=== PATIENT | male | born 1935 | race Caucasian/White ===

== ENCOUNTER 2019-11-30 11:25 | Outpatient (REF) | payer MEDICARE, SELFPAY ==
--- NOTE | 2019-12-02 | PFT_ITS ---
INDICATIONS: Asthma. SPIROMETRY: The FEV1 to FVC 45% with an FEV1 of 1.44 L, which is 56% predicted and an FVC of 3.22 L, which is 88% predicted. No significant response to bronchodilators noted. No significant evidence of small airways disease and a maximum voluntary ventilation of 82% predicted. LUNG VOLUMES: Total lung capacity 127% predicted with residual volume of 192%predicted. DIFFUSION CAPACITY: DLCO 56% predicted. COMPARISONS: None. INTERPRETATION: There is an obstructive ventilatory defect consistent with moderate COPD. No significant response to bronchodilators noted. Significant small airway disease, which could be secondary to asthma-COPD overlap syndrome. Normal maximum voluntary ventilation. Lung volumes demonstrating significant air trapping/hyperinflation due to the COPD and there is also moderate diffusion impairment, need to consider underlying emphysema and/or the parenchymal lung conditions. Clinical correlation warranted. Javy Lazo MD MR/MODL / [id number]
== END 2019-11-30 11:26 | disposition home or self-care (01) ==
LOC: HO.RESP 11:25
PROVIDERS: Visit Provider Surgery
DX: D04.9 Carcinoma in situ of skin, unspecified (principal); R91.1 Solitary pulmonary nodule; J45.909 Unspecified asthma, uncomplicated
CPT/HCPCS: 94060; 94727; 94729; 99211

== ENCOUNTER → 2019-12-06 08:10 | Outpatient (REF) | payer MEDICARE, SELFPAY ==
--- NOTE | 2019-12-06 | NM_ITS ---
EXAMINATION: BILIARY TRACT IMAGING STUDY WITH CCK CLINICAL INFORMATION: Right upper quadrant abdominal pain.. COMPARISON: No previous biliary scan is available for comparison. PET CT scan dated 11/27/2019 and abdominal ultrasound dated 11/07/2019 are available for comparison.. TECHNIQUE: Serial gamma scintillation camera images were obtained over the abdomen for a total observation period of 91 minutes following the intravenous administration of 5.0 mCi Tc-99m Mebrofenin. FINDINGS: There is good concentration of activity in the liver by 5 minutes post injection. Biliary activity is visualized by 22 minutes. The gallbladder is well visualized by 40 minutes. Small bowel is well visualized by 1 a 5 minutes. At 60 minutes post radiopharmaceutical injection, a 30-minute infusion of 1.3 micrograms Sincalide was then begun and an additional 30 minutes of images were obtained. There is prompt and complete gallbladder emptying during the sincalide infusion. At the end of the study there is no significant activity retained in the gallbladder and is also almost complete clearance of activity from the liver. Diffuse small bowel activity is also visualized at the end of the study. The calculated gallbladder ejection fraction is 100% (normal gallbladder ejection fraction is greater than 35%). IMPRESSION: Visualization of the gallbladder is evidence of a patent cystic duct and strong evidence against the diagnosis of acute cholecystitis. The common bile duct is patent. Gallbladder emptying and ejection fraction are normal. Liver function appears normal.
== END ==
LOC: HO.NUCMED 08:10
PROVIDERS: PCP Internal Medicine; Visit Provider Internal Medicine
DX: R10.11 Right upper quadrant pain (principal)
CPT/HCPCS: 78227; A9537; J2805

== ENCOUNTER 2019-12-07 16:57 | Inpatient (IN) | payer MEDICARE, SELFPAY ==
--- NOTE | 2019-12-07 | ECG_ITS ---
Test Reason : WEAKNEESS Blood Pressure : / mmHG Vent. Rate : 099 BPM Atrial Rate : 099 BPM P-R Int : 186 ms QRS Dur : 090 ms QT Int : 330 ms P-R-T Axes : 079 075 063 degrees QTc Int : 423 ms Normal sinus rhythm Nonspecific ST abnormality Inferior leads Borderline criteria for When compared with ECG of 26-JUN-2015 13:20, No significant change was found Referred By: Fernanda Carolina Electronically Signed By:PABLO SHEARER MD
--- NOTE | 2019-12-07 | XR_ITS ---
EXAMINATION: XR CHEST CLINICAL INFORMATION: Cough. Known right lower lobe lung nodule. COMPARISON: PET/CT study 11/27/2019. CT chest 11/09/2019. Chest x-ray 11/08/2019 TECHNIQUE: Frontal portable view of the chest was obtained. 5:44 PM FINDINGS: Irregular density the right lung base measuring about 2 cm remains unchanged since prior study of 11/08/2019 of known lung mass. There is no acute infiltrate. No pulmonary vascular congestion or pleural effusion. Heart size is normal. The cardiac and mediastinal contours are normal. There are calcifications of aorta. Status post reverse left shoulder replacement. IMPRESSION: 1. Known right lung mass right lung base unchanged. 2. No acute abnormality.
[2019-12-07 17:03] VITALS: BP 134/69; PULSE 108; RESP 18; TEMP 37.1; O2SAT 97; BMI 21.8
--- NOTE | 2019-12-07 17:39 | ED.WEAKNESS ---
HPI - Weakness General Chief complaint: Weakness Stated complaint: general weakness, fever Time Seen by Provider: 12/07/19 17:20 Source: patient Mode of arrival: EMS Limitations: no limitations History of Present Illness HPI Narrative: patient comes to emergency room complaining of weakness for several days. Patient states he has had intermittent neck pain, worse with flexion and extension, and also bilateral finger numbness intermittent, none at the moment. Patient denies headache. Patient states he has noticed that his gait is a bit more unsteady than usual, patient reports no falls, no blood thinners. Patient states he came because his made him come. Patient also mentioned that he is waiting to get a lung biopsy on December 18, patient has a known right lower lobe nodule. At this moment, patient denies any neurological symptoms, states he feels weak. Patient denies urinary symptoms. Patient states last night he had subjective fever, took Tylenol and then symptoms resolved. MD Complaint: generalized weakness Onset (ago): day(s) Duration: constant Location: generalized Migration: none Severity: moderate Quality: numbness ( Intermittent, fingertips bilaterally) Relieving factors: none Exacerbating factors: none Related Data Allergies Allergy/AdvReac Type Severity Reaction Status Date / Time No Known Allergies Allergy Verified 12/07/19 17:08 oxycodone AdvReac Unknown vomiting Verified 12/07/19 17:08 Review of Systems Review of Systems: Constitutional: No Weight loss, subjective Fever, No Chills, No Night Sweats, 3 days of Fatigue, No Malaise ENT/Mouth: No Hearing loss, No Ear Pain, No Nasal Congestion, No Sinus Pain, No Hoarseness, No sore throat, No Rhinorrhea, No Swallowing Difficulty Eyes: No Eye Pain, No Swelling, No Redness, No Foreign Body, No Discharge, No Vision Changes Cardiovascular: No Chest Pain, No SOB, No Dyspnea on Exertion, No Orthopnea, No Edema, No Palpitations Respiratory: No Cough, No Sputum, No Wheezing, No Smoke Exposure, No Dyspnea Gastrointestinal: No Nausea, No Vomiting, No Diarrhea, No Constipation, No abdominal Pain, No Hematochezia, No Melena Genitourinary: no irregular bleeding, No Dysuria, No Urinary Frequency, No Hematuria, No Urinary Incontinence, No Urgency, No Flank Pain, No Urinary Flow Changes, No Hesitancy Musculoskeletal: No joint pain, No Myalgias, No Joint Swelling Skin: No Skin Lesions, No rash Neuro: No Weakness, No Numbness, No Paresthesias, No Loss of Consciousness, No Dizziness, No Headache Psych: No Anxiety/Panic, No Depression, No SI/HI/AH/VH, No Social Issues, Heme/Lymph: No Bruising, No Bleeding,No Lymphadenopathy Endocrine: No Polyuria, No Polydipsia, No Temperature Intolerance [facility] Past Medical History Medical History (Updated 12/07/19 @ 20:30 by Fernanda Carolina MD) Asthma GERD (gastroesophageal reflux disease) Hammer toe of left foot HTN (hypertension) Skin cancer Spinal stenosis Surgical History (Updated 12/07/19 @ 17:06 by Griselda Larson) 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 Known right lung mass right lung base unchanged. 2. No acute abnormality. yesterday, patient had an ultrasound done by his primary care physician. Shows as follows: Visualization of the gallbladder is evidence of a patent cystic duct and strong evidence against the diagnosis of acute cholecystitis. The common bile duct is patent. Gallbladder emptying and ejection fraction are normal. Liver function appears normal. Time: 20:25 Reevaluation #2: I discussed with the patient his labs, patient's sodium is significantly decreased, likely causing the weakness and the paresthesias. MDM - Weakness Lab Data Result diagrams: 12/07/19 18:21 12/07/19 18:21 Labs: Lab Results 12/07/19 12/07/19 12/07/19 Range/Units 17:51 18:21 18:21 WBC 13.3 H (4.8-10.8) X10*3/uL RBC 4.39 L (4.60-5.80) X10*6/uL Hgb 13.2 L (14.0-18.0) g/dl Hct 39.0 L (42-52) % MCV 88.8 (80-98) fL MCH 30.1 (27.0-33.0) pg MCHC 33.8 (31.0-36.0) g/dl RDW 12.8 (11.0-16.0) % Plt Count 238 (160-400) X10*3/uL MPV 8.6 L (9.4-12.4) fL Immature Gran % (Auto) 0.7 H (0.0-0.4) % Neut % (Auto) 85.7 H (45-73) % Lymph % (Auto) 2.0 L (20-40) % [place]ell % (Auto) 11.4 H (2-11) % Eos % (Auto) 0.0 (0-4) % Baso % (Auto) 0.2 (0-2) % Lymph # (Auto) 0.3 L (1.2-4.9) X10*3/uL [place]ell # (Auto) 1.5 H (0.1-1.2) X10*3/uL Eos # (Auto) 0.0 (0.0-0.4) X10*3/uL Baso # (Auto) 0.0 (0.0-0.2) X10*3/uL Abs Immat Gran (auto) 0.09 H (0.00-0.03) X10*3/uL Absolute Neuts (auto) 11.4 H (2.0-8.3) X10*3/uL Absolute Nucleated RBC 0.000 (0.0-0.012) X10*3/uL Nucleated RBC % (auto) 0.0 (0.0-0.2) /100WBC Smear Tech's Comments VERIFIED Sodium 124 L (135-145) mmol/L Potassium 4.4 (3.3-5.1) mmol/l Chloride 91 L (96-108) mmol/L Carbon Dioxide 24 (22-29) mmol/L Anion Gap 13 (12-20) BUN 13 (9-16) mg/dL Creatinine 0.87 (0.5-1.4) mg/dL Estim Creat Clear Calc 60.0 Estimated GFR > 60 Random Glucose 110 (60-115) mg/dL Calcium 8.6 (8.4-10.2) mg/dL Total Bilirubin 3.5 H (0.0-1.0) mg/dL Direct Bilirubin 2.6 H (0.0-0.5) mg/dL AST 247 H (5-37) U/L ALT 186 H (0-40) U/L Alkaline Phosphatase 502 H (39-117) U/L Total Protein 6.1 L (6.5-8.0) g/dL Albumin 3.8 (3.5-5.0) g/dL Urine Color YELLOW Urine Appearance CLEAR Urine pH 6.5 (5.0-8.0) Ur Specific [place] <= 1.005 (1.005-1.025) Urine Protein TRACE (NEG-TRACE) MG/DL Urine Glucose (UA) NEG (NEG) MG/DL Urine Ketones 5 (NEG) MG/DL Urine Blood 2+ H (NEG) Urine Nitrite NEG (NEG) Ur Leukocyte Esterase NEG (NEG) Urine RBC 5-9 H (0) /HPF Urine WBC 0 (0-4) /HPF Ur Squamous Epith Cells NONE /LPF Urine Bacteria 1+ /LPF ECG Data Attestation: I personally reviewed and interpreted this ECG as follows: ( normal sinus, heart rate 99, QTC 423, no STEMI) ECG interpretation date: 12/07/19 ECG interpretation time: 18:25 Discharge Plan Discharge Clinical Impression: Acute hyponatremia, Hand paresthesia, LFT elevation Patient Disposition: Admitted As Inpatient
[2019-12-07 18:04] LABS: Glucose Urine UA NEG (NEG); Leukocyte Esterase Urine NEG (NEG); Nitrite Urine NEG (NEG); PH 6.5 (5.0-8.0); Specific Gravity - Urine <= 1.005 (1.005-1.025); Urine Blood 2+ (NEG); Urine Ketones 5 MG/DL (NEG); Urine Protein TRACE MG/DL (NEG-TRACE)
[2019-12-07 18:09] LABS: Appearance Urine CLEAR; Color Urine YELLOW
[2019-12-07 18:17] LABS: Bacteria Urine 1+ /LPF; WBC Urine 0 /HPF (0-4)
[2019-12-07 18:24] VITALS: BP 140/64; PULSE 100; RESP 18; TEMP 37.2; O2SAT 96
[2019-12-07 18:33] LABS: Basophils Percent Auto 0.2 % (0-2); Hemoglobin 13.2 g/dl (14.0-18.0); Imm Gran Abs Auto 0.09 X10*3/uL (0.00-0.03); Imm Gran Pct Auto 0.7 % (0.0-0.4); Lymphocytes Absolute Auto 0.3 X10*3/uL (1.2-4.9); MANUAL DIFF FLAG SCAN; Mean Corpuscular HGB Conc 33.8 g/dl (31.0-36.0); Mean Corpuscular Hemoglobin 30.1 pg (27.0-33.0); Mean Corpuscular Volume 88.8 fL (80-98); Mean Platelet Volume 8.6 fL (9.4-12.4); Monocytes Absolute Auto 1.5 X10*3/uL (0.1-1.2); Monocytes Percent Auto 11.4 % (2-11); Neutrophils Absolute Auto 11.4 X10*3/uL (2.0-8.3); Neutrophils Percent Auto 85.7 % (45-73); Platelet Count 238 X10*3/uL (160-400); Red Blood Count 4.39 X10*6/uL (4.60-5.80); Red Cell Distribution Width 12.8 % (11.0-16.0); SCAN SMEAR FLAG 1; White Blood Count 13.3 X10*3/uL (4.8-10.8)
[2019-12-07 18:55] VITALS: BP 142/65; PULSE 100; RESP 18; TEMP 37.3; O2SAT 99
[2019-12-07 19:03] LABS: SLIDE REVIEW VERIFIED
[2019-12-07 19:29] LABS: Alanine Aminotransferase 186 U/L (0-40); Albumin Level 3.8 g/dL (3.5-5.0); Alkaline Phosphatase 502 U/L (39-117); Anion Gap 13 (12-20); Aspartate Amino Transferase 247 U/L (5-37); Bilirubin Direct 2.6 mg/dL (0.0-0.5); Bilirubin Total 3.5 mg/dL (0.0-1.0); Blood Urea Nitrogen 13 mg/dL (9-16); Calcium 8.6 mg/dL (8.4-10.2); Carbon Dioxide 24 mmol/L (22-29); Chloride 91 mmol/L (96-108); Estimated Glomerular Filt Rate > 60; Glucose Random 110 mg/dL (60-115); Potassium 4.4 mmol/l (3.3-5.1); Sodium 124 mmol/L (135-145); Total Protein 6.1 g/dL (6.5-8.0)
--- NOTE | 2019-12-07 20:10 | PC.NURSE ---
pt vitals wnl. pt in nad at this time. plan for ultrasound due to elevated ast alts. pt agreeable.
--- NOTE | 2019-12-07 20:22 | PC.NURSE ---
pt up to bathroom with 1 assist. denies dizziness.
[2019-12-07] MEDS: 0.9 % Sodium Chloride 1,000 ML 999 ML IVCONT (20:32)
--- NOTE | 2019-12-07 20:40 | PC.NURSE ---
IV ESTABLISHED FLUIDS STARTED. PT TO BE ADMITTED. AGREEABLE
--- NOTE | 2019-12-07 21:02 | PM.IMHP ---
History of Present Illness Date of Service: 12/07/19 Chief Complaint: Generalized weakness 84 y/o male with PMHX of HTN, HLP, COPD, Hernia repair and bone spur removal from shoulder, who presented from home c/o generalized weakness. Per history provided by the patient, for the past several weeks now, has been having generalized weakness which has been worsening since and now for the past 2 days has been associated with numbness of the tip of the fingers in both hands. On presentation to the ED, BP is 140/60 mmHg with HR of 100, Initial Blood work showed WBC of 13 with no evidence of any source of infection, Na of 124, elevated LFTs, direct bilirubin and alk phosp. Patient was evaluated yesterday given the findins of the liver abnormalities and had Hepatobiliary scan which was found to be negative for cholecystitis and bile duct found to be normal. Patient is known to have a lung mass in the rigth which was found one week ago and is currently being worked up. Has on schedule a lung biopsy on 02/16. One liter of NS was ordered per ED and decision for admission given. Patient seen and examined at the bedside, laying down in bed in no acute distress. ROS as above otherwise negative. Physical exam shows preserved strenght in UE and LE. Sensation preserved. PMHX: HTN, HLP, COPD, right lung mass, elevated liver enzymes PSx: Hernia repair, Bone spur removal Toxic habits: No hx of alcohol abuse, smoking or IVDA Review of Systems Constitutional: Constitutional: Reports other Comments: generalized weakness Neurologic: Reports other Comments: numbness in tip finger of both hands PMFSH Medical History (Updated 12/07/19 @ 21:25 by Berna Yang MD) Asthma GERD (gastroesophageal reflux disease) Hammer toe of left foot HTN (hypertension) Skin cancer Spinal stenosis Functional capacity: independent ambulation Family History Father CVD (cardiovascular disease) Mother Lung cancer Brother Bone cancer Surgical History (Updated 12/07/19 @ 17:06 by Griselda Larson) 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 Social History Advance Directives: Yes Advance Directives on File: Yes Advance Directives Date on File: 12/06/19 Meds Allergies Allergy/AdvReac Type Severity Reaction Status Date / Time No Known Allergies Allergy Verified 12/07/19 17:08 oxycodone AdvReac Unknown vomiting Verified 12/07/19 17:08 Home Medications Medication Instructions Recorded Confirmed Type amlodipine [Norvasc] 5 mg PO DAILY 12/07/19 12/07/19 History aspirin 81 mg PO DAILY 12/07/19 12/07/19 History losartan 100 mg PO DAILY 12/07/19 12/07/19 History mometasone 2 inh INHALATION BEDTIME 12/07/19 12/07/19 History olodaterol 2 inh INHALATION DAILY 12/07/19 12/07/19 History omeprazole [Prilosec] 40 mg PO DAILY 12/07/19 12/07/19 History tiotropium bromide [Spiriva with 1 cap INHALATION DAILY 12/07/19 12/07/19 History HandiHaler] Physical Exam Vital Signs and Narrative: Vital Signs: Last Vital Signs Temp 99.1 F 12/07/19 18:55 Pulse 100 12/07/19 18:55 Resp 18 12/07/19 18:55 BP 142/65 H 12/07/19 18:55 Pulse Ox 99 12/07/19 18:55 Body Mass Index 21.8 Const: General: cooperative, healthy appearing and comfortable Orientation/consciousness: patient oriented x3 HENMT: Head: Yes normal to inspection Eyes: General: appearance normal, both eyes and all related structures Neck: Yes normal visual inspection Chest: Chest palpation & inspection: normal inspection of the chest Resp: Effort & Inspection: normal respiratory effort Cardio: Jugular venous distension: no JVD Rhythm: regular rhythm Heart sounds: S1 normal heart sound present and S2 normal heart sound present GI: Inspection: Yes normal to inspection Skin: General skin exam: no rashes or lesions noted Neuro: General: patient oriented x3 Cognition (Neuro): normal cognition Motor exam (neuro): 5/5 motor strength present throughout Sensory Exam: other (no evidence of sensory deficit ) Extrem: Left upper extremity: normal to inspection Psych: Appearance: grossly normal Results Labs Labs: Laboratory Tests 12/07/19 12/07/19 12/07/19 17:51 18:21 18:21 WBC 13.3 H RBC 4.39 L Hgb 13.2 L Hct 39.0 L MCV 88.8 MCH 30.1 MCHC 33.8 RDW 12.8 Plt Count 238 MPV 8.6 L Immature Gran % (Auto) 0.7 H Neut % (Auto) 85.7 H Lymph % (Auto) 2.0 L [place] % (Auto) 11.4 H Eos % (Auto) 0.0 Baso % (Auto) 0.2 Lymph # (Auto) 0.3 L [place] # (Auto) 1.5 H Eos # (Auto) 0.0 Baso # (Auto) 0.0 Abs Immat Gran (auto) 0.09 H Absolute Neuts (auto) 11.4 H Absolute Nucleated RBC 0.000 Nucleated RBC % (auto) 0.0 Smear Tech's Comments VERIFIED Sodium 124 L Potassium 4.4 Chloride 91 L Carbon Dioxide 24 Anion Gap 13 BUN 13 Creatinine 0.87 Estim Creat Clear Calc 60.0 Estimated GFR > 60 Random Glucose 110 Calcium 8.6 Total Bilirubin 3.5 H Direct Bilirubin 2.6 H AST 247 H ALT 186 H Alkaline Phosphatase 502 H Total Protein 6.1 L Albumin 3.8 Urine Color YELLOW Urine Appearance CLEAR Urine pH 6.5 Ur Specific [place] <= 1.005 Urine Protein TRACE Urine Glucose (UA) NEG Urine Ketones 5 Urine Blood 2+ H Urine Nitrite NEG Ur Leukocyte Esterase NEG Urine RBC 5-9 H Urine WBC 0 Ur Squamous Epith Cells NONE Urine Bacteria 1+ Assessment and Plan (1) Acute hyponatremia: Status: Acute (2) Pulmonary nodule: Status: Acute (3) Hand paresthesia: Qualifiers: Laterality: bilateral Qualified Code(s): R20.2 - Paresthesia of skin Status: Acute (4) LFT elevation: Status: Acute Hyponatremia likely due to SIADH Hemodynamically stable at present. No evidence of any motor or sensory deficit on exam Na of 124 s/p one liter of NS per ED Fluid restriction as of now as hyponatremia likely secondary to SIADH given hx of right lung mass concerning for malignancy Follow up repeat BMP at 12 am [facility] / personnel monitor Follow up Urine and serum lytes Biopsy scheduled as outpatient with private warehouse and receiving supervisor of the right sided lung mass Nephrology consult in the am Elevated LFT's of unknown etiology HIDA scan negative for any CBD dilation or cholecystitis GI consult for follow up in the am Hx of HTN continue with losartan home dose continue with amlodipine home dose continue with aspirin home dose HX of GERD continue with PPI home dose
--- NOTE | 2019-12-07 22:13 | PC.NURSE ---
spoke with bed management. bed will be [id number]
[2019-12-07 22:26] VITALS: BP 138/65; PULSE 97; RESP 18; TEMP 37.3; O2SAT 98
--- NOTE | 2019-12-07 22:26 | PC.NURSE ---
pending report to floor.
--- NOTE | 2019-12-07 22:38 | PC.NURSE ---
nurse to nurse report deja gardner for 484.
--- NOTE | 2019-12-07 23:22 | PC.NURSE ---
hospitalist aware of patients hr going from 99 to 121 post ambulation. stat order for ns at this time. pending transport for floor
[2019-12-07 23:23] VITALS: PULSE 121
[2019-12-08] VITALS (12 sets, daily range): BP systolic 114–159; BP diastolic 61–71; PULSE 67–120; RESP 18–20; TEMP 36.1–37.3; O2SAT 92–98
[2019-12-08] MEDS: 0.9 % Sodium Chloride 1,000 ML 999 ML IVCONT (00:09)
[2019-12-08] MEDS: Heparin Sodium,Porcine 5,000 UNIT/ML VIAL 5000 UNIT SUBCUT ×3 (00:40→17:11)
[2019-12-08] MEDS: 0.9 % Sodium Chloride Flush 3 ML SYRINGE IVFLUSH ×3 (00:41→17:11)
[2019-12-08 01:51] LABS: Anion Gap 13 (12-20); Blood Urea Nitrogen 11 mg/dL (9-16); Calcium 7.9 mg/dL (8.4-10.2); Carbon Dioxide 21 mmol/L (22-29); Chloride 98 mmol/L (96-108); Creatinine Clr Calc Pharmacy 69.6; Estimated Glomerular Filt Rate > 60; Glucose Random 119 mg/dL (60-115); Potassium 3.8 mmol/l (3.3-5.1); Sodium 128 mmol/L (135-145)
--- NOTE | 2019-12-08 03:03 | PM.EVENT ---
Event Note Event Note: Given that Na came up from 124 to 128 after IV hydration in the ED likely etiology of hyponatremia has a mixed component of dehydration. Will hold further IV fluids and repeat BMP at 6 am to avoid overcorrection.
[2019-12-08] MEDS: Omeprazole 40 MG CAPSULE.DR PO (05:42)
[2019-12-08 07:26] LABS: Basophils Percent Auto 0.3 % (0-2); Eosinophils Percent Auto 0.1 % (0-4); Hematocrit 40.9 % (42-52); Hemoglobin 13.4 g/dl (14.0-18.0); Imm Gran Pct Auto 0.7 % (0.0-0.4); Lymphocytes Absolute Auto 0.9 X10*3/uL (1.2-4.9); Lymphocytes Percent Auto 6.5 % (20-40); MANUAL DIFF FLAG SCAN; Mean Corpuscular HGB Conc 32.8 g/dl (31.0-36.0); Mean Corpuscular Hemoglobin 29.8 pg (27.0-33.0); Mean Corpuscular Volume 90.9 fL (80-98); Mean Platelet Volume 9.1 fL (9.4-12.4); Monocytes Absolute Auto 1.7 X10*3/uL (0.1-1.2); Monocytes Percent Auto 12.2 % (2-11); Neutrophils Absolute Auto 11.2 X10*3/uL (2.0-8.3); Neutrophils Percent Auto 80.2 % (45-73); Platelet Count 266 X10*3/uL (160-400); Red Cell Distribution Width 13.1 % (11.0-16.0); SCAN SMEAR FLAG 1
[2019-12-08 07:58] LABS: SLIDE REVIEW VERIFIED
[2019-12-08 08:04] LABS: Anion Gap 15 (12-20); Blood Urea Nitrogen 10 mg/dL (9-16); Carbon Dioxide 22 mmol/L (22-29); Chloride 97 mmol/L (96-108); Creatinine Clr Calc Pharmacy 62.9; Estimated Glomerular Filt Rate > 60; Glucose Random 93 mg/dL (60-115); Potassium 3.8 mmol/l (3.3-5.1); Sodium 130 mmol/L (135-145)
[2019-12-08 08:17] LABS: Calcium 8.5 mg/dL (8.4-10.2)
[2019-12-08] MEDS: amLODIPine Besylate 5 MG TABLET PO (08:44)
[2019-12-08] MEDS: Aspirin Enteric Coated 81 MG TABLET.DR PO (08:44)
[2019-12-08] MEDS: Losartan Potassium 50 MG TABLET 100 MG PO (08:45)
--- NOTE | 2019-12-08 09:19 | P.CNGI_ITS ---
History of Present Illness Data of Consult Service Date: 12/08/19 Requesting physician: Victorino Velasquez Primary Care Provider: Kevin Ochoa MD HPI Reason for consult: Abnormal Liver profile 84 yo male who was brought to the ER due to episode of recurrent subxiphoid pain. He has had at least 6 separate attacks. He has altered his diet removing fatty food sources. He has lost @ least 10 pounds. He has been evaluated by Dr. Isabel for RLL lung mass. PET [place] [facility] [place] Daughter is with the patient. She says there is no formal Oncology note due to no tissue Dx til bx to be done on the 21rst. Review of Systems Review of Systems: General ROS is otherwise negative Constitutional: Constitutional: Reports anorexia, Reports difficulty sleeping, Reports fatigue, Reports malaise, Reports poor appetite and Reports weight loss Cardiovascular: Cardiovascular: Denies chest pain, Denies irregular heart rhythm and Denies dyspnea Respiratory: Respiratory: Reports as per HPI (Being evaluated for Lung mass--RLL), Denies chest congestion and Denies dyspnea Comments: Patient tells me that he has inhalers that he uses daily. Former smoker> [address] did show Emphysema with biapical scarring. Gastrointestinal: Gastrointestinal: Reports abdominal pain (describes sub xiphoid--pain not burning), Denies change in bowel habits and Denies early satiety Musculoskeletal: Musculoskeletal: Reports numbness (tips of fingers which has cleared) Neurologic: Reports numbness (tips of fingers which has cleared) and Reports other Endocrine: Endocrine: Reports fatigue PMFSH Past Medical History Medical History Asthma GERD (gastroesophageal reflux disease) Hammer toe of left foot HTN (hypertension) Skin cancer Spinal stenosis Functional capacity: independent ambulation Family History Family History Father CVD (cardiovascular disease) Mother Lung cancer Brother Bone cancer Surgical History Surgical History 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 If so, by whom?: No Do you feel safe in your current relationship?: No Is there a partner from a previous relationship who is making you feel unsafe now?: No Are you made to feel afraid or neglected: No Advance Directives: Yes Advance Directives on File: Yes Advance Directives Date on File: 12/06/19 Do you have thoughts of harming others: None Recently lost weight without trying: No service: Yes Current occupational status: retired Meds Allergies Allergy/AdvReac Type Severity Reaction Status Date / Time oxycodone AdvReac Unknown vomiting Verified 12/08/19 11:15 Home Medications Medication Instructions Recorded Confirmed Type amlodipine [Norvasc] 5 mg PO DAILY 12/07/19 12/07/19 History aspirin 81 mg PO DAILY 12/07/19 12/07/19 History losartan 100 mg PO DAILY 12/07/19 12/07/19 History mometasone 2 inh INHALATION BEDTIME 12/07/19 12/07/19 History olodaterol 2 inh INHALATION DAILY 12/07/19 12/07/19 History omeprazole [Prilosec] 40 mg PO DAILY 12/07/19 12/07/19 History tiotropium bromide [Spiriva with 1 cap INHALATION DAILY 12/07/19 12/07/19 History HandiHaler] Physical Exam Vital Signs: Vital Signs: Vital Signs Temp Pulse Resp BP Pulse Ox 12/08/19 08:44 108 H 136/63 12/08/19 07:01 98 F 12/08/19 07:00 98 F 110 H 20 136/63 94 12/08/19 04:00 98.0 F 67 18 159/70 H 96 12/08/19 03:24 99.2 F 90 19 128/64 95 12/08/19 00:23 99.0 F 117 H 18 134/64 92 12/07/19 23:23 121 H 12/07/19 22:26 99.1 F 97 18 138/65 98 12/07/19 18:55 99.1 F 100 18 142/65 H 99 12/07/19 18:24 99.0 F 100 18 140/64 H 96 12/07/19 17:03 98.8 F 108 H 18 134/69 97 Body Mass Index 21.8 Const: General: cooperative, comfortable and no acute distress Nutritional Appearance: average body habitus Orientation/consciousness: patient oriented x3 Limitations: no limitations (Patient sitting in recliner mobilty not checked @ this time) Neck: Neck: Yes no lymphadenopathy Thyroid: Thyroid normal Resp: Effort & Inspection: normal respiratory effort, able to speak in complete sentences and no cough Auscultation: diminished lung sounds Percussion: hyperresonance Cardio: Rate: regular rate Rhythm: regular rhythm Heart sounds: no murmurs GI: Palpation (GI): Soft to palpation, nontender, no masses and No Rebound tenderness present Auscultation: normal bowel sounds Rectal Exam - Male: Yes deferred Skin: General skin exam: no rashes or lesions noted Neuro: General: patient oriented x3 Psych: Appearance: well kempt Mental Status: mental status grossly normal Affect: normal affect Attitude: cooperative Results Labs CBC & Chem 7: 12/08/19 06:08 12/08/19 15:13 Labs: Short CBC 12/07/19 12/07/19 12/08/19 Range/Units 17:51 18:21 06:08 WBC 13.3 H 14.0 H (4.8-10.8) X10*3/uL Hgb 13.2 L 13.4 L (14.0-18.0) g/dl Hct 39.0 L 40.9 L (42-52) % Plt Count 238 266 (160-400) X10*3/uL Urine Color YELLOW Urine Appearance CLEAR Urine pH 6.5 (5.0-8.0) Ur Specific Edgar <= 1.005 (1.005-1.025) Urine Protein TRACE (NEG-TRACE) MG/DL Urine Glucose (UA) NEG (NEG) MG/DL Urine Ketones 5 (NEG) MG/DL Urine Blood 2+ H (NEG) Urine Nitrite NEG (NEG) Ur Leukocyte Esterase NEG (NEG) Urine RBC 5-9 H (0) /HPF Urine WBC 0 (0-4) /HPF Ur Squamous Epith Cells NONE /LPF Urine Bacteria 1+ /LPF BMP 12/07/19 12/08/19 12/08/19 18:21 01:05 06:08 Sodium 124 L 128 L 130 L Potassium 4.4 3.8 3.8 Chloride 91 L 98 97 Carbon Dioxide 24 21 L 22 BUN 13 11 10 Creatinine 0.87 0.75 0.83 Calcium 8.6 7.9 L 8.5 Liver Function 12/07/19 Range/Units 18:21 Total Bilirubin 3.5 H (0.0-1.0) mg/dL Direct Bilirubin 2.6 H (0.0-0.5) mg/dL AST 247 H (5-37) U/L ALT 186 H (0-40) U/L Alkaline Phosphatase 502 H (39-117) U/L Albumin 3.8 (3.5-5.0) g/dL Urine 12/07/19 Range/Units 17:51 Urine Color YELLOW Urine Appearance CLEAR Urine pH 6.5 (5.0-8.0) Ur Specific Edgar <= 1.005 (1.005-1.025) Urine Protein TRACE (NEG-TRACE) MG/DL Urine Glucose (UA) NEG (NEG) MG/DL Assessment and Plan (1) LFT elevation: Problem details: Patient has no known hx of Liver disease. He has been told that he has sludge or microlithiasis--HIDA done(12/05) showed no cystic duct obstruction. He had been told to follow a low fat diet. Labs from : Bili: 0.7; AST/ALT: ; Alk phos-89; Hep B&C profile 2019-neg. See report of CHEST CT 11/09/19:Gallbladder slightly prominent, wall thickened. There was ? sludge raised. Low attenuation lesions in medial segment of the Left lobe--no further comment. ? Raised of wall thickening vs lack of distention of proximal stomach. I did find the PET that was done here on 11/26--the lesions in the liver did not light up on that scanning. Status: Acute Would add to labs (done) CRP, GGT, LDH. Consider doing CEA. MRCP without contrast might help see if there are any intraductal lesions or obstruction. Might get us more information on lesions noted on CT. This was discussed and reviewed with the Patient and his daughter who was @ the bedside. I also reviewed management with Hospitalist. (There is also a possibility of altered vascular supply to Gallbladder but usually there is high fever and a more acute abdomen on exam.) PLEASE REPEAT FULL LIVER PROFILE ON 10/11-AM.
--- NOTE | 2019-12-08 09:39 | MHC.CM.PN ---
[employer] completed with pt and his who is at bedside. Pt lives at home with his and is independent with self care and mobility. Pt currently has no DME and no in home services. Pt is a and is service connected. Pt reports he has a HCP naming his son Errol as his agent. IMM delivered current DC plan is home with no services pts family will provide transportation
[2019-12-08 10:16] LABS: Alanine Aminotransferase 151 U/L (0-40); Albumin Level 3.9 g/dL (3.5-5.0); Alkaline Phosphatase 435 U/L (39-117); Aspartate Amino Transferase 118 U/L (5-37); Bilirubin Direct 0.9 mg/dL (0.0-0.5); Bilirubin Total 1.7 mg/dL (0.0-1.0); Total Protein 6.3 g/dL (6.5-8.0)
[2019-12-08 11:28] LABS: C Reactive Protein 23.38 mg/dL (< or = 0.50); Gamma Glutamyl Transpeptidase 785 U/L (11-51); Lactate Dehydrogenase 217 U/L (118-273)
[2019-12-08] MEDS: ALPRAZolam 0.25 MG TABLET 0.125 MG PO (11:29)
--- NOTE | 2019-12-08 12:10 | P.PNIM_ITS ---
Subjective Subjective Date of Service: 12/08/19 Interval History: the patient was seen and evaluated this morning Laying in bed, feels comfortable Denies any fever, chills or shortness of breath No reported other overnight events. Review of Systems Review of Systems: Yes all other systems are reviewed and are negative Gastrointestinal Gastrointestinal: Reports as per HPI Physical Exam Vital Signs: Vital Signs: Vital Signs Temp Pulse Resp BP Pulse Ox 12/08/19 11:53 97 F 88 20 124/62 98 12/08/19 11:30 97 F 98 18 122/63 93 12/08/19 08:44 108 H 136/63 12/08/19 07:01 98 F 12/08/19 07:00 98 F 110 H 20 136/63 94 12/08/19 04:00 98.0 F 67 18 159/70 H 96 12/08/19 03:24 99.2 F 90 19 128/64 95 12/08/19 00:23 99.0 F 117 H 18 134/64 92 12/07/19 23:23 121 H 12/07/19 22:26 99.1 F 97 18 138/65 98 12/07/19 18:55 99.1 F 100 18 142/65 H 99 12/07/19 18:24 99.0 F 100 18 140/64 H 96 12/07/19 17:03 98.8 F 108 H 18 134/69 97 Body Mass Index 21.8 Constitutional : Alert, oriented, not in distress Neck : Normal inspection, Supple Cardiovascular : RRR, S1 S2, no lower extremity edema Respiratory : Good bilateral air entry, no crackles, wheezes or rhonchi Gastrointestinal: soft, lax, Normal bowel sounds, Non tender Skin : Warm/Dry, No rash Neurological : Alert & oriented x3, No focal deficit Objective Data Current Medications Generic Name Dose Route Start Last Admin Trade Name Freq PRN Reason Stop Dose Admin Albuterol Sulfate 1.25 mg 12/08/19 09:22 Albuterol Sulfate (0.042%) 1.25 Mg/3 Ml Vial.Neb INHALE RQ4H PRN Shortness of Breath Amlodipine Besylate 5 mg 12/08/19 09:00 12/08/19 08:44 Amlodipine Besylate 5 Mg Tablet PO 5 mg DAILY JUDIT Administration Protocol Aspirin 81 mg 12/08/19 09:00 12/08/19 08:44 Aspirin Enteric Coated 81 Mg Tablet. PO 81 mg DAILY JUDIT Administration Fluticasone Propionate 2 puff 12/08/19 09:25 12/08/19 11:30 Fluticasone Propionate 100 Mcg Blst.W.Dev INHALE Not Given RBID [facility] Heparin Sodium (Porcine) 5,000 unit 12/08/19 00:22 12/08/19 08:42 Heparin Sodium,Porcine 5,000 Unit/Ml Vial SUBCUT 5,000 unit Q8H JUDIT Administration Lorazepam 0.5 mg 12/08/19 11:14 Lorazepam 2 Mg/Ml Vial IVPUSH PRE PROCEDURE PRN Anxiety Losartan Potassium 100 mg 12/08/19 09:00 12/08/19 08:45 Losartan Potassium 50 Mg Tablet PO 100 mg DAILY JUDIT Administration Omeprazole 40 mg 12/08/19 06:30 12/08/19 05:42 Omeprazole 40 Mg Capsule. PO 40 mg DAILY@0630 [facility] Administration Pharmacy Consult 1 each 12/07/19 20:56 Consult Rx Perform Med Rec MISCELLANE ONCE PRN Consult order Sodium Chloride 3 ml 12/08/19 00:22 12/08/19 08:42 0.9 % Sodium Chloride Flush 3 Ml Syringe IVFLUSH 3 ml QSHIFT [facility] Administration Tiotropium [place] 1 puff 12/08/19 09:25 12/08/19 11:31 Tiotropium [place] 18 Mcg Cap.W.Dev INHALE Not Given RDAILY [facility] Labs CBC & Chem 7: 12/08/19 06:08 12/08/19 06:08 Assessment and Plan (1) Acute hyponatremia: Status: Acute (2) LFT elevation: Problem details: Patient has no known hx of Liver disease. He has been told that he has sludge of micorlithiasis--HIDA done showed no cystic duct obstruction. He had been told to follow a low fat diet. Labs from : Bili: 0.7; AST/ALT: ; Alk phos-89; Hep B&C profile 2019-neg. See report of CHEST CT 11/09/19:Gallbladder slightly prominent, wall thickened. There was ? sludge raised. Low attenuation lesions in medial segment of the Left lobe--no further comment. ? Raised of wall thickening vs lack of distention of proximal stomach. I did find the PET that was done here on 11/26--the lesions in the liver did not light up on that scanning. Status: Acute (3) General weakness: Status: Acute (4) Pulmonary nodule: Status: Acute (5) HTN (hypertension): Status: Acute (6) Hand paresthesia: Status: Acute Assessment and Plan: an 84 years old male with PMH of COPD, lung mass, HTN, HLD who presents to the hospital with generalized weakness. 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 sodium corrected from 124-130 Fluid restriction for now Follow up repeat BMP this afternoon radiation monitor osmolality not done at time of presentation nephrology to evaluate the patient lung mass Biopsy scheduled as outpatient with chest surgeon of the right sided lung mass Elevated LFT's of unknown etiology PET scan showed liver lesions HIDA scan negative for any CBD dilation or cholecystitis Reported sludge on ultrasound from previously GI Input appreciated, to do MRCP continue to monitor liver test Hx of HTN continue with losartan home dose continue with amlodipine home dose continue with aspirin home dose HX of GERD continue with PPI home dose DVT PPX Heparin
[2019-12-08 16:03] LABS: Anion Gap 12 (12-20); Blood Urea Nitrogen 11 mg/dL (9-16); Calcium 8.2 mg/dL (8.4-10.2); Carbon Dioxide 23 mmol/L (22-29); Chloride 96 mmol/L (96-108); Creatinine Clr Calc Pharmacy 66.9; Estimated Glomerular Filt Rate > 60; Glucose Random 120 mg/dL (60-115); Potassium 3.9 mmol/l (3.3-5.1); Sodium 127 mmol/L (135-145)
[2019-12-08] MEDS: traZODone HCL 25 MG HALFTAB PO (22:39)
--- NOTE | 2019-12-09 | MR_ITS ---
EXAMINATION: MR, MRCP CLINICAL INFORMATION: 84-year-old male with right lower lobe nodule and abnormal findings on recent abdominal ultrasound. Abnormal liver function tests. Liver lesions. COMPARISON: Abdomen ultrasound from 11/07/2019. PET-CT imaging from 11/27/2019. TECHNIQUE: MRCP protocol. MR imaging of the abdomen was performed using standard sequences on a high-field magnet without intravenous contrast. FINDINGS: The liver has normal size and contour. No cirrhotic morphology. No evidence of steatosis on the opposed phase gradient echo images. Within the left lobe of liver, predominantly involving segment 4 adjacent to the region of the falciform ligament, there are multiple clustered cysts, some of which appear to have a thin septation. The largest cyst measures up to 1.7 cm maximum dimension on the axial images. These could represent old, benign peribiliary cysts. No suspicious liver lesion. The gallbladder is physiologically distended and contains mild amount of layering debris/sludge. Again noted is mild thickening of the gallbladder wall. The gallbladder wall thickness is approximately 0.3 cm. No pericholecystic fluid. Small, 0.3 cm gallbladder polyp (image 8, series 4). Common bile duct is normal; it measures up to 0.5 cm maximum diameter. No evidence of common duct stricture or choledocholithiasis. No intrahepatic or extra hepatic bile duct dilatation. No acute findings within the pancreas. No pancreatic ductal dilatation or edema. Small, 0.3 cm cyst is noted within the pancreatic body (image 6, series 6). No suspicious pancreatic lesion. Spleen is normal. Adrenal glands are normal. The kidneys are normal in size. No hydronephrosis. 1.5 cm peripelvic cyst of the mid left kidney. Abdominal aorta is normal in size. Inferior vena cava is unremarkable. No abdominal lymphadenopathy. No dilated bowel loops. No mesenteric fat stranding or ascites. 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 No suspicious bone lesions. IMPRESSION: * Persistent mild, nonspecific thickening of the gallbladder wall. No pericholecystic fluid. No convincing findings of acute cholecystitis. Also, no evidence of cholecystitis on the nuclear medicine hepatobiliary scan from 12/06/2019. * Gallbladder contains mild sludge. A 0.3 cm gallbladder polyp is noted, as well. * The clustered cysts in the left lobe of liver are likely old, benign peribiliary cysts. No suspicious-appearing liver lesions. * Incidentally noted is a very small, 0.3 cm cyst in the pancreatic body.
[2019-12-09] MEDS: 0.9 % Sodium Chloride Flush 3 ML SYRINGE IVFLUSH ×2 (02:43→13:59)
[2019-12-09] MEDS: Heparin Sodium,Porcine 5,000 UNIT/ML VIAL 5000 UNIT SUBCUT ×2 (02:44→08:29)
[2019-12-09 03:46] VITALS: BP 130/68; PULSE 112; RESP 18; TEMP 37.1; O2SAT 95
[2019-12-09 07:03] VITALS: BP 115/58; PULSE 102; RESP 18; TEMP 36; O2SAT 96
[2019-12-09 07:35] VITALS: BP 132/74; PULSE 98; RESP 18; TEMP 36.6; O2SAT 95
[2019-12-09 08:11] LABS: Basophils Percent Auto 0.2 % (0-2); Hematocrit 37.1 % (42-52); Hemoglobin 12.3 g/dl (14.0-18.0); Imm Gran Abs Auto 0.11 X10*3/uL (0.00-0.03); Imm Gran Pct Auto 0.8 % (0.0-0.4); Lymphocytes Absolute Auto 0.5 X10*3/uL (1.2-4.9); Lymphocytes Percent Auto 3.4 % (20-40); MANUAL DIFF FLAG SCAN; Mean Corpuscular HGB Conc 33.2 g/dl (31.0-36.0); Mean Corpuscular Hemoglobin 29.6 pg (27.0-33.0); Mean Corpuscular Volume 89.2 fL (80-98); Mean Platelet Volume 9.4 fL (9.4-12.4); Monocytes Absolute Auto 2.5 X10*3/uL (0.1-1.2); Monocytes Percent Auto 18.9 % (2-11); Neutrophils Absolute Auto 10.3 X10*3/uL (2.0-8.3); Neutrophils Percent Auto 76.7 % (45-73); Platelet Count 208 X10*3/uL (160-400); Red Blood Count 4.16 X10*6/uL (4.60-5.80); Red Cell Distribution Width 13.2 % (11.0-16.0); SCAN SMEAR FLAG 1; White Blood Count 13.4 X10*3/uL (4.8-10.8)
[2019-12-09 08:22] LABS: INTERNATIONAL NORM RATIO 1.1 (0.9-1.1); Prothrombin Time 13.3 SEC (10.8-13.0)
[2019-12-09] MEDS: Omeprazole 40 MG CAPSULE.DR PO (08:27)
[2019-12-09] MEDS: amLODIPine Besylate 5 MG TABLET PO (08:28)
[2019-12-09] MEDS: Aspirin Enteric Coated 81 MG TABLET.DR PO (08:29)
[2019-12-09] MEDS: Losartan Potassium 50 MG TABLET 100 MG PO (08:29)
[2019-12-09 08:41] LABS: Alanine Aminotransferase 84 U/L (0-40); Albumin Level 3.3 g/dL (3.5-5.0); Alkaline Phosphatase 258 U/L (39-117); Anion Gap 15 (12-20); Aspartate Amino Transferase 55 U/L (5-37); Bilirubin Direct 0.7 mg/dL (0.0-0.5); Bilirubin Total 1.2 mg/dL (0.0-1.0); Blood Urea Nitrogen 13 mg/dL (9-16); Carbon Dioxide 21 mmol/L (22-29); Chloride 97 mmol/L (96-108); Creatinine Clr Calc Pharmacy 66.9; Estimated Glomerular Filt Rate > 60; Glucose Random 101 mg/dL (60-115); Potassium 3.5 mmol/l (3.3-5.1); Sodium 129 mmol/L (135-145); Total Protein 5.4 g/dL (6.5-8.0)
[2019-12-09 08:50] LABS: SLIDE REVIEW VERIFIED
[2019-12-09 11:18] VITALS: BP 107/57; PULSE 98; RESP 18; TEMP 36.4; O2SAT 92
[2019-12-09 11:19] VITALS: BP 107/57; PULSE 96; RESP 18; TEMP 36.6; O2SAT 93
--- NOTE | 2019-12-09 14:33 | PM.PNNEP ---
Subjective Subjective Interval history: Events noted Chart reviewed Discussed with team Physical Exam Vital Signs: Vital Signs: Vital Signs Temp Pulse Resp BP Pulse Ox 12/09/19 11:19 98 F 96 18 107/57 L 93 12/09/19 11:18 97.6 F 98 18 107/57 L 92 12/09/19 07:35 98 F 98 18 132/74 95 12/09/19 07:03 96.8 F 102 H 18 115/58 L 96 12/09/19 03:46 98.7 F 112 H 18 130/68 95 12/08/19 23:22 99.2 F 120 H 20 139/67 94 12/08/19 19:01 99 F 106 H 18 114/61 94 12/08/19 16:00 20 12/08/19 15:13 99.1 F 113 H 18 141/71 H 95 Body Mass Index 21.8 Const: General: cooperative Orientation/consciousness: oriented to person Eyes: General: appearance normal, both eyes and all related structures Resp: Effort & Inspection: normal respiratory effort Auscultation: no crackles Cardio: Jugular venous distension: no JVD Palpation: no palpable S3 Heart sounds: no rubs GI: Inspection: Yes normal to inspection Palpation (GI): Soft to palpation Skin: General skin exam: no rashes or lesions noted Neuro: General: oriented to person Motor exam (neuro): no asterixis Assessment & Plan Assessment and plan (1) Acute hyponatremia: Problem details: Sodium levels were low on this admission. Probably related to lung mass. Status: Acute Assessment and Plan: Keep PO water restriction Goal pNa> 130 No need for 3% NaCl or UREa at this time Complete work up for lung nodule
--- NOTE | 2019-12-09 14:48 | P.DS_ITS ---
DS: Providers Provider Date of admission: 12/07/19 20:59 Primary care physician: Kevin Ochoa MD Consults: 12/07/19 22:02 Consult to Gastroenterology Routine Consulting Provider: [facility] [place] [facility] Reason for consultation: elevated LFT's Has provider been notified: No 12/07/19 22:49 Consult to Nephrology Routine Consulting Provider: [facility] Reason for consultation: hyponatremia Has provider been notified: No 12/08/19 00:22 Consult to Physician Routine Consulting Provider: [facility] Reason for consultation: Hyponatremia Has provider been notified: No DS: Diagnosis Discharge Diagnosis (1) Acute hyponatremia: Status: Acute (2) General weakness: Status: Acute (3) LFT elevation: Status: Acute (4) Pulmonary nodule: Status: Acute (5) HTN (hypertension): Status: Acute (6) Hand paresthesia: Status: Acute DS: Summary Hospital Course Hospital Course: admission note HPI 84 y/o male with PMHX of HTN, HLP, COPD, Hernia repair and bone spur removal from shoulder, who presented from home c/o generalized weakness. Per history provided by the patient, for the past several weeks now, has been having generalized weakness which has been worsening since and now for the past 2 days has been associated with numbness of the tip of the fingers in both hands. On presentation to the ED, BP is 140/60 mmHg with HR of 100, Initial Blood work showed WBC of 13 with no evidence of any source of infection, Na of 124, elevated LFTs, direct bilirubin and alk phosp. Patient was evaluated yesterday given the findins of the liver abnormalities and had Hepatobiliary scan which was found to be negative for cholecystitis and bile duct found to be normal. Patient is known to have a lung mass in the rigth which was found one week ago and is currently being worked up. Has on schedule a lung biopsy on 02/16. One liter of NS was ordered per ED and decision for admission given. Patient seen and examined at the bedside, laying down in bed in no acute distress. ROS as above otherwise negative. Physical exam shows preserved strenght in UE and LE. Sensation preserved. The patient was admitted to the hospital for evaluation of general weakness. He was found to have hyponatremia with sodium 124. urine studies not done at time presentation. 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 He was evaluated by Nephrology and treated with water restriction with sodium level improved to 130. recommended to continue water restriction of 1.5 L after discharge. To repeat blood test as outpatient and follow-up with Dr. Ferirs from Nephrology. He was noted to elevated liver function enzymes with recent normal HIDA scan. A PET scan was concerning for liver lesions. He was evaluated by roof cement and paint maker helper Dr. Gil who recommended MRCP. No acute obstruction noted on the biliary tree. His liver enzymes start to improve the next day of admission with no reported abdominal pain, nausea or vomiting. He was able to tolerate diet well. The elevated liver enzymes are likely secondary to sludge which has passed already. Recommended low-fat diet and to follow-up with GI if needed. Time Spent with Patient Time attestation: Total time spent providing and/or coordinating discharge services: Physical Exam Vital Signs: Vital Signs: Vital Signs Temp Pulse Resp BP Pulse Ox 12/09/19 11:19 98 F 96 18 107/57 L 93 12/09/19 11:18 97.6 F 98 18 107/57 L 92 12/09/19 07:35 98 F 98 18 132/74 95 12/09/19 07:03 96.8 F 102 H 18 115/58 L 96 12/09/19 03:46 98.7 F 112 H 18 130/68 95 12/08/19 23:22 99.2 F 120 H 20 139/67 94 12/08/19 19:01 99 F 106 H 18 114/61 94 12/08/19 16:00 20 12/08/19 15:13 99.1 F 113 H 18 141/71 H 95 Body Mass Index 21.8 Constitutional : Alert, oriented, not in distress Neck : Normal inspection, Supple Cardiovascular : RRR, S1 S2, no lower extremity edema Respiratory : Good bilateral air entry, no crackles, wheezes or rhonchi Gastrointestinal: soft, lax, Normal bowel sounds, Non tender Skin : Warm/Dry, No rash Neurological : Alert & oriented x3, No focal deficit DS: Data Data Completed and Pending Labs on day of discharge: Labs from last 24 hours 12/09/19 12/09/19 12/09/19 06:26 06:26 06:26 WBC 13.4 H RBC 4.16 L Hgb 12.3 L Hct 37.1 L MCV 89.2 MCH 29.6 MCHC 33.2 RDW 13.2 Plt Count 208 MPV 9.4 Immature Gran % (Auto) 0.8 H Neut % (Auto) 76.7 H Lymph % (Auto) 3.4 L [place] % (Auto) 18.9 H Eos % (Auto) 0.0 Baso % (Auto) 0.2 Lymph # (Auto) 0.5 L [place] # (Auto) 2.5 H Eos # (Auto) 0.0 Baso # (Auto) 0.0 Abs Immat Gran (auto) 0.11 H Absolute Neuts (auto) 10.3 H Absolute Nucleated RBC 0.000 Nucleated RBC % (auto) 0.0 Smear Tech's Comments VERIFIED PT 13.3 H INR 1.1 Sodium 129 L Potassium 3.5 Chloride 97 Carbon Dioxide 21 L Anion Gap 15 BUN 13 Creatinine 0.78 Estim Creat Clear Calc 66.9 Estimated GFR > 60 Random Glucose 101 Calcium 8.0 L Total Bilirubin 1.2 H Direct Bilirubin 0.7 H AST 55 H ALT 84 H Alkaline Phosphatase 258 H D Total Protein 5.4 L Albumin 3.3 L 12/08/19 15:13 WBC RBC Hgb Hct MCV MCH MCHC RDW Plt Count MPV Immature Gran % (Auto) Neut % (Auto) Lymph % (Auto) [place] % (Auto) Eos % (Auto) Baso % (Auto) Lymph # (Auto) [place] # (Auto) Eos # (Auto) Baso # (Auto) Abs Immat Gran (auto) Absolute Neuts (auto) Absolute Nucleated RBC Nucleated RBC % (auto) Smear Tech's Comments PT INR Sodium 127 L Potassium 3.9 Chloride 96 Carbon Dioxide 23 Anion Gap 12 BUN 11 Creatinine 0.78 Estim Creat Clear Calc 66.9 Estimated GFR > 60 Random Glucose 120 H Calcium 8.2 L Total Bilirubin Direct Bilirubin AST ALT Alkaline Phosphatase Total Protein Albumin Discharge Plan Discharge Patient Disposition: Home, Self-Care Referrals: Kevin Ochoa MD [Primary Care Provider] - Discharge Medications: Continued amlodipine [Norvasc] 5 mg Tablet 5 mg PO DAILY RF: 0 aspirin 81 mg Tablet,Delayed Release (Dr/Ec) 81 mg PO DAILY RF: 0 omeprazole 20 mg Capsule,Delayed Release(Dr/Ec) 40 mg PO DAILY RF: 0 losartan 100 mg Tablet 100 mg PO DAILY RF: 0 Spiriva with HandiHaler 18 mcg Capsule, W/Inhalation Device 1 cap INHALATION DAILY RF: 0 mometasone 220 mcg/ actuation (120) Aerosol Powdr Breath Activated 2 inh INHALATION BEDTIME RF: 0 olodaterol 2.5 mcg/actuation Mist 2 inh INHALATION DAILY RF: 0 Discharge Orders: Discharge Order (Routine); Ordered 12/09/19 Ordered By: Victorino Velasquez Diet: advance to your usual diet Activity on Discharge: As tolerated Patient Instructions: 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 Your blood work was significant for low sodium level of 124. you were evaluated by admission nurse coordinator Dr. Ferris and treated with water restriction with good response as your sodium level improved to 130. Recommending water restriction of 1.5 L a day. Will repeat blood test next week and to follow-up with Dr. Ferris office. Your liver enzymes were noted to be elevated at time of presentation. You were evaluated by roof cement and paint maker helper Dr. Gil who did an MRCP study showing no acute obstruction in your gallbladder or biliary tract. Recommended low-fat diet.
--- NOTE | 2019-12-09 14:50 | PM.GIPN ---
Subjective Subjective Date of Service: 12/09/19 Interval History: Patient sitting up in recliner. He says he is without pain. He is tolerating diet well. His is with him today. He is anxious to go home. Physical Exam Vital Signs: Vital Signs: Vital Signs Temp Pulse Resp BP Pulse Ox 12/09/19 11:19 98 F 96 18 107/57 L 93 12/09/19 11:18 97.6 F 98 18 107/57 L 92 12/09/19 07:35 98 F 98 18 132/74 95 12/09/19 07:03 96.8 F 102 H 18 115/58 L 96 12/09/19 03:46 98.7 F 112 H 18 130/68 95 12/08/19 23:22 99.2 F 120 H 20 139/67 94 12/08/19 19:01 99 F 106 H 18 114/61 94 12/08/19 16:00 20 12/08/19 15:13 99.1 F 113 H 18 141/71 H 95 Body Mass Index 21.8 Const: General: cooperative, no acute distress and anxious; No acute distress Nutritional Appearance: average body habitus Orientation/consciousness: patient oriented x3 Resp: Effort & Inspection: normal respiratory effort, able to speak in complete sentences, no respiratory distress and no use of accessory muscles Cardio: Rate: regular rate Rhythm: regular rhythm GI: Inspection: No distended Palpation (GI): Soft to palpation and nontender Neuro: General: patient oriented x3 Objective Data Labs CBC & Chem 7: 12/09/19 06:26 12/09/19 06:26 Labs: Laboratory Results - last 24 hr 12/08/19 12/09/19 12/09/19 15:13 06:26 06:26 WBC 13.4 H RBC 4.16 L Hgb 12.3 L Hct 37.1 L MCV 89.2 MCH 29.6 MCHC 33.2 RDW 13.2 Plt Count 208 MPV 9.4 Immature Gran % (Auto) 0.8 H Neut % (Auto) 76.7 H Lymph % (Auto) 3.4 L [place] % (Auto) 18.9 H Eos % (Auto) 0.0 Baso % (Auto) 0.2 Lymph # (Auto) 0.5 L [place] # (Auto) 2.5 H Eos # (Auto) 0.0 Baso # (Auto) 0.0 Abs Immat Gran (auto) 0.11 H Absolute Neuts (auto) 10.3 H Absolute Nucleated RBC 0.000 Nucleated RBC % (auto) 0.0 Smear Tech's Comments VERIFIED PT 13.3 H INR 1.1 Sodium 127 L Potassium 3.9 Chloride 96 Carbon Dioxide 23 Anion Gap 12 BUN 11 Creatinine 0.78 Estim Creat Clear Calc 66.9 Estimated GFR > 60 Random Glucose 120 H Calcium 8.2 L Total Bilirubin Direct Bilirubin AST ALT Alkaline Phosphatase Total Protein Albumin 12/09/19 06:26 WBC RBC Hgb Hct MCV MCH MCHC RDW Plt Count MPV Immature Gran % (Auto) Neut % (Auto) Lymph % (Auto) [place] % (Auto) Eos % (Auto) Baso % (Auto) Lymph # (Auto) [place] # (Auto) Eos # (Auto) Baso # (Auto) Abs Immat Gran (auto) Absolute Neuts (auto) Absolute Nucleated RBC Nucleated RBC % (auto) Smear Tech's Comments PT INR Sodium 129 L Potassium 3.5 Chloride 97 Carbon Dioxide 21 L Anion Gap 15 BUN 13 Creatinine 0.78 Estim Creat Clear Calc 66.9 Estimated GFR > 60 Random Glucose 101 Calcium 8.0 L Total Bilirubin 1.2 H Direct Bilirubin 0.7 H AST 55 H ALT 84 H Alkaline Phosphatase 258 H D Total Protein 5.4 L Albumin 3.3 L Progress Note: A&P Assessment and plan (1) LFT elevation: Problem details: MRI done today Liver is normal size and contour. No cirrhotic morphology. No evidence of steatosis on the opposed phase gradient echo images. Within the left lobe of liver, predominantly involving segment 4 adjacent to the region of the falciform ligament, there are multiple clustered cysts, some of which appear to have a thin septation. The largest cyst measures up to 1.7 cm maximum dimension on the axial images. These could represent old, benign peribiliary cysts. No suspicious liver lesion. The gallbladder is physiologically distended and contains mild amount of layering debris/sludge. Again noted is mild thickening of the gallbladder wall. The gallbladder wall thickness is approximately 0.3 cm. No pericholecystic fluid. Small, 0.3 cm gallbladder polyp (image 8, series 4). Common bile duct is normal; it measures up to 0.5 cm maximum diameter. No evidence of common duct stricture or choledocholithiasis. No intrahepatic or extra hepatic bile duct dilatation. Status: Acute Assessment and Plan: Counselled patient and his on the above findings. Questionable mass like area in liver is a cluster of cysts-not new finding. Duct appears clear. Sludge still present in Gallbladder. He probably passed some sludge or small stones. Testing is returning to normal. At this time he can go home and continue on his low fat diet. Intervention can be discussed if pain persists. Ideally, he will get his lung bx on the before any additional episodes. I will have my office contact him about followup. Discussed with Hospitalist service as well. (2) Acute hyponatremia: Problem details: Sodium levels were low on this admission. Probably related to lung mass. Status: Acute Assessment and Plan: Discussed with Hospitalist who will give patient and his some guidelines on free water intake. Fall Risk Details Current Medications: Current Medications Generic Name Dose Route Start Last Admin Trade Name Freq PRN Reason Stop Dose Admin Albuterol Sulfate 1.25 mg 12/08/19 09:22 Albuterol Sulfate (0.042%) 1.25 Mg/3 Ml Vial.Neb INHALE RQ4H PRN Shortness of Breath Amlodipine Besylate 5 mg 12/08/19 09:00 12/09/19 08:28 Amlodipine Besylate 5 Mg Tablet PO 5 mg DAILY JUDIT Administration Protocol Aspirin 81 mg 12/08/19 09:00 12/09/19 08:29 Aspirin Enteric Coated 81 Mg Tablet.Dr PO 81 mg DAILY JUDIT Administration Fluticasone Propionate 2 puff 12/08/19 09:25 12/09/19 13:56 Fluticasone Propionate 100 Mcg Blst.W.Dev INHALE Not Given RBID JUDIT Heparin Sodium (Porcine) 5,000 unit 12/08/19 00:22 12/09/19 08:29 Heparin Sodium,Porcine 5,000 Unit/Ml Vial SUBCUT 5,000 unit Q8H JUDIT Administration Lorazepam 0.5 mg 12/08/19 11:14 Lorazepam 2 Mg/Ml Vial IVPUSH PRE PROCEDURE PRN Anxiety Losartan Potassium 100 mg 12/08/19 09:00 12/09/19 08:29 Losartan Potassium 50 Mg Tablet PO 100 mg DAILY JUDIT Administration Non-Formulary Medication 2 inhalation 12/08/19 17:55 12/08/19 22:44 Mometasone INHALE Not Given BEDTIME JUDIT Non-Formulary Medication 2 inhalation 12/09/19 08:00 12/09/19 08:33 Olodaterol INHALE 2 inhalation RDAILY [facility] Administration Omeprazole 40 mg 12/08/19 06:30 12/09/19 08:27 Omeprazole 40 Mg Capsule.Dr PO 40 mg DAILY@0630 [facility] Administration Pharmacy Consult 1 each 12/07/19 20:56 Consult Rx Perform Med Rec MISCELLANE ONCE PRN Consult order Sodium Chloride 3 ml 12/08/19 00:22 12/09/19 13:59 0.9 % Sodium Chloride Flush 3 Ml Syringe IVFLUSH 3 ml QSHIFT [facility] Administration Tiotropium Alpine 1 puff 12/08/19 09:25 12/09/19 07:44 Tiotropium Alpine 18 Mcg Cap.W.Dev INHALE 1 puff RDAILY [facility] Administration Trazodone HCl 25 mg 12/08/19 22:28 12/08/19 22:39 Trazodone Hcl 25 Mg Halftab PO 25 mg BEDTIME PRN Administration Insomnia Time Spent With Patient Time: Total time spent is greater than 50% in coordination of care (as documented) at patient's floor/unit and/or counseling patient: Time with patient: 15 - 24 minutes
--- NOTE | 2019-12-11 09:12 | CONS_ITS ---
DATE OF SERVICE: 12/07/2019 REASON FOR CONSULTATION: I was called to see this patient to assist in the management of hyponatremia. HISTORY OF PRESENT ILLNESS: Freddy is a pleasant 84-year-old man with a history of longstanding hypertension and COPD who was admitted because of generalized weakness. He was found to have mild hyponatremia, sodium 124. He has undergone a workup including CAT scan, which shows a lung mass on the right, which was found about a week ago. He is currently being worked up for the same. Since admission, he has received IV fluids and sodium has gradually increased. Today, he feels better. The weakness has improved. PAST MEDICAL HISTORY: Ongoing medical problems include history of hypertension, hyperlipidemia, COPD, right lung mass, and elevated LFTs. PAST SURGICAL HISTORY: Include hernia repair, bone spur removal. PERSONAL HISTORY: No history of smoking or alcohol abuse at present. REVIEW OF SYSTEMS: He has generalized weakness. No headache, nausea, or vomiting. He had epigastric pain, which gets worse when he eats. No diarrhea or constipation. No fever. No shortness of breath. No rash. No polyuria or polydipsia. All other systems were reviewed and negative. FAMILY HISTORY: Noncontributory to this admission. No history of hyponatremia. CURRENT MEDICATIONS: All the current medications were reviewed. PHYSICAL EXAMINATION: GENERAL: Today, Freddy appears comfortable. VITAL SIGNS: Blood pressure 140/60 and pulse is 90. He is afebrile. LUNGS: Air entry equal. No rales. HEART: S1 and S2 heard. No gallop or rub. ABDOMEN: Soft and nontender. EXTREMITIES: No edema. No rash. No clubbing. NEUROLOGIC: Alert, awake, oriented. No asterixis. LABORATORY DATA: Hemoglobin 13.4, sodium was 124 on admission last evening and this morning, sodium is 130, BUN 10, and creatinine 0.83. Urine specific gravity less than 1.005, 2+ blood by dipstick with 5 to 9 rbc's, urine sodium 27. Urine osmolality not available. Serum osmolality not available. IMPRESSION: 84-year-old man with hyponatremia. The different diagnosis for the hyponatremia would include hypovolemic hyponatremia since the urine sodium is relatively low with a low urine specific gravity. However, he may have underlying SIADH due to the lung mass causing nonosmotic ADH release. The goal at this point is to gradually correct the sodium. Agree with IV normal saline at 50 to 60 cc/hour. We will restrict oral free water intake to less than 1 L per 24 hours. Goal is to maintain serum sodium more than 133. I will certainly check the serum osmolality during the next blood draw. He needs further workup for the lung and the liver lesions. We will be happy to follow him as needed. Jalen Ferris MD BPA/MODL / [phone]
== END 2019-12-09 15:15 | disposition home or self-care (01) | DRG 644 ==
LOC: HO.ED 20:30 → HO.IMC 21:59
PROVIDERS: Internal Medicine Gastroenterology; Admitting Provider Internal Medicine; Emergency Provider Emergency Medicine; PCP Internal Medicine; Visit Provider Student in an Organized Health Care Education/Training Program
DX: E22.2 Syndrome of inappropriate secretion of antidiuretic hormone (principal); C34.31 Malignant neoplasm of lower lobe, right bronchus or lung; I10 Essential (primary) hypertension; K21.9 Gastro-esophageal reflux disease without esophagitis; E78.5 Hyperlipidemia, unspecified; J44.9 Chronic obstructive pulmonary disease, unspecified; E86.0 Dehydration; R20.2 Paresthesia of skin; Z85.828 Personal history of other malignant neoplasm of skin; Z88.5 Allergy status to narcotic agent; Z79.82 Long term (current) use of aspirin; Z79.899 Other long term (current) drug therapy
CPT/HCPCS: 36415; 71045; 74181; 80048; 80076; 81001; 82436; 82977; 83615; 84133; 84300; 85025; 85610; 86140; 93005; 99225; 99285

== ENCOUNTER 2019-12-12 15:55 | Outpatient (REF) | payer MEDICARE, SELFPAY ==
[2019-12-12 17:14] LABS: Alanine Aminotransferase 70 U/L (0-40); Albumin Level 3.4 g/dL (3.5-5.0); Alkaline Phosphatase 173 U/L (39-117); Anion Gap 11 (12-20); Aspartate Amino Transferase 46 U/L (5-37); Bilirubin Total 0.6 mg/dL (0.0-1.0); Blood Urea Nitrogen 31 mg/dL (9-16); Calcium 8.4 mg/dL (8.4-10.2); Carbon Dioxide 28 mmol/L (22-29); Chloride 94 mmol/L (96-108); Estimated Glomerular Filt Rate > 60; Glucose Random 103 mg/dL (60-115); Potassium 4.2 mmol/l (3.3-5.1); Sodium 129 mmol/L (135-145); Total Protein 5.8 g/dL (6.5-8.0)
== END 2019-12-12 15:56 | disposition home or self-care (01) ==
LOC: HO.LAB 15:55
PROVIDERS: PCP Internal Medicine; Visit Provider Internal Medicine
DX: E87.1 Hypo-osmolality and hyponatremia (principal); R79.89 Other specified abnormal findings of blood chemistry
CPT/HCPCS: 80053

== ENCOUNTER 2019-12-24 10:52 | Outpatient (REF) | payer MEDICARE, SELFPAY ==
[2019-12-24 15:04] LABS: Anion Gap 15 (12-20); Blood Urea Nitrogen 10 mg/dL (9-16); Calcium 8.5 mg/dL (8.4-10.2); Carbon Dioxide 26 mmol/L (22-29); Chloride 98 mmol/L (96-108); Estimated Glomerular Filt Rate > 60; Glucose Random 101 mg/dL (60-115); Potassium 4.7 mmol/l (3.3-5.1); Sodium 134 mmol/L (135-145)
== END 2019-12-24 10:53 | disposition home or self-care (01) ==
LOC: HO.10HDL 10:52
PROVIDERS: PCP Internal Medicine; Visit Provider Internal Medicine
DX: E87.1 Hypo-osmolality and hyponatremia (principal)
CPT/HCPCS: 80048

== ENCOUNTER → 2020-01-04 08:59 | Outpatient (BNVA) | payer MEDICARE, SELFPAY | PROVIDERS: PCP Internal Medicine; Visit Provider Surgery | DX: Z76.89 Persons encountering health services in other specified circumstances (principal) ==

== ENCOUNTER → 2020-01-14 09:34 | Outpatient (REF) | payer MEDICARE, SELFPAY ==
--- NOTE | 2020-01-14 | NM_ITS ---
EXAMINATION: PULMONARY PERFUSION STUDY CLINICAL INFORMATION: Malignant neoplasm, lung cancer. COMPARISON: No previous lung scan is available for comparison. Radiographs the chest dated 01/14/2020, the same date as this lung scan, are available for comparison. CT scan of the chest dated 11/09/2019 is also available for comparison. TECHNIQUE: Following the intravenous injection of 4.0 mCi Tc-99m MAA, an 8-view perfusion study was performed using a gamma scintillation camera. FINDINGS: No segmental perfusion defects are present. There is mild heterogeneity bilaterally, most prominently some decreased activity in the lung apices bilaterally and in the lingula, but no discrete focal anatomic appearing perfusion defects are present. Distribution of activity bilaterally. The contemporaneous chest radiographs show a known right lung mass in the right lower lobe. The CT scan dated 11/09/2019 shows the right lower lobe pulmonary mass, scarring with some pleural calcifications in the apices bilaterally and some scarring or atelectasis in the lingula. NM/NM pul perfusion IMPRESSION: Very low probability of pulmonary embolism.
--- NOTE | 2020-01-14 10:21 | XR_ITS ---
EXAMINATION: XR CHEST CLINICAL INFORMATION: Lung mass COMPARISON: Previous chest x-rays most recent October and November [address] October 2019 TECHNIQUE: 2 views of the chest were obtained. FINDINGS: The cardiac and mediastinal contours are stable. The lungs are well inflated. The right lower lobe nodule/mass appears unchanged. The lungs are otherwise clear. There is no pleural effusion or pneumothorax. There are degenerative changes of the spine. There is a left shoulder replacement. XR/XR chest 2V IMPRESSION: Well-inflated lungs. Stable right lower lobe nodule/mass from October and November 2019
== END ==
LOC: HO.NUCMED 09:34
PROVIDERS: PCP Internal Medicine; Visit Provider Internal Medicine
DX: C34.90 Malignant neoplasm of unspecified part of unspecified bronchus or lung (principal)
CPT/HCPCS: 71046; 78580; A9540

== ENCOUNTER → 2020-01-17 08:16 | Outpatient (REF) | payer MEDICARE, SELFPAY ==
--- NOTE | 2020-01-17 08:30 | CA_ITS ---
Acquisition Time: 2020-01-17 09:28:18 Total Exercise Time: 00:02:00 Test Indications: Pre-Op Evaluation Medications: AMLODIPINE ASA FORMETROL LOSARTAN OMEPRAZOLE SPIRIVA LOSARTAN Protocol: LEXISC[place] Max HR: 130 BPM 96% of Pred: 135 BPM Max BP: 152/082 mmHG Max Work Load: 1.7 METS JOSE-MIBI PROTOCOL DUE TO COPD. PT WALKED FOR TWO MIN. JOSE PROTOCOL FOLLOWED FOR INJXN. PT EXPERIENCED MILD DIZZINES. NO C/O OF CP OR SOB. REGULAR PVC'S ON MONITOR. NO R ON T'S.NO SUSTAINED ARRHYTHMIAS.CLINICALLY AND ELEC NEG. AWAIT NUCLEAR SCAN RESULTS. Referred By: Kevin Ocoha Overread By: Kamini Will
--- NOTE | 2020-01-17 08:30 | NM_ITS ---
EXAMINATION: NM MYOCARDIAL PERFUSION REST AND SPECT STRESS STUDY CLINICAL INFORMATION: Preop cardiac exam. COMPARISON: CT/PET exam 11/27/2019 TECHNIQUE: Patient was injected with 0.4 mg Lexiscan over 10 seconds followed by exercise over 2 minutes and achieving a maximum age-predicted heart rate of 96%. No EKG changes were seen. At peak stress, 25 mCi of technetium 99m sestamibi was injected on 01/17/2020 and stress SPECT images obtained. Rest SPECT images were obtained on 01/18/2020 following intravenous administration of 25 mCi of 99m technetium sestamibi. CT imaging was obtained for attenuation correction. DLP 31 mGy-cm. FINDINGS: On stress SPECT study, there is normal perfusion to entire left ventricle with normal thickening and contraction on gated wall motion study. Left ventricular ejection fraction measures 72%. On rest SPECT study, there is normal perfusion to the entire left ventricle wall. On planar images, there is noncardiac related activity in the splenic flexure. There is normal contraction and thickening of left ventricle with left ventricular ejection fraction measuring 74%. On limited CT imaging, there is extensive atherosclerotic calcification of ascending aorta and the coronary arteries. Also visualized is a soft tissue density in the right lower lobe question infiltrate versus mass. A spiculated right lower lobe pulmonary nodule was seen on the previous PET study 11/27/2019. NM/NM thai perf SPECT rest & str IMPRESSION: Normal myocardial perfusion stress and rest SPECT study following Lexiscan protocol. Right lower lobe mass versus consolidation. A spiculated nodule was seen in the right lower lobe on recent PET study 11/27/2019.
== END ==
LOC: HO.CARD 08:16
PROVIDERS: PCP Internal Medicine; Visit Provider Internal Medicine
DX: Z01.818 Encounter for other preprocedural examination (principal); C34.90 Malignant neoplasm of unspecified part of unspecified bronchus or lung
CPT/HCPCS: 78452; 93017; A9500; J0280; J2785

== ENCOUNTER 2020-01-18 07:33 | Outpatient (REF) | payer MEDICARE, SELFPAY ==
--- NOTE | 2020-01-18 07:34 | CT_ITS ---
EXAMINATION: CT CHEST WITHOUT AND WITH CONTRAST CLINICAL INFORMATION: Lung cancer COMPARISON: Previous chest CT October 2019 CT scan October 2019 TECHNIQUE: Multidetector volumetric CT imaging of the chest was obtained before and after the administration of 65 mL of Omnipaque 350 intravenous contrast without immediate adverse reactions. Axial MIP volume rendering provided. Sagittal and coronal reformatted images were obtained. This CT examination was performed using dose optimization techniques as appropriate, variously including the following: *Automated exposure control *Adjustment of mA and/or kV according to patient size (this includes techniques or standardized protocols for targeted exams where dose is matched to indication/reason for exam; i.e. extremities or head) *Use of iterative reconstruction technique DLP: 290 mGy-cm FINDINGS: LUNGS: There is evidence of emphysema. There is biapical pleural and parenchymal scarring and calcification. The heterogeneous partially solid partially groundglass attenuation lesion in the right lower lobe appears increased in size. This is irregularly-shaped and difficult to measure. This measures 3.7 x 3.4 cm in AP and transverse dimension axial image 465 series 8 compared to 2.7 x 3.2 cm on October 2019 exam. This measures 3.6 cm in longitudinal dimension sagittal reconstructed image 96 compared to 3.4 cm on previous exam. This has Solid and groundglass attenuation components. This appears slightly increased in density compared to previous exams. This has spicules extending to the inferior and posterior and lateral pleural surfaces. There is a 8 x 11 mm groundglass attenuation right lower lobe nodule axial image 543 series 8. This does not appear appreciably changed. There are numerous small calcified and noncalcified pulmonary nodules or micronodules that are unchanged. MEDIASTINUM: There are small right hilar lymph nodes. There are no enlarged hilar or mediastinal lymph nodes. The heart does not appear enlarged. There is coronary artery and aortic valve calcification. There is no pericardial effusion. There is a small esophageal hernia. PLEURA: There is no pleural effusion. No pleural mass or thickening. AXILLA: No lymphadenopathy. UPPER ABDOMEN: There is evidence of atherosclerotic disease. There is question of mild gallbladder wall thickening. This is similar to previous exam. The gallbladder does not appear as prominent compared to previous exam. There is low-attenuation seen in the medial segment of the left lobe of the liver and question some overlying capsular retraction or scarring. There is also question of mild intrahepatic biliary duct dilatation of the left lobe of the liver. These findings are better appreciated with IV contrast. This area does not demonstrate increased uptake on PET CT scan. There are small periportal lymph nodes. OSSEOUS STRUCTURES: There are degenerative changes of the spine and mild scoliosis. There is a left shoulder replacement. CT/CT chest wo/w con IMPRESSION: Emphysema. Interval increase in size and density of the right lower lobe mass. Stable approximately 1 cm groundglass attenuation right lower lobe nodule. Other small bilateral calcified and noncalcified micronodules are stable. Coronary artery and aortic valve calcification. Question slightly thickened gallbladder wall. Low-attenuation in the peripheral medial segment of the left lobe of the liver, overlying capsular retraction or scarring and question mild intrahepatic biliary duct dilatation. This could be better evaluated with dedicated liver imaging with MRI or CT. This area did not demonstrate increased uptake on recent PET CT scan.
[2020-01-18] MEDS: iohexoL 350 MG/ML 100 ML INFUS..BTL 65 ML IV (08:53)
== END 2020-01-18 07:34 | disposition home or self-care (01) ==
LOC: HO.CT 07:33
PROVIDERS: PCP Internal Medicine; Visit Provider Internal Medicine
DX: C34.90 Malignant neoplasm of unspecified part of unspecified bronchus or lung (principal)
CPT/HCPCS: 71270

== ENCOUNTER → 2020-01-31 09:30 | Outpatient (REF) | payer MEDICARE, SELFPAY ==
--- NOTE | 2020-01-31 09:30 | CA_ITS ---
Transthoracic Echocardiogram Patient (Last, First, Middle): Freddy Miller J Gender: Male Date of : 1935 Age: 85 Procedure Date: 01/31/2020 Procedure Type: Transthoracic Echocardiogram Location: OP Height: 175.26 cm Weight: 67.13 kg BSA: 1.82 m2 Heart Rate: bpm BP: 150 / 70 mmHg Folder And Notcher: Referring MD: Kevin Ochoa MD Strip Cutter: Dax Ward MD Symptoms: MALIGNANT NEOPLASM OF UNSPECIFIED PART OF BRONCHUS Study Quality: Good ECG Rhythm: Sinus Conclusions: - 1. Normal LV systolic function with impaired relaxation filling pattern 2. Mild to moderate aortic stenosis 3. Normal RV systolic pressure 4.No pericardial effusion Findings Left Ventricle Normal left ventricular size, thickness, and systolic function. The visually estimated ejection fraction is between 55-60%. Spectral Doppler is indicative of an impaired relaxation filling pattern. E/E prime ratio is between 8 and 15 consistent with indeterminate filling pressures. Wall Motion Rest Echo Findings The basal inferior segment is hypokinetic. All other scored wall segments showed normal motion. Right Ventricle Normal right ventricular cavity size and systolic function. Atria The left atrium is likely dilated. There is no evidence of interatrial shunt. The right atrium is normal in size. Aortic Valve There is moderate calcification of the aortic valve. There is moderate thickening of the aortic valve. There is mild to moderate aortic valve stenosis. The peak aortic gradient is 20 mmHg.The mean gradient is 12 mmHg. The aortic valve area is 1.33 cm2. There is no aortic valve regurgitation. Mitral Valve There is mild anterior and moderate posterior mitral leaflet thickening. There is moderate mitral annular calcification. There is trace mitral valve regurgitation. There is no mitral valve stenosis. Pulmonic Valve The pulmonic valve was not well visualized. Tricuspid Valve Likely normal tricuspid valve structure and function. There is mild tricuspid valve regurgitation. The right ventricular systolic pressure is normal. Normal right atrial pressure. There is no evidence of pulmonary hypertension. Great Vessels All visible segments of the aorta are normal in size. The pulmonary artery was not well visualized. Venous The inferior vena cava is normal in size and collapses greater than 50% with inspiration. Pericardium/Pleural There is no evidence of pericardial effusion. Prior Study Comparison No prior study available for comparison. Measurements 2D Linear Measurements RVIDd: 2.78 RVIDd Index: 1.53 IVSd: 1.18 0.6-0.9/0.6-1.0 cm LVIDd: 4.30 3.9-5.3/4.2-5.9 cm LVIDd Index: 2.36 2.4-3.2/2.2-3.1 cm/m2 LVIDs: 3.04 2.0-3.6 cm LVPWd: 1.01 0.7-1.1 cm Ao Root: 2.90 2.1-3.5 cm LA Diam: 3.60 2.7-3.8/3.0-4.0 cm LAIDs Index: 1.98 1.5-2.3 cm/m2 LV Mass: 201.61 67-162/88-224 g LV Mass Index: 110.77 43-95/49-115 g/m2 LVOT Diam: 2.20 3.0+(-)1.3 cm 2D Systolic Function EF 4C: 54.20 >55% EF 2C: 64.20 >55% EF BiP: 59.80 >55% Mitral Valve MV Pk E: 0.93 MV PK A: 1.35 MV Decel Time: 211.00 E/A: 0.70 E'Lateral: 6.85 E'Medial: 5.77 E/E' Med: 16.10 E/E' Lat: 13.60 PHT: 62.00 MVA PHT: 3.55 Decel [place]: 4.42 Aortic Valve AoV Pk Caesar: 2.22 AoV Mn Caesar: 1.68 AoV VTI: 0.54 AoV Pk Grad: 20.00 Aov Mn Grad: 12.00 TAMERA Cont.VTI: 1.33 AI Pk Caesar: 0.72 AI [place]: 14.59 LVOT LVOT Pk Caesar: 0.88 LVOT Mn [place]: 0.58 LVOT VTI: 0.19 LVOT Pk Grad: 3.00 LVOT Mn Grad: 2.00 LVOT Diam: 2.20 LVOT Area: 3.80 Diastolic Function MV Pk E: 0.93 MV Pk A: 1.35 E/A: 0.70 E'Medial: 5.77 E/E' Med: 16.10 E' Laterial: 6.85 E/E' Lat: 13.60 Tricuspid Valve TR Pk [place]: 2.52 TR Pk Grad: 25.00 RA Press: 3.00 RVSP: 28.00 Great Vessels Aorta Ao Root-2D: 2.90 2.0-3.7 cm Updated in Other Vendor System with Status of Final Dax Ward MD electronically signed on 02/01/2020 4:23:45 PM with status of Final
== END ==
LOC: HO.CARD 09:30
PROVIDERS: Visit Provider Internal Medicine
DX: C34.90 Malignant neoplasm of unspecified part of unspecified bronchus or lung (principal)
CPT/HCPCS: 93306

== ENCOUNTER 2020-03-21 15:38 | Emergency (ER) | payer MEDICARE, SELFPAY ==
[2020-03-21 16:00] VITALS: BP 134/78; BP 148/71; PULSE 108; RESP 20; TEMP 37; O2SAT 95; BMI 49.1
--- NOTE | 2020-03-21 16:20 | XR_ITS ---
EXAMINATION: XR CHEST CLINICAL INFORMATION: Shortness of breath COMPARISON: Chest radiographs 01/14/2020, 12/07/2019, CT chest 01/18/2020 TECHNIQUE: Portable upright AP view of the chest was obtained. FINDINGS: There is a right chest tube with tip at the right medial apex. There is subcutaneous emphysema along right lateral chest but no visible pneumothorax. There is volume loss on the right with rightward shift of the heart and mediastinum and rightward bowing tracheal air column. Patchy airspace consolidation is present right lower zone. The left lung is clear. The vascularity is normal. The heart is normal in size. There is a left shoulder prosthesis. XR/XR chest 1V IMPRESSION: 1. Right chest tube present with right lateral chest wall subcutaneous emphysema. No pneumothorax. 2. Patchy airspace consolidation right lower zone along with right volume loss with rightward mediastinal shift. This may be related to prior surgery. Clinically correlate. 3. Left lung clear. Vascularity normal.
--- NOTE | 2020-03-21 16:20 | ECG_ITS ---
Test Reason : SOB Blood Pressure : / mmHG Vent. Rate : 102 BPM Atrial Rate : 102 BPM P-R Int : 192 ms QRS Dur : 086 ms QT Int : 346 ms P-R-T Axes : 070 064 052 degrees QTc Int : 450 ms Sinus tachycardia with occasional Premature ventricular complexes Otherwise normal ECG When compared with ECG of 07-DEC-2019 18:08, Premature ventricular complexes are now Present Referred By: Mechelle Fraser Electronically Signed By:MIKO VAZQUEZ
--- NOTE | 2020-03-21 16:21 | ED.SOB ---
HPI - SOB/Dyspnea General Chief Complaint: Dyspnea Stated Complaint: sob Time Seen by Provider: 03/21/20 16:20 Source: patient and EMS Mode of arrival: EMS Limitations: no limitations History of Present Illness HPI Narrative: 85-year-old male history of lung cancer status post thoracic surgery for lobectomy for malignancy (surgery was done at [facility] and record was requested), surgery was done on 03/06/2020, patient was evaluated by [facility] at home today and was sent to the for further workup for shortness of breath only while he was taking a deep breath and breathing exercising. Otherwise patient when he is resting no problem. Patient otherwise declined chest pain, symptoms is worsening by exertion, patient stated had a recent COVID testing that was negative. Patient currently on Levaquin for the past 2 days for no clear reason. 6:11 p.m. 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 Patient is already on Levaquin day 3. Patient was discharged from [facility] yesterday with leukocytosis today's WBCs 19,000 which thought to be postoperative reaction. Related Data Home Medications Medication Instructions Recorded Confirmed Spiriva with HandiHaler 1 cap INHALATION DAILY 12/07/19 01/04/20 amlodipine [Norvasc] 5 mg PO DAILY 12/07/19 01/04/20 aspirin 81 mg PO DAILY 12/07/19 01/04/20 losartan 100 mg PO DAILY 12/07/19 01/04/20 mometasone 2 inh INHALATION BEDTIME 12/07/19 01/04/20 olodaterol 2 inh INHALATION DAILY 12/07/19 01/04/20 omeprazole 40 mg PO DAILY 12/07/19 01/04/20 formoterol fumarate 12 mcg capsule mcg INHALATION 01/03/20 01/04/20 with inhalation device tiotropium bromide 18 mcg capsule 1 cap INHALATION DAILY 01/03/20 01/04/20 with inhalation device Allergies Allergy/AdvReac Type Severity Reaction Status Date / Time oxycodone AdvReac Unknown vomiting Verified 12/08/19 11:15 Review of Systems Review of Systems: All other systems are reviewed and are negative Constitutional: Reports as per HPI and Reports no additional constitutional complaints Eyes: Reports as per HPI and Reports no additional eye complaints Reports system reviewed and no additional complaints, except as documented Cardiovascular: Reports as per HPI and Reports no additional cardiovascular complaints Respiratory: Reports as per HPI and Reports no additional respiratory complaints Gastrointestinal: Reports as per HPI and Reports no additional gastrointestinal complaints Genitourinary: Reports no additional female genitourinary complaints Musculoskeletal: Reports no additional musculoskeletal complaints Skin/Breast: Reports system reviewed and no additional complaints, except as docu Psychiatric: Reports no additional psychiatric complaints Endocrine: Reports no additional endocrine complaints Hematologic/Lymphatic: Reports no additional hematologic/lymphatic complaints Allergic/Immunologic: Reports no additional allergic/immunologic complaints Reports system reviewed and no additional complaints, except as documented and Reports Abnormal speech present PMFSH Past Medical History Medical History Asthma GERD (gastroesophageal reflux disease) Hammer toe of left foot HTN (hypertension) Skin cancer Spinal stenosis Surgical History 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 Family History Family History Father CVD (cardiovascular disease) Mother Lung cancer Brother Bone cancer Social History Social History Household Members: Spouse Housing: House Smoking Status: Former smoker Advance Directives: Yes Advance Directives Date on File: 12/06/19 service: Yes Current occupational status: retired Physical Exam Vital Signs: Vital Signs: Last Vital Signs Temp 98.6 F 03/21/20 16:00 Pulse 108 H 03/21/20 16:00 Resp 20 03/21/20 16:00 BP 148/71 H 03/21/20 16:00 Pulse Ox 96 03/21/20 16:38 Body Mass Index 49.1 Vital signs have been reviewed as normal and appeared to be correct. Blood pressure in the high range. Heart rate : Tachycardic. Respiration rate normal. Temperature normal. Oxygen saturation normal. Appearance: Alert. Oriented X3. No acute distress. Head: Normal external exam. Normocephalic. Atraumatic. No Avery signs noted. No raccoon eyes noted Eyes: PERRLA. EOMI. Conjunctiva and sclera normal. Eyelids normal. ENT: EAC normal. TM's Normal. Pharynx normal. Uvula midline. Moist mucous membranes. No trismus noted. No drooling noted. No muffled voice noted. Neck: Normal inspection. Neck supple. FROM. No adenopathy. Thyroid Normal. No meningeal signs. No neck mass noted. CVS: Normal heart rate and rhythm. Heart sound normal. No murmurs noted. Pulses normal throughout. Respiratory: No respiratory distress. Painless inspiration. Breath sounds normal. No wheezes/rales/rhonchi noted. Chest nontender. No accessory muscle usage noted or decreased air movement noted. Right-sided chest tube is intact, few cc of serous discharge in the bag, patient has no problem dealing with a chest tube. Abdomen: Soft and nontender. Bowel sounds normal in all 4 quadrants. No distention noted. No organomegaly noted. No visible injury noted. Back: No CVA tenderness. Full range of motion noted. Skin: Skin warm and dry. Normal skin color. Normal skin turgor. No rashes/lesions/lacerations noted. Extremities: No lower extremity edema. Extremities exhibit normal range of motion. Extremities nontender. Neuro: Oriented X 3. No motor deficit. No sensory deficit. Reflexes normal. MDM - SOB/Dyspnea MDM Narrative Medical decision making narrative: Assessment and plan. 85 years old male status post right lower lobe lobectomy due to cancer, presented after was doing breathing exercising with [facility]NA and patient complain of shortness of breath, patient otherwise when knees resting has no symptoms, patient was discharged from [facility] yesterday. The case was discussed with MAE Edwards. 1. Elevated high sensitive troponin with no chest pain, no EKG changes. 2. Leukocytosis with no source of infection. 3. Chest x-ray just postoperative change patient is already taking Levaquin day 3. Empirical for assumed pneumonia. 4. I spoke with the patient appears stable no difficulty breathing with stable vital signs patient was instructed to keep his appointment with the thoracic surgeon luci Krause as scheduled. Lab Data Result diagrams: 03/21/20 16:49 03/21/20 16:49 Labs: Lab Results 03/21/20 03/21/20 03/21/20 Range/Units 16:49 16:49 16:49 WBC 19.4 H (4.8-10.8) X10*3/uL RBC 3.72 L (4.60-5.80) X10*6/uL Hgb 10.6 L (14.0-18.0) g/dl Hct 33.1 L (42-52) % MCV 89.0 (80-98) fL MCH 28.5 (27.0-33.0) pg MCHC 32.0 (31.0-36.0) g/dl RDW 13.2 (11.0-16.0) % Plt Count 449 H D (160-400) X10*3/uL MPV 7.8 L (9.4-12.4) fL Immature Gran % (Auto) 1.3 H (0.0-0.4) % Neut % (Auto) 85.5 H (45-73) % Lymph % (Auto) 2.5 L (20-40) % [place] % (Auto) 10.1 (2-11) % Eos % (Auto) 0.2 (0-4) % Baso % (Auto) 0.4 (0-2) % Lymph # (Auto) 0.5 L (1.2-4.9) X10*3/uL [place] # (Auto) 2.0 H (0.1-1.2) X10*3/uL Eos # (Auto) 0.0 (0.0-0.4) X10*3/uL Baso # (Auto) 0.1 (0.0-0.2) X10*3/uL Abs Immat Gran (auto) 0.26 H (0.00-0.03) X10*3/uL Absolute Neuts (auto) 16.6 H (2.0-8.3) X10*3/uL Absolute Nucleated RBC 0.000 (0.0-0.012) X10*3/uL Nucleated RBC % (auto) 0.0 (0.0-0.2) /100WBC Smear Tech's Comments VERIFIED Sodium 133 L (135-145) mmol/L Potassium 4.9 (3.3-5.1) mmol/l Chloride 99 (96-108) mmol/L Carbon Dioxide 24 (22-29) mmol/L Anion Gap 15 (12-20) BUN 12 (9-16) mg/dL Creatinine 0.84 (0.5-1.4) mg/dL Estim Creat Clear Calc 93.5 Estimated GFR > 60 Random Glucose 111 (60-115) mg/dL Lactic Acid 1.6 (0.5-2.0) mmol/L Calcium 8.7 (8.4-10.2) mg/dL Total Bilirubin 0.5 (0.0-1.0) mg/dL Direct Bilirubin 0.2 (0.0-0.5) mg/dL AST 23 D (5-37) U/L ALT 19 (0-40) U/L Alkaline Phosphatase 91 D (39-117) U/L Troponin I High Sens (<3.5-35.0) ng/L B-Natriuretic Peptide (<100) pg/mL Total Protein 5.9 L (6.5-8.0) g/dL Albumin 3.4 L (3.5-5.0) g/dL Lipase 7 L (8-78) U/L COVID-19 (CEILA) (Negative) COVID-19 Clin Com 03/21/20 03/21/20 Range/Units 16:50 16:52 WBC (4.8-10.8) X10*3/uL RBC (4.60-5.80) X10*6/uL Hgb (14.0-18.0) g/dl Hct (42-52) % MCV (80-98) fL MCH (27.0-33.0) pg MCHC (31.0-36.0) g/dl RDW (11.0-16.0) % Plt Count (160-400) X10*3/uL MPV (9.4-12.4) fL Immature Gran % (Auto) (0.0-0.4) % Neut % (Auto) (45-73) % Lymph % (Auto) (20-40) % [place] % (Auto) (2-11) % Eos % (Auto) (0-4) % Baso % (Auto) (0-2) % Lymph # (Auto) (1.2-4.9) X10*3/uL [place] # (Auto) (0.1-1.2) X10*3/uL Eos # (Auto) (0.0-0.4) X10*3/uL Baso # (Auto) (0.0-0.2) X10*3/uL Abs Immat Gran (auto) (0.00-0.03) X10*3/uL Absolute Neuts (auto) (2.0-8.3) X10*3/uL Absolute Nucleated RBC (0.0-0.012) X10*3/uL Nucleated RBC % (auto) (0.0-0.2) /100WBC Smear Tech's Comments Sodium (135-145) mmol/L Potassium (3.3-5.1) mmol/l Chloride (96-108) mmol/L Carbon Dioxide (22-29) mmol/L Anion Gap (12-20) BUN (9-16) mg/dL Creatinine (0.5-1.4) mg/dL Estim Creat Clear Calc Estimated GFR Random Glucose (60-115) mg/dL Lactic Acid (0.5-2.0) mmol/L Calcium (8.4-10.2) mg/dL Total Bilirubin (0.0-1.0) mg/dL Direct Bilirubin (0.0-0.5) mg/dL AST (5-37) U/L ALT (0-40) U/L Alkaline Phosphatase (39-117) U/L Troponin I High Sens 135.0 H (<3.5-35.0) ng/L B-Natriuretic Peptide 98 (<100) pg/mL Total Protein (6.5-8.0) g/dL Albumin (3.5-5.0) g/dL Lipase (8-78) U/L COVID-19 (CELIA) Negative (Negative) COVID-19 Clin Com See Note Imaging Data Chest x-ray: Radiologist's impression: 1. Right chest tube present with right lateral chest wall subcutaneous emphysema. No pneumothorax. 2. Patchy airspace consolidation right lower zone along with right volume loss with rightward mediastinal shift. This may be related to prior surgery. Clinically correlate. 3. Left lung clear. Vascularity normal. ECG Data Interpretation: Sinus tachycardia at 01:02 beats per minute, with premature ventricular complex, normal axis, no ST-T changes. Discharge Plan Discharge Clinical Impression: Dyspnea Patient Disposition: Home, Self-Care Instructions: How to Care for Your Chest or Abdominal Catheter (ED) Additional Instructions: Follow-up with your ready set up appointment with the thoracic surgeon at [facility]. Prescriptions: No Action Spiriva with HandiHaler 18 mcg capsule, w/inhalation device 1 cap inhalation DAILY RF: 0 formoterol fumarate 12 mcg capsule, w/inhalation device inhalation RF: 0 amlodipine [Norvasc] 5 mg Tablet 5 mg PO DAILY RF: 0 aspirin 81 mg Tablet,Delayed Release (Dr/Ec) 81 mg PO DAILY RF: 0 omeprazole 20 mg Capsule,Delayed Release(Dr/Ec) 40 mg PO DAILY RF: 0 losartan 100 mg Tablet 100 mg PO DAILY RF: 0 Spiriva with HandiHaler 18 mcg Capsule, W/Inhalation Device 1 cap INHALATION DAILY RF: 0 mometasone 220 mcg/ actuation (120) Aerosol Powdr Breath Activated 2 inh INHALATION BEDTIME RF: 0 olodaterol 2.5 mcg/actuation Mist 2 inh INHALATION DAILY RF: 0 Referrals: Physician,Unknown [Primary Care Provider] - 2 days
[2020-03-21 16:38] VITALS: O2SAT 88; O2SAT 96
[2020-03-21] MEDS: 0.9 % Sodium Chloride 1,000 ML 999 ML IVCONT (16:55)
--- NOTE | 2020-03-21 16:56 | PC.NURSE ---
fluids infusing at slow rate. waiting lab results.
[2020-03-21 16:59] LABS: Basophils Absolute Auto 0.1 X10*3/uL (0.0-0.2); Basophils Percent Auto 0.4 % (0-2); Eosinophils Percent Auto 0.2 % (0-4); Hematocrit 33.1 % (42-52); Hemoglobin 10.6 g/dl (14.0-18.0); Imm Gran Abs Auto 0.26 X10*3/uL (0.00-0.03); Imm Gran Pct Auto 1.3 % (0.0-0.4); Lymphocytes Absolute Auto 0.5 X10*3/uL (1.2-4.9); Lymphocytes Percent Auto 2.5 % (20-40); MANUAL DIFF FLAG SCAN; Mean Corpuscular Hemoglobin 28.5 pg (27.0-33.0); Mean Platelet Volume 7.8 fL (9.4-12.4); Monocytes Percent Auto 10.1 % (2-11); Neutrophils Absolute Auto 16.6 X10*3/uL (2.0-8.3); Neutrophils Percent Auto 85.5 % (45-73); Platelet Count 449 X10*3/uL (160-400); Red Blood Count 3.72 X10*6/uL (4.60-5.80); Red Cell Distribution Width 13.2 % (11.0-16.0); SCAN SMEAR FLAG 1; White Blood Count 19.4 X10*3/uL (4.8-10.8)
[2020-03-21 17:14] LABS: Lactic Acid 1.6 mmol/L (0.5-2.0)
[2020-03-21 17:20] LABS: Alanine Aminotransferase 19 U/L (0-40); Albumin Level 3.4 g/dL (3.5-5.0); Alkaline Phosphatase 91 U/L (39-117); Anion Gap 15 (12-20); Aspartate Amino Transferase 23 U/L (5-37); Bilirubin Direct 0.2 mg/dL (0.0-0.5); Bilirubin Total 0.5 mg/dL (0.0-1.0); Blood Urea Nitrogen 12 mg/dL (9-16); Calcium 8.7 mg/dL (8.4-10.2); Carbon Dioxide 24 mmol/L (22-29); Chloride 99 mmol/L (96-108); Creatinine Clr Calc Pharmacy 93.5; Estimated Glomerular Filt Rate > 60; Glucose Random 111 mg/dL (60-115); Lipase 7 U/L (8-78); Potassium 4.9 mmol/l (3.3-5.1); Sodium 133 mmol/L (135-145); Total Protein 5.9 g/dL (6.5-8.0)
[2020-03-21 17:24] LABS: COVID-19 Test Negative (Negative); IDNOW Serial# 9DD0AD1C
[2020-03-21 17:26] LABS: B Type Natriuretic Peptide 98 pg/mL (<100)
--- NOTE | 2020-03-21 17:27 | PC.NURSE ---
pt son called and updated on plan of care. son informed RN that before pt was dc from [facility] and [place] yesterday it was noted that his WBC were trending up bu no known reason was found. pt also has been having increased low leg swelling. made aware of all the above.
[2020-03-21 17:29] LABS: SLIDE REVIEW VERIFIED
[2020-03-21 18:37] VITALS: O2SAT 96
[2020-03-21 19:27] LABS: Troponin-I High Sensitivity 120.6 ng/L (<3.5-35.0)
== END 2020-03-21 19:48 | disposition home or self-care (01) ==
PROVIDERS: Emergency Provider Emergency Medicine
DX: R06.00 Dyspnea, unspecified (principal); R00.0 Tachycardia, unspecified; Z20.822 Contact with and (suspected) exposure to COVID-19; Z85.118 Personal history of other malignant neoplasm of bronchus and lung; Z98.890 Other specified postprocedural states
CPT/HCPCS: 36415; 71045; 80048; 80076; 83605; 83690; 83880; 84484; 85025; 87040; 87635; 93005; 96360; 99283; 99284

== ENCOUNTER → 2020-05-26 13:19 | Outpatient (BNVA) | payer MEDICARE, SELFPAY | PROVIDERS: Visit Provider Orthopaedic Surgery | DX: S86.011A Strain of right Achilles tendon, initial encounter (principal) | CPT/HCPCS: 99202 ==

== ENCOUNTER → 2020-07-07 09:41 | Outpatient (BNVA) | payer MEDICARE, SELFPAY | PROVIDERS: Visit Provider Orthopaedic Surgery | DX: S86.011D Strain of right Achilles tendon, subsequent encounter (principal) | CPT/HCPCS: 99212 ==

== ENCOUNTER → 2021-02-09 14:01 | Outpatient (BNVA) | payer MEDICARE, SELFPAY | PROVIDERS: PCP Internal Medicine; Visit Provider Internal Medicine | DX: J44.9 Chronic obstructive pulmonary disease, unspecified (principal); C34.31 Malignant neoplasm of lower lobe, right bronchus or lung | CPT/HCPCS: 99202 ==

== ENCOUNTER 2021-04-16 10:03 | Outpatient (REF) | payer MEDICARE, SELFPAY ==
--- NOTE | ~2021-04-16 | XR_ITS ---
EXAMINATION: XR CHEST CLINICAL INFORMATION: Chest pain COMPARISON: 03/21/2020 TECHNIQUE: 2 views of the chest were obtained. FINDINGS: The emphysematous lungs are hyperexpanded and diaphragms flattened. The right lateral costophrenic sulcus is blunted. This could be caused by postoperative pleural-based scarring or perhaps an old trace lateral effusion. Minimal linear opacity of atelectasis is present in the region of the lingula. No pulmonary consolidation or edema. No pneumothorax. Cardiac silhouette is normal in size. The partially visualized components of the left reverse total shoulder arthroplasty are in their expected positions. XR/XR chest 2V IMPRESSION: * Chronic emphysematous lung disease. * No acute cardiopulmonary findings. * There is likely old, mild postoperative pleural thickening at the right lateral lung base; this corresponds to the region of prior chest tube insertion seen on 03/21/2020.
== END 2021-04-16 10:04 | disposition home or self-care (01) ==
LOC: HO.XRAY 10:03
PROVIDERS: PCP Internal Medicine; Visit Provider Internal Medicine
DX: R07.89 Other chest pain (principal); C34.31 Malignant neoplasm of lower lobe, right bronchus or lung; J44.9 Chronic obstructive pulmonary disease, unspecified
CPT/HCPCS: 71046; 99212

== ENCOUNTER 2021-06-19 07:34 | Outpatient (REF) | payer MEDICARE, SELFPAY ==
[2021-06-19 08:59] LABS: Free T4 (Free Thyroxine) 0.99 ng/dL (0.71-1.85); Prostate Specific Antigen 0.31 ng/mL (<0.05-4.0); Thyroid Stimulating Hormone 5.08 uIU/mL (0.32-4.0)
[2021-06-19 09:09] LABS: Vitamin B12 337 pg/mL (200-900)
[2021-06-19 09:17] LABS: Anion Gap 9 (12-20); Blood Urea Nitrogen 14 mg/dL (9-16); Calcium 9.4 mg/dL (8.4-10.2); Carbon Dioxide 29 mmol/L (22-29); Chloride 100 mmol/L (96-108); Cholesterol 206 mg/dL; Estimated Glomerular Filt Rate > 60; Glucose Fasting 95 mg/dL (60-99); HDL Cholesterol 56 mg/dL; LDL Cholesterol Calculated 133 mg/dl; Potassium 4.3 mmol/L (3.3-5.1); Sodium 134 mmol/L (135-145); Triglycerides 89 mg/dL
[2021-06-19 16:10] LABS: Influenza A PCR NEGATIVE (Negative); Influenza B PCR NEGATIVE (Negative); Resp Syncy Virus RNA Qual PCR NEGATIVE (Negative); SARS COV2 PCR INHOUSE NEGATIVE (Negative)
== END 2021-06-19 07:35 | disposition home or self-care (01) ==
LOC: HO.LAB 07:34
PROVIDERS: PCP Internal Medicine; Visit Provider Internal Medicine
DX: Z12.5 Encounter for screening for malignant neoplasm of prostate (principal); Z20.822 Contact with and (suspected) exposure to COVID-19; J44.9 Chronic obstructive pulmonary disease, unspecified; E78.00 Pure hypercholesterolemia, unspecified; R94.6 Abnormal results of thyroid function studies; E53.8 Deficiency of other specified B group vitamins
CPT/HCPCS: 0241U; 36415; 80048; 80061; 82607; 84153; 84439; 84443

== ENCOUNTER → 2021-07-09 10:21 | Outpatient (BNVA) | payer MEDICARE, SELFPAY | PROVIDERS: PCP Internal Medicine; Visit Provider Internal Medicine | DX: J44.9 Chronic obstructive pulmonary disease, unspecified (principal); C34.31 Malignant neoplasm of lower lobe, right bronchus or lung | CPT/HCPCS: 94618; 99212 ==

== ENCOUNTER 2021-09-10 07:17 | Outpatient (REF) | payer MEDICARE, SELFPAY ==
[2021-09-10 07:24] LABS: MANUAL DIFF FLAG NO
[2021-09-10 08:24] LABS: Basophils Absolute Auto 0.1 X10*3/uL (0.0-0.2); Eosinophils Absolute Auto 0.6 X10*3/uL (0.0-0.4); Eosinophils Percent Auto 7.8 % (0-4); Hematocrit 39.9 % (42.0-52.0); Hemoglobin 12.7 g/dl (14.0-18.0); Imm Gran Abs Auto 0.06 X10*3/uL (0.00-0.03); Imm Gran Pct Auto 0.8 % (0.0-0.4); Lymphocytes Absolute Auto 1.1 X10*3/uL (1.2-4.9); Lymphocytes Percent Auto 14.4 % (20-40); Mean Corpuscular HGB Conc 31.8 g/dl (31.0-36.0); Mean Corpuscular Hemoglobin 28.5 pg (27.0-33.0); Mean Corpuscular Volume 89.5 fL (80.0-98.0); Mean Platelet Volume 8.9 fL (9.4-12.4); Monocytes Absolute Auto 1.1 X10*3/uL (0.1-1.2); Monocytes Percent Auto 15.1 % (2-11); Neutrophils Absolute Auto 4.5 x10*3/uL (2.0-8.3); Neutrophils Percent Auto 60.9 % (45-73); Platelet Count 314 X10*3/uL (160-400); Red Blood Count 4.46 X10*6/uL (4.60-5.80); White Blood Count 7.4 X10*3/uL (4.8-10.8)
[2021-09-10 08:52] LABS: Alanine Aminotransferase 18 U/L (0-40); Albumin Level 4.2 g/dL (3.5-5.0); Alkaline Phosphatase 84 U/L (39-117); Anion Gap 14 (12-20); Aspartate Amino Transferase 23 U/L (5-37); Bilirubin Total 0.5 mg/dL (0.0-1.0); Blood Urea Nitrogen 15 mg/dL (9-16); Calcium 8.9 mg/dL (8.4-10.2); Carbon Dioxide 25 mmol/L (22-29); Chloride 102 mmol/L (96-108); Estimated Glomerular Filt Rate > 60; Glucose Random 91 mg/dL (60-115); Potassium 4.5 mmol/L (3.3-5.1); Sodium 136 mmol/L (135-145); Total Protein 6.3 g/dL (6.5-8.0)
[2021-09-10 09:15] LABS: Free T4 (Free Thyroxine) 0.88 ng/dL (0.71-1.85); Thyroid Stimulating Hormone 4.42 uIU/mL (0.32-4.0)
== END 2021-09-10 07:18 | disposition home or self-care (01) ==
LOC: HO.LAB 07:17
PROVIDERS: PCP Internal Medicine; Visit Provider Internal Medicine
DX: J44.9 Chronic obstructive pulmonary disease, unspecified (principal); R79.89 Other specified abnormal findings of blood chemistry; I10 Essential (primary) hypertension
CPT/HCPCS: 36415; 80053; 84439; 84443; 85025

== ENCOUNTER 2021-11-23 11:53 | Outpatient (REF) | payer MEDICARE, SELFPAY ==
[2021-11-23 12:18] LABS: COVID-19 Test Negative (Negative); IDNOW Serial# 55D5AD1C
== END 2021-11-23 11:54 | disposition home or self-care (01) ==
LOC: HO.LNP 11:53
PROVIDERS: Visit Provider Internal Medicine
DX: Z20.822 Contact with and (suspected) exposure to COVID-19 (principal)
CPT/HCPCS: 87635

== ENCOUNTER → 2022-01-06 09:55 | Outpatient (BNVA) | payer MEDICARE, SELFPAY | PROVIDERS: PCP Internal Medicine; Visit Provider Internal Medicine | DX: J44.9 Chronic obstructive pulmonary disease, unspecified (principal); C34.31 Malignant neoplasm of lower lobe, right bronchus or lung | CPT/HCPCS: 99212 ==

== ENCOUNTER 2022-03-10 11:59 | Outpatient (REF) | payer MEDICARE, SELFPAY ==
[2022-03-10 12:43] LABS: Influenza A PCR NEGATIVE (Negative); Influenza B PCR NEGATIVE (Negative); Resp Syncy Virus RNA Qual PCR NEGATIVE (Negative); SARS COV2 PCR INHOUSE POSITIVE (Negative)
== END 2022-03-10 12:00 | disposition home or self-care (01) ==
LOC: HO.LNP 11:59
PROVIDERS: Visit Provider Internal Medicine
DX: Z20.822 Contact with and (suspected) exposure to COVID-19 (principal); R05.9 Cough, unspecified; R68.89 Other general symptoms and signs
CPT/HCPCS: 0241U

== ENCOUNTER 2022-04-02 15:19 | Emergency (ER) | payer OTHER, MEDICARE, SELFPAY ==
--- NOTE | ~2022-04-02 | CT_ITS ---
EXAMINATION: CT HEAD WITHOUT CONTRAST CT CERVICAL SPINE WITHOUT CONTRAST CLINICAL INFORMATION: Fall. Head strike. COMPARISON: CT head 10/26/2018. TECHNIQUE: Neonatal Intensive Care Unit Nurse images were obtained. CT imaging of the head and cervical spine was performed without contrast. Data was reformatted into multiplanar images at the acquisition workstation. This CT examination was performed using dose optimization techniques as appropriate, including one or more of the following: Automated exposure control, iterative reconstruction, and adjustment of technique factors (mA and/or kVp) according to patient size (this includes techniques or standardized protocols for targeted exams where dose is matched to indication/reason for exam). Fleischner Society criteria for the followup of incidental pulmonary nodules was implemented if appropriate. DLP: 1211 mGy-cm. FINDINGS: Head: There is focal swelling of the scalp near the vertex. The underlying calvarium is intact. No acute intracranial hemorrhage or abnormal extra-axial collection. No intracranial mass effect or midline shift. Lateral and third ventricles are normal. No hydrocephalus. Scattered nonspecific foci of hypoattenuation are visualized within the perivertebral white matter. [place]-white matter differentiation is otherwise preserved and there is no evidence of acute territorial infarct. The skull base is intact. No mastoid or middle ear effusion. There is partial opacification of the right anterior ethmoid air cells. Cervical spine: There is a slight anterolisthesis of C3 on C4 related to facet degenerative changes at this level. Alignment is otherwise normal. Vertebral heights are preserved. No evidence of acute fracture. No abnormal prevertebral soft tissue swelling. Canal patency is not well assessed on this examination due to inherent limitations of CT without intrathecal contrast. There is at least mild canal stenosis at multiple levels and there are varying degrees of neuroforaminal encroachment related to uncovertebral joint spurring and facet degenerative change. Heavily calcified atheromatous plaque involves both carotid bifurcations. There is centrilobular emphysema and mild pleural-parenchymal scarring visualized at the apices of both lungs. CT/CT cervical spine wo IV con IMPRESSION: Head: There is focal swelling of the scalp near the vertex. The underlying calvarium is intact. No acute intracranial hemorrhage. There are scattered chronic small vessel ischemic changes within the periventricular white matter. No evidence of acute territorial infarct. Cervical spine: No evidence of acute fracture and no posttraumatic spinal subluxation. There is multilevel degenerative spondylosis of the cervical spine with at least mild canal stenosis at multiple levels. There are varying degrees of neuroforaminal encroachment related to uncovertebral joint spurring and facet degenerative change.
--- NOTE | ~2022-04-02 | CT_ITS ---
EXAMINATION: CT HEAD WITHOUT CONTRAST CT CERVICAL SPINE WITHOUT CONTRAST CLINICAL INFORMATION: Fall. Head strike. COMPARISON: CT head 10/26/2018. TECHNIQUE: Spa Coordinator images were obtained. CT imaging of the head and cervical spine was performed without contrast. Data was reformatted into multiplanar images at the acquisition workstation. This CT examination was performed using dose optimization techniques as appropriate, including one or more of the following: Automated exposure control, iterative reconstruction, and adjustment of technique factors (mA and/or kVp) according to patient size (this includes techniques or standardized protocols for targeted exams where dose is matched to indication/reason for exam). Fleischner Society criteria for the followup of incidental pulmonary nodules was implemented if appropriate. DLP: 1211 mGy-cm. FINDINGS: Head: There is focal swelling of the scalp near the vertex. The underlying calvarium is intact. No acute intracranial hemorrhage or abnormal extra-axial collection. No intracranial mass effect or midline shift. Lateral and third ventricles are normal. No hydrocephalus. Scattered nonspecific foci of hypoattenuation are visualized within the perivertebral white matter. [place]-white matter differentiation is otherwise preserved and there is no evidence of acute territorial infarct. The skull base is intact. No mastoid or middle ear effusion. There is partial opacification of the right anterior ethmoid air cells. Cervical spine: There is a slight anterolisthesis of C3 on C4 related to facet degenerative changes at this level. Alignment is otherwise normal. Vertebral heights are preserved. No evidence of acute fracture. No abnormal prevertebral soft tissue swelling. Canal patency is not well assessed on this examination due to inherent limitations of CT without intrathecal contrast. There is at least mild canal stenosis at multiple levels and there are varying degrees of neuroforaminal encroachment related to uncovertebral joint spurring and facet degenerative change. Heavily calcified atheromatous plaque involves both carotid bifurcations. There is centrilobular emphysema and mild pleural-parenchymal scarring visualized at the apices of both lungs. CT/CT head/brain wo IV con IMPRESSION: Head: There is focal swelling of the scalp near the vertex. The underlying calvarium is intact. No acute intracranial hemorrhage. There are scattered chronic small vessel ischemic changes within the periventricular white matter. No evidence of acute territorial infarct. Cervical spine: No evidence of acute fracture and no posttraumatic spinal subluxation. There is multilevel degenerative spondylosis of the cervical spine with at least mild canal stenosis at multiple levels. There are varying degrees of neuroforaminal encroachment related to uncovertebral joint spurring and facet degenerative change.
--- NOTE | 2022-04-02 15:30 | ED_ITS ---
HPI - General Adult General Chief complaint: Fall Stated complaint: Head lac Time Seen by Provider: 04/02/22 17:06 Source: patient Mode of arrival: ambulatory Limitations: no limitations History of Present Illness HPI narrative: Patient is a 87 year old assigned male at with a history of COPD presenting to the emergency department today with a head laceration after a trip and fall. Patient states that he was walking in the parking lot when he tripped and fell, hitting his head. Patient is not on a blood thinner and remembers the incident. Patient denies any loss of consciousness. Patient denies any dizzin ess, lightheadedness, abdominal pain, nausea, vomiting, fever, chills, blurry vision, double vision, loss of vision, chest pain, difficulty breathing, shortness of breath, back pain, night sweats, pain with urination, increased urinary frequency, increased urinary urgency, blood in his urine or stool, syncope or a near syncopal episode, bowel incontinence, bladder incontinence, bowel retention, bladder retention, or any other complaints at this time. Onset (ago): minute(s) Location: head Radiation: non-radiation Severity: mild Severity scale (1-10): 2 Relieving factors: none Exacerbating factors: none Associated symptoms: denies other symptoms Treatments prior to arrival: none Related Data Home Medications Medication Instructions Recorded Confirmed losartan 100 mg tablet 100 mg PO DAILY 12/07/19 04/16/21 omeprazole 20 mg capsule,delayed 40 mg PO DAILY 12/07/19 04/16/21 release albuterol sulfate 90 mcg/actuation 2 puff inhalation QID 02/09/21 04/16/21 aerosol inhaler (ProAir HFA) fluticasone 500 mcg-salmeterol 50 1 inh inhalation BID 02/09/21 04/16/21 mcg/dose blistr powdr for inhalation (Wixela Inhub) tiotropium bromide 2.5 2 puff inhalation BEDTIME 02/09/21 04/16/21 mcg/actuation mist for inhalation (Spiriva Respimat) Previous Rx's Medication Instructions Recorded fluticasone 250 mcg-salmeterol 50 1 inh inhalation BID 30 days #60 ea 01/06/22 mcg/dose blistr powdr for inhalation (Wixela Inhub) Allergies Allergy/AdvReac Type Severity Reaction Status Date / Time No Known Allergies Allergy Verified 01/06/22 10:07 Review of Systems Constitutional: Constitutional: Reports no additional constitutional complaints, Denies chills, Denies fever(s) and Denies night sweats Eyes: Eyes: Reports no additional eye complaints, Denies blurry vision, Denies change in vision, Denies diplopia, Denies eye discharge, Denies loss of vision and Denies eye pain ENT: Denies dizziness Cardiovascular: Cardiovascular: Reports no additional cardiovascular complaints, Denies chest pain, Denies lightheadedness, Denies Loss of Consciousness and Denies dyspnea Respiratory: Respiratory: Reports no additional respiratory complaints and Denies dyspnea Gastrointestinal: Gastrointestinal: Reports no additional gastrointestinal complaints, Denies abdominal pain, Denies melena, Denies hematochezia, Denies change in bowel habits and Denies change in stool character Genitourinary: Genitourinary: Reports no additional male genitourinary complaints, Denies hematuria, Denies oliguria, Denies difficulty urinating, Denies dysuria, Denies urinary frequency, Denies urinary hesitancy, Denies urinary incontinence and Denies urinary urgency Musculoskeletal: Musculoskeletal: Reports no additional musculoskeletal complaints, Denies numbness and Denies tingling Integumentary/Breasts: Comments: head laceration Neurologic: Denies dizziness, Denies loss of vision, Denies numbness and Denies tingling Psychiatric: Psychiatric: Reports no additional psychiatric complaints Endocrine: Endocrine: Reports no additional endocrine complaints Hematologic/Lymphatic: Hematologic/Lymphatic: Reports no additional hematologic/lymphatic complaints Allergic/Immunologic: Allergic/Immunologic: Reports no additional allergic/immunologic complaints [facility], [facility] Past Medical History Attestation statement: The following information was validated with the patient. 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 Family History Family History Father CVD (cardiovascular disease) Mother Lung cancer Brother Bone cancer Social History Social History Household Members: Spouse Housing: House Patient Tobacco Use Status: Former Tobacco user Advance Directives: Yes Advance Directives on File: Yes Advance Directives Date on File: 12/06/19 service: Yes Current occupational status: retired Physical Exam ED Vital Signs: Vital Signs - 24 hr 04/02/22 15:35 Temperature 97.9 F Pulse Rate 95 Respiratory Rate 18 Blood Pressure 191/105 H Pulse Oximetry 98 Oxygen Delivery Method Room Air BMI result Body Mass Index 21.4 Const General: cooperative, no acute distress, alert and awake Nutritional Appearance: well nourished Orientation/consciousness: patient oriented x3 Limitations: no limitations HENMT Other: small skin tear to the occipital scalp Ears: hearing grossly normal bilaterally and external ears normal General nose exam: Normal external nose present, no nasal discharge noted and no epistaxis Face and sinus: Yes normal facial exam, No abrasion and No laceration Mouth: Normal oral and palatal mucosa present, no drooling and no muffled voice Eyes General: appearance normal, both eyes and all related structures Periorbital: periorbital findings normal Eyelids: Yes eyelids normal Conjunctivae: conjunctivae normal Pupils: Equal, round and reactive pupils present EOM: EOMs intact bilaterally Neck Neck: Yes normal visual inspection, Yes full ROM and Yes no lymphadenopathy Chest Chest palpation & inspection: normal inspection of the chest Resp Effort & Inspection: normal respiratory effort and able to speak in complete sentences Auscultation: clear to auscultation bilaterally Cardio Rate: regular rate Rhythm: regular rhythm GI Inspection: Yes normal to inspection Neuro General: patient oriented x3 and moves all extremities Cranial nerves: Yes Equal, round and reactive pupils present Cognition (Neuro): normal cognition Motor exam (neuro): 5/5 motor strength present throughout Sensory Exam: Normal double simultaneous stimulation for sensation Coordination: [id number] test normal Extrem General: Yes normal to inspection, Yes full ROM and Yes capillary refill normal Psych Appearance: grossly normal Mental Status: mental status grossly normal Affect: normal affect Attitude: cooperative Thought process: Normal thought process present Thought content: Normal thought content present Insight: Good insight present (Psych) Course Course Course Narrative: RME performed by Rachell Chapa PA-C. Patient is a 87 year old male presenting to the emergency department after a slip and fall in the parking lot. Patient denies any loss of consciousness. Patient has a small laceration to the occipital scalp. CT head and C-spine ordered. Medications Administered Discontinued Medications Generic Name Dose Route Start Last Admin Trade Name Chaparrita PRN Reason Stop Dose Admin Diphtheria/Tetanus/Acell Pertussis 0.5 ml 04/02/22 15:35 04/02/22 17:20 Diphth,Pertus(Acell),Tet Adult 0.5 Ml Syringe IM 04/02/22 15:36 0.5 ml .ONCE ONE Administration Medical Decision Making Medical Decision Making [facility] Narrative: Patient is a 87 year old assigned male at with a history of COPD presenting to the emergency department today with a scalp skin tear. Patient's physical exam showed a small, superficial, scalp laceration. Patient's head and C-Spine CTs showed no acute process. Patient's skin tear was covered with a non- adherent gauze. I explained my physical exam findings as well as all test results to the patient. I answered all questions asked by the patient. Patient's tetanus status was brought up to date. I stressed the importance of the patient performing daily wound checks and dressing changes. I stressed the importance of the patient taking his medication as prescribed. I stressed the importance of the patient following up with his primary care provider. I stressed the importance of the patient returning to the emergency department immediately if his symptoms were to worsen or if he were to develop any dizziness, shortness of breath, difficulty breathing, chest pain, blurry vision, loss of vision, nausea, vomiting, abdominal pain, fever, chills, back pain, or any other complaints. Patient verbalized agreement and understanding with this treatment plan and discharge. Differential Diagnosis Differential Diagnoses: The differential diagnosis associated with the presentation includes scalp skin tear, fall Radiology Impression Radiologist Impression: My interpretation is in agreement with the radiologist's impression of these imaging studies. EXAMINATION: CT HEAD WITHOUT CONTRAST CT CERVICAL SPINE WITHOUT CONTRAST CLINICAL INFORMATION: Fall. Head strike.? COMPARISON: CT head 10/26/2018.? TECHNIQUE: Database Administration Manager images were obtained. CT imaging of the head and cervical spine was performed without contrast. Data was reformatted into multiplanar images at the acquisition workstation. This CT examination was performed using dose optimization techniques as appropriate, including one or more of the following: Automated exposure control, iterative reconstruction, and adjustment of technique factors (mA and/or kVp) according to patient size (this includes techniques or standardized protocols for targeted exams where dose is matched to indication/reason for exam). Fleischner Society criteria for the followup of incidental pulmonary nodules was implemented if appropriate. DLP: 1211 mGy-cm. FINDINGS: Head: There is focal swelling of the scalp near the vertex. The underlying calvarium is intact. No acute intracranial hemorrhage or abnormal extra-axial collection. No intracranial mass effect or midline shift. Lateral and third ventricles are normal. No hydrocephalus. Scattered nonspecific foci of hypoattenuation are visualized within the perivertebral white matter. [place]-white matter differentiation is otherwise preserved and there is no evidence of acute territorial infarct. The skull base is intact. No mastoid or middle ear effusion. There is partial opacification of the right anterior ethmoid air cells. Cervical spine: There is a slight anterolisthesis of C3 on C4 related to facet degenerative changes at this level. Alignment is otherwise normal. Vertebral heights are preserved. No evidence of acute fracture. No abnormal prevertebral soft tissue swelling. Canal patency is not well assessed on this examination due to inherent limitations of CT without intrathecal contrast. There is at least mild canal stenosis at multiple levels and there are varying degrees of neuroforaminal encroachment related to uncovertebral joint spurring and facet degenerative change. Heavily calcified atheromatous plaque involves both carotid bifurcations. There is centrilobular emphysema and mild pleural-parenchymal scarring visualized at the apices of both lungs. CT/CT head/brain wo IV con IMPRESSION: Head: There is focal swelling of the scalp near the vertex. The underlying calvarium is intact. No acute intracranial hemorrhage. There are scattered chronic small vessel ischemic changes within the periventricular white matter. No evidence of acute territorial infarct. ? Cervical spine: No evidence of acute fracture and no posttraumatic spinal subluxation. There is multilevel degenerative spondylosis of the cervical spine with at least mild canal stenosis at multiple levels. There are varying degrees of neuroforaminal encroachment related to uncovertebral joint spurring and facet degenerative change. Dictated By: Jemal Bedolla MD Signed By: Electronically signed by Jemal Bedolla MD 04/02/22 [id number] Discharge Plan Discharge Clinical Impression: Abrasion Patient Disposition: Home, Self-Care Instructions: Abrasion (ED) Additional Instructions: Follow up with your primary care provider. Return to the emergency department immediately if your symptoms worsen or if you develop any dizziness, shortness of breath, difficulty breathing, chest pain, blurry vision, loss of vision, nausea, vomiting, abdominal pain, fever, chills, back pain, or any other complaints. Prescriptions: No Action omeprazole 20 mg Capsule,Delayed Release(Dr/Ec) 40 mg PO DAILY losartan 100 mg Tablet 100 mg PO DAILY Spiriva Respimat 2.5 mcg/actuation mist 2 puff inhalation BEDTIME albuterol sulfate [ProAir HFA] 90 mcg/actuation HFA aerosol inhaler 2 puff inhalation QID fluticasone propion-salmeterol [Wixela Inhub] 500-50 mcg/dose blister with device 1 inh inhalation BID fluticasone propion-salmeterol [Wixela Inhub] 250-50 mcg/dose blister with device 1 inh inhalation BID 30 Days Qty: 60 5RF Referrals: Kevin Ochoa MD [Primary Care Provider] - Interventions: ED Discharge Assessment Last Done: 04/02/22 17:24 Discharge Date/Time: 04/02/22 17:28 Print Language: Guatemalan
[2022-04-02 15:35] VITALS: BP 191/105; PULSE 95; RESP 18; TEMP 36.6; O2SAT 98; BMI 21.4
[2022-04-02] MEDS: Diphth,Pertus(ACell),Tet Adult 0.5 ML SYRINGE IM (17:20)
== END 2022-04-02 17:28 | disposition home or self-care (01) ==
LOC: HO.ED 17:23
PROVIDERS: Emergency Provider Internal Medicine; PCP Internal Medicine
DX: S00.01XA Abrasion of scalp, initial encounter (principal); J44.9 Chronic obstructive pulmonary disease, unspecified; R51.9 Headache, unspecified; M54.2 Cervicalgia; W01.0XXA Fall on same level from slipping, tripping and stumbling without subsequent striking against object, initial encounter; Y93.9 Activity, unspecified; Y92.9 Unspecified place or not applicable; Y99.9 Unspecified external cause status; Z79.899 Other long term (current) drug therapy; Z87.891 Personal history of nicotine dependence; Z23 Encounter for immunization
CPT/HCPCS: 70450; 72125; 90471; 90715; 99282; 99284

== ENCOUNTER 2022-05-03 08:55 | Outpatient (REF) | payer MEDICARE, SELFPAY ==
--- NOTE | ~2022-05-03 | XR_ITS ---
EXAMINATION: XR CHEST CLINICAL INFORMATION: COPD/productive cough. COMPARISON: None TECHNIQUE: 2 views of the chest were obtained. FINDINGS: The lungs are hyperinflated with bilateral lower lobe scarring and/or atelectasis. There is an ill-defined 7 mm nodule right lower lobe. Mild blunting of right CP angle is seen. Rest of the lungs are clear. The heart size and pulmonary vascularity are normal. There is minimal left apical pleural thickening. 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 No gross bony abnormality seen. XR/XR chest 2V IMPRESSION: 1. Hyperinflated lungs with bilateral lower lobe scarring and/or atelectasis. There is a 7 mm nodule right lower lobe. Recommend CT chest evaluation. 2. There is minimal left apical pleural thickening.
== END 2022-05-03 08:56 | disposition home or self-care (01) ==
LOC: HO.XRAY 08:55
PROVIDERS: PCP Internal Medicine; Visit Provider Internal Medicine
DX: J44.9 Chronic obstructive pulmonary disease, unspecified (principal)
CPT/HCPCS: 71046

== ENCOUNTER 2022-05-12 20:39 | Inpatient (IN) | payer OTHER, MEDICARE, SELFPAY ==
[2022-05-12] VITALS (9 sets, daily range): BP systolic 115–185; BP diastolic 61–93; PULSE 119–139; RESP 15–32; TEMP 38.9–39.8; O2SAT 96–98; BMI 21.4
--- NOTE | ~2022-05-12 | XR_ITS ---
EXAMINATION: XR CHEST CLINICAL INFORMATION: Cough and fever. COMPARISON: Chest x-ray 05/03/2022 TECHNIQUE: 2 views of the chest were obtained. FINDINGS: Subtle hazy patchy airspace opacity at the posterior left lower lobe concerning for pneumonia. Chronic blunting of right costophrenic angle. No significant pleural effusion and no pneumothorax. Heart size is normal. The cardiac mediastinal contours are normal. No pulmonary vascular congestion. Status post left shoulder replacement. XR/XR chest 2V IMPRESSION: Subtle hazy patchy airspace opacity at the posterior left lower lobe concerning for pneumonia.
--- NOTE | 2022-05-12 20:55 | ED.URI ---
HPI - URI/Sore Throat General Chief Complaint: Upper Respiratory Symptoms Stated Complaint: sob Time Seen by Provider: 05/12/22 20:47 Source: patient and EMS Mode of arrival: EMS Limitations: no limitations History of Present Illness HPI Narrative: 87-year-old male who is brought to emergency department by ambulance for evaluation cough, fever, chills and shortness of breath. I did obtain information from the paramedics and they reported the following: Both the patient and his had COVID 19 infection 1 month prior and since that time the patient has been coughing. Patient's cough got worse over the past 1-2 days. Patient is complaining of a productive cough and nasal congestion. Paramedics state that the patient's O2 saturation was 85% on room air and 98% on 4 L. Patient had a fever of 101 degrees F and I did give him Tylenol orally which she vomited. He was then given Zofran 4 mg IV. The patient states that about 2 hours prior to coming to the emergency department he developed shaking chills and was unable to get warm. He states that he has had a cough which is productive of thick sputum. He complains of nausea had 1 episode of vomiting. He denied myalgias or arthralgias. Patient does have a history of COPD and lung cancer and had a right lobectomy in the past. He states that he stop smoking 35 years prior but did have a 30 pack-year history of smoking. Related Data Home Medications Medication Instructions Recorded Confirmed losartan 100 mg tablet 100 mg PO DAILY 12/07/19 04/16/21 omeprazole 20 mg capsule,delayed 40 mg PO DAILY 12/07/19 04/16/21 release albuterol sulfate 90 mcg/actuation 2 puff inhalation QID 02/09/21 04/16/21 aerosol inhaler (ProAir HFA) fluticasone 500 mcg-salmeterol 50 1 inh inhalation BID 02/09/21 04/16/21 mcg/dose blistr powdr for inhalation (Wixela Inhub) tiotropium bromide 2.5 2 puff inhalation BEDTIME 02/09/21 04/16/21 mcg/actuation mist for inhalation (Spiriva Respimat) Previous Rx's Medication Instructions Recorded fluticasone 250 mcg-salmeterol 50 1 inh inhalation BID 30 days #60 ea 01/06/22 mcg/dose blistr powdr for inhalation (Wixela Inhub) Allergies Allergy/AdvReac Type Severity Reaction Status Date / Time No Known Allergies Allergy Verified 01/06/22 10:07 Review of Systems Review of Systems: Yes all other systems are reviewed and are negative [facility] Past Medical History Medical History Asthma COPD (chronic obstructive pulmonary disease) Discomfort in chest GERD (gastroesophageal reflux disease) Hammer toe of left foot HTN (hypertension) Rupture of right Achilles tendon Skin cancer Spinal stenosis Surgical History 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 Family History Family History Father CVD (cardiovascular disease) Mother Lung cancer Brother Bone cancer Social History Social History Household Members: Spouse Housing: House Patient Tobacco Use Status: Former Tobacco user Smoked in Last 30 Days: No Use of substances other than those prescribed or required for medical reasons: No Advance Directives: No Advance Directives Date on File: 12/06/19 Nutrition Risks: No Nutritional Risk service: Yes Current occupational status: retired Physical Exam Vital Signs: Vital Signs: Last Vital Signs Temp 100.7 F H 05/13/22 00:06 Pulse 112 H 05/13/22 00:06 Resp 21 H 05/13/22 00:06 BP 118/62 05/13/22 00:07 Pulse Ox 99 05/13/22 00:06 O2 Del Method 05/13/22 00:06 O2 Flow Rate 4 05/13/22 00:06 Oxygen Flow Rate 4 05/12/22 21:24 BMI result Body Mass Index 21.4 Const: Other: Awake, alert, male patient, the patient does have shaking chills, he has a productive sounding cough, he does appear to have mild dyspnea, answers all questions appropriately HEENT: Head: Yes normal to inspection, Yes normocephalic and Yes atraumatic Ears: external ears normal General nose exam: Normal external nose present Face and sinus: Yes normal facial exam Mouth: Normal oral and palatal mucosa present Throat: Yes posterior oropharynx normal Eyes: General: appearance normal, both eyes and all related structures Pupils: Equal, round and reactive pupils present Neck: Neck: Yes normal visual inspection, Yes no lymphadenopathy, Yes trachea midline and Yes supple Chest: Chest palpation & inspection: normal inspection of the chest and normal palpation of entire chest wall Resp: Other: Tachypnea, patient has diffuse rhonchi with no wheezing rales Cardio: Rate: regular rate Rhythm: regular rhythm Heart sounds: S1 normal heart sound present, S2 normal heart sound present and no murmurs GI: Inspection: Yes normal to inspection Palpation (GI): Soft to palpation, nontender and no guarding Auscultation: normal bowel sounds : General: Yes no CVA tenderness Back/Spine/Pelvis: Back: no CVA tenderness Skin: General skin exam: no rashes or lesions noted Neuro: Cranial nerves: Yes CN's II-XII intact bilaterally and Yes Equal, round and reactive pupils present Cognition (Neuro): normal cognition Motor exam (neuro): 5/5 motor strength present throughout Extrem: General: Yes normal to inspection Psych: Appearance: grossly normal Speech and movement: Normal speech and movement present Affect: normal affect Attitude: cooperative Medications Administered Discontinued Medications Generic Name Dose Route Start Last Admin Trade Name Freq PRN Reason Stop Dose Admin Enoxaparin Sodium 40 mg 05/12/22 23:30 05/13/22 00:33 Enoxaparin Sodium 40 Mg/0.4 Ml Syringe SUBCUT 40 mg Q24H JUDIT Administration Sodium Chloride 1,000 mls @ 999 mls/hr 05/12/22 20:55 05/12/22 22:09 Ns IV 05/12/22 21:55 Infused .Q1H1M STA Infusion Ceftriaxone Sodium 1 gm/ 50 mls @ 100 mls/hr 05/12/22 20:55 05/12/22 21:48 Sodium Chloride IV 05/12/22 21:24 Infused ONCE ONE Infusion Sodium Chloride 1,973.13 mls @ 1,973.13 mls/hr 05/12/22 22:06 05/12/22 22:54 Ns 30 ml/kg infuse over 1 hr (1973.13 ml) 05/12/22 23:05 Infused IV Infusion .Q1H STA Azithromycin 500 mg/ Sodium 250 mls @ 125 mls/hr 05/12/22 22:10 05/12/22 22:26 Chloride IV 05/13/22 00:09 125 mls/hr ONCE ONE Administration Ibuprofen 400 mg 05/12/22 20:55 05/12/22 21:09 Ibuprofen 600 Mg Tablet PO 05/12/22 20:56 400 mg ONCE STA Administration Ondansetron HCl 4 mg 05/12/22 20:55 05/12/22 21:10 Ondansetron Hcl 4 Mg/2 Ml Vial IVPUSH 05/12/22 20:56 4 mg ONCE ONE Administration Medical Decision Making Medical Decision Making MDM Narrative: 87-year-old male with history of COPD, right lower lobe cancer status post resection, who had a COVID-19 infection 1 month prior with persistent cough with 2 days of increased cough and 2 hours of shaking chills and a documented fever of 101 degrees F but paramedics. Patient's O2 saturation was 85% on room air and on 4 L is 96%. I ordered laboratory evaluation to include CBC, CMP, lactate, lipase, PT/INR, PTT, COVID-19, influenza, RSV, troponin, urinalysis and BNP. Blood cultures x2 will be obtained. I will obtain an EKG and a two view chest x-ray. Patient was ordered to get Motrin 400 mg orally, Zofran 4 mg IV, normal saline x1 L and ceftriaxone 1 g IV and azithromycin 500 mg IV after blood cultures are obtained. 2307: My independent interpretation of laboratory evaluation is as follows: WBC elevated 18,500, anemia with an H&H of 10.9 and 34.9, normal MCV of 84.3. Platelet count was normal 327. Glucose elevated 125. Lactate elevated 2.3. LFTs normal. Lipase normal. Urinalysis positive for protein and blood. Microscopic revealed 6-10 RBCs, 0 5 WBCs with no bacteria. Patient's troponin was elevated at 38.8, I will repeat a 3 hour troponin 12 EKG did reveal some ST segment depression in lead 2, 3 and AVF as well as tachycardia. The patient's BMP was normal at 38. Chest x-ray concerning for left lower lobe infiltrate which is consistent with pneumonia would explain the patient's symptoms, he may be bacteremic given his fever and chills. Patient was ordered to get a 30 cc/kilogram normal saline bolus (total 1,973 mL). Patient is feeling significantly better after the above treatment. I will discuss admission with the covering hospitalist. 2334: I did discuss over tiger text the patient's admission with the covering hospitalist, Dr. Gillette and he did accept the admission. 0104: The patient's repeat troponin was significantly elevated at 920. Patient's repeat EKG revealed a sinus tachycardia with a rate of 108, prolonged UT interval 204 milliseconds, no ST segment elevation no ST segment depression. Patient most likely had secondary myocardial injury caused by his hypoxia and his tachycardia. I did discuss this with the covering hospitalist, Dr. Gillette and he was aware of the elevated troponin. Differential Diagnosis Differential diagnosis includes was not limited to pneumonia, COPD exacerbation, congestive heart failure, COVID-19, influenza, RSV, viral syndromes Consult Healthcare Provider Management of the patient was discussed with: Hospitalist Lab Data [facility] Lab Attestation statement: I reviewed the patient's lab results. Please see [facility] for discussion 05/12/22 21:18 05/12/22 21:18 Labs: Lab Results 05/12/22 05/12/22 05/12/22 Range/Units 21:17 21:17 21:17 WBC (4.8-10.8) X10*3/uL RBC (4.60-5.80) X10*6/uL Hgb (14.0-18.0) g/dl Hct (42.0-52.0) % MCV (80.0-98.0) fL MCH (27.0-33.0) pg MCHC (31.0-36.0) g/dl RDW (11.0-16.0) % Plt Count (160-400) X10*3/uL MPV (9.4-12.4) fL Immature Gran % (Auto) (0.0-0.4) % Neut % (Auto) (45-73) % Lymph % (Auto) (20-40) % [place] % (Auto) (2-11) % Eos % (Auto) (0-4) % Baso % (Auto) (0-2) % Lymph # (Auto) (1.2-4.9) X10*3/uL [place] # (Auto) (0.1-1.2) X10*3/uL Eos # (Auto) (0.0-0.4) X10*3/uL Baso # (Auto) (0.0-0.2) X10*3/uL Abs Immat Gran (auto) (0.00-0.03) X10*3/uL Absolute Neuts (auto) (2.0-8.3) x10*3/uL Absolute Nucleated RBC (0.0-0.012) X10*3/uL Nucleated RBC % (auto) (0.0-0.2) /100WBC Smear Tech's Comments PT (10.0-13.1) SEC INR (0.9-1.1) APTT (26.0-36.4) SEC Sodium (135-145) mmol/L Potassium (3.3-5.1) mmol/L Chloride (96-108) mmol/L Carbon Dioxide (22-29) mmol/L Anion Gap (12-20) BUN (9-16) mg/dL Creatinine (0.5-1.4) mg/dL Estim Creat Clear Calc Estimated GFR Random Glucose (60-115) mg/dL Lactic Acid 2.3 H* (0.5-2.0) mmol/L Calcium (8.4-10.2) mg/dL Total Bilirubin (0.0-1.0) mg/dL AST (5-37) U/L ALT (0-40) U/L Alkaline Phosphatase (39-117) U/L Troponin I High Sens 38.8 H (<3.5-35.0) ng/L B-Natriuretic Peptide (<100) pg/mL Total Protein (6.5-8.0) g/dL Albumin (3.5-5.0) g/dL Lipase (8-78) U/L Urine Color Urine Appearance Urine pH (5.0-9.0) Ur Specific [place] (1.005-1.025) Urine Protein (Neg-Trace) mg/dL Urine Glucose (UA) (Negative) mg/dL Urine Ketones (Negative) mg/dL Urine Blood (Negative) Urine Nitrite (Negative) Ur Leukocyte Esterase (Negative) Urine RBC (0-2) /HPF Urine WBC (0-5) /HPF Ur Squamous Epith Cells (0-2) /HPF Urine Bacteria (None Seen) Hyaline Casts (0-2) /LPF Influenza Type A (PCR) NEGATIVE (Negative) Influenza Type B (PCR) NEGATIVE (Negative) RSV RNA Qual (PCR) NEGATIVE (Negative) SARS-CoV-2 RNA (RT-PCR) NEGATIVE (Negative) 05/12/22 05/12/22 05/12/22 Range/Units 21:18 21:18 21:18 WBC 18.5 H (4.8-10.8) X10*3/uL RBC 4.14 L (4.60-5.80) X10*6/uL Hgb 10.9 L (14.0-18.0) g/dl Hct 34.9 L (42.0-52.0) % MCV 84.3 (80.0-98.0) fL MCH 26.3 L (27.0-33.0) pg MCHC 31.2 (31.0-36.0) g/dl RDW 14.2 (11.0-16.0) % Plt Count 327 (160-400) X10*3/uL MPV 8.1 L (9.4-12.4) fL Immature Gran % (Auto) 0.4 (0.0-0.4) % Neut % (Auto) 88.3 H (45-73) % Lymph % (Auto) 2.4 L (20-40) % [place] % (Auto) 8.3 (2-11) % Eos % (Auto) 0.3 (0-4) % Baso % (Auto) 0.3 (0-2) % Lymph # (Auto) 0.5 L (1.2-4.9) X10*3/uL [place] # (Auto) 1.5 H (0.1-1.2) X10*3/uL Eos # (Auto) 0.1 (0.0-0.4) X10*3/uL Baso # (Auto) 0.1 (0.0-0.2) X10*3/uL Abs Immat Gran (auto) 0.08 H (0.00-0.03) X10*3/uL Absolute Neuts (auto) 16.3 H (2.0-8.3) x10*3/uL Absolute Nucleated RBC 0.000 (0.0-0.012) X10*3/uL Nucleated RBC % (auto) 0.0 (0.0-0.2) /100WBC Smear Tech's Comments VERIFIED PT 10.9 (10.0-13.1) SEC INR 1.0 (0.9-1.1) APTT 26.5 (26.0-36.4) SEC Sodium 138 (135-145) mmol/L Potassium 4.3 (3.3-5.1) mmol/L Chloride 105 (96-108) mmol/L Carbon Dioxide 25 (22-29) mmol/L Anion Gap 12 (12-20) BUN 14 (9-16) mg/dL Creatinine 0.87 (0.5-1.4) mg/dL Estim Creat Clear Calc 55.6 Estimated GFR > 60 Random Glucose 125 H (60-115) mg/dL Lactic Acid (0.5-2.0) mmol/L Calcium 8.5 (8.4-10.2) mg/dL Total Bilirubin 0.5 (0.0-1.0) mg/dL AST 23 (5-37) U/L ALT 15 (0-40) U/L Alkaline Phosphatase 83 (39-117) U/L Troponin I High Sens (<3.5-35.0) ng/L B-Natriuretic Peptide (<100) pg/mL Total Protein 6.0 L (6.5-8.0) g/dL Albumin 4.0 (3.5-5.0) g/dL Lipase 14 (8-78) U/L Urine Color Urine Appearance Urine pH (5.0-9.0) Ur Specific [place] (1.005-1.025) Urine Protein (Neg-Trace) mg/dL Urine Glucose (UA) (Negative) mg/dL Urine Ketones (Negative) mg/dL Urine Blood (Negative) Urine Nitrite (Negative) Ur Leukocyte Esterase (Negative) Urine RBC (0-2) /HPF Urine WBC (0-5) /HPF Ur Squamous Epith Cells (0-2) /HPF Urine Bacteria (None Seen) Hyaline Casts (0-2) /LPF Influenza Type A (PCR) (Negative) Influenza Type B (PCR) (Negative) RSV RNA Qual (PCR) (Negative) SARS-CoV-2 RNA (RT-PCR) (Negative) 05/12/22 05/12/22 Range/Units 21:18 21:18 WBC (4.8-10.8) X10*3/uL RBC (4.60-5.80) X10*6/uL Hgb (14.0-18.0) g/dl Hct (42.0-52.0) % MCV (80.0-98.0) fL MCH (27.0-33.0) pg MCHC (31.0-36.0) g/dl RDW (11.0-16.0) % Plt Count (160-400) X10*3/uL MPV (9.4-12.4) fL Immature Gran % (Auto) (0.0-0.4) % Neut % (Auto) (45-73) % Lymph % (Auto) (20-40) % [place] % (Auto) (2-11) % Eos % (Auto) (0-4) % Baso % (Auto) (0-2) % Lymph # (Auto) (1.2-4.9) X10*3/uL [place] # (Auto) (0.1-1.2) X10*3/uL Eos # (Auto) (0.0-0.4) X10*3/uL Baso # (Auto) (0.0-0.2) X10*3/uL Abs Immat Gran (auto) (0.00-0.03) X10*3/uL Absolute Neuts (auto) (2.0-8.3) x10*3/uL Absolute Nucleated RBC (0.0-0.012) X10*3/uL Nucleated RBC % (auto) (0.0-0.2) /100WBC Smear Tech's Comments PT (10.0-13.1) SEC INR (0.9-1.1) APTT (26.0-36.4) SEC Sodium (135-145) mmol/L Potassium (3.3-5.1) mmol/L Chloride (96-108) mmol/L Carbon Dioxide (22-29) mmol/L Anion Gap (12-20) BUN (9-16) mg/dL Creatinine (0.5-1.4) mg/dL Estim Creat Clear Calc Estimated GFR Random Glucose (60-115) mg/dL Lactic Acid (0.5-2.0) mmol/L Calcium (8.4-10.2) mg/dL Total Bilirubin (0.0-1.0) mg/dL AST (5-37) U/L ALT (0-40) U/L Alkaline Phosphatase (39-117) U/L Troponin I High Sens (<3.5-35.0) ng/L B-Natriuretic Peptide 38 (<100) pg/mL Total Protein (6.5-8.0) g/dL Albumin (3.5-5.0) g/dL Lipase (8-78) U/L Urine Color Yellow Urine Appearance Clear Urine pH 7.0 (5.0-9.0) Ur Specific [place] 1.015 (1.005-1.025) Urine Protein 30 (1+) H (Neg-Trace) mg/dL Urine Glucose (UA) Negative (Negative) mg/dL Urine Ketones Negative (Negative) mg/dL Urine Blood Small (1+) H (Negative) Urine Nitrite Negative (Negative) Ur Leukocyte Esterase Negative (Negative) Urine RBC 6-10 H (0-2) /HPF Urine WBC 0-5 (0-5) /HPF Ur Squamous Epith Cells 0-2 (0-2) /HPF Urine Bacteria None Seen (None Seen) Hyaline Casts 0-2 (0-2) /LPF Influenza Type A (PCR) (Negative) Influenza Type B (PCR) (Negative) RSV RNA Qual (PCR) (Negative) SARS-CoV-2 RNA (RT-PCR) (Negative) Independent Interpretation I performed an independent interpretation of an: EKG and Plain X-Ray (Chest x-ray) Interpretation: My independent interpretation of the patient's 12 EKG done at 2108 is as follows: Sinus tachycardia with a rate of 131, normal UT interval, QRS duration QTC interval, less than [address] segment depression in leads 2, 3 and AVF, no ST segment elevation, no ST segment elevation, no PACs, no PVCs. Compared to EKG dated 03/21/[address] segment depressions in lead 2, 3 and AVF are new, patient was tachycardic at 102 previously. My independent interpretation of the patient's two view chest x-ray is as follows left lower infiltrate, positive spine sign. Radiology Impression Discussion of test interpretation with radiology: I have reviewed the radiologist's reading. Radiologist Impression: XR chest 2V IMPRESSION: Subtle hazy patchy airspace opacity at the posterior left lower lobe concerning for pneumonia. Dictated By:Sridhar Bear MDSigned By:<Electronically signed by Sridhar Bear MD in OV>05/12/22 [id number] Independent Historian Clinical information obtained from an independent historian. History obtained from or confirmed by: Spouse Chronic Conditions Patient?s care impacted by: Other (COPD) Critical Care Time Critical Care Time Critical Care Time: Yes Total Critical Care Time: 45 Attestation: Critical Care: The patient was critically ill with a high probability of imminent or life threatening deterioration. I spent greater than 30 minutes of discontinuous time evaluating the patient,delivering critical care at the bedside, discussing and evaluating pertinent data with consultants. Critical care time does not include time spent performing separately billable procedures or teaching. Total time spent performing critical care was 45 minutes. Discharge Plan Discharge Clinical Impression: Pneumonia, Hypoxic, Acute dehydration, Rigors, Myocardial injury Patient Disposition: Admitted As Inpatient
--- NOTE | 2022-05-12 20:56 | ECG_ITS ---
Test Reason : SOB Blood Pressure : / mmHG Vent. Rate : 131 BPM Atrial Rate : 131 BPM P-R Int : 148 ms QRS Dur : 094 ms QT Int : 306 ms P-R-T Axes : 067 080 045 degrees QTc Int : [address] & T wave abnormality, consider inferior ischemia Abnormal ECG When compared with ECG of 21-MAR-2020 17:03, Premature ventricular complexes are no longer Present Referred By: Jacob Rain Electronically Signed By:Alber Vásquez
[2022-05-12] MEDS: Ibuprofen 600 MG TABLET 400 MG PO (21:09)
[2022-05-12] MEDS: 0.9 % Sodium Chloride 1,000 ML 999 ML IV (21:10)
[2022-05-12] MEDS: ondansetron HCL 4 MG/2 ML VIAL IVPUSH (21:10)
[2022-05-12] MEDS: cefTRIAXone sodium 1 GM in 0.9 % Sodium Chloride 50 ML IV (21:18)
[2022-05-12 21:31] LABS: Basophils Absolute Auto 0.1 X10*3/uL (0.0-0.2); Basophils Percent Auto 0.3 % (0-2); Eosinophils Absolute Auto 0.1 X10*3/uL (0.0-0.4); Eosinophils Percent Auto 0.3 % (0-4); Hematocrit 34.9 % (42.0-52.0); Hemoglobin 10.9 g/dl (14.0-18.0); Imm Gran Abs Auto 0.08 X10*3/uL (0.00-0.03); Imm Gran Pct Auto 0.4 % (0.0-0.4); Lymphocytes Absolute Auto 0.5 X10*3/uL (1.2-4.9); Lymphocytes Percent Auto 2.4 % (20-40); MANUAL DIFF FLAG SCAN; Mean Corpuscular HGB Conc 31.2 g/dl (31.0-36.0); Mean Corpuscular Hemoglobin 26.3 pg (27.0-33.0); Mean Corpuscular Volume 84.3 fL (80.0-98.0); Mean Platelet Volume 8.1 fL (9.4-12.4); Monocytes Absolute Auto 1.5 X10*3/uL (0.1-1.2); Monocytes Percent Auto 8.3 % (2-11); Neutrophils Absolute Auto 16.3 x10*3/uL (2.0-8.3); Neutrophils Percent Auto 88.3 % (45-73); Platelet Count 327 X10*3/uL (160-400); Red Blood Count 4.14 X10*6/uL (4.60-5.80); Red Cell Distribution Width 14.2 % (11.0-16.0); SCAN SMEAR FLAG 1; White Blood Count 18.5 X10*3/uL (4.8-10.8)
[2022-05-12 21:32] LABS: Appearance Urine Clear; Color Urine Yellow; Glucose Urine UA Negative (Negative); Leukocyte Esterase Urine Negative (Negative); Nitrite Urine Negative (Negative); Specific Gravity - Urine 1.015 (1.005-1.025); UMIC TRIGGER UACC YES; Urine Blood Small (1+) (Negative); Urine Ketones Negative (Negative); Urine Protein 30 (1+) mg/dL (Neg-Trace)
[2022-05-12 21:36] LABS: Prothrombin Time 10.9 SEC (10.0-13.1)
[2022-05-12 21:37] LABS: Bacteria Urine None Seen (None Seen); Hyaline Casts Urine 0-2 /LPF (0-2); Squamous Epithelial Cell Urine 0-2 /HPF (0-2); WBC Urine 0-5 /HPF (0-5)
[2022-05-12 21:39] LABS: Partial Thromboplastin Time 26.5 SEC (26.0-36.4)
[2022-05-12 21:48] LABS: Lactic Acid 2.3 mmol/L (0.5-2.0)
[2022-05-12 21:49] LABS: Alanine Aminotransferase 15 U/L (0-40); Alkaline Phosphatase 83 U/L (39-117); Anion Gap 12 (12-20); Aspartate Amino Transferase 23 U/L (5-37); Bilirubin Total 0.5 mg/dL (0.0-1.0); Blood Urea Nitrogen 14 mg/dL (9-16); Calcium 8.5 mg/dL (8.4-10.2); Carbon Dioxide 25 mmol/L (22-29); Chloride 105 mmol/L (96-108); Creatinine Clr Calc Pharmacy 55.6; Estimated Glomerular Filt Rate > 60; Glucose Random 125 mg/dL (60-115); Lipase 14 U/L (8-78); Potassium 4.3 mmol/L (3.3-5.1); Sodium 138 mmol/L (135-145)
[2022-05-12 21:55] LABS: B Type Natriuretic Peptide 38 pg/mL (<100)
[2022-05-12 21:57] LABS: Troponin-I High Sensitivity 38.8 ng/L (<3.5-35.0)
[2022-05-12 22:02] LABS: SLIDE REVIEW VERIFIED
--- NOTE | 2022-05-12 22:08 | PC.NURSE ---
Sepsis alert called [id number]. Primary RN and maintenance job titles at bedside.
[2022-05-12] MEDS: 0.9 % Sodium Chloride 1,973.13 ML 1973.13 ML IV (22:09)
--- NOTE | 2022-05-12 22:10 | PC.NURSE ---
Total IV fluid administered - MAR notes 3L NS administered. Per Dr Rain total volume of fluids to be administered during sepsis is - had to enter it defferent in the APR to satisfy the protocol. and charge nurse aware.
[2022-05-12 22:22] LABS: Influenza A PCR NEGATIVE (Negative); Influenza B PCR NEGATIVE (Negative); Resp Syncy Virus RNA Qual PCR NEGATIVE (Negative); SARS COV2 PCR INHOUSE NEGATIVE (Negative)
[2022-05-12] MEDS: Azithromycin 500 MG in 0.9 % Sodium Chloride 250 ML 125 MG IV (22:26)
[2022-05-12 23:24] LABS: Reflex Lactate? Lactic Acid Added
--- NOTE | 2022-05-12 23:26 | P.HPHOSP_ITS ---
History of Present Illness Date of Service: 05/12/22 Chief Complaint: Fever This is a 87-year-old male with pertinent history of essential hypertension, COPD not on home oxygen, gastroesophageal reflux disease presents to the emergency department for evaluation of fevers/chills/dyspnea. Patient and his had COVID-19 infection about a month ago. Over the last 1-2 days, patient's cough has worsened and become productive. Also has been having associated fevers and chills. Admits dyspnea, worse with exertion. Patient denies chest discomfort, palpitations, abdominal pain, changes in urinary or bowel habits. Patient was found to be hypoxemic in the 80s when EMS arrived. Admits generalized malaise and nausea In the emergency department, patient was requiring 4 L supplemental oxygen Review of Systems Constitutional: Constitutional: Reports chills, Reports fever(s), Reports lethargy and Reports malaise Cardiovascular: Cardiovascular: Reports no additional cardiovascular complaints and Reports dyspnea on exertion Respiratory: Respiratory: Reports cough, Reports excessive phlegm production and Reports dyspnea on exertion Gastrointestinal: Gastrointestinal: Reports no additional gastrointestinal complaints Genitourinary: Genitourinary: Reports no additional male genitourinary complaints [facility] Medical History Asthma COPD (chronic obstructive pulmonary disease) Discomfort in chest GERD (gastroesophageal reflux disease) Hammer toe of left foot HTN (hypertension) Rupture of right Achilles tendon Skin cancer Spinal stenosis Family History Father CVD (cardiovascular disease) Mother Lung cancer Brother Bone cancer Surgical History 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 Social History Household Members: Spouse Housing: House Patient Tobacco Use Status: Former Tobacco user Smoked in Last 30 Days: No Use of substances other than those prescribed or required for medical reasons: No Advance Directives: No Advance Directives Date on File: 12/06/19 Nutrition Risks: No Nutritional Risk service: Yes Current occupational status: retired Meds Allergies Allergy/AdvReac Type Severity Reaction Status Date / Time No Known Allergies Allergy Verified 01/06/22 10:07 Active Medications: Current Medications Azithromycin 500 mg/ Sodium (Chloride) 250 mls @ 125 mls/hr IV ONCE ONE Stop: 05/13/22 00:09 Last Admin: 05/12/22 22:26 Dose: 125 mls/hr Home Medications Medication Instructions Recorded Confirmed Last Taken Type losartan 100 mg tablet 100 mg PO DAILY 12/07/19 04/16/21 12/07/19 History omeprazole 20 mg capsule,delayed 40 mg PO DAILY 12/07/19 04/16/21 12/07/19 History release albuterol sulfate 90 mcg/actuation 2 puff inhalation QID 02/09/21 04/16/21 Unknown History aerosol inhaler (ProAir HFA) fluticasone 500 mcg-salmeterol 50 1 inh inhalation BID 02/09/21 04/16/21 Unknown History mcg/dose blistr powdr for inhalation (Wixela Inhub) tiotropium bromide 2.5 2 puff inhalation BEDTIME 02/09/21 04/16/21 Unknown History mcg/actuation mist for inhalation (Spiriva Respimat) Physical Exam Vital Signs and Narrative: Vital Signs: Last Vital Signs Temp 102.0 F H 05/12/22 22:35 Pulse 119 H 05/12/22 23:14 Resp 21 H 05/12/22 23:14 BP 123/61 05/12/22 23:14 Pulse Ox 96 05/12/22 23:14 O2 Del Method 05/12/22 23:14 O2 Flow Rate 4 05/12/22 23:14 Oxygen Flow Rate 4 05/12/22 21:24 BMI result Body Mass Index 21.4 Elderly male lying in bed in mild distress on supplemental oxygen Neck supple, no JVD Tachycardic with regular rhythm, S1-S2 heard Left-sided crackles Abdomen soft nontender, no guarding, no rigidity Patient is awake, alert and oriented to self and person ; no focal motor deficit Psych: Normal mood No pedal edema Results Labs 05/12/22 21:18 05/12/22 21:18 Labs: Laboratory Results - last 24 hr 05/12/22 05/12/22 05/12/22 21:17 21:17 21:17 MCV MCH MCHC RDW Plt Count MPV Immature Gran % (Auto) Neut % (Auto) Lymph % (Auto) [place] % (Auto) Eos % (Auto) Baso % (Auto) Lymph # (Auto) [place] # (Auto) Eos # (Auto) Baso # (Auto) Abs Immat Gran (auto) Absolute Neuts (auto) Absolute Nucleated RBC Nucleated RBC % (auto) Smear Tech's Comments PT INR APTT Anion Gap Estim Creat Clear Calc Estimated GFR Random Glucose Lactic Acid 2.3 H* Calcium Total Bilirubin AST ALT Alkaline Phosphatase Troponin I High Sens 38.8 H B-Natriuretic Peptide Total Protein Albumin Lipase Urine Color Urine Appearance Urine pH Ur Specific [place] Urine Protein Urine Glucose (UA) Urine Ketones Urine Blood Urine Nitrite Ur Leukocyte Esterase Urine RBC Urine WBC Ur Squamous Epith Cells Urine Bacteria Hyaline Casts Influenza Type A (PCR) NEGATIVE Influenza Type B (PCR) NEGATIVE RSV RNA Qual (PCR) NEGATIVE SARS-CoV-2 RNA (RT-PCR) NEGATIVE 05/12/22 05/12/22 05/12/22 21:18 21:18 21:18 MCV 84.3 MCH 26.3 L MCHC 31.2 RDW 14.2 Plt Count 327 MPV 8.1 L Immature Gran % (Auto) 0.4 Neut % (Auto) 88.3 H Lymph % (Auto) 2.4 L [place] % (Auto) 8.3 Eos % (Auto) 0.3 Baso % (Auto) 0.3 Lymph # (Auto) 0.5 L [place] # (Auto) 1.5 H Eos # (Auto) 0.1 Baso # (Auto) 0.1 Abs Immat Gran (auto) 0.08 H Absolute Neuts (auto) 16.3 H Absolute Nucleated RBC 0.000 Nucleated RBC % (auto) 0.0 Smear Tech's Comments VERIFIED PT 10.9 INR 1.0 APTT 26.5 Anion Gap 12 Estim Creat Clear Calc 55.6 Estimated GFR > 60 Random Glucose 125 H Lactic Acid Calcium 8.5 Total Bilirubin 0.5 AST 23 ALT 15 Alkaline Phosphatase 83 Troponin I High Sens B-Natriuretic Peptide Total Protein 6.0 L Albumin 4.0 Lipase 14 Urine Color Urine Appearance Urine pH Ur Specific [place] Urine Protein Urine Glucose (UA) Urine Ketones Urine Blood Urine Nitrite Ur Leukocyte Esterase Urine RBC Urine WBC Ur Squamous Epith Cells Urine Bacteria Hyaline Casts Influenza Type A (PCR) Influenza Type B (PCR) RSV RNA Qual (PCR) SARS-CoV-2 RNA (RT-PCR) 05/12/22 05/12/22 21:18 21:18 MCV MCH MCHC RDW Plt Count MPV Immature Gran % (Auto) Neut % (Auto) Lymph % (Auto) [place] % (Auto) Eos % (Auto) Baso % (Auto) Lymph # (Auto) [place] # (Auto) Eos # (Auto) Baso # (Auto) Abs Immat Gran (auto) Absolute Neuts (auto) Absolute Nucleated RBC Nucleated RBC % (auto) Smear Tech's Comments PT INR APTT Anion Gap Estim Creat Clear Calc Estimated GFR Random Glucose Lactic Acid Calcium Total Bilirubin AST ALT Alkaline Phosphatase Troponin I High Sens B-Natriuretic Peptide 38 Total Protein Albumin Lipase Urine Color Yellow Urine Appearance Clear Urine pH 7.0 Ur Specific [place] 1.015 Urine Protein 30 (1+) H Urine Glucose (UA) Negative Urine Ketones Negative Urine Blood Small (1+) H Urine Nitrite Negative Ur Leukocyte Esterase Negative Urine RBC 6-10 H Urine WBC 0-5 Ur Squamous Epith Cells 0-2 Urine Bacteria None Seen Hyaline Casts 0-2 Influenza Type A (PCR) Influenza Type B (PCR) RSV RNA Qual (PCR) SARS-CoV-2 RNA (RT-PCR) Imaging Radiologist's Impressions: Impressions Chest X-Ray 05/12/22 21:29 IMPRESSION: Subtle hazy patchy airspace opacity at the posterior left lower lobe concerning for pneumonia. Assessment and Plan (1) Pneumonia: Qualifiers: Laterality: left Lung location: lower lobe of lung Pneumonia type: due to unspecified organism Qualified Code(s): J18.9 - Pneumonia, unspecified organism Status: Acute (2) Hypoxic: Status: Acute Plan This is a 87-year-old male with pertinent history of essential hypertension, COPD not on home oxygen, gastroesophageal reflux disease presents to the em ergency department for evaluation of fevers/chills/dyspnea. #. Acute hypoxemic respiratory failure secondary to sepsis in the setting of community-acquired pneumonia: Will admit patient and continue empiric IV antibiotics. Blood culture and lactic acid obtained. Sputum culture pending. Resuscitated with IV crystalloids #. Acute lactic acidosis due to sepsis #. Elevated troponin due to increased demand #. Essential hypertension: Hold losartan in the setting of sepsis #. Chronic normocytic anemia: Hemoglobin above transfusion threshold #. Gastroesophageal reflux disease: On PPI Med rec pending DVT prophylaxis: Lovenox 40 mg daily Full code Cardiac diet Admit as inpatient and will require two night minimum hospital stay for supplemental oxygen and IV antibiotics Time Spent With Patient Time: Total time managing care of this patient today ____ minutes. Quality Stroke Does the patient have a stroke diagnosis?: No VTE Prior VTE?: No VTE Risk Level:: Medical - moderate - high VTE Device Contraindication: Treatment Not Indicated VTE Drug Contraindication: N/A - Med Ordered
[2022-05-13] VITALS (9 sets, daily range): BP systolic 114–136; BP diastolic 56–65; PULSE 82–112; RESP 16–21; TEMP 36.4–38.2; O2SAT 97–99; BMI 22.5
[2022-05-13] MEDS: Enoxaparin Sodium 40 MG/0.4 ML SYRINGE SUBCUT (00:33)
[2022-05-13 00:48] LABS: Troponin-I High Sensitivity 920.7 ng/L (<3.5-35.0)
--- NOTE | 2022-05-13 00:54 | PC.NURSE ---
Critical lab result received: Troponin 920.7. [place] text sent to Dr. Gillette. New orders: Will start heparin drip.
--- NOTE | 2022-05-13 00:56 | ECG_ITS ---
Test Reason : SEPSIS Blood Pressure : / mmHG Vent. Rate : 108 BPM Atrial Rate : 108 BPM P-R Int : 204 ms QRS Dur : 098 ms QT Int : 350 ms P-R-T Axes : 084 085 039 degrees QTc Int : 469 ms Sinus tachycardia Otherwise normal ECG When compared with ECG of 12-MAY-2022 21:08, No significant change was found Referred By: Jacob Rain Electronically Signed By:Alber Vásquez
--- NOTE | 2022-05-13 01:23 | MHC.EDTECH ---
a [place] cath was put on pt , he gets winded if standing to use urinal
[2022-05-13 01:27] LABS: Prothrombin Time 11.8 SEC (10.0-13.1)
[2022-05-13 01:29] LABS: PTT Heparin Drip 32.5 SEC (53-77.9)
[2022-05-13] MEDS: Heparin Sodium,Porcine 5,000 UNIT/ML VIAL 5500 UNIT IVPUSH (01:40)
--- NOTE | 2022-05-13 01:56 | PC.NURSE ---
RN to RN report given to TIFAFNIE Hanson. Pt being transferred to room 378 and aware of plan of care.
[2022-05-13] MEDS: Heparin Sodium,Porcine/1/2NS 25,000 UNIT/250 ML IV.SOLN 9.69 UNIT IVCONT (02:21)
--- NOTE | 2022-05-13 03:13 | PC.NURSE ---
Heparin drip ordered at [address] Griffin's verbal order, pending Dr. Griffin consulting with rendering equipment tender. Heparin drip okayed to start at [address] Griffin.
--- NOTE | 2022-05-13 07:00 | CA_ITS ---
Transthoracic Echocardiogram Patient (Last, First, Middle): Freddy Miller J Gender: Male Date of : 1935 Age: 87 Procedure Date: 05/13/2022 Procedure Type: Transthoracic Echocardiogram Location: S3W Height: 175.26 cm Weight: 68.95 kg BSA: 1.84 m2 Heart Rate: 86 bpm BP: 121 / 59 mmHg Secure Software Assessor: SB Referring MD: Jacqueline Gillette MD Symptoms: NSTEMI Study Quality: Fair ECG Rhythm: Sinus Conclusions: - Normal left ventricular cavity size. There is mildly increased left ventricular wall thickness. The left ventricular systolic function is normal. The visually estimated ejection fraction is between 55-60%. - Regional wall motion abnormalities can not be excluded due to suboptimal endocardial definition. - The right ventricle was not well visualized. - There is severe aortic valve stenosis. The peak aortic velocity is 3.70 m/s. The mean gradient is 30 mmHg. The aortic valve area is 0.73 cm2. Findings Procedure Information Contrast agent, definity, is being given per protocol without apparent complications. The quality of the study was fair and technically difficult. The study quality is limited by the patients inability to tolerate the test, limitations of a portable exam, and lung artifact. Left Ventricle Normal left ventricular cavity size. There is mildly increased left ventricular wall thickness. The left ventricular systolic function is normal. The visually estimated ejection fraction is between 55-60%. Regional wall motion abnormalities can not be excluded due to suboptimal endocardial definition. Abnormal diastolic function is noted. Spectral Doppler is indicative of an impaired relaxation filling pattern. E/E prime ratio is between 8 and 15 consistent with indeterminate filling pressures. Right Ventricle The right ventricle was not well visualized. Atria The left atrium is normal in size. Aortic Valve There is severe calcification of the aortic valve. There is severe aortic valve stenosis. The peak aortic velocity is 3.70 m/s. The mean gradient is 30 mmHg. The aortic valve area is 0.73 cm2. There is no aortic valve regurgitation. Mitral Valve The mitral valve was not well visualized. There is no mitral valve regurgitation. There is no mitral valve stenosis. Pulmonic Valve The pulmonic valve is likely normal. Tricuspid Valve The tricuspid valve was not well visualized. Tricuspid regurgitation envelope is inadequate for calculation of right ventricular systolic pressure. Normal right atrial pressure. Great Vessels The aorta was not well visualized. The pulmonary artery was not well visualized. Venous The inferior vena cava is normal in size and collapses greater than 50% with inspiration. Pericardium/Pleural Prominent epicardial adipose tissue noted. There is a small pericardial effusion. Measurements 2D Linear Measurements IVSd: 1.16 0.6-0.9/0.6-1.0 cm LVIDd: 4.30 3.9-5.3/4.2-5.9 cm LVIDd Index: 2.34 2.4-3.2/2.2-3.1 cm/m2 LVIDs: 2.76 2.0-3.6 cm LVPWd: 0.73 0.7-1.1 cm LA Diam: 3.20 2.7-3.8/3.0-4.0 cm LAIDs Index: 1.74 1.5-2.3 cm/m2 LV Mass: 163.38 67-162/88-224 g LV Mass Index: 88.79 43-95/49-115 g/m2 LVOT Diam: 2.40 3.0+(-)1.3 cm 2D Systolic Function EF 2C: 57.30 >55% Mitral Valve MV Pk E: 0.91 MV PK A: 1.48 MV Decel Time: 158.00 E/A: 0.60 E'Lateral: 7.07 E'Medial: 5.66 E/E' Med: 16.10 E/E' Lat: 12.90 PHT: 46.00 MVA PHT: 4.78 Decel Davie: 5.79 Aortic Valve AoV Pk Caesar: 3.70 AoV Mn Caesar: 2.57 AoV VTI: 0.69 AoV Pk Grad: 55.00 Aov Mn Grad: 30.00 TAMERA Cont.VTI: 0.73 LVOT LVOT Pk Caesar: 0.60 LVOT Mn Caesar: 0.44 LVOT VTI: 0.11 LVOT Pk Grad: 1.00 LVOT Mn Grad: 1.00 LVOT Diam: 2.40 LVOT Area: 4.52 Diastolic Function MV Pk E: 0.91 MV Pk A: 1.48 E/A: 0.60 E'Medial: 5.66 E/E' Med: 16.10 E' Laterial: 7.07 E/E' Lat: 12.90 Tricuspid Valve RA Press: 8.00 Updated in Other Vendor System with Status of Final Alber Vásquez MD electronically signed on 05/13/2022 3:48:40 PM with status of Final
[2022-05-13 07:15] LABS: Basophils Absolute Auto 0.1 X10*3/uL (0.0-0.2); Basophils Percent Auto 0.3 % (0-2); Hematocrit 31.7 % (42.0-52.0); Imm Gran Abs Auto 0.37 X10*3/uL (0.00-0.03); Imm Gran Pct Auto 1.2 % (0.0-0.4); Lymphocytes Absolute Auto 0.8 X10*3/uL (1.2-4.9); Lymphocytes Percent Auto 2.4 % (20-40); MANUAL DIFF FLAG SCAN; Mean Corpuscular HGB Conc 31.5 g/dl (31.0-36.0); Mean Corpuscular Hemoglobin 26.9 pg (27.0-33.0); Mean Corpuscular Volume 85.2 fL (80.0-98.0); Mean Platelet Volume 8.8 fL (9.4-12.4); Monocytes Absolute Auto 2.8 X10*3/uL (0.1-1.2); Monocytes Percent Auto 8.6 % (2-11); Neutrophils Absolute Auto 27.9 x10*3/uL (2.0-8.3); Neutrophils Percent Auto 87.5 % (45-73); Platelet Count 280 X10*3/uL (160-400); Red Blood Count 3.72 X10*6/uL (4.60-5.80); Red Cell Distribution Width 14.2 % (11.0-16.0); SCAN SMEAR FLAG 1
[2022-05-13 07:37] LABS: Anion Gap 14 (12-20); Blood Urea Nitrogen 14 mg/dL (9-16); Calcium 8.1 mg/dL (8.4-10.2); Carbon Dioxide 22 mmol/L (22-29); Chloride 107 mmol/L (96-108); Creatinine Clr Calc Pharmacy 60.6; Estimated Glomerular Filt Rate > 60; Glucose Random 82 mg/dL (60-115); Potassium 4.1 mmol/L (3.3-5.1); Sodium 139 mmol/L (135-145)
[2022-05-13 07:39] LABS: Troponin-I High Sensitivity > 3600.0 ng/L (<3.5-35.0)
[2022-05-13 07:54] LABS: White Blood Count 31.9 X10*3/uL (4.8-10.8)
[2022-05-13 08:00] LABS: SLIDE REVIEW VERIFIED
--- NOTE | 2022-05-13 08:19 | ECG_ITS ---
Test Reason : ck heart rate Blood Pressure : / mmHG Vent. Rate : 081 BPM Atrial Rate : 081 BPM P-R Int : 206 ms QRS Dur : 082 ms QT Int : 398 ms P-R-T Axes : 078 045 057 degrees QTc Int : 462 ms Normal sinus rhythm Normal ECG When compared with ECG of 13-MAY-2022 01:01, T wave inversion no longer evident in Inferior leads Referred By: Mechelle Zeng Electronically Signed By:Alber Vásquez
--- NOTE | 2022-05-13 08:54 | PHA.MEDREC ---
Pharmacy Consult ? Medication Reconciliation Pharmacy has completed the medication reconciliation. Patient fills medications through [facility]. Med rec complete from conversation with patient. He is a good historian and was able to provide medication names and how they are used.
[2022-05-13] MEDS: Aspirin Enteric Coated 325 MG TABLET.DR PO (09:07)
[2022-05-13] MEDS: Aspirin Enteric Coated 81 MG TABLET.DR PO (09:07)
--- NOTE | 2022-05-13 09:19 | MHC.CM.PN ---
Addendum entered by Madonna Hayward 05/13/22 09:29: IMM and Important message from Kristy 05/13/22 Original Note: Male 87 DX Fever He lives with his . He is independent with all functional mobility. He works out at a gym 3-4x a week. He has been vaccinated x4. A copy of his HCP has been requested. DP home self care. A family member will provide transportation at discharge.
[2022-05-13 09:46] LABS: PTT Heparin Drip 191.3 SEC (53-77.9)
--- NOTE | 2022-05-13 10:23 | HO.PM.IMPN ---
Subjective Subjective Date of Service: 05/13/22 Interval History: seen and examined this morning follow up for PNA, NSTEMI denies chest pain or sob at this time. prior to arrival was having sob, fever and cough Review of Systems Review of Systems: Yes all other systems are reviewed and are negative Constitutional Constitutional: Denies chills and Denies fever(s) Cardiovascular Cardiovascular: Denies chest pain, Denies palpitations and Denies dyspnea Respiratory Respiratory: Denies dyspnea Gastrointestinal Gastrointestinal: Denies abdominal pain Endocrine Endocrine: Denies palpitations Physical Exam Vital Signs: Vital Signs: Last Vital Signs Temp 98.3 F 05/13/22 07:25 Pulse 82 05/13/22 07:44 Resp 16 05/13/22 07:44 BP 121/59 L 05/13/22 07:25 Pulse Ox 99 05/13/22 07:25 O2 Del Method 05/13/22 07:25 O2 Flow Rate 4 05/13/22 07:25 Oxygen Flow Rate 4 05/12/22 21:24 BMI result Body Mass Index 22.5 Const: General: no acute distress, alert and awake Nutritional Appearance: average body habitus Orientation/consciousness: patient oriented x3 Resp: Other: exp rhonchi, dim lung sounds on left Effort & Inspection: normal respiratory effort and able to speak in complete sentences Cardio: Rate: regular rate Heart sounds: S1 normal heart sound present and S2 normal heart sound present GI: Inspection: No distended Palpation (GI): Soft to palpation Neuro: Other: grossly nonfocal General: patient oriented x3 Extrem: General: Yes no pedal edema Objective Data Active Medications Acetaminophen (Acetaminophen 325 Mg Tablet) 650 mg PO Q6H PRN PRN Reason: Pain, Mild (Pain Scale 1-3) Aspirin (Aspirin Enteric Coated 81 Mg Tablet.) 81 mg PO DAILY [facility] Last Admin: 05/13/22 09:07 Dose: 81 mg Documented By: MARTHA Albuterol Sulfate 2.5 mg/ (Ipratropium [place] 0.5 mg) 0 mg INHALE RQ4H WHILE AWAKE [facility] Last Admin: 05/13/22 07:41 Dose: 2.5 each Documented By: ANABELLA Fluticasone/Vilanterol (Fluticasone/Vilanterol 100/25 Blst.W.Dev) 1 puff INHALE RDAILY [facility] Heparin Sodium (Porcine) (Heparin Sodium,Porcine 5,000 Unit/Ml Vial) 2,800 unit IVPUSH PROTOCOL BOLUS PRN; Protocol PRN Reason: 40 unit/kg - Heparin Protocol Heparin Sodium (Porcine) (Heparin Sodium,Porcine 5,000 Unit/Ml Vial) 5,500 unit IVPUSH PROTOCOL BOLUS PRN; Protocol PRN Reason: 80 unit/kg - Heparin Protocol Ceftriaxone Sodium 1 gm/ (Sodium Chloride) 50 mls @ 100 mls/hr IV Q24H [facility] Azithromycin 500 mg/ Sodium (Chloride) 250 mls @ 125 mls/hr IV Q24H [facility] Heparin Sodium/Sodium Chloride (Heparin Sodium,Porcine/1/2ns) 25,000 unit in 250 mls @ 0 mls/hr IVCONT .Q0M [facility]; Protocol Last Titration: 05/13/22 09:47 Dose: 0 units/kg/hr, 0 mls/hr Documented By: MARTHA Co-signed By: ÁNGELA Losartan Potassium (Losartan Potassium 50 Mg Tablet) 100 mg PO DAILY [facility]; Protocol Melatonin (Melatonin 3 Mg Tablet) 6 mg PO BEDTIME PRN PRN Reason: Insomnia Mupirocin (Mupirocin 2 % Oint 22 Gm Tube) 1 appl TOPICAL BID [facility] Omeprazole (Omeprazole 40 Mg Capsule.Dr) 40 mg PO DAILY@0630 [facility] Ondansetron HCl (Ondansetron Hcl 4 Mg/2 Ml Vial) 4 mg IVPUSH Q8H PRN PRN Reason: Nausea and Vomiting Pharmacy Consult (Consult Rx Perform Med Rec) 1 each MISCELLANE ONCE PRN PRN Reason: Consult order Pharmacy Consult (Consult Rx Perform Med Rec) 1 each MISCELLANE ONCE PRN PRN Reason: Consult order Tiotropium [place] (Tiotropium [place] 18 Mcg Cap.W.Dev) 1 puff INHALE RDAILY@2000 [facility] Labs 05/13/22 05:33 05/13/22 05:33 Labs: Laboratory Results - last 24 hr 05/12/22 05/12/22 05/12/22 21:17 21:17 21:17 MCV MCH MCHC RDW Plt Count MPV Immature Gran % (Auto) Neut % (Auto) Lymph % (Auto) [place] % (Auto) Eos % (Auto) Baso % (Auto) Lymph # (Auto) [place] # (Auto) Eos # (Auto) Baso # (Auto) Abs Immat Gran (auto) Absolute Neuts (auto) Absolute Nucleated RBC Nucleated RBC % (auto) Smear Tech's Comments PT INR APTT aPTT Heparin Protocol Anion Gap Estim Creat Clear Calc Estimated GFR Random Glucose Lactic Acid 2.3 H* Lactic Acid F/U @ 2Hr Calcium Total Bilirubin AST ALT Alkaline Phosphatase Troponin I High Sens 38.8 H B-Natriuretic Peptide Total Protein Albumin Lipase Urine Color Urine Appearance Urine pH Ur Specific [place] Urine Protein Urine Glucose (UA) Urine Ketones Urine Blood Urine Nitrite Ur Leukocyte Esterase Urine RBC Urine WBC Ur Squamous Epith Cells Urine Bacteria Hyaline Casts Influenza Type A (PCR) NEGATIVE Influenza Type B (PCR) NEGATIVE RSV RNA Qual (PCR) NEGATIVE SARS-CoV-2 RNA (RT-PCR) NEGATIVE 05/12/22 05/12/22 05/12/22 21:18 21:18 21:18 MCV 84.3 MCH 26.3 L MCHC 31.2 RDW 14.2 Plt Count 327 MPV 8.1 L Immature Gran % (Auto) 0.4 Neut % (Auto) 88.3 H Lymph % (Auto) 2.4 L [place] % (Auto) 8.3 Eos % (Auto) 0.3 Baso % (Auto) 0.3 Lymph # (Auto) 0.5 L [place] # (Auto) 1.5 H Eos # (Auto) 0.1 Baso # (Auto) 0.1 Abs Immat Gran (auto) 0.08 H Absolute Neuts (auto) 16.3 H Absolute Nucleated RBC 0.000 Nucleated RBC % (auto) 0.0 Smear Tech's Comments VERIFIED PT 10.9 INR 1.0 APTT 26.5 aPTT Heparin Protocol Anion Gap 12 Estim Creat Clear Calc 55.6 Estimated GFR > 60 Random Glucose 125 H Lactic Acid Lactic Acid F/U @ 2Hr Calcium 8.5 Total Bilirubin 0.5 AST 23 ALT 15 Alkaline Phosphatase 83 Troponin I High Sens B-Natriuretic Peptide Total Protein 6.0 L Albumin 4.0 Lipase 14 Urine Color Urine Appearance Urine pH Ur Specific [place] Urine Protein Urine Glucose (UA) Urine Ketones Urine Blood Urine Nitrite Ur Leukocyte Esterase Urine RBC Urine WBC Ur Squamous Epith Cells Urine Bacteria Hyaline Casts Influenza Type A (PCR) Influenza Type B (PCR) RSV RNA Qual (PCR) SARS-CoV-2 RNA (RT-PCR) 05/12/22 05/12/22 05/12/22 21:18 21:18 23:41 MCV MCH MCHC RDW Plt Count MPV Immature Gran % (Auto) Neut % (Auto) Lymph % (Auto) [place] % (Auto) Eos % (Auto) Baso % (Auto) Lymph # (Auto) [place] # (Auto) Eos # (Auto) Baso # (Auto) Abs Immat Gran (auto) Absolute Neuts (auto) Absolute Nucleated RBC Nucleated RBC % (auto) Smear Tech's Comments PT INR APTT aPTT Heparin Protocol Anion Gap Estim Creat Clear Calc Estimated GFR Random Glucose Lactic Acid Lactic Acid F/U @ 2Hr 1.0 Calcium Total Bilirubin AST ALT Alkaline Phosphatase Troponin I High Sens B-Natriuretic Peptide 38 Total Protein Albumin Lipase Urine Color Yellow Urine Appearance Clear Urine pH 7.0 Ur Specific [place] 1.015 Urine Protein 30 (1+) H Urine Glucose (UA) Negative Urine Ketones Negative Urine Blood Small (1+) H Urine Nitrite Negative Ur Leukocyte Esterase Negative Urine RBC 6-10 H Urine WBC 0-5 Ur Squamous Epith Cells 0-2 Urine Bacteria None Seen Hyaline Casts 0-2 Influenza Type A (PCR) Influenza Type B (PCR) RSV RNA Qual (PCR) SARS-CoV-2 RNA (RT-PCR) 05/13/22 05/13/22 05/13/22 00:22 01:15 05:33 MCV 85.2 MCH 26.9 L MCHC 31.5 RDW 14.2 Plt Count 280 MPV 8.8 L Immature Gran % (Auto) 1.2 H Neut % (Auto) 87.5 H Lymph % (Auto) 2.4 L [place] % (Auto) 8.6 Eos % (Auto) 0.0 Baso % (Auto) 0.3 Lymph # (Auto) 0.8 L [place] # (Auto) 2.8 H Eos # (Auto) 0.0 Baso # (Auto) 0.1 Abs Immat Gran (auto) 0.37 H Absolute Neuts (auto) 27.9 H Absolute Nucleated RBC 0.000 Nucleated RBC % (auto) 0.0 Smear Tech's Comments VERIFIED PT 11.8 INR 1.0 APTT aPTT Heparin Protocol 32.5 L Anion Gap Estim Creat Clear Calc Estimated GFR Random Glucose Lactic Acid Lactic Acid F/U @ 2Hr Calcium Total Bilirubin AST ALT Alkaline Phosphatase Troponin I High Sens 920.7 H* D B-Natriuretic Peptide Total Protein Albumin Lipase Urine Color Urine Appearance Urine pH Ur Specific [place] Urine Protein Urine Glucose (UA) Urine Ketones Urine Blood Urine Nitrite Ur Leukocyte Esterase Urine RBC Urine WBC Ur Squamous Epith Cells Urine Bacteria Hyaline Casts Influenza Type A (PCR) Influenza Type B (PCR) RSV RNA Qual (PCR) SARS-CoV-2 RNA (RT-PCR) 05/13/22 05/13/22 05/13/22 05:33 05:33 09:02 MCV MCH MCHC RDW Plt Count MPV Immature Gran % (Auto) Neut % (Auto) Lymph % (Auto) [place] % (Auto) Eos % (Auto) Baso % (Auto) Lymph # (Auto) [place] # (Auto) Eos # (Auto) Baso # (Auto) Abs Immat Gran (auto) Absolute Neuts (auto) Absolute Nucleated RBC Nucleated RBC % (auto) Smear Tech's Comments PT INR APTT aPTT Heparin Protocol 191.3 H* D Anion Gap 14 Estim Creat Clear Calc 60.6 Estimated GFR > 60 Random Glucose 82 Lactic Acid Lactic Acid F/U @ 2Hr Calcium 8.1 L Total Bilirubin AST ALT Alkaline Phosphatase Troponin I High Sens > 3600.0 H* D B-Natriuretic Peptide Total Protein Albumin Lipase Urine Color Urine Appearance Urine pH Ur Specific [place] Urine Protein Urine Glucose (UA) Urine Ketones Urine Blood Urine Nitrite Ur Leukocyte Esterase Urine RBC Urine WBC Ur Squamous Epith Cells Urine Bacteria Hyaline Casts Influenza Type A (PCR) Influenza Type B (PCR) RSV RNA Qual (PCR) SARS-CoV-2 RNA (RT-PCR) Microbiology Microbiology Results: Microbiology 05/13/22 01:03 Gram Stain - Final Sputum - Expectorated Sputum Culture - Final Assessment and Plan (1) Pneumonia: Status: Acute (2) NSTEMI (non-ST elevated myocardial infarction): Status: Acute Plan This is a 87-year-old male with pertinent history of essential hypertension, COPD not on home oxygen, gastroesophageal reflux disease presents to the emergency department for evaluation of fevers/chills/dyspnea. Acute hypoxemic respiratory failure secondary to PNA wean oxygen as tolerated Sepsis secondary to community-acquired pneumonia: met criteria with fever, wbc count. LA 2.3 continue IV ceftriaxone, azithromycin blood cultures pending received IVF bolus NSTEMI trops trenidng up to >3600 EKG no acute ischemic changes continue heparin drip, asa echo pending cardiology consult pending Essential hypertension: Continue losartan Chronic normocytic anemia: H/H appears stable Gastroesophageal reflux disease continue omeprazole h/o lung ca s/p right lower lobectomy in 2020 DVT prophylaxis: Heparin Full code Attending - Dr. Ro Requires ongoing inpatient hospitalization for management of NSTEMI requiring heparin drip, specialist evaluation and close cardiac moitoring and pneumonia Time Spent With Patient Time: Total time managing care of this patient today ____ minutes. Quality Stroke Does the patient have a stroke diagnosis?: No VTE Prior VTE?: No VTE Risk Level:: Medical - moderate - high VTE Device Contraindication: Treatment Not Indicated VTE Drug Contraindication: N/A - Med Ordered
[2022-05-13 10:37] LABS: Troponin-I High Sensitivity > 3600.0 ng/L (<3.5-35.0)
[2022-05-13] MEDS: Omeprazole 40 MG CAPSULE.DR PO (11:24)
[2022-05-13 12:16] LABS: PTT Heparin Drip 61.3 SEC (53-77.9)
--- NOTE | 2022-05-13 16:41 | PC.NURSE ---
Pt on continuous o2 monitoring per MD order, Pt currently weened down tfrom 4L via NC to 2L via NC and is sating 97%-99%, pt denies SOB, chest pain or trouble breathing, will continue to monitor.
--- NOTE | 2022-05-13 17:27 | P.CONCA_ITS ---
History of Present Illness History of Present Illness Date of Service: 05/13/22 Requesting physician: Mechelle Zeng Chief complaint: Pneumonia, NSTEMI Narrative: [age] gentleman with background history of lung cancer status post resection and COPD who is presenting with shortness of breath and has been diagnosed with right lower lobe pneumonia. He also had significantly elevated troponin levels and high sensitive troponin level has been more than 3600. He said he had shortness of breath which apparently worsened overnight with elevation in troponins. EKG did not show any dynamic changes. He had echocardiography performed which showed normal LV function and showed severe aortic valve stenosis. He has been on heparin drip. He is saying his breathing is stable currently. He is denying any chest discomfort. No bleeding concerns. He is active and goes to gym few times a week. He is independent in his daily activities. No history of dementia. I had a detailed discussion with his primary care physician Dr. Ochoa because the patient wished that I discuss with him to see if he will be a good candidate for transfer to [facility] for angiography and assessment for aortic valve replacement in the future. His primary care physician felt that he he is a good candidate. 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 Social History Social History Household Members: Spouse Housing: Condominium Patient Tobacco Use Status: Former Tobacco user Advance Directives Date on File: 12/06/19 service: Yes Current occupational status: retired Meds Allergies Allergy/AdvReac Type Severity Reaction Status Date / Time No Known Allergies Allergy Verified 01/06/22 10:07 Active Medications: Current Medications Acetaminophen (Acetaminophen 325 Mg Tablet) 650 mg PO Q6H PRN PRN Reason: Pain, Mild (Pain Scale 1-3) Aspirin (Aspirin Enteric Coated 81 Mg Tablet.) 81 mg PO DAILY [facility] Last Admin: 05/13/22 09:07 Dose: 81 mg Albuterol Sulfate 2.5 mg/ (Ipratropium [place] 0.5 mg) 0 mg INHALE RQ4H WHILE AWAKE [facility] Last Admin: 05/13/22 14:58 Dose: 2.5 each Fluticasone/Vilanterol (Fluticasone/Vilanterol 100/25 Blst.W.Dev) 1 puff INHALE RDAILY [facility] Heparin Sodium (Porcine) (Heparin Sodium,Porcine 5,000 Unit/Ml Vial) 2,800 unit IVPUSH PROTOCOL BOLUS PRN; Protocol PRN Reason: 40 unit/kg - Heparin Protocol Heparin Sodium (Porcine) (Heparin Sodium,Porcine 5,000 Unit/Ml Vial) 5,500 unit IVPUSH PROTOCOL BOLUS PRN; Protocol PRN Reason: 80 unit/kg - Heparin Protocol Ceftriaxone Sodium 1 gm/ (Sodium Chloride) 50 mls @ 100 mls/hr IV Q24H [facility] Azithromycin 500 mg/ Sodium (Chloride) 250 mls @ 125 mls/hr IV Q24H [facility] Heparin Sodium/Sodium Chloride (Heparin Sodium,Porcine/1/2ns) 25,000 unit in 250 mls @ 0 mls/hr IVCONT .Q0M [facility]; Protocol Last Titration: 05/13/22 12:41 Dose: 10 units/kg/hr, 6.92 mls/hr Losartan Potassium (Losartan Potassium 50 Mg Tablet) 100 mg PO DAILY [facility]; Protocol Melatonin (Melatonin 3 Mg Tablet) 6 mg PO BEDTIME PRN PRN Reason: Insomnia Mupirocin (Mupirocin 2 % Oint 22 Gm Tube) 1 appl TOPICAL BID [facility] Omeprazole (Omeprazole 40 Mg Capsule.) 40 mg PO DAILY@0630 [facility] Last Admin: 05/13/22 11:24 Dose: 40 mg Ondansetron HCl (Ondansetron Hcl 4 Mg/2 Ml Vial) 4 mg IVPUSH Q8H PRN PRN Reason: Nausea and Vomiting Pharmacy Consult (Consult Rx Perform Med Rec) 1 each MISCELLANE ONCE PRN PRN Reason: Consult order Pharmacy Consult (Consult Rx Perform Med Rec) 1 each MISCELLANE ONCE PRN PRN Reason: Consult order Tiotropium [place] (Tiotropium [place] 18 Mcg Cap.W.Dev) 1 puff INHALE RDAILY@1999 [facility] Home Medications Medication Instructions Recorded Confirmed Last Taken Type losartan 100 mg tablet 100 mg PO DAILY 12/07/19 05/13/22 05/12/22 History omeprazole 20 mg capsule,delayed 40 mg PO DAILY@0630 12/07/19 05/13/22 05/12/22 History release tiotropium bromide 2.5 2 puff inhalation BEDTIME 02/09/21 05/13/22 05/12/22 History mcg/actuation mist for inhalation (Spiriva Respimat) mupirocin calcium 2 % topical cream 1 appl topical BID 05/13/22 05/13/22 05/12/22 History Physical Exam Vital Signs: Vital Signs: Last Vital Signs Temp 97.5 F 05/13/22 16:00 Pulse 92 05/13/22 16:00 Resp 18 05/13/22 16:00 BP 136/65 05/13/22 16:00 Pulse Ox 99 05/13/22 16:00 O2 Del Method 05/13/22 16:00 O2 Flow Rate 2 05/13/22 16:00 Oxygen Flow Rate 4 05/12/22 21:24 BMI result Body Mass Index 22.5 GENERAL APPEARANCE: in no acute distress, on supplemental oxygen. NECK: no carotid bruit, no jugular venous distention. SKIN: no suspicious lesions, warm and dry. HEART: Ejection systolic murmur aortic area with absent 2nd heart sound, re gular rate and rhythm. LUNGS: Mild expiratory wheezes. ABDOMEN: soft, nontender. EXTREMITIES: no edema. PERIPHERAL PULSES: equal. NEUROLOGIC: No gross deficits, AAO X 3 Objective Labs and Meds 05/13/22 05:33 05/13/22 05:33 Lab results: Laboratory Results - last 24 hr 05/12/22 05/12/22 05/12/22 21:17 21:17 21:17 WBC RBC Hgb Hct MCV MCH MCHC RDW Plt Count MPV Immature Gran % (Auto) Neut % (Auto) Lymph % (Auto) [place] % (Auto) Eos % (Auto) Baso % (Auto) Lymph # (Auto) [place] # (Auto) Eos # (Auto) Baso # (Auto) Abs Immat Gran (auto) Absolute Neuts (auto) Absolute Nucleated RBC Nucleated RBC % (auto) Smear Tech's Comments PT INR APTT aPTT Heparin Protocol Sodium Potassium Chloride Carbon Dioxide Anion Gap BUN Creatinine Estim Creat Clear Calc Estimated GFR Random Glucose Lactic Acid 2.3 H* Lactic Acid F/U @ 2Hr Calcium Total Bilirubin AST ALT Alkaline Phosphatase Troponin I High Sens 38.8 H B-Natriuretic Peptide Total Protein Albumin Lipase Urine Color Urine Appearance Urine pH Ur Specific [place] Urine Protein Urine Glucose (UA) Urine Ketones Urine Blood Urine Nitrite Ur Leukocyte Esterase Urine RBC Urine WBC Ur Squamous Epith Cells Urine Bacteria Hyaline Casts Influenza Type A (PCR) NEGATIVE Influenza Type B (PCR) NEGATIVE RSV RNA Qual (PCR) NEGATIVE SARS-CoV-2 RNA (RT-PCR) NEGATIVE 05/12/22 05/12/22 05/12/22 21:18 21:18 21:18 WBC 18.5 H RBC 4.14 L Hgb 10.9 L Hct 34.9 L MCV 84.3 MCH 26.3 L MCHC 31.2 RDW 14.2 Plt Count 327 MPV 8.1 L Immature Gran % (Auto) 0.4 Neut % (Auto) 88.3 H Lymph % (Auto) 2.4 L [place] % (Auto) 8.3 Eos % (Auto) 0.3 Baso % (Auto) 0.3 Lymph # (Auto) 0.5 L [place] # (Auto) 1.5 H Eos # (Auto) 0.1 Baso # (Auto) 0.1 Abs Immat Gran (auto) 0.08 H Absolute Neuts (auto) 16.3 H Absolute Nucleated RBC 0.000 Nucleated RBC % (auto) 0.0 Smear Tech's Comments VERIFIED PT 10.9 INR 1.0 APTT 26.5 aPTT Heparin Protocol Sodium 138 Potassium 4.3 Chloride 105 Carbon Dioxide 25 Anion Gap 12 BUN 14 Creatinine 0.87 Estim Creat Clear Calc 55.6 Estimated GFR > 60 Random Glucose 125 H Lactic Acid Lactic Acid F/U @ 2Hr Calcium 8.5 Total Bilirubin 0.5 AST 23 ALT 15 Alkaline Phosphatase 83 Troponin I High Sens B-Natriuretic Peptide Total Protein 6.0 L Albumin 4.0 Lipase 14 Urine Color Urine Appearance Urine pH Ur Specific [place] Urine Protein Urine Glucose (UA) Urine Ketones Urine Blood Urine Nitrite Ur Leukocyte Esterase Urine RBC Urine WBC Ur Squamous Epith Cells Urine Bacteria Hyaline Casts Influenza Type A (PCR) Influenza Type B (PCR) RSV RNA Qual (PCR) SARS-CoV-2 RNA (RT-PCR) 05/12/22 05/12/22 05/12/22 21:18 21:18 23:41 WBC RBC Hgb Hct MCV MCH MCHC RDW Plt Count MPV Immature Gran % (Auto) Neut % (Auto) Lymph % (Auto) [place] % (Auto) Eos % (Auto) Baso % (Auto) Lymph # (Auto) [place] # (Auto) Eos # (Auto) Baso # (Auto) Abs Immat Gran (auto) Absolute Neuts (auto) Absolute Nucleated RBC Nucleated RBC % (auto) Smear Tech's Comments PT INR APTT aPTT Heparin Protocol Sodium Potassium Chloride Carbon Dioxide Anion Gap BUN Creatinine Estim Creat Clear Calc Estimated GFR Random Glucose Lactic Acid Lactic Acid F/U @ 2Hr 1.0 Calcium Total Bilirubin AST ALT Alkaline Phosphatase Troponin I High Sens B-Natriuretic Peptide 38 Total Protein Albumin Lipase Urine Color Yellow Urine Appearance Clear Urine pH 7.0 Ur Specific [place] 1.015 Urine Protein 30 (1+) H Urine Glucose (UA) Negative Urine Ketones Negative Urine Blood Small (1+) H Urine Nitrite Negative Ur Leukocyte Esterase Negative Urine RBC 6-10 H Urine WBC 0-5 Ur Squamous Epith Cells 0-2 Urine Bacteria None Seen Hyaline Casts 0-2 Influenza Type A (PCR) Influenza Type B (PCR) RSV RNA Qual (PCR) SARS-CoV-2 RNA (RT-PCR) 05/13/22 05/13/22 05/13/22 00:22 01:15 05:33 WBC 31.9 H* RBC 3.72 L Hgb 10.0 L Hct 31.7 L MCV 85.2 MCH 26.9 L MCHC 31.5 RDW 14.2 Plt Count 280 MPV 8.8 L Immature Gran % (Auto) 1.2 H Neut % (Auto) 87.5 H Lymph % (Auto) 2.4 L [place] % (Auto) 8.6 Eos % (Auto) 0.0 Baso % (Auto) 0.3 Lymph # (Auto) 0.8 L [place] # (Auto) 2.8 H Eos # (Auto) 0.0 Baso # (Auto) 0.1 Abs Immat Gran (auto) 0.37 H Absolute Neuts (auto) 27.9 H Absolute Nucleated RBC 0.000 Nucleated RBC % (auto) 0.0 Smear Tech's Comments VERIFIED PT 11.8 INR 1.0 APTT aPTT Heparin Protocol 32.5 L Sodium Potassium Chloride Carbon Dioxide Anion Gap BUN Creatinine Estim Creat Clear Calc Estimated GFR Random Glucose Lactic Acid Lactic Acid F/U @ 2Hr Calcium Total Bilirubin AST ALT Alkaline Phosphatase Troponin I High Sens 920.7 H* D B-Natriuretic Peptide Total Protein Albumin Lipase Urine Color Urine Appearance Urine pH Ur Specific [place] Urine Protein Urine Glucose (UA) Urine Ketones Urine Blood Urine Nitrite Ur Leukocyte Esterase Urine RBC Urine WBC Ur Squamous Epith Cells Urine Bacteria Hyaline Casts Influenza Type A (PCR) Influenza Type B (PCR) RSV RNA Qual (PCR) SARS-CoV-2 RNA (RT-PCR) 05/13/22 05/13/22 05/13/22 05:33 05:33 09:02 WBC RBC Hgb Hct MCV MCH MCHC RDW Plt Count MPV Immature Gran % (Auto) Neut % (Auto) Lymph % (Auto) [place] % (Auto) Eos % (Auto) Baso % (Auto) Lymph # (Auto) [place] # (Auto) Eos # (Auto) Baso # (Auto) Abs Immat Gran (auto) Absolute Neuts (auto) Absolute Nucleated RBC Nucleated RBC % (auto) Smear Tech's Comments PT INR APTT aPTT Heparin Protocol 191.3 H* D Sodium 139 Potassium 4.1 Chloride 107 Carbon Dioxide 22 Anion Gap 14 BUN 14 Creatinine 0.84 Estim Creat Clear Calc 60.6 Estimated GFR > 60 Random Glucose 82 Lactic Acid Lactic Acid F/U @ 2Hr Calcium 8.1 L Total Bilirubin AST ALT Alkaline Phosphatase Troponin I High Sens > 3600.0 H* D B-Natriuretic Peptide Total Protein Albumin Lipase Urine Color Urine Appearance Urine pH Ur Specific [place] Urine Protein Urine Glucose (UA) Urine Ketones Urine Blood Urine Nitrite Ur Leukocyte Esterase Urine RBC Urine WBC Ur Squamous Epith Cells Urine Bacteria Hyaline Casts Influenza Type A (PCR) Influenza Type B (PCR) RSV RNA Qual (PCR) SARS-CoV-2 RNA (RT-PCR) 05/13/22 05/13/22 05/13/22 09:55 10:14 11:53 WBC RBC Hgb Hct MCV MCH MCHC RDW Plt Count MPV Immature Gran % (Auto) Neut % (Auto) Lymph % (Auto) [place] % (Auto) Eos % (Auto) Baso % (Auto) Lymph # (Auto) [place] # (Auto) Eos # (Auto) Baso # (Auto) Abs Immat Gran (auto) Absolute Neuts (auto) Absolute Nucleated RBC Nucleated RBC % (auto) Smear Tech's Comments PT INR APTT aPTT Heparin Protocol 142.0 H* D 61.3 D Sodium Potassium Chloride Carbon Dioxide Anion Gap BUN Creatinine Estim Creat Clear Calc Estimated GFR Random Glucose Lactic Acid Lactic Acid F/U @ 2Hr Calcium Total Bilirubin AST ALT Alkaline Phosphatase Troponin I High Sens > 3600.0 H* B-Natriuretic Peptide Total Protein Albumin Lipase Urine Color Urine Appearance Urine pH Ur Specific [place] Urine Protein Urine Glucose (UA) Urine Ketones Urine Blood Urine Nitrite Ur Leukocyte Esterase Urine RBC Urine WBC Ur Squamous Epith Cells Urine Bacteria Hyaline Casts Influenza Type A (PCR) Influenza Type B (PCR) RSV RNA Qual (PCR) SARS-CoV-2 RNA (RT-PCR) Imaging Radiologist's impression: Impressions Chest X-Ray 05/12/22 21:29 IMPRESSION: Subtle hazy patchy airspace opacity at the posterior left lower lobe concerning for pneumonia. Assessment and Plan (1) NSTEMI (non-ST elevated myocardial infarction): Status: Acute (2) Aortic stenosis: Status: Acute Plan 87 gentleman presenting with pneumonia and ruled in for NSTEMI. High sensitive troponin levels more than 3600. He have a small pneumonia on the chest x-ray and his dyspnea was clearly out of proportion to that and worsened overnight. He is currently stable and has no active symptoms. Echocardiography has not shown any wall motion abnormality. He has severe aortic valve stenosis. After discussion with family, patient and his primary care physician-he is being transferred to [facility] for cardiac catheterization. We will cross the aortic valve and check the gradient across it and calculated aortic valve area invasively also. If he has significant coronary disease the inclination will be to perform PCI. We will also involve the heart team after cardiac catheterization for transcatheter aortic valve replacement in the near future. He should continue the heparin drip as before. Continue baby aspirin. I think we should load him with 300 mg of Plavix and start him on Plavix 75 mg once a day. The reason behind that is that he has advanced COPD and may not tolerate Brilinta is given to him at the time of PCI. Obviously if he does not have sign ificant coronary disease then we will stop the Plavix. Thank you for allowing me to participate in the care of your patient. Please feel free to contact me if you have any questions. Time Spent With Patient Time: Total time managing care of this patient today ____ minutes. Procedures Date of Service Date of Service: 05/13/22
--- NOTE | 2022-05-13 17:43 | PM.DS ---
DS: Providers Provider Date of Service: 05/13/22 Date of admission: 05/12/22 23:24 Date of discharge: 05/13/22 Primary care physician: Kevin Ochoa MD Consults: 05/13/22 00:52 Consult to Cardiology Routine Consulting Provider: [facility] – [place] Cardiovascular Services Reason for consultation: NSTEMI Has provider been notified: Yes Attending physician on discharge: Elier Ro Discharging clinician: Mechelle Zeng DS: Diagnosis Discharge Diagnosis (1) NSTEMI (non-ST elevated myocardial infarction): Status: Acute (2) Aortic stenosis: Status: Acute (3) Pneumonia: Status: Acute DS: Summary Hospital Course Hospital Course: From H&P on day of admission This is a 87-year-old male with pertinent history of essential hypertension, COPD not on home oxygen, gastroesophageal reflux disease presents to the emergency department for evaluation of fevers/chills/dyspnea.? Patient and his had COVID-19 infection about a month ago.? Over the last 1-2 days, patient's cough has worsened and become productive.? Also has been having associated fevers and chills.? Admits dyspnea, worse with exertion.? Patient denies chest discomfort, palpitations, abdominal pain, changes in urinary or bowel habits.? Patient was found to be hypoxemic in the 80s when EMS arrived.? Admits generalized malaise and nausea In the emergency department, patient was requiring 4 L supplemental oxygen Sepsis secondary to community-acquired pneumonia:?. Patient met criteria with fever 103, wbc count 18.5, LA 2.3. CXR showed subtle hazy patchy airspace opacity at the posterior left lower lobe concerning for pneumonia. He was started on IV ceftriaxone and azithromycin. he received 30 cc/kg bolus in the emergency department, And lactic acid returned to normal. blood cultures Are pending at the time of transfer. Sputum culture was obtained showing likely oropharyngeal contamination. Fever has resolved as well as tachycardia although wbc trending up to 31.9. Currently saturating at 99% on 2 L. NSTEMI. Initial highly sensitive troponin was 38.8, this increased to 920.7 at which point the patient was started on heparin drip and repeat troponin has increased to >3600 x 2. EKG no acute ischemic changes. echo was obtained showing severe and regional WMA can't be excluded. He was evaluated by cardiology and the decision was made to transfer him to [facility] [place] for possible cardiac catheterization. He received plavix 300 and will be continued on 75 mg daily and well as asa 81 mg daily. Essential hypertension: BP soft on admission and lsoartan was held, BP Currently 136/65 Chronic normocytic anemia: H/H appears stable at 10.0/31.7 Gastroesophageal reflux disease continue omeprazole h/o lung ca s/p right lower lobectomy in 2020 Time Spent with Patient Time attestation: Total time managing care of this patient today ____ minutes. Discharge coordination time: Greater than 30 minutes Quality: Safe Use of Opioids Does Pt have an Active Cancer Diagnosis on the Problem List?: No Quality: Stroke Does the patient have a stroke diagnosis?: No Physical Exam Vital Signs: Vital Signs: Last Vital Signs Temp 97.5 F 05/13/22 16:00 Pulse 92 05/13/22 16:00 Resp 18 05/13/22 16:00 BP 136/65 05/13/22 16:00 Pulse Ox 99 05/13/22 16:00 O2 Del Method 05/13/22 16:00 O2 Flow Rate 2 05/13/22 16:00 Oxygen Flow Rate 4 05/12/22 21:24 BMI result Body Mass Index 22.5 Const: General: no acute distress, alert and awake Nutritional Appearance: average body habitus Orientation/consciousness: patient oriented x3 Resp: Other: exp rhonchi, dim lung sounds on left Effort & Inspection: normal respiratory effort and able to speak in complete sentences Cardio: Rate: regular rate Heart sounds: S1 normal heart sound present and S2 normal heart sound present GI: Inspection: No distended Palpation (GI): Soft to palpation Neuro: Other: grossly nonfocal General: patient oriented x3 Extrem: General: Yes no pedal edema DS: Data Data Completed and Pending Labs on day of discharge: Laboratory Results - last 24 hr 05/12/22 05/12/22 05/12/22 21:17 21:17 21:17 WBC RBC Hgb Hct MCV MCH MCHC RDW Plt Count MPV Immature Gran % (Auto) Neut % (Auto) Lymph % (Auto) [place] % (Auto) Eos % (Auto) Baso % (Auto) Lymph # (Auto) [place] # (Auto) Eos # (Auto) Baso # (Auto) Abs Immat Gran (auto) Absolute Neuts (auto) Absolute Nucleated RBC Nucleated RBC % (auto) Smear Tech's Comments PT INR APTT aPTT Heparin Protocol Sodium Potassium Chloride Carbon Dioxide Anion Gap BUN Creatinine Estim Creat Clear Calc Estimated GFR Random Glucose Lactic Acid 2.3 H* Lactic Acid F/U @ 2Hr Calcium Total Bilirubin AST ALT Alkaline Phosphatase Troponin I High Sens 38.8 H B-Natriuretic Peptide Total Protein Albumin Lipase Urine Color Urine Appearance Urine pH Ur Specific [place] Urine Protein Urine Glucose (UA) Urine Ketones Urine Blood Urine Nitrite Ur Leukocyte Esterase Urine RBC Urine WBC Ur Squamous Epith Cells Urine Bacteria Hyaline Casts Influenza Type A (PCR) NEGATIVE Influenza Type B (PCR) NEGATIVE RSV RNA Qual (PCR) NEGATIVE SARS-CoV-2 RNA (RT-PCR) NEGATIVE 05/12/22 05/12/22 05/12/22 21:18 21:18 21:18 WBC 18.5 H RBC 4.14 L Hgb 10.9 L Hct 34.9 L MCV 84.3 MCH 26.3 L MCHC 31.2 RDW 14.2 Plt Count 327 MPV 8.1 L Immature Gran % (Auto) 0.4 Neut % (Auto) 88.3 H Lymph % (Auto) 2.4 L [place] % (Auto) 8.3 Eos % (Auto) 0.3 Baso % (Auto) 0.3 Lymph # (Auto) 0.5 L [place] # (Auto) 1.5 H Eos # (Auto) 0.1 Baso # (Auto) 0.1 Abs Immat Gran (auto) 0.08 H Absolute Neuts (auto) 16.3 H Absolute Nucleated RBC 0.000 Nucleated RBC % (auto) 0.0 Smear Tech's Comments VERIFIED PT 10.9 INR 1.0 APTT 26.5 aPTT Heparin Protocol Sodium 138 Potassium 4.3 Chloride 105 Carbon Dioxide 25 Anion Gap 12 BUN 14 Creatinine 0.87 Estim Creat Clear Calc 55.6 Estimated GFR > 60 Random Glucose 125 H Lactic Acid Lactic Acid F/U @ 2Hr Calcium 8.5 Total Bilirubin 0.5 AST 23 ALT 15 Alkaline Phosphatase 83 Troponin I High Sens B-Natriuretic Peptide Total Protein 6.0 L Albumin 4.0 Lipase 14 Urine Color Urine Appearance Urine pH Ur Specific [place] Urine Protein Urine Glucose (UA) Urine Ketones Urine Blood Urine Nitrite Ur Leukocyte Esterase Urine RBC Urine WBC Ur Squamous Epith Cells Urine Bacteria Hyaline Casts Influenza Type A (PCR) Influenza Type B (PCR) RSV RNA Qual (PCR) SARS-CoV-2 RNA (RT-PCR) 05/12/22 05/12/22 05/12/22 21:18 21:18 23:41 WBC RBC Hgb Hct MCV MCH MCHC RDW Plt Count MPV Immature Gran % (Auto) Neut % (Auto) Lymph % (Auto) [place] % (Auto) Eos % (Auto) Baso % (Auto) Lymph # (Auto) [place] # (Auto) Eos # (Auto) Baso # (Auto) Abs Immat Gran (auto) Absolute Neuts (auto) Absolute Nucleated RBC Nucleated RBC % (auto) Smear Tech's Comments PT INR APTT aPTT Heparin Protocol Sodium Potassium Chloride Carbon Dioxide Anion Gap BUN Creatinine Estim Creat Clear Calc Estimated GFR Random Glucose Lactic Acid Lactic Acid F/U @ 2Hr 1.0 Calcium Total Bilirubin AST ALT Alkaline Phosphatase Troponin I High Sens B-Natriuretic Peptide 38 Total Protein Albumin Lipase Urine Color Yellow Urine Appearance Clear Urine pH 7.0 Ur Specific [place] 1.015 Urine Protein 30 (1+) H Urine Glucose (UA) Negative Urine Ketones Negative Urine Blood Small (1+) H Urine Nitrite Negative Ur Leukocyte Esterase Negative Urine RBC 6-10 H Urine WBC 0-5 Ur Squamous Epith Cells 0-2 Urine Bacteria None Seen Hyaline Casts 0-2 Influenza Type A (PCR) Influenza Type B (PCR) RSV RNA Qual (PCR) SARS-CoV-2 RNA (RT-PCR) 05/13/22 05/13/22 05/13/22 00:22 01:15 05:33 WBC 31.9 H* RBC 3.72 L Hgb 10.0 L Hct 31.7 L MCV 85.2 MCH 26.9 L MCHC 31.5 RDW 14.2 Plt Count 280 MPV 8.8 L Immature Gran % (Auto) 1.2 H Neut % (Auto) 87.5 H Lymph % (Auto) 2.4 L [place] % (Auto) 8.6 Eos % (Auto) 0.0 Baso % (Auto) 0.3 Lymph # (Auto) 0.8 L [place] # (Auto) 2.8 H Eos # (Auto) 0.0 Baso # (Auto) 0.1 Abs Immat Gran (auto) 0.37 H Absolute Neuts (auto) 27.9 H Absolute Nucleated RBC 0.000 Nucleated RBC % (auto) 0.0 Smear Tech's Comments VERIFIED PT 11.8 INR 1.0 APTT aPTT Heparin Protocol 32.5 L Sodium Potassium Chloride Carbon Dioxide Anion Gap BUN Creatinine Estim Creat Clear Calc Estimated GFR Random Glucose Lactic Acid Lactic Acid F/U @ 2Hr Calcium Total Bilirubin AST ALT Alkaline Phosphatase Troponin I High Sens 920.7 H* D B-Natriuretic Peptide Total Protein Albumin Lipase Urine Color Urine Appearance Urine pH Ur Specific [place] Urine Protein Urine Glucose (UA) Urine Ketones Urine Blood Urine Nitrite Ur Leukocyte Esterase Urine RBC Urine WBC Ur Squamous Epith Cells Urine Bacteria Hyaline Casts Influenza Type A (PCR) Influenza Type B (PCR) RSV RNA Qual (PCR) SARS-CoV-2 RNA (RT-PCR) 05/13/22 05/13/22 05/13/22 05:33 05:33 09:02 WBC RBC Hgb Hct MCV MCH MCHC RDW Plt Count MPV Immature Gran % (Auto) Neut % (Auto) Lymph % (Auto) [place] % (Auto) Eos % (Auto) Baso % (Auto) Lymph # (Auto) [place] # (Auto) Eos # (Auto) Baso # (Auto) Abs Immat Gran (auto) Absolute Neuts (auto) Absolute Nucleated RBC Nucleated RBC % (auto) Smear Tech's Comments PT INR APTT aPTT Heparin Protocol 191.3 H* D Sodium 139 Potassium 4.1 Chloride 107 Carbon Dioxide 22 Anion Gap 14 BUN 14 Creatinine 0.84 Estim Creat Clear Calc 60.6 Estimated GFR > 60 Random Glucose 82 Lactic Acid Lactic Acid F/U @ 2Hr Calcium 8.1 L Total Bilirubin AST ALT Alkaline Phosphatase Troponin I High Sens > 3600.0 H* D B-Natriuretic Peptide Total Protein Albumin Lipase Urine Color Urine Appearance Urine pH Ur Specific [place] Urine Protein Urine Glucose (UA) Urine Ketones Urine Blood Urine Nitrite Ur Leukocyte Esterase Urine RBC Urine WBC Ur Squamous Epith Cells Urine Bacteria Hyaline Casts Influenza Type A (PCR) Influenza Type B (PCR) RSV RNA Qual (PCR) SARS-CoV-2 RNA (RT-PCR) 05/13/22 05/13/22 05/13/22 09:55 10:14 11:53 WBC RBC Hgb Hct MCV MCH MCHC RDW Plt Count MPV Immature Gran % (Auto) Neut % (Auto) Lymph % (Auto) [place] % (Auto) Eos % (Auto) Baso % (Auto) Lymph # (Auto) [place] # (Auto) Eos # (Auto) Baso # (Auto) Abs Immat Gran (auto) Absolute Neuts (auto) Absolute Nucleated RBC Nucleated RBC % (auto) Smear Tech's Comments PT INR APTT aPTT Heparin Protocol 142.0 H* D 61.3 D Sodium Potassium Chloride Carbon Dioxide Anion Gap BUN Creatinine Estim Creat Clear Calc Estimated GFR Random Glucose Lactic Acid Lactic Acid F/U @ 2Hr Calcium Total Bilirubin AST ALT Alkaline Phosphatase Troponin I High Sens > 3600.0 H* B-Natriuretic Peptide Total Protein Albumin Lipase Urine Color Urine Appearance Urine pH Ur Specific [place] Urine Protein Urine Glucose (UA) Urine Ketones Urine Blood Urine Nitrite Ur Leukocyte Esterase Urine RBC Urine WBC Ur Squamous Epith Cells Urine Bacteria Hyaline Casts Influenza Type A (PCR) Influenza Type B (PCR) RSV RNA Qual (PCR) SARS-CoV-2 RNA (RT-PCR) Imaging Chest x-ray: Radiologist's impression: ITS Impressions Chest X-Ray 05/12/22 21:29 IMPRESSION: Subtle hazy patchy airspace opacity at the posterior left lower lobe concerning for pneumonia. Discharge Plan Discharge Anticipated Discharge Date/Time: 05/13/22 17:43 Patient Disposition: Xfer Acute Care Hospital Discharge Diagnosis: NSTEMI pneumonia Referrals: Kevin Ochoa MD [Primary Care Provider] - 1 Week Discharge Medications: New ceftriaxone 1 gram Recon Soln 1 g IV Q24H Qty: 1 0RF azithromycin 500 mg Recon Soln 500 mg IV Q24H Qty: 10 0RF heparin(porcine) in 0.45% NaCl 25,000 unit/250 mL Parenteral Solution 25,000 unit continuous IV infusion .Q0M Qty: 6000 0RF clopidogrel 75 mg Tablet 75 mg PO DAILY Qty: 1 0RF Continued omeprazole 20 mg Capsule,Delayed Release(Dr/Ec) 40 mg PO DAILY@0630 losartan 100 mg Tablet 100 mg PO DAILY mupirocin calcium 2 % Cream 1 appl TOPICAL BID Protocol: Apply to: Apply to: FACE Spiriva Respimat 2.5 mcg/actuation mist 2 puff inhalation BEDTIME fluticasone propion-salmeterol [Wixela Inhub] 250-50 mcg/dose blister with device 1 inh inhalation BID 30 Days Qty: 60 5RF Discharge Orders: Discharge Order (Routine); Ordered 05/13/22 Ordered By: Mechelle Zeng Activity on Discharge: As tolerated Stand Alone Forms: Patient Portal Discharge page Care Plan Goals: see below Health Concerns: NSTEMI pneumonia Plan of Treatment: currently being treated for pneumonia with ceftriaxone and azithromycin NSTEMI - on heparin drip, received aspirin and 300 mg plavix Assessment: 87 Year old male admitted for sudden onset of shortness of breath found to have pneumonia and elevated cardiac enzymes
[2022-05-13] MEDS: Clopidogrel Bisulfate 300 MG TABLET PO (18:00)
[2022-05-13 19:23] LABS: PTT Heparin Drip 52.2 SEC (53-77.9)
[2022-05-13] MEDS: Heparin Sodium,Porcine 5,000 UNIT/ML VIAL 2800 UNIT IVPUSH (19:51)
[2022-05-13] MEDS: cefTRIAXone sodium 1 GM in 0.9 % Sodium Chloride 50 ML IV (19:57)
== END 2022-05-13 20:15 | disposition short-term general hospital (02) | DRG 871 ==
LOC: HO.ED 23:36 → HO.EDOVER 05-13 00:12 → HO.S3 05-13 01:20
PROVIDERS: Admitting Provider Student in an Organized Health Care Education/Training Program; Emergency Provider Emergency Medicine Emergency Medical Services; PCP Internal Medicine; Visit Provider Physician Assistant Medical
DX: A41.9 Sepsis, unspecified organism (principal); I21.4 Non-ST elevation (NSTEMI) myocardial infarction; J18.9 Pneumonia, unspecified organism; J96.01 Acute respiratory failure with hypoxia; J44.0 Chronic obstructive pulmonary disease with (acute) lower respiratory infection; K21.9 Gastro-esophageal reflux disease without esophagitis; I10 Essential (primary) hypertension; D64.9 Anemia, unspecified; I35.0 Nonrheumatic aortic (valve) stenosis; E86.0 Dehydration; Z20.822 Contact with and (suspected) exposure to COVID-19; Z90.2 Acquired absence of lung [part of]; Z85.118 Personal history of other malignant neoplasm of bronchus and lung; Z87.891 Personal history of nicotine dependence; Z79.02 Long term (current) use of antithrombotics/antiplatelets; Z79.51 Long term (current) use of inhaled steroids; Z79.899 Other long term (current) drug therapy
CPT/HCPCS: 0241U; 36415; 71046; 80048; 80053; 81001; 83605; 83690; 83880; 84484; 85025; 85610; 85730; 87040; 87070; 87205; 93005; 93306; 94640; 99285; J0456; J0696; J1643; J1650; J2405; Q9957

== ENCOUNTER → 2022-06-02 15:07 | Outpatient (BNVA) | payer MEDICARE, OTHER, SELFPAY | PROVIDERS: PCP Internal Medicine; Visit Provider Internal Medicine Cardiovascular Disease | DX: I35.0 Nonrheumatic aortic (valve) stenosis (principal); I21.4 Non-ST elevation (NSTEMI) myocardial infarction | CPT/HCPCS: 99212 ==

== ENCOUNTER 2022-06-08 10:36 | Outpatient (REF) | payer MEDICARE, OTHER, SELFPAY ==
[2022-06-08 13:37] LABS: Appearance Urine Clear; Color Urine Yellow; Glucose Urine UA Negative (Negative); Leukocyte Esterase Urine Negative (Negative); Nitrite Urine Negative (Negative); PH 6.5 (5.0-9.0); Specific Gravity - Urine 1.015 (1.005-1.025); Urine Blood Negative (Negative); Urine Ketones Negative (Negative); Urine Protein Negative (Neg-Trace)
[2022-06-08 13:54] LABS: Basophils Absolute Auto 0.1 X10*3/uL (0.0-0.2); Basophils Percent Auto 0.5 % (0-2); Eosinophils Absolute Auto 0.1 X10*3/uL (0.0-0.4); Eosinophils Percent Auto 0.5 % (0-4); Imm Gran Abs Auto 0.12 X10*3/uL (0.00-0.03); Imm Gran Pct Auto 0.9 % (0.0-0.4); Lymphocytes Absolute Auto 0.8 X10*3/uL (1.2-4.9); Lymphocytes Percent Auto 6.2 % (20-40); MANUAL DIFF FLAG SCAN; Mean Corpuscular HGB Conc 30.9 g/dl (31.0-36.0); Mean Corpuscular Hemoglobin 24.7 pg (27.0-33.0); Mean Corpuscular Volume 79.7 fL (80.0-98.0); Mean Platelet Volume 8.7 fL (9.4-12.4); Monocytes Absolute Auto 1.9 X10*3/uL (0.1-1.2); Monocytes Percent Auto 14.7 % (2-11); Neutrophils Absolute Auto 10.2 x10*3/uL (2.0-8.3); Neutrophils Percent Auto 77.2 % (45-73); Platelet Count 450 X10*3/uL (160-400); Red Blood Count 2.27 X10*6/uL (4.60-5.80); SCAN SMEAR FLAG 1; White Blood Count 13.2 X10*3/uL (4.8-10.8)
[2022-06-08 14:01] LABS: Hematocrit 18.1 % (42.0-52.0); Hemoglobin 5.6 g/dl (14.0-18.0)
[2022-06-08 14:05] LABS: Alanine Aminotransferase 18 U/L (0-40); Albumin Level 3.9 g/dL (3.5-5.0); Alkaline Phosphatase 72 U/L (39-117); Anion Gap 17 (12-20); Aspartate Amino Transferase 21 U/L (5-37); Bilirubin Total 1.1 mg/dL (0.0-1.0); Blood Urea Nitrogen 22 mg/dL (9-16); C Reactive Protein 0.15 mg/dL (< or = 0.50); Calcium 8.9 mg/dL (8.4-10.2); Carbon Dioxide 20 mmol/L (22-29); Chloride 100 mmol/L (96-108); Estimated Glomerular Filt Rate 60; Glucose Random 122 mg/dL (60-115); Potassium 4.6 mmol/L (3.3-5.1); Sodium 132 mmol/L (135-145); Total Protein 5.7 g/dL (6.5-8.0)
[2022-06-08 14:09] LABS: SLIDE REVIEW VERIFIED
[2022-06-08 14:28] LABS: Free T4 (Free Thyroxine) 0.96 ng/dL (0.71-1.85); Vitamin B12 353 pg/mL (200-900)
== END 2022-06-08 10:37 | disposition home or self-care (01) ==
LOC: HO.10HDL 10:36
PROVIDERS: Visit Provider Internal Medicine
DX: J44.9 Chronic obstructive pulmonary disease, unspecified (principal); I25.10 Atherosclerotic heart disease of native coronary artery without angina pectoris; R53.83 Other fatigue; R63.4 Abnormal weight loss
CPT/HCPCS: 36415; 80053; 81003; 82550; 82607; 84439; 84443; 85025; 86140; 87086

== ENCOUNTER 2022-06-08 14:41 | Inpatient (IN) | payer OTHER, MEDICARE, SELFPAY ==
[2022-06-08] VITALS (7 sets, daily range): BP systolic 115–147; BP diastolic 46–62; PULSE 69–89; RESP 12–18; TEMP 36.6–37.1; O2SAT 96–100; BMI 21.1
--- NOTE | 2022-06-08 14:48 | ED.GENADULT ---
HPI - General Adult General Chief complaint: General Medical <MAE Espinoza - Last Filed: 06/08/22 14:54> Stated complaint: Blood transfusion <MAE Espinoza - Last Filed: 06/08/22 14:54> Time Seen by Provider: 06/08/22 15:07 <MAE Espinoza - Last Filed: 06/08/22 14:54> Related Data Home medications: Home Medications Medication Instructions Recorded Confirmed losartan 100 mg tablet 100 mg PO DAILY 12/07/19 06/08/22 omeprazole 20 mg capsule,delayed 40 mg PO DAILY@0630 12/07/19 06/08/22 release tiotropium bromide 2.5 2 puff inhalation BEDTIME 02/09/21 06/08/22 mcg/actuation mist for inhalation (Spiriva Respimat) mupirocin calcium 2 % topical cream 1 appl topical BID 05/13/22 06/08/22 aspirin 81 mg tablet,delayed 81 mg PO DAILY 06/02/22 06/08/22 release atorvastatin 40 mg tablet 40 mg PO BEDTIME 06/02/22 06/08/22 metoprolol succinate 50 mg 50 mg PO DAILY 06/02/22 06/08/22 tablet,extended release 24 hr Previous Rx's Medication Instructions Recorded fluticasone 250 mcg-salmeterol 50 1 inh inhalation BID 30 days #60 ea 01/06/22 mcg/dose blistr powdr for inhalation (Wixela Inhub) clopidogrel 75 mg tablet 75 mg PO DAILY #1 tab 05/13/22 <MAE Espinoza - Last Filed: 06/08/22 14:54> Allergies/adverse reactions: Allergies Allergy/AdvReac Type Severity Reaction Status Date / Time No Known Allergies Allergy Verified 06/02/22 15:19 <MAE Espinoza - Last Filed: 06/08/22 14:54> [facility] Past Medical History Medical History: Medical History (Updated 06/08/22 @ 16:39 by Fernanda Carolina MD) Asthma COPD (chronic obstructive pulmonary disease) Discomfort in chest GERD (gastroesophageal reflux disease) Hammer toe of left foot HTN (hypertension) Rupture of right Achilles tendon Skin cancer Spinal stenosis <MAE Espinoza Last Filed: 06/08/22 14:54> Surgical History: Surgical History (Updated 06/02/22 @ 15:21 by NATHANIEL Mendez) History of cardiac cath 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 <MAE Espinoza - Last Filed: 06/08/22 14:54> Family History Family History: Family History Father CVD (cardiovascular disease) Mother Lung cancer Brother Bone cancer <MAE Espinoza - Last Filed: 06/08/22 14:54> Social History Social History: Social History (Updated 06/02/22 @ 15:22 by NATHANIEL Mendez) Household Members: Spouse Housing: Condominium Alcohol intake: never Patient Tobacco Use Status: Former Tobacco user Quit Date: 1994 Smoked: 35 +/- Advance Directives: Yes Advance Directives on File: Yes Advance Directives Date on File: 12/06/19 service: Yes Current occupational status: retired <MAE Espinoza - Last Filed: 06/08/22 14:54> Physical Exam ED Vital Signs: Vital Signs - 24 hr 06/08/22 14:51 06/08/22 16:00 Temperature 98 F Pulse Rate 69 71 Respiratory Rate 18 15 Blood Pressure 115/61 120/46 L Pulse Oximetry 100 96 Oxygen Delivery Method Room Air Room Air BMI result Body Mass Index 21.1 <MAE Espinoza - Last Filed: 06/08/22 14:54> Vital Signs - 24 hr 06/08/22 14:51 06/08/22 16:00 Temperature 98 F Pulse Rate 69 71 Respiratory Rate 18 15 Blood Pressure 115/61 120/46 L Pulse Oximetry 100 96 Oxygen Delivery Method Room Air Room Air BMI result Body Mass Index 21.1 <Fernanda Carolina MD - Last Filed: 06/08/22 16:39> Course Course Course Narrative: KIRSTEN--87-year-old male with a past medical history of asthma, COPD, GERD, HTN, , NSTEMI s/p stent placement on 05/14/22 at [facility] sent in from Dr. Ochoa's office for anemia with a hemoglobin of 5.6/18.8. Patient on ASA and Plavix. Denies known melena or bloody stools. has been feeling unwell since procedure Pale on exam Labs done today, additional labs added including T&S and 2U RBCs <MAE Espinoza - Last Filed: 06/08/22 14:54> Medical Decision Making Medical Decision Making [facility] Narrative: -patient's hemoglobin is 5.6. Patient states that he does not recall if he has ever had transfusions in the past but is agreeable to receive blood. -I discussed the benefits versus risks of blood transfusion, patient agreeable to blood transfusion. Signed consent in patient's chart -guaiac test positive. The patient does have a GI bleed, secondary to 2 Plavix versus malignancy, patient has history of lung cancer status post lobectomy -I discussed the patient with the medicine team, patient being admitted. -patient states that he was not aware of any black stool. Patient is not having an active GI bleed, denies abdominal pain, CT scan of the abdomen not indicated at this time <Fernanda Carolina MD - Last Filed: 06/08/22 16:39> Differential Diagnosis Differential Diagnoses: The differential diagnosis associated with the presentation includes (GI bleed, anemia, malignancy) <Fernanda Carolina MD - Last Filed: 06/08/22 16:39> Admission/Observation Consideration of admission/observation: Escalation of care including admission/observation considered <Fernanda Carolina MD - Last Filed: 06/08/22 16:39> Consult Healthcare Provider Management of the patient was discussed with: Hospitalist <Fernanda Carolina MD - Last Filed: 06/08/22 16:39> Lab Data [facility] Lab Attestation statement: I reviewed the patient's lab results. <Fernanda Carolina MD - Last Filed: 06/08/22 16:39> Labs: Lab Results 06/08/22 06/08/22 06/08/22 Range/Units 15:24 15:32 15:32 PT 12.0 (10.0-13.1) SEC INR 1.0 (0.9-1.1) Stool Occult Blood (NEGATIVE) COVID-19 ([facility]IA) Negative (Negative) COVID-19 Clin Com See Note Blood Type O Positive Antibody Screen NEGATIVE Crossmatch See Detail 06/08/22 Range/Units 15:35 PT (10.0-13.1) SEC INR (0.9-1.1) Stool Occult Blood POSITIVE (NEGATIVE) COVID-19 ([facility]ELIA) (Negative) COVID-19 Clin Com Blood Type Antibody Screen Crossmatch <MAE Espinoza - Last Filed: 06/08/22 14:54> Lab Results 06/08/22 06/08/22 06/08/22 Range/Units 15:24 15:32 15:32 PT 12.0 (10.0-13.1) SEC INR 1.0 (0.9-1.1) Stool Occult Blood (NEGATIVE) COVID-19 (CELIA) Negative (Negative) COVID-19 Clin Com See Note Blood Type O Positive Antibody Screen NEGATIVE Crossmatch See Detail 06/08/22 Range/Units 15:35 PT (10.0-13.1) SEC INR (0.9-1.1) Stool Occult Blood POSITIVE (NEGATIVE) COVID-19 ([facility]ELIA) (Negative) COVID-19 Clin Com Blood Type Antibody Screen Crossmatch <Fernanda Carolina MD - Last Filed: 06/08/22 16:39> Critical Care Time Critical Care Time Critical Care Time: Yes <Fernanda Carolina MD - Last Filed: 06/08/22 16:39> Total Critical Care Time: 60 <Fernanda Carolina MD - Last Filed: 06/08/22 16:39> Attestation: I have personally provided critical care time. Time includes review of lab data, radiology results, discussion with consultants, and monitoring for potential decompensation. Intervention performed as documented. <Fernanda Carolina MD - Last Filed: 06/08/22 16:39> Discharge Plan Discharge Clinical Impression: Anemia, GI bleed <MAE Espinoza - Last Filed: 06/08/22 14:54> Patient Disposition: Admitted As Inpatient <MAE Espinoza - Last Filed: 06/08/22 14:54> Prescriptions: No Action omeprazole 20 mg Capsule,Delayed Release(Dr/Ec) 40 mg PO DAILY@0630 losartan 100 mg Tablet 100 mg PO DAILY mupirocin calcium 2 % Cream 1 appl TOPICAL BID Protocol: Apply to: Apply to: FACE clopidogrel 75 mg Tablet 75 mg PO DAILY Qty: 1 0RF Spiriva Respimat 2.5 mcg/actuation mist 2 puff inhalation BEDTIME fluticasone propion-salmeterol [Wixela Inhub] 250-50 mcg/dose blister with device 1 inh inhalation BID 30 Days Qty: 60 5RF aspirin 81 mg tablet,delayed release (DR/EC) 81 mg PO DAILY atorvastatin 40 mg tablet 40 mg PO BEDTIME metoprolol succinate 50 mg tablet extended release 24 hr 50 mg PO DAILY <MAE Espinoza - Last Filed: 06/08/22 14:54>
--- NOTE | 2022-06-08 15:13 | PHA.MEDREC ---
Pharmacy Consult ? Medication Reconciliation Pharmacy has completed the medication reconciliation. Pt was recently here. Used prior med rec/discharge papers and claim history to perform med rec.
[2022-06-08 15:53] LABS: COVID-19 Test Negative (Negative); IDNOW Serial# 6674DD1D
[2022-06-08 16:12] LABS: OBS1 POSITIVE (NEGATIVE)
[2022-06-08 16:17] LABS: OBS Int Ctl Valid YES
--- NOTE | 2022-06-08 17:10 | PM.IMHP ---
History of Present Illness Date of Service: 06/08/22 Attending physician on admission: [facility] Chief Complaint: weakness 87 year old man presenting reports weakness and fatigue over the last several weeks. He recently had an NSTEMI and subsequent cardiac catheterization with drug-eluting stent at [facility] on May 14. He reports since then he has felt unwell. He has been on aspirin and Plavix which may be contributing to some bleeding. He denied any bloody stools or emesis. No abdominal pain, chest pain, shortness of breath, nausea, vomiting or diarrhea. H&H 5.6/18.1, sodium 132, stool occult positive, stable vital signs. Plan is to admit for further management and treatment of severe anemia requiring blood transfusion. Review of Systems Review of Systems: Denies any recent fever chills or decrease in appetite respiratory denies any shortness of breath coverage production cardiovascular denies chest pain gastrointestinal denies any dysphagia abdominal pain nausea vomiting or diarrhea genitourinary denies any dysuria frequency or hematuria musculoskeletal denies any joint pain or swelling neuropsych denies any weakness or seizures all other systems reviewed are negative [facility] Medical History (Updated 06/08/22 @ 17:42 by Dalia Lazo NP) Asthma COPD (chronic obstructive pulmonary disease) GERD (gastroesophageal reflux disease) Hammer toe of left foot HTN (hypertension) NSTEMI (non-ST elevated myocardial infarction) Rupture of right Achilles tendon Skin cancer Spinal stenosis Family History Father CVD (cardiovascular disease) Mother Lung cancer Brother Bone cancer Surgical History (Updated 06/08/22 @ 17:42 by Dalia Lazo NP) History of cardiac cath 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 Social History (Updated 06/02/22 @ 15:22 by NATHANIEL Mendez) Household Members: Spouse Housing: Condominium Alcohol intake: never Patient Tobacco Use Status: Former Tobacco user Quit Date: 1994 Smoked: 35 +/- Smoked in Last 30 Days: No Use of substances other than those prescribed or required for medical reasons: No Advance Directives: Yes Advance Directives on File: Yes Advance Directives Date on File: 12/06/19 service: Yes Current occupational status: retired Meds Allergies Allergy/AdvReac Type Severity Reaction Status Date / Time No Known Allergies Allergy Verified 06/02/22 15:19 Active Medications: Current Medications Pharmacy Consult (Consult Rx Perform Med Rec) 1 each MISCELLANE ONCE PRN PRN Reason: Consult order Home Medications Medication Instructions Recorded Confirmed Last Taken Type losartan 100 mg tablet 100 mg PO DAILY 12/07/19 06/08/22 05/12/22 History omeprazole 20 mg capsule,delayed 40 mg PO DAILY@0630 12/07/19 06/08/22 05/12/22 History release tiotropium bromide 2.5 2 puff inhalation BEDTIME 02/09/21 06/08/22 05/12/22 History mcg/actuation mist for inhalation (Spiriva Respimat) mupirocin calcium 2 % topical cream 1 appl topical BID 05/13/22 06/08/22 05/12/22 History aspirin 81 mg tablet,delayed 81 mg PO DAILY 06/02/22 06/08/22 Unknown History release atorvastatin 40 mg tablet 40 mg PO BEDTIME 06/02/22 06/08/22 Unknown History metoprolol succinate 50 mg 50 mg PO DAILY 06/02/22 06/08/22 Unknown History tablet,extended release 24 hr Physical Exam Vital Signs and Narrative: Vital Signs: Last Vital Signs Temp 98.5 F 06/08/22 17:00 Pulse 75 06/08/22 17:00 Resp 12 06/08/22 17:00 BP 130/50 L 06/08/22 17:00 Pulse Ox 96 06/08/22 16:00 O2 Del Method Room Air 06/08/22 16:00 BMI result Body Mass Index 21.1 Results Labs Labs: Laboratory Results - last 24 hr 06/08/22 06/08/22 06/08/22 15:24 15:32 15:32 PT 12.0 INR 1.0 Stool Occult Blood COVID-19 ([facility]) Negative COVID-19 Clin Com See Note Blood Type O Positive Antibody Screen NEGATIVE Crossmatch See Detail 06/08/22 15:35 PT INR Stool Occult Blood POSITIVE COVID-19 ([facility]) COVID-19 Clin Com Blood Type Antibody Screen Crossmatch Assessment and Plan (1) Anemia: Status: Acute Plan 87 year old man admitted with severe anemia on asa and plavix due to recent NSTEMI And GEOVANNA placement Severe anemia, acute blood loss, unspecified 2 units PRBC in ED occult pos, black stool noted check HH post transfusion GI consult PPI CAD recent cardiac cath 05/14/22 with GEOVANNA to mid Lcx has been on aspirin, plavix and metoprolol hold asa and plavix for now cardio consult for input on tx given recent NSTEMI COPD no exacerbation continue home inhalors DVT prophylaxis with SCD boots Attending Dr. Mendieta full code Patient requires at least 2 inpatient midnights for treatment severe anemia requiring the administration of blood products and close careful monitoring blood counts Time Spent With Patient Time: Total time managing care of this patient today ____ minutes. Quality Stroke Does the patient have a stroke diagnosis?: No VTE Prior VTE?: No VTE Risk Level:: Medical - moderate - high VTE Device Contraindication: N/A - Device Ordered VTE Drug Contraindication: Treatment Not Indicated
--- NOTE | 2022-06-08 17:16 | PC.NURSE ---
resting comfortable, alert and oriented, very osage, tolerating rbc transfusion, no active bleeding no bm during ed stay thus far
[2022-06-09] VITALS (10 sets, daily range): BP systolic 128–162; BP diastolic 59–89; PULSE 67–89; RESP 16–18; TEMP 36.4–37.1; O2SAT 94–99
[2022-06-09 07:32] LABS: Alanine Aminotransferase 14 U/L (0-40); Albumin Level 3.3 g/dL (3.5-5.0); Alkaline Phosphatase 63 U/L (39-117); Anion Gap 12 (12-20); Aspartate Amino Transferase 19 U/L (5-37); Bilirubin Total 3.2 mg/dL (0.0-1.0); Blood Urea Nitrogen 20 mg/dL (9-16); Calcium 8.2 mg/dL (8.4-10.2); Carbon Dioxide 22 mmol/L (22-29); Chloride 104 mmol/L (96-108); Creatinine Clr Calc Pharmacy 44.6; Estimated Glomerular Filt Rate > 60; Glucose Random 81 mg/dL (60-115); Sodium 134 mmol/L (135-145); Total Protein 4.9 g/dL (6.5-8.0)
[2022-06-09 09:13] LABS: Hematocrit 21.4 % (42.0-52.0)
[2022-06-09 09:31] LABS: Hemoglobin 6.8 g/dl (14.0-18.0)
--- NOTE | 2022-06-09 10:51 | PC.NURSE ---
This nurse was given report at 7am this morning by previous shift, it was reported to me the patient received 2 units of PRBCs STAT in the emergency room yesterday before being transferred to medical telemetry floor, upon looking at the patient TAR, I noted that only 1 unit of PRBCs was infused and another was ready and waiting to be infused. I reported to the nursing converting supervisor that the second unit was delayed. MD Dr Spain also notified. the second unit of ordered PRBCs was hung by this nurse at 9:50am, no adverse effects noted, will continue to monitor patient throughout transfusion, H+H to be rechecked post transfusion.
--- NOTE | 2022-06-09 10:58 | P.CONCA_ITS ---
History of Present Illness History of Present Illness Date of Service: 06/09/22 Requesting physician: Kathrine Spain Consult reason: other (GI bleed) Chief complaint: GI bleed Narrative: I was consulted to see Freddy in cardiology consultation today as he present with significant weakness and tiredness and came to the hospital and was noted to be severely anemic with hemoglobin in the 5s. Patient was then transfuse with 1 unit overnight. His hemoglobin is only improved to the 6 level. However at rest she is not feeling poorly. Denies any symptoms of chest pain, shortness of breath, orthopnea, PND. He was recently admitted to the hospital with sudden- onset shortness of breath and was noted to have pneumonia and significantly elevated troponin consistent with NSTEMI. He subsequently underwent cardiac catheterization which has shown significant lesion in the circumflex artery for which she underwent a drug-eluting stent. He also was noted at that time to have severe aortic stenosis by echocardiogram. This was felt to be manage medically at that point time with eventual evaluation with the valve team to assess for transcatheter aortic valve placement. Since discharge he felt better but then has been progressively getting weaker over the last couple of weeks. He denies any lightheadedness, syncope. Denies any overt bleeding. Stool occult blood is positive. Review of Systems Constitutional: Constitutional: Reports fatigue, Reports lethargy and Reports weakness Eyes: Eyes: Reports no additional eye complaints Cardiovascular: Cardiovascular: Reports no additional cardiovascular complaints Respiratory: Respiratory: Reports no additional respiratory complaints Genitourinary: Genitourinary: Reports no additional male genitourinary complaints Integumentary/Breasts: Skin/Breast: Reports system reviewed and no additional complaints, except as docu Neurologic: Reports system reviewed and no additional complaints, except as documented and Reports weakness Psychiatric: Psychiatric: Reports no additional psychiatric complaints Endocrine: Endocrine: Reports fatigue PMFSH Past Medical History Medical History Asthma COPD (chronic obstructive pulmonary disease) GERD (gastroesophageal reflux disease) Hammer toe of left foot HTN (hypertension) NSTEMI (non-ST elevated myocardial infarction) Rupture of right Achilles tendon Skin cancer Spinal stenosis Family History Family History Father CVD (cardiovascular disease) Mother Lung cancer Brother Bone cancer Surgical History Surgical History History of cardiac cath 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 Social History Social History Household Members: Spouse Housing: Condominium Do you presently have visiting nurse or other home services: No (had visiting nurses a few weeks ago d/t heart attack per patient.) Alcohol intake: never Patient Tobacco Use Status: Former Tobacco user Quit Date: 1994 Years Smoked: 35 +/- Advance Directives Date on File: 12/06/19 service: Yes Current occupational status: [employer] Allergies Allergy/AdvReac Type Severity Reaction Status Date / Time No Known Allergies Allergy Verified 06/02/22 15:19 Active Medications: Current Medications Acetaminophen (Acetaminophen 325 Mg Tablet) 650 mg PO Q6H PRN PRN Reason: Pain, Mild (Pain Scale 1-3) Ondansetron HCl (Ondansetron Hcl 4 Mg/2 Ml Vial) 4 mg IVPUSH Q8H PRN PRN Reason: Nausea and Vomiting Pharmacy Consult (Consult Rx Perform Med Rec) 1 each MISCELLANE ONCE PRN PRN Reason: Consult order Sodium Chloride (0.9 % Sodium Chloride Flush 3 Ml Syringe) 3 ml [facility] Last Admin: 06/09/22 10:03 Dose: Not Given Home Medications Medication Instructions Recorded Confirmed Last Taken Type losartan 100 mg tablet 100 mg PO DAILY 12/07/19 06/08/22 05/12/22 History omeprazole 20 mg capsule,delayed 40 mg PO DAILY@0630 12/07/19 06/08/22 05/12/22 History release tiotropium bromide 2.5 2 puff inhalation BEDTIME 02/09/21 06/08/22 05/12/22 History mcg/actuation mist for inhalation (Spiriva Respimat) mupirocin calcium 2 % topical cream 1 appl topical BID 05/13/22 06/08/22 05/12/22 History aspirin 81 mg tablet,delayed 81 mg PO DAILY 06/02/22 06/08/22 Unknown History release atorvastatin 40 mg tablet 40 mg PO BEDTIME 06/02/22 06/08/22 Unknown History metoprolol succinate 50 mg 50 mg PO DAILY 06/02/22 06/08/22 Unknown History tablet,extended release 24 hr Physical Exam Vital Signs: Vital Signs: Last Vital Signs Temp 98.5 F 06/09/22 10:05 Pulse 68 06/09/22 10:05 Resp 17 06/09/22 10:05 BP 146/66 H 06/09/22 10:05 Pulse Ox 99 06/09/22 07:15 O2 Del Method Room Air 06/09/22 07:15 BMI result Body Mass Index 21.1 Const: General: cooperative, comfortable, no acute distress, well developed, alert and awake Nutritional Appearance: well nourished Orientation/consciousness: patient oriented x3 Limitations: no limitations HEENT: Head: Yes normocephalic, Yes atraumatic and Yes other (Pallor) Neck: Neck: Yes trachea midline, Yes supple and Yes no JVD Resp: Effort & Inspection: normal respiratory effort Auscultation: no rales, no wheezes and diminished lung sounds Cardio: Jugular venous distension: no JVD Rate: regular rate Rhythm: regular rhythm Heart sounds: S1 normal heart sound present, no click, no gallops and Murmur heart sound present systolic late GI: Auscultation: normal bowel sounds Skin: General skin exam: no rashes or lesions noted and ecchymosis Neuro: General: patient oriented x3 and no focal motor deficits Extrem: General: Yes no clubbing, cyanosis or edema Objective Labs and Meds 06/09/22 09:01 06/09/22 06:19 Lab results: Laboratory Results - last 24 hr 06/08/22 06/08/22 06/08/22 15:24 15:32 15:32 Hgb Hct PT 12.0 INR 1.0 Sodium Potassium Chloride Carbon Dioxide Anion Gap BUN Creatinine Estim Creat Clear Calc Estimated GFR Random Glucose Calcium Total Bilirubin AST ALT Alkaline Phosphatase Troponin I High Sens Total Protein Albumin Stool Occult Blood COVID-19 ([facility]) Negative COVID-19 Clin Com See Note Blood Type O Positive Antibody Screen NEGATIVE Crossmatch See Detail 06/08/22 06/08/22 06/09/22 15:35 19:11 06:19 Hgb Hct PT INR Sodium 134 L Potassium 4.0 Chloride 104 Carbon Dioxide 22 Anion Gap 12 BUN 20 H Creatinine 1.04 Estim Creat Clear Calc 44.6 Estimated GFR > 60 Random Glucose 81 Calcium 8.2 L D Total Bilirubin 3.2 H AST 19 ALT 14 Alkaline Phosphatase 63 Troponin I High Sens 22.0 D Total Protein 4.9 L Albumin 3.3 L Stool Occult Blood POSITIVE COVID-19 ([facility]) COVID-19 Clin Com Blood Type Antibody Screen Crossmatch 06/09/22 09:01 Hgb 6.8 L* D Hct 21.4 L PT INR Sodium Potassium Chloride Carbon Dioxide Anion Gap BUN Creatinine Estim Creat Clear Calc Estimated GFR Random Glucose Calcium Total Bilirubin AST ALT Alkaline Phosphatase Troponin I High Sens Total Protein Albumin Stool Occult Blood COVID-19 ([facility]) COVID-19 Clin Com Blood Type Antibody Screen Crossmatch Assessment and Plan (1) CAD (coronary artery disease): Status: Acute Coronary artery disease recent stenting of the circumflex artery for NSTEMI with drug-eluting stent. He present with severe anemia suspected to be due to GI blood loss as to local blood is positive. His dual antiplatelet therapy have been appropriately withheld. He is currently getting blood transfusion. Watching closely with volume status and closely monitor his oxygen status. He does have underlying severe aortic stenosis and can cause congestive heart failure. However this is a very difficult clinical situation given that he has significant anemia and also requires dual antiplatelet therapy. Would suggest t o undergo GI endoscopy as soon as possible to evaluate for the source of bleeding. I would consider both upper and lower GI endoscopy to assess. If there is a treatable cause, hopefully can be treated so we can restart his aspirin Plavix. He remains at high risk for stent thrombosis of dual antip latelet therapy. The procedures although consider low risk given his acute situation with anemia and underlying severe aortic stenosis presents intermediate to high risk for perioperative cardiovascular morbidity mortality. Findings were discussed with him. He understands and agrees. Time Spent With Patient Time: Total time managing care of this patient today ____ minutes. Procedures Date of Service Date of Service: 06/09/22
--- NOTE | 2022-06-09 12:07 | MHC.CM.PN ---
IMM delivered 06/09/22. D/C plan pending hospital course, return home with services vs STR. Pt admitted with GI bleed. Pt lives with Tabitha in condo, he uses a walker and grab bars in shower at home to assist. Pts son Errol [phone] is HCP, copy of HCP requested. Pts son or can transport pt. [facility] PCP: Dr. Kevin Ochoa Vax: x [phone] Betitoa
--- NOTE | 2022-06-09 14:29 | PM.EVENT ---
Event Note Date of Service: 06/09/22 Event Note: GI consult dictated EGD and colonoscopy planned for 06/10 to further evaluate anemia and heme pos stool in the setting of acute blood loss. Time Spent With Patient Time: Total time managing care of this patient today ____ minutes.
--- NOTE | 2022-06-09 14:34 | MHC.SHP ---
Pre-Procedural Eval Section A Date of Service: 06/09/22 The patient is an INPATIENT: Yes Changes since office visit: No Cold of Flu in the past 2 weeks, No New Medical Problems, No Changes in Medication and No Patient answered all questions The History & Physical has been completed within 30 days and I have reviewed it.: No Section B Chief Complaint: GI bleed Allergies: Allergies Allergy/AdvReac Type Severity Reaction Status Date / Time No Known Allergies Allergy Verified 06/02/22 15:19 Plan I have reviewed the history and physical and performed a pertinent physical examination on my patient. No changes have occurred unless specified. Time Spent With Patient Time: Total time managing care of this patient today ____ minutes.
--- NOTE | 2022-06-09 15:09 | HO.PM.IMPN ---
Subjective Subjective Date of Service: 06/09/22 Interval History: patient seen and examined at bedside. He states feeling slightly better, he still feels fatigued but improved after receiving 1 unit of PRBC, BM transfuse a 2nd unit during my exam. Patient denies any chest pain, no dizziness, no abdominal pain nausea or vomiting, no diarrhea constipation, no urinary symptoms and no lower extremity edema. Patient reports no hematochezia, and no melena. Review of Systems Review of Systems: Yes all other systems are reviewed and are negative Physical Exam Vital Signs: Vital Signs: Last Vital Signs Temp 97.6 F 06/09/22 13:13 Pulse 67 06/09/22 13:13 Resp 16 06/09/22 13:13 BP 148/69 H 06/09/22 13:13 Pulse Ox 98 06/09/22 11:48 O2 Del Method Room Air 06/09/22 11:48 BMI result Body Mass Index 21.1 Const: Other: Patient is alert and oriented x3. Resp: Other: Lungs clear to auscultation bilaterally, normal respiratory effort GI: Other: abdomen is soft, nontender Extrem: Other: no lower extremity edema Objective Data Active Medications Acetaminophen (Acetaminophen 325 Mg Tablet) 650 mg PO Q6H PRN PRN Reason: Pain, Mild (Pain Scale 1-3) Ondansetron HCl (Ondansetron Hcl 4 Mg/2 Ml Vial) 4 mg IVPUSH Q8H PRN PRN Reason: Nausea and Vomiting Pharmacy Consult (Consult Rx Perform Med Rec) 1 each MISCELLANE ONCE PRN PRN Reason: Consult order Sodium Chloride (0.9 % Sodium Chloride Flush 3 Ml Syringe) [facility] Last Admin: 06/09/22 10:03 Dose: Not Given Documented By: MARTHA Non-Admin Reason: IV Running Labs 06/09/22 09:01 06/09/22 06:19 Labs: Laboratory Results - last 24 hr 06/08/22 06/08/22 06/08/22 15:24 15:32 15:32 PT 12.0 INR 1.0 Anion Gap Estim Creat Clear Calc Estimated GFR Random Glucose Calcium Total Bilirubin AST ALT Alkaline Phosphatase Troponin I High Sens Total Protein Albumin Stool Occult Blood COVID-19 ([facility]) Negative COVID-19 Clin Com See Note Blood Type O Positive Antibody Screen NEGATIVE Crossmatch See Detail 06/08/22 06/08/22 06/09/22 15:35 19:11 06:19 PT INR Anion Gap 12 Estim Creat Clear Calc 44.6 Estimated GFR > 60 Random Glucose 81 Calcium 8.2 L D Total Bilirubin 3.2 H AST 19 ALT 14 Alkaline Phosphatase 63 Troponin I High Sens 22.0 D Total Protein 4.9 L Albumin 3.3 L Stool Occult Blood POSITIVE COVID-19 ([facility]) COVID-19 Clin Com Blood Type Antibody Screen Crossmatch Assessment and Plan (1) Heme positive stool: Status: Acute (2) Acute on chronic anemia: Status: Acute (3) CAD (coronary artery disease): Status: Acute (4) Aortic stenosis: Status: Acute Plan 87 year old man a with history of NSTEMI and drug-eluting stent in place on Plavix and aspirin presents to the hospital with fatigue and weakness found to have acute anemia with heme-positive stools # Severe acute on chronicanemia, - likely secondary to GI bleed acute blood loss - hemodynamically stable - stool heme-positive - status post 2 units PRBC - follow CBC - GI consulted - plan for EGD and colonoscopy in a.m .- holding Plavix and aspirin - monitor respiratory system for volume overload # heme-positive stool - likely source of blood loss - no abdominal pain, patient denies melena or hematochezia - will hold aspirin and Plavix - plan for colonoscopy and EGD in the morning - NPO after # history ofCAD - recent cardiac cath 05/14/22 with GEOVANNA to mid Lcx - on aspirin Plavix, placed on hold due to acute GI bleed and severe anemia - discussed with Cardiology, patient at high risk of stent thrombosis but given her severe anemia patient will require these medications to be placed on hold temporarily until further evaluation by GI - cardia continues to follow there further recommendation as appreciated # history of aortic stenosis - monitor for shortness of breath given blood transfusion #COPD - no exacerbation - continue home inhalors DVT prophylaxis with SCD boots full code Patient requires at least 2 inpatient midnights for treatment severe anemia requiring the administration of blood products and close careful monitoring blood counts Time Spent With Patient Time: Total time managing care of this patient today ____ minutes. Quality Stroke Does the patient have a stroke diagnosis?: No VTE Prior VTE?: No VTE Risk Level:: Medical - moderate - high VTE Device Contraindication: N/A - Device Ordered VTE Drug Contraindication: Treatment Not Indicated
[2022-06-09] MEDS: Losartan Potassium 50 MG TABLET 100 MG PO (16:13)
[2022-06-09] MEDS: 0.9 % Sodium Chloride Flush 3 ML SYRINGE IVFLUSH ×2 (16:14→21:04)
[2022-06-09] MEDS: PEG 3350/Na Sulf,Bicarb,Cl/KCL 4,000 ML SOLN.RECON 4000 ML PO (16:14)
[2022-06-09 16:16] LABS: Hemoglobin 9.1 g/dl (14.0-18.0); PLT CLUMP 1
[2022-06-09 16:18] LABS: Basophils Absolute Auto 0.1 X10*3/uL (0.0-0.2); Basophils Percent Auto 0.5 % (0-2); Eosinophils Absolute Auto 0.1 X10*3/uL (0.0-0.4); Eosinophils Percent Auto 1.1 % (0-4); Hematocrit 28.4 % (42.0-52.0); Imm Gran Abs Auto 0.11 X10*3/uL (0.00-0.03); Imm Gran Pct Auto 0.9 % (0.0-0.4); Lymphocytes Percent Auto 7.9 % (20-40); MANUAL DIFF FLAG SCAN; Mean Corpuscular Hemoglobin 26.6 pg (27.0-33.0); Mean Platelet Volume 9.4 fL (9.4-12.4); Monocytes Absolute Auto 1.9 X10*3/uL (0.1-1.2); Monocytes Percent Auto 15.8 % (2-11); Neutrophils Absolute Auto 8.9 x10*3/uL (2.0-8.3); Neutrophils Percent Auto 73.8 % (45-73); Red Blood Count 3.42 X10*6/uL (4.60-5.80); Red Cell Distribution Width 15.4 % (11.0-16.0); SCAN SMEAR FLAG 1
[2022-06-09 16:51] LABS: Platelet Count 248 X10*3/uL (160-400); SLIDE REVIEW VERIFIED
[2022-06-09] MEDS: Atorvastatin Calcium 40 MG TABLET PO (21:04)
[2022-06-10] VITALS (13 sets, daily range): BP systolic 98–158; BP diastolic 50–78; PULSE 70–94; RESP 14–18; TEMP 35.9–37.4; O2SAT 96–99
--- NOTE | 2022-06-10 02:26 | CONS_ITS ---
DATE OF SERVICE: 06/09/2022 REFERRING PHYSICIAN: Dalia Lazo NP REASON FOR CONSULTATION: Anemia with Hemoccult-positive stools and GI blood loss. HISTORY OF PRESENT ILLNESS: The patient is a pleasant 87-year-old man, who was admitted to the hospital after presenting to the emergency room at the request of his primary care provider because of significant anemia. He was recently treated with percutaneous cardiac intervention at [facility] for an NSTEMI and underwent placement of a drug-eluting stent to the circumflex artery. He was also noted to have severe aortic stenosis. He was started on dual anti-platelet therapy. He was evaluated by his primary care provider with complaints of fatigue and lab work was obtained documenting a hematocrit of 18.1, which was down from 31.7 earlier in April. He was admitted to the hospital and transfused 1 unit of packed red blood cells and is currently scheduled to get a second unit. He reports his last bowel movement was about 3 to 4 days ago and was normal formed and brown. Stool occult blood testing has been positive. He has had no melena, and denies any symptoms of upper GI tract bleeding. He does have a remote history of peptic ulcer disease. He has never undergone colonoscopy or endoscopy. He has no personal or family history of colon cancer. His aspirin and Plavix have been held since admission. PAST MEDICAL HISTORY: 1. Coronary artery disease as above. 2. Hypertension. 3. COPD. 4. Spinal stenosis. 5. Skin cancer. 6. Right Achilles tendon rupture. 7. Asthma. 8. Aortic stenosis. PAST SURGICAL HISTORY: Includes cardiac catheterization as above, shoulder replacement, and Mohs surgery for squamous cell carcinoma of the skin. CURRENT MEDICATIONS: His current medication list is reviewed in the chart. ALLERGIES: NKDA. FAMILY HISTORY: This is reviewed with the patient and is noncontributory. SOCIAL HISTORY: There is no current tobacco, alcohol, or substance abuse. REVIEW OF SYSTEMS: SKIN: No pruritus. HEENT: Negative. CARDIOPULMONARY: No shortness of breath or chest pain. GASTROINTESTINAL: As above. GENITOURINARY: Negative. NEUROPSYCHIATRIC: Negative. PHYSICAL EXAMINATION: GENERAL: A pleasant male, lying in bed. VITAL SIGNS: Reviewed in the electronic medical record and are stable. SKIN: Anicteric. HEENT: No scleral icterus. NECK: Without lymphadenopathy or thyromegaly. LUNGS: Clear. Heart: Regular rate and rhythm. S1, S2. No murmur. ABDOMEN: Soft without focal masses or tenderness. Bowel sounds are present. No organomegaly is noted. EXTREMITIES: Without edema. There are multiple ecchymoses. LABORATORY DATA: Reviewed. IMPRESSION: Anemia with Hemoccult-positive stools. He appears to have had a significant drop in his hematocrit since April of this year when he was in the hospital. I have recommended further evaluation endoscopically with upper endoscopy and colonoscopy. This will be arranged for tomorrow. He understands risks and benefits, and agrees to proceed. MD IGOR Dillon/CARMELLA / [phone]
[2022-06-10 06:42] LABS: MANUAL DIFF FLAG NO
[2022-06-10 06:48] LABS: Basophils Absolute Auto 0.1 X10*3/uL (0.0-0.2); Basophils Percent Auto 0.7 % (0-2); Eosinophils Absolute Auto 0.1 X10*3/uL (0.0-0.4); Eosinophils Percent Auto 1.3 % (0-4); Hematocrit 24.9 % (42.0-52.0); Imm Gran Abs Auto 0.09 X10*3/uL (0.00-0.03); Lymphocytes Absolute Auto 0.7 X10*3/uL (1.2-4.9); Lymphocytes Percent Auto 7.7 % (20-40); Mean Corpuscular HGB Conc 32.1 g/dl (31.0-36.0); Mean Corpuscular Hemoglobin 26.1 pg (27.0-33.0); Mean Corpuscular Volume 81.4 fL (80.0-98.0); Mean Platelet Volume 8.4 fL (9.4-12.4); Monocytes Absolute Auto 1.3 X10*3/uL (0.1-1.2); Monocytes Percent Auto 14.6 % (2-11); Neutrophils Absolute Auto 6.8 x10*3/uL (2.0-8.3); Neutrophils Percent Auto 74.7 % (45-73); Platelet Count 251 X10*3/uL (160-400); Red Blood Count 3.06 X10*6/uL (4.60-5.80); Red Cell Distribution Width 15.8 % (11.0-16.0); White Blood Count 9.2 X10*3/uL (4.8-10.8)
[2022-06-10 07:07] LABS: Anion Gap 13 (12-20); Blood Urea Nitrogen 14 mg/dL (9-16); Calcium 8.4 mg/dL (8.4-10.2); Carbon Dioxide 27 mmol/L (22-29); Chloride 103 mmol/L (96-108); Creatinine Clr Calc Pharmacy 57.2; Estimated Glomerular Filt Rate > 60; Glucose Random 78 mg/dL (60-115); Potassium 3.3 mmol/L (3.3-5.1); Sodium 140 mmol/L (135-145)
--- NOTE | 2022-06-10 07:32 | PC.NURSE ---
Assumed care of patient at this time
[2022-06-10] MEDS: Fluticasone/Vilanterol 100/25 BLST.W.DEV 1 PUFF INHALE (08:37)
[2022-06-10] MEDS: Sodium Phosphate,Mono-Dibasic 133 ML ENEMA PR (09:08)
--- NOTE | 2022-06-10 09:25 | HO.ANESPROP2 ---
HPI - Anesthesia Eval Consult details Narrative: Anaemia,recent stemi ,stent placement, dual antiplatelet drugs, severe aortic stenosis PMF Active Problems Active Problems: All Active Problems (Updated 06/09/22 @ 15:12 by Kathrine Spain MD) Acute on chronic anemia (Acute) Heme positive stool (Acute) CAD (coronary artery disease) (Acute) Anemia (Acute) GI bleed (Acute) Aortic stenosis (Acute) NSTEMI (non-ST elevated myocardial infarction) (Acute) Pneumonia (Acute) Hypoxic (Acute) Discomfort in chest (Acute) COPD (chronic obstructive pulmonary disease) (Acute) Rupture of right Achilles tendon (Acute) 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 (Acute) Pulmonary nodule (Acute) Past Medical History Medical History Asthma COPD (chronic obstructive pulmonary disease) GERD (gastroesophageal reflux disease) Hammer toe of left foot HTN (hypertension) NSTEMI (non-ST elevated myocardial infarction) Rupture of right Achilles tendon Skin cancer Spinal stenosis Family History Family History Father CVD (cardiovascular disease) Mother Lung cancer Brother Bone cancer Family history of problems with anesthesia: No Surgical History Surgical History History of cardiac cath 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 History of Problems with Anesthesia: No Social History Social History Household Members: Spouse Housing: Condominium Do you presently have visiting nurse or other home services: No (had visiting nurses a few weeks ago d/t heart attack per patient.) Alcohol intake: never Patient Tobacco Use Status: Former Tobacco user Quit Date: 1994 Years Smoked: 35 +/- Advance Directives Date on File: 12/06/19 service: Yes Current occupational status: retired Meds Allergies Allergy/AdvReac Type Severity Reaction Status Date / Time No Known Allergies Allergy Verified 06/02/22 15:19 Active Medications: Current Medications Acetaminophen (Acetaminophen 325 Mg Tablet) 650 mg PO Q6H PRN PRN Reason: Pain, Mild (Pain Scale 1-3) Atorvastatin Calcium (Atorvastatin Calcium 40 Mg Tablet) 40 mg PO BEDTIME [facility] Last Admin: 06/09/22 21:04 Dose: 40 mg Fluticasone/Vilanterol (Fluticasone/Vilanterol 100/25 Blst.W.Dev) 1 puff INHALE DAILY [facility] Last Admin: 06/10/22 08:37 Dose: 1 puff Losartan Potassium (Losartan Potassium 50 Mg Tablet) 100 mg PO DAILY [facility]; Protocol Last Admin: 06/09/22 16:13 Dose: 100 mg Metoprolol Succinate (Metoprolol Succinate Er 50 Mg Tab.Er.24h) 50 mg PO DAILY [facility]; Protocol Mupirocin (Mupirocin 2 % Oint 22 Gm Tube) 1 appl TOPICAL BID [facility] Last Admin: 06/09/22 21:06 Dose: Not Given Omeprazole (Omeprazole 40 Mg Capsule.Dr) 40 mg PO DAILY@629 [facility] Last Admin: 06/10/22 05:55 Dose: Not Given Ondansetron HCl (Ondansetron Hcl 4 Mg/2 Ml Vial) 4 mg IVPUSH Q8H PRN PRN Reason: Nausea and Vomiting Pharmacy Consult (Consult Rx Perform Med Rec) 1 each MISCELLANE ONCE PRN PRN Reason: Consult order Sodium Biphosphate/Sodium Phosphate (Sodium Phosphate,[place]-Dibasic 133 Ml Enema) 133 ml [place] ONCE [facility] Last Admin: 06/10/22 09:08 Dose: 133 ml Sodium Chloride (0.9 % Sodium Chloride Flush 3 Ml Syringe) 3 ml IVFLUSH QSHIFT [facility] Last Admin: 06/09/22 21:04 Dose: 3 ml Tiotropium [place] (Tiotropium [place] 18 Mcg Cap.W.Dev) 2 puff INHALE RDAILY@1999 [facility] Last Admin: 06/09/22 21:13 Dose: 2 puff Home Medications Medication Instructions Recorded Confirmed Last Taken Type losartan 100 mg tablet 100 mg PO DAILY 12/07/19 06/08/22 05/12/22 History omeprazole 20 mg capsule,delayed 40 mg PO DAILY@0630 12/07/19 06/08/22 05/12/22 History release tiotropium bromide 2.5 2 puff inhalation BEDTIME 02/09/21 06/08/22 05/12/22 History mcg/actuation mist for inhalation (Spiriva Respimat) mupirocin calcium 2 % topical cream 1 appl topical BID 05/13/22 06/08/22 05/12/22 History aspirin 81 mg tablet,delayed 81 mg PO DAILY 06/02/22 06/08/22 Unknown History release atorvastatin 40 mg tablet 40 mg PO BEDTIME 06/02/22 06/08/22 Unknown History metoprolol succinate 50 mg 50 mg PO DAILY 06/02/22 06/08/22 Unknown History tablet,extended release 24 hr Exam Exam Date and Time: June 10, 2022 09 Height,Weight and Vital Signs: Height 5 ft 8 in Weight 63.049 kg Last Vital Signs Temp 96.7 F L 06/10/22 07:30 Pulse 75 06/10/22 08:40 Resp 16 06/10/22 08:40 BP 141/64 H 06/10/22 07:30 Pulse Ox 98 06/10/22 07:30 O2 Del Method Room Air 06/10/22 07:30 Pertinent Lab Results Pertinent Lab Results: Laboratory Tests 06/08/22 06/08/22 06/08/22 15:24 15:32 15:32 WBC RBC Hgb Hct MCV MCH MCHC RDW Plt Count MPV Immature Gran % (Auto) Neut % (Auto) Lymph % (Auto) [place] % (Auto) Eos % (Auto) Baso % (Auto) Lymph # (Auto) [place] # (Auto) Eos # (Auto) Baso # (Auto) Abs Immat Gran (auto) Absolute Neuts (auto) Absolute Nucleated RBC Nucleated RBC % (auto) Smear Tech's Comments PT 12.0 INR 1.0 Sodium Potassium Chloride Carbon Dioxide Anion Gap BUN Creatinine Estim Creat Clear Calc Estimated GFR Random Glucose Calcium Total Bilirubin AST ALT Alkaline Phosphatase Troponin I High Sens Total Protein Albumin Stool Occult Blood COVID-19 ([facility]) Negative COVID-19 Clin Com See Note Blood Type O Positive Antibody Screen NEGATIVE Crossmatch See Detail 06/08/22 06/08/22 06/09/22 15:35 19:11 06:19 WBC RBC Hgb Hct MCV MCH MCHC RDW Plt Count MPV Immature Gran % (Auto) Neut % (Auto) Lymph % (Auto) [place] % (Auto) Eos % (Auto) Baso % (Auto) Lymph # (Auto) [place] # (Auto) Eos # (Auto) Baso # (Auto) Abs Immat Gran (auto) Absolute Neuts (auto) Absolute Nucleated RBC Nucleated RBC % (auto) Smear Tech's Comments PT INR Sodium 134 L Potassium 4.0 Chloride 104 Carbon Dioxide 22 Anion Gap 12 BUN 20 H Creatinine 1.04 Estim Creat Clear Calc 44.6 Estimated GFR > 60 Random Glucose 81 Calcium 8.2 L D Total Bilirubin 3.2 H AST 19 ALT 14 Alkaline Phosphatase 63 Troponin I High Sens 22.0 D Total Protein 4.9 L Albumin 3.3 L Stool Occult Blood POSITIVE COVID-19 (CELIA) COVID-19 [facility] Blood Type Antibody Screen Crossmatch 06/09/22 06/09/22 06/10/22 09:01 15:51 06:15 WBC 12.0 H 9.2 RBC 3.42 L D 3.06 L Hgb 6.8 L* D 9.1 L D 8.0 L Hct 21.4 L 28.4 L D 24.9 L MCV 83.0 81.4 MCH 26.6 L 26.1 L MCHC 32.0 32.1 RDW 15.4 15.8 Plt Count 248 D 251 MPV 9.4 8.4 L Immature Gran % (Auto) 0.9 H 1.0 H Neut % (Auto) 73.8 H 74.7 H Lymph % (Auto) 7.9 L 7.7 L [place] % (Auto) 15.8 H 14.6 H Eos % (Auto) 1.1 1.3 Baso % (Auto) 0.5 0.7 Lymph # (Auto) 1.0 L 0.7 L [place] # (Auto) 1.9 H 1.3 H Eos # (Auto) 0.1 0.1 Baso # (Auto) 0.1 0.1 Abs Immat Gran (auto) 0.11 H 0.09 H Absolute Neuts (auto) 8.9 H 6.8 Absolute Nucleated RBC 0.000 0.000 Nucleated RBC % (auto) 0.0 0.0 Smear Tech's Comments VERIFIED PT INR Sodium Potassium Chloride Carbon Dioxide Anion Gap BUN Creatinine Estim Creat Clear Calc Estimated GFR Random Glucose Calcium Total Bilirubin AST ALT Alkaline Phosphatase Troponin I High Sens Total Protein Albumin Stool Occult Blood COVID-19 (CELIA) COVIDDeYapa19 [facility] Blood Type Antibody Screen Crossmatch 06/10/22 06:15 WBC RBC Hgb Hct MCV MCH MCHC RDW Plt Count MPV Immature Gran % (Auto) Neut % (Auto) Lymph % (Auto) [place] % (Auto) Eos % (Auto) Baso % (Auto) Lymph # (Auto) [place] # (Auto) Eos # (Auto) Baso # (Auto) Abs Immat Gran (auto) Absolute Neuts (auto) Absolute Nucleated RBC Nucleated RBC % (auto) Smear Tech's Comments PT INR Sodium 140 Potassium 3.3 Chloride 103 Carbon Dioxide 27 Anion Gap 13 BUN 14 Creatinine 0.81 Estim Creat Clear Calc 57.2 Estimated GFR > 60 Random Glucose 78 Calcium 8.4 Total Bilirubin AST ALT Alkaline Phosphatase Troponin I High Sens Total Protein Albumin Stool Occult Blood COVID-19 ([facility]) COVID-19 Clin Com Blood Type Antibody Screen Crossmatch Airway Mallampati Class: II TM Dist: >3cm Neck ROM: Limited Heart: rrr Lungs: ctaa Assessment and Plan Assessment Anesthesia Assessment: Anesthesia Plan Discussed and Chart Reviewed Final Anesthetic Review Family History of Problems with Anesthesia: No History of Problems with Anesthesia: No NPO: Yes ASA Class: IV
--- NOTE | 2022-06-10 09:35 | PC.NURSE ---
Patient off unit to PACU for EGD/Colonoscopy
--- NOTE | 2022-06-10 10:32 | PM.PNCARD ---
Subjective Subjective Date of Service: 06/10/22 Principal diagnosis: CAD Interval history: Patient received 2 units of transfusion. No symptoms of shortness of breath or chest discomfort. Plan to undergo upper and lower GI endoscopy today. Hematocrit is still on the lower side. Review of Systems Review of Systems Yes all other systems are reviewed and are negative Physical Exam Vital Signs: Last Vital Signs Temp 98.1 F 06/10/22 09:00 Pulse 78 06/10/22 09:00 Resp 16 06/10/22 09:00 BP 149/62 H 06/10/22 09:00 Pulse Ox 99 06/10/22 09:00 O2 Del Method Room Air 06/10/22 09:00 BMI result Body Mass Index 21.1 Const General: cooperative, comfortable, no acute distress, well developed, alert and awake Nutritional Appearance: well nourished Orientation/consciousness: patient oriented x3 Limitations: no limitations Neck Neck: Yes trachea midline, Yes supple and Yes no JVD Resp Effort & Inspection: normal respiratory effort Auscultation: no rales, no wheezes and diminished lung sounds Cardio Jugular venous distension: no JVD Rate: regular rate Rhythm: regular rhythm Heart sounds: S1 normal heart sound present, no click, no gallops and Murmur heart sound present systolic late GI Auscultation: normal bowel sounds Skin General skin exam: no rashes or lesions noted and ecchymosis Neuro General: patient oriented x3 and no focal motor deficits Extrem General: Yes no clubbing, cyanosis or edema Objective Labs and Meds 06/10/22 06:15 06/10/22 06:15 Lab results: Laboratory Results - last 24 hr 06/09/22 06/10/22 06/10/22 15:51 06:15 06:15 WBC 12.0 H 9.2 RBC 3.42 L D 3.06 L Hgb 9.1 L D 8.0 L Hct 28.4 L D 24.9 L MCV 83.0 81.4 MCH 26.6 L 26.1 L MCHC 32.0 32.1 RDW 15.4 15.8 Plt Count 248 D 251 MPV 9.4 8.4 L Immature Gran % (Auto) 0.9 H 1.0 H Neut % (Auto) 73.8 H 74.7 H Lymph % (Auto) 7.9 L 7.7 L [place] % (Auto) 15.8 H 14.6 H Eos % (Auto) 1.1 1.3 Baso % (Auto) 0.5 0.7 Lymph # (Auto) 1.0 L 0.7 L [place] # (Auto) 1.9 H 1.3 H Eos # (Auto) 0.1 0.1 Baso # (Auto) 0.1 0.1 Abs Immat Gran (auto) 0.11 H 0.09 H Absolute Neuts (auto) 8.9 H 6.8 Absolute Nucleated RBC 0.000 0.000 Nucleated RBC % (auto) 0.0 0.0 Smear Tech's Comments VERIFIED Sodium 140 Potassium 3.3 Chloride 103 Carbon Dioxide 27 Anion Gap 13 BUN 14 Creatinine 0.81 Estim Creat Clear Calc 57.2 Estimated GFR > 60 Random Glucose 78 Calcium 8.4 Progress Note: A&P Assessment and plan (1) CAD (coronary artery disease): Status: Acute Assessment and Plan: Coronary artery disease with recent stenting to the circumflex artery for acute shortness of breath and NSTEMI. No symptoms of anginal equivalent at this point time. Patient denies any chest pain or shortness of breath. Requires workup from GI perspective as soon as possible as he is currently of dual antiplatelet therapy and we need to determine if he can be on it due to high risk of stent thrombosis. If he has no obvious source of bleeding and/or is treatable cause, resume dual antiplatelet therapy if GI is okay with it. Discussed with them. Continue high-intensity statin therapy. He also has underlying significant aortic stenosis which will need to be addressed eventually although he is currently asymptomatic from that perspective. Will follow up with you Time Spent With Patient Time: Total time managing care of this patient today ____ minutes. Progress Note: Quality Stroke Does the patient have a stroke diagnosis?: No Procedures Date of Service Date of Service: 06/10/22
--- NOTE | 2022-06-10 11:28 | P.BOP_ITS ---
Brief Operative Note Date of Service: 06/10/22 Pre-op diagnosis: gi bleed, anemia, heme pos stool Post-op diagnosis: same Surgeon: Soto Latham Anesthesia: MAC Was an Principal Software Architect used for this Procedure?: No Estimated blood loss (mL): 2 Pathology: other Condition: stable Disposition: PACU
--- NOTE | 2022-06-10 11:29 | PM.EVENT ---
Event Note Date of Service: 06/10/22 Event Note: GI EGD/COLON note dictated EGD is normal, no bleeding Colonoscopy showed small cecal polyp, removed with a biopsy forceps. Extensive sigmoid diverticulosis, no bleeding or mass. No bleeding source identified. Rec: advance diet restart asa/plavix I will arrange outpt capsule endoscopy, to evaluate for small bowel avms as source of bleeding. He will need careful monitoring of hct and transfusion prn as outpatient. Time Spent With Patient Time: Total time managing care of this patient today ____ minutes.
--- NOTE | 2022-06-10 11:48 | OP_ITS ---
DATE OF SERVICE: 06/10/2022 SURGEON: Soto Latham MD INDICATIONS: GI bleeding, anemia, Hemoccult-positive stools. PREOPERATIVE DIAGNOSIS: POSTOPERATIVE DIAGNOSIS: PROCEDURE PERFORMED: 1. Upper endoscopy. 2. Colonoscopy to the terminal ileum with biopsy. ESTIMATED BLOOD LOSS: COMPLICATIONS: ANESTHESIA: Monitored anesthesia care. ASSISTANTS: SPECIMENS: DESCRIPTION OF PROCEDURE: A history and physical was performed. The risks and benefits of the procedure were explained to the patient. Informed consent was obtained. The patient was placed in the left lateral decubitus position. The Olympus video gastroscope was introduced into the esophagus, stomach, and duodenum. Examination was performed. The scope was removed. He was repositioned for colonoscopy. A digital rectal exam was performed and was found to be normal. The Olympus pediatric video colonoscope was introduced into the rectum and advanced to the cecum without difficulty. The cecum was identified by transillumination, palpation, and identification of ileocecal valve. Examination was performed. The scope was removed. He tolerated both procedures well and was returned to the recovery area in stable condition. FINDINGS: Upper endoscopy: 1. Esophagus: The esophagus was normal. 2. Stomach: The stomach showed no evidence of masses, ulcers, or polyps. 3. Duodenum: The bulb and 2nd portion were normal. Colonoscopy: The terminal ileum was examined and appeared normal. The visualized colonic mucosa was within normal limits without evidence of masses or ulcers. No bleeding was identified. There was a single polyp in the cecum measuring less than 5 mm. This was removed with a biopsy forceps. There was moderate diverticulosis of the sigmoid colon with scattered diverticula in the right colon. No bleeding source was identified. There was a large amount of liquid stool which was suctioned. This limited the sensitivity examination for detection of small polyps. No mass, lesion was identified. Retroflexed examination was normal. IMPRESSION: 1. Normal upper endoscopy. 2. Colon polyp. 3. Diverticulosis. RECOMMENDATION: 1. Follow up the biopsy results. 2. Advance diet and monitor hematocrit. 3. Dual anti-platelet therapy is restarted today. 4. The patient will have outpatient capsule endoscopy to assess the small bowel for AVMs, which may be the source of his GI blood loss given his underlying history of aortic stenosis. 5. He will need careful outpatient monitoring of his hematocrit likely at least weekly until it is stabilized. MD IGOR Dillon/CARMELLA / [id number]
--- NOTE | 2022-06-10 12:05 | PC.NURSE ---
tele pack on patient to floor from pacu
[2022-06-10] MEDS: Losartan Potassium 50 MG TABLET 100 MG PO (12:30)
[2022-06-10] MEDS: Metoprolol Succinate ER 50 MG TAB.ER.24H PO (12:30)
[2022-06-10] MEDS: 0.9 % Sodium Chloride Flush 3 ML SYRINGE IVFLUSH ×3 (12:31→21:09)
[2022-06-10] MEDS: Clopidogrel Bisulfate 75 MG TABLET PO (12:31)
[2022-06-10] MEDS: Aspirin Enteric Coated 81 MG TABLET.DR PO (12:31)
--- NOTE | 2022-06-10 14:19 | P.PNIM_ITS ---
Subjective Subjective Date of Service: 06/10/22 Interval History: seen and examined this morning follow up for GI bleeding s/p EGD/colonoscopy today feeling well, no abdominal pain, chest pain, dizziness Review of Systems Review of Systems: Yes all other systems are reviewed and are negative Constitutional Constitutional: Denies chills and Denies fever(s) ENT Ears, Nose, Mouth, and Throat: Denies dizziness Cardiovascular Cardiovascular: Denies chest pain, Denies palpitations and Denies dyspnea Respiratory Respiratory: Denies cough and Denies dyspnea Gastrointestinal Gastrointestinal: Denies abdominal pain, Denies nausea and Denies vomiting Neurologic Neurologic: Denies dizziness Endocrine Endocrine: Denies palpitations Physical Exam Vital Signs: Vital Signs: Last Vital Signs Temp 97.6 F 06/10/22 12:00 Pulse 76 06/10/22 12:00 Resp 14 06/10/22 12:00 BP 158/68 H 06/10/22 12:00 Pulse Ox 98 06/10/22 12:00 O2 Del Method Room Air 06/10/22 12:00 BMI result Body Mass Index 21.1 Const: General: comfortable, no acute distress, alert and awake Nutritional Appearance: average body habitus Orientation/consciousness: patient oriented x3 Resp: Effort & Inspection: normal respiratory effort and able to speak in complete sentences Auscultation: clear to auscultation bilaterally Cardio: Rate: regular rate GI: Inspection: No distended Palpation (GI): Soft to palpation and nontender Neuro: Other: grossly nonfocal General: patient oriented x3 Extrem: General: Yes no pedal edema Objective Data Active Medications Acetaminophen (Acetaminophen 325 Mg Tablet) 650 mg PO Q6H PRN PRN Reason: Pain, Mild (Pain Scale 1-3) Aspirin (Aspirin Enteric Coated 81 Mg Tablet.) 81 mg PO DAILY [facility] Last Admin: 06/10/22 12:31 Dose: 81 mg Documented By: PETER Atorvastatin Calcium (Atorvastatin Calcium 40 Mg Tablet) 40 mg PO BEDTIME [facility] Last Admin: 06/09/22 21:04 Dose: 40 mg Documented By: TOVA Clopidogrel Bisulfate (Clopidogrel Bisulfate 75 Mg Tablet) 75 mg PO DAILY [facility] Last Admin: 06/10/22 12:31 Dose: 75 mg Documented By: PETER Fluticasone/Vilanterol (Fluticasone/Vilanterol 100/25 Blst.W.Dev) 1 puff INHALE DAILY [facility] Last Admin: 06/10/22 08:37 Dose: 1 puff Documented By: RUDDY Losartan Potassium (Losartan Potassium 50 Mg Tablet) 100 mg PO DAILY [facility]; Protocol Last Admin: 06/10/22 12:30 Dose: 100 mg Documented By: PETER Metoprolol Succinate (Metoprolol Succinate Er 50 Mg Tab.Er.24h) 50 mg PO DAILY [facility]; Protocol Last Admin: 06/10/22 12:30 Dose: 50 mg Documented By: PETER Mupirocin (Mupirocin 2 % Oint 22 Gm Tube) 1 appl TOPICAL BID [facility] Last Admin: 06/10/22 12:31 Dose: Not Given Documented By: PETER Non-Admin Reason: Patient Refused Omeprazole (Omeprazole 40 Mg Capsule.Dr) 40 mg PO DAILY@0630 [facility] Last Admin: 06/10/22 05:55 Dose: Not Given Documented By: TOVA Non-Admin Reason: NPO Ondansetron HCl (Ondansetron Hcl 4 Mg/2 Ml Vial) 4 mg IVPUSH Q8H PRN PRN Reason: Nausea and Vomiting Pharmacy Consult (Consult Rx Perform Med Rec) 1 each MISCELLANE ONCE PRN PRN Reason: Consult order Sodium Biphosphate/Sodium Phosphate (Sodium Phosphate,[place]-Dibasic 133 Ml Enema) 133 ml [place] ONCE [facility] Last Admin: 06/10/22 09:08 Dose: 133 ml Documented By: PETER Sodium Chloride (0.9 % Sodium Chloride Flush 3 Ml Syringe) 3 ml IVFLUSH QSHIFT [facility] Last Admin: 06/10/22 12:31 Dose: 3 ml Documented By: PETER Tiotropium [place] (Tiotropium [place] 18 Mcg Cap.W.Dev) 2 puff INHALE RDAILY@1999 [facility] Last Admin: 06/09/22 21:13 Dose: 2 puff Documented By: MATOSLU Labs 06/10/22 06:15 06/10/22 06:15 Labs: Laboratory Results - last 24 hr 06/09/22 06/10/22 06/10/22 15:51 06:15 06:15 MCV 83.0 81.4 MCH 26.6 L 26.1 L MCHC 32.0 32.1 RDW 15.4 15.8 Plt Count 248 D 251 MPV 9.4 8.4 L Immature Gran % (Auto) 0.9 H 1.0 H Neut % (Auto) 73.8 H 74.7 H Lymph % (Auto) 7.9 L 7.7 L [place] % (Auto) 15.8 H 14.6 H Eos % (Auto) 1.1 1.3 Baso % (Auto) 0.5 0.7 Lymph # (Auto) 1.0 L 0.7 L [place] # (Auto) 1.9 H 1.3 H Eos # (Auto) 0.1 0.1 Baso # (Auto) 0.1 0.1 Abs Immat Gran (auto) 0.11 H 0.09 H Absolute Neuts (auto) 8.9 H 6.8 Absolute Nucleated RBC 0.000 0.000 Nucleated RBC % (auto) 0.0 0.0 Smear Tech's Comments VERIFIED Anion Gap 13 Estim Creat Clear Calc 57.2 Estimated GFR > 60 Random Glucose 78 Calcium 8.4 Assessment and Plan (1) Acute on chronic anemia: Status: Acute (2) GI bleed: Status: Acute Plan 87 year old man a with history of NSTEMI and drug-eluting stent in place on Plavix and aspirin presents to the hospital with fatigue and weakness found to have acute anemia with heme-positive stools # Severe acute on chronic anemia secondary to GI bleed/acute blood loss - status post 2 units PRBC - seen by GI - s/p EGD and colonoscopy - EGD unremarkable. colonoscpy with small polyp, diverticulosis, no active bleeding/ ?small bowel AVMs - rec outpatient capsule endoscopy - Plavix and aspirin resumed - follow CBC in am. # CAD - recent cardiac cath 05/14/22 with GEOVANNA to mid Lcx - aspirin/plavix resumed # history of aortic stenosis - monitor for shortness of breath given blood transfusion #COPD - no exacerbation - continue home inhalers HTN continue losartan, metoprolol DVT prophylaxis with SCD boots full code attending - dr. meier ongoing inpatient stay for severe anemia requiring close careful monitoring blood counts Time Spent With Patient Time: Total time managing care of this patient today ____ minutes. Quality Stroke Does the patient have a stroke diagnosis?: No VTE Prior VTE?: No VTE Risk Level:: Medical - moderate - high VTE Device Contraindication: N/A - Device Ordered VTE Drug Contraindication: Treatment Not Indicated
[2022-06-10] MEDS: Atorvastatin Calcium 40 MG TABLET PO (21:08)
[2022-06-11] VITALS (16 sets, daily range): BP systolic 125–145; BP diastolic 51–67; PULSE 61–85; RESP 16–20; TEMP 35.9–37.1; O2SAT 95–99
[2022-06-11] MEDS: Omeprazole 40 MG CAPSULE.DR PO (05:42)
[2022-06-11 07:04] LABS: Hematocrit 23.6 % (42.0-52.0); Hemoglobin 7.7 g/dl (14.0-18.0); Mean Corpuscular HGB Conc 32.6 g/dl (31.0-36.0); Mean Corpuscular Hemoglobin 26.7 pg (27.0-33.0); Mean Corpuscular Volume 81.9 fL (80.0-98.0); Mean Platelet Volume 8.4 fL (9.4-12.4); Platelet Count 215 X10*3/uL (160-400); Red Blood Count 2.88 X10*6/uL (4.60-5.80); Red Cell Distribution Width 16.3 % (11.0-16.0); White Blood Count 8.2 X10*3/uL (4.8-10.8)
[2022-06-11] MEDS: Fluticasone/Vilanterol 100/25 BLST.W.DEV 1 PUFF INHALE (07:54)
[2022-06-11] MEDS: Losartan Potassium 50 MG TABLET 100 MG PO (07:58)
[2022-06-11] MEDS: Metoprolol Succinate ER 50 MG TAB.ER.24H PO (07:58)
[2022-06-11] MEDS: Aspirin Enteric Coated 81 MG TABLET.DR PO (07:58)
[2022-06-11] MEDS: 0.9 % Sodium Chloride Flush 3 ML SYRINGE IVFLUSH ×3 (07:59→20:37)
[2022-06-11] MEDS: Clopidogrel Bisulfate 75 MG TABLET PO (07:59)
--- NOTE | 2022-06-11 08:49 | PC.NURSE ---
Patient alert and oriented, denies having any pain / discomfort. New order received to admin RBC , emergency medical service manager within 15 mins bolivar period , VSS , no adverse reaction noted.
--- NOTE | 2022-06-11 10:15 | PM.PNCARD ---
Subjective Subjective Date of Service: 06/11/22 Principal diagnosis: CAD Interval history: Patient underwent endoscopy with no obvious source for bleeding or active source of bleeding. His hematocrit down trended again overnight. Getting 1 unit of packed RBC. Continues to deny any cardiac symptoms. Was restarted on GI recommendations on dual antiplatelet therapy. He tolerated the GI procedures well Review of Systems Constitutional: Reports no additional constitutional complaints Eyes: Reports no additional eye complaints Cardiovascular: Reports no additional cardiovascular complaints Psychiatric: Reports no additional psychiatric complaints Endocrine: Reports no additional endocrine complaints Physical Exam Vital Signs: Last Vital Signs Temp 98.7 F 06/11/22 08:46 Pulse 76 06/11/22 08:46 Resp 18 06/11/22 08:46 BP 129/59 L 06/11/22 08:46 Pulse Ox 98 06/11/22 07:58 O2 Del Method Room Air 06/11/22 07:58 BMI result Body Mass Index 21.1 Const General: cooperative, comfortable, no acute distress, well developed, alert and awake Nutritional Appearance: well nourished Orientation/consciousness: patient oriented x3 Limitations: no limitations Neck Neck: Yes trachea midline, Yes supple and Yes no JVD Resp Effort & Inspection: normal respiratory effort Auscultation: no rales, no wheezes and diminished lung sounds Cardio Jugular venous distension: no JVD Rate: regular rate Rhythm: regular rhythm Heart sounds: S1 normal heart sound present, no click, no gallops and Murmur heart sound present systolic late GI Auscultation: normal bowel sounds Skin General skin exam: no rashes or lesions noted and ecchymosis Neuro General: patient oriented x3 and no focal motor deficits Extrem General: Yes no clubbing, cyanosis or edema Objective Labs and Meds 06/11/22 06:30 06/10/22 06:15 Lab results: Laboratory Results - last 24 hr 06/08/22 06/11/22 15:24 06:30 WBC 8.2 RBC 2.88 L Hgb 7.7 L Hct 23.6 L MCV 81.9 MCH 26.7 L MCHC 32.6 RDW 16.3 H Plt Count 215 MPV 8.4 L Absolute Nucleated RBC 0.000 Nucleated RBC % (auto) 0.0 Blood Type O Positive Antibody Screen NEGATIVE Crossmatch See Detail Progress Note: A&P Assessment and plan (1) CAD (coronary artery disease): Status: Acute Assessment and Plan: Patient with a difficult clinical situation presents with significant anemia related to GI source of bleeding without any obvious source identified on procedures yesterday. He had read drop in his hematocrit. Not sure if he has an active bleeding site. Seen by GI and appreciate. Has been restarted on dual antiplatelet therapy although drop in hematocrit is concerning. I would consider continue to transfuse him given his advanced age with severe aortic stenosis and recent CAD to have hematocrit over 30. Discussed with the patient difficulty in clinical decision making and dilemma in management. He agrees with current management plan. Question consider other evaluation for active bleeding (2) Aortic stenosis: Status: Acute Assessment and Plan: Aortic stenosis which is severe by last echocardiogram. Clinically without any symptoms. No signs or symptoms of heart failure or lightheadedness at this point in time. Continue aggressive medical management. Will sign of the case. Thank you for allowing me to partake in his care Time Spent With Patient Time: Total time managing care of this patient today ____ minutes. Progress Note: Quality Stroke Does the patient have a stroke diagnosis?: No Procedures Date of Service Date of Service: 06/11/22
--- NOTE | 2022-06-11 14:14 | PM.GIPN ---
Subjective Subjective Date of Service: 06/11/22 Interval History: no c/o pain no bleeding feels good tolerating diet Critical Care Time (minutes): 0 Physical Exam Vital Signs: Vital Signs: Last Vital Signs Temp 98.1 F 06/11/22 11:19 Pulse 66 06/11/22 11:19 Resp 20 06/11/22 11:19 BP 135/61 06/11/22 11:19 Pulse Ox 98 06/11/22 11:19 O2 Del Method Room Air 06/11/22 11:19 BMI result Body Mass Index 21.1 GI: Other: abdomen is soft and nontender Objective Data Labs 06/11/22 12:51 06/10/22 06:15 Labs: Laboratory Results - last 24 hr 06/08/22 06/11/22 06/11/22 15:24 06:30 12:51 WBC 8.2 RBC 2.88 L Hgb 7.7 L 9.0 L Hct 23.6 L 28.0 L MCV 81.9 MCH 26.7 L MCHC 32.6 RDW 16.3 H Plt Count 215 MPV 8.4 L Absolute Nucleated RBC 0.000 Nucleated RBC % (auto) 0.0 Blood Type O Positive Antibody Screen NEGATIVE Crossmatch See Detail Procedures Date of Service Date of Service: 06/11/22 Progress Note: A&P Assessment and plan (1) Acute on chronic anemia: Status: Acute Assessment and Plan: received 1 U prbcs this am doing well stable for discharge from GI viewpoint I will arrange VCE with Dr Moody Time Spent With Patient Time: Total time managing care of this patient today ____ minutes. Quality Stroke Does the patient have a stroke diagnosis?: No VTE Prior VTE?: No VTE Risk Level:: Medical - moderate - high VTE Device Contraindication: N/A - Device Ordered VTE Drug Contraindication: Treatment Not Indicated
--- NOTE | 2022-06-11 14:39 | MHC.CM.PN ---
IMM 06/11/22 DELIVERED TO PT AT BEDSIDE IN ANTIC OF W/E D/C, PT REPORTS IS HOME NO SERVICES W/FAMILY FOR TRANSPORT
[2022-06-11] MEDS: Mupirocin 2 % Oint 22 GM TUBE 1 APPL TOPICAL (14:41)
--- NOTE | 2022-06-11 17:08 | HO.PM.IMPN ---
Subjective Subjective Date of Service: 06/11/22 Interval History: seen and examined this morning follow up for anemia no overnight events feeling well this am Review of Systems Review of Systems: Yes all other systems are reviewed and are negative Constitutional Constitutional: Denies chills and Denies fever(s) ENT Ears, Nose, Mouth, and Throat: Denies dizziness Cardiovascular Cardiovascular: Denies chest pain, Denies palpitations and Denies dyspnea Respiratory Respiratory: Denies cough and Denies dyspnea Gastrointestinal Gastrointestinal: Denies abdominal pain Neurologic Neurologic: Denies dizziness Endocrine Endocrine: Denies palpitations Physical Exam Vital Signs: Vital Signs: Last Vital Signs Temp 98.0 F 06/11/22 16:57 Pulse 76 06/11/22 16:57 Resp 18 06/11/22 16:57 BP 143/67 H 06/11/22 16:57 Pulse Ox 97 06/11/22 15:06 O2 Del Method Room Air 06/11/22 15:06 BMI result Body Mass Index 21.1 Const: General: comfortable, no acute distress, alert and awake Nutritional Appearance: average body habitus Orientation/consciousness: patient oriented x3 Resp: Effort & Inspection: normal respiratory effort and able to speak in complete sentences Auscultation: clear to auscultation bilaterally Cardio: Rate: regular rate GI: Inspection: No distended Palpation (GI): Soft to palpation and nontender Neuro: Other: grossly nonfocal General: patient oriented x3 Extrem: General: Yes no pedal edema Objective Data Active Medications Acetaminophen (Acetaminophen 325 Mg Tablet) 650 mg PO Q6H PRN PRN Reason: Pain, Mild (Pain Scale 1-3) Aspirin (Aspirin Enteric Coated 81 Mg Tablet.) 81 mg PO DAILY [facility] Last Admin: 06/11/22 07:58 Dose: 81 mg Documented By: FE Atorvastatin Calcium (Atorvastatin Calcium 40 Mg Tablet) 40 mg PO BEDTIME [facility] Last Admin: 06/10/22 21:08 Dose: 40 mg Documented By: TOVA Clopidogrel Bisulfate (Clopidogrel Bisulfate 75 Mg Tablet) 75 mg PO DAILY [facility] Last Admin: 06/11/22 07:59 Dose: 75 mg Documented By: FE Fluticasone/Vilanterol (Fluticasone/Vilanterol 100/25 Blst.W.Dev) 1 puff INHALE DAILY [facility] Last Admin: 06/11/22 07:54 Dose: 1 puff Documented By: GRAZYNA Losartan Potassium (Losartan Potassium 50 Mg Tablet) 100 mg PO DAILY [facility]; Protocol Last Admin: 06/11/22 07:58 Dose: 100 mg Documented By: FE Metoprolol Succinate (Metoprolol Succinate Er 50 Mg Tab.Er.24h) 50 mg PO DAILY [facility]; Protocol Last Admin: 06/11/22 07:58 Dose: 50 mg Documented By: FE Mupirocin (Mupirocin 2 % Oint 22 Gm Tube) 1 appl TOPICAL BID [facility] Last Admin: 06/11/22 14:41 Dose: 1 appl Documented By: FE Omeprazole (Omeprazole 40 Mg Capsule.Dr) 40 mg PO DAILY@0630 [facility] Last Admin: 06/11/22 05:42 Dose: 40 mg Documented By: TOVA Ondansetron HCl (Ondansetron Hcl 4 Mg/2 Ml Vial) 4 mg IVPUSH Q8H PRN PRN Reason: Nausea and Vomiting Pharmacy Consult (Consult Rx Perform Med Rec) 1 each MISCELLANE ONCE PRN PRN Reason: Consult order Sodium Biphosphate/Sodium Phosphate (Sodium Phosphate,[place]-Dibasic 133 Ml Enema) 133 ml [place] ONCE [facility] Last Admin: 06/10/22 09:08 Dose: 133 ml Documented By: PETER Sodium Chloride (0.9 % Sodium Chloride Flush 3 Ml Syringe) 3 ml IVFLUSH QSHIFT [facility] Last Admin: 06/11/22 14:55 Dose: 3 ml Documented By: FE Tiotropium [place] (Tiotropium [place] 18 Mcg Cap.W.Dev) 2 puff INHALE RDAILY@1999 [facility] Last Admin: 06/11/22 16:53 Dose: 2 puff Documented By: JOE Labs 06/11/22 12:51 06/10/22 06:15 Labs: Laboratory Results - last 24 hr 06/08/22 06/11/22 15:24 06:30 MCV 81.9 MCH 26.7 L MCHC 32.6 RDW 16.3 H Plt Count 215 MPV 8.4 L Absolute Nucleated RBC 0.000 Nucleated RBC % (auto) 0.0 Blood Type O Positive Antibody Screen NEGATIVE Crossmatch See Detail Assessment and Plan (1) Acute on chronic anemia: Status: Acute Plan 87 year old man a with history of NSTEMI and drug-eluting stent in place on Plavix and aspirin presents to the hospital with fatigue and weakness found to have acute anemia with heme-positive stools # Severe acute on chronic anemia secondary to GI bleed/acute blood loss - status post 2 units PRBC 06/08 - seen by GI - s/p EGD and colonoscopy - EGD unremarkable. colonoscpy with small polyp, diverticulosis, no active bleeding/ ?small bowel AVMs - rec outpatient capsule endoscopy - Plavix and aspirin resumed - given age, aortic stenosis and CAD, cardiology rec transfuse until HCT 30 prior to d/c - plan for weekly CBC and prn outpatient transfusion until capsule endoscopy # CAD - recent cardiac cath 05/14/22 with GEOVANNA to mid Lcx - aspirin/plavix resumed # history of aortic stenosis - monitor for shortness of breath given blood transfusion #COPD - no exacerbation - continue home inhalers HTN continue losartan, metoprolol DVT prophylaxis with SCD boots full code attending - dr. meier ongoing inpatient stay for severe anemia requiring close careful monitoring blood counts Time Spent With Patient Time: Total time managing care of this patient today ____ minutes. Quality Stroke Does the patient have a stroke diagnosis?: No VTE Prior VTE?: No VTE Risk Level:: Medical - moderate - high VTE Device Contraindication: N/A - Device Ordered VTE Drug Contraindication: Treatment Not Indicated
[2022-06-11] MEDS: Atorvastatin Calcium 40 MG TABLET PO (20:36)
[2022-06-12 04:00] VITALS: BP 141/65; PULSE 68; RESP 16; TEMP 37.3; O2SAT 97
[2022-06-12] MEDS: Omeprazole 40 MG CAPSULE.DR PO (05:25)
[2022-06-12 07:20] LABS: Hematocrit 34.1 % (42.0-52.0); Hemoglobin 11.1 g/dl (14.0-18.0)
[2022-06-12 08:00] VITALS: BP 138/64; PULSE 89; RESP 17; TEMP 36.2; O2SAT 95
--- NOTE | 2022-06-12 10:09 | MHC.CM.PN ---
PT WILL DC HOME TODAY WITH [facility] SERVICES FOR PT AND HALFWAY PER [facility] LIAISON, THEY WILL BE ABLE TO START CARE ON TUESDAY PTS FAMILY WILL TRANSPORT
--- NOTE | 2022-06-12 11:59 | P.DS_ITS ---
DS: Providers Provider Date of Service: 06/12/22 Date of admission: 06/08/22 17:22 Primary care physician: Kevin Ochoa MD Consults: 06/08/22 17:47 Consult to Cardiology Routine Consulting Provider: [facility] Reason for consultation: recent nstemi, now with GI Bleed, asa and plavix stopped Has provider been notified: Yes 06/09/22 08:32 Consult to Gastroenterology Routine Consulting Provider: Jemal Hernandez Reason for consultation: GI bleed DS: Diagnosis Discharge Diagnosis (1) Acute on chronic anemia: Status: Acute DS: Summary Hospital Course Hospital Course: HP as per admitting provider 87 year old man presenting reports weakness and fatigue over the last several weeks.? He recently had an NSTEMI and subsequent cardiac catheterization with drug-eluting stent at [facility] on May 14.? He reports since then he has felt unwell.? He has been on aspirin and Plavix which may be contributing to some bleeding.? He denied any bloody stools or emesis.? No abdominal pain, chest pain, shortness of breath, nausea, vomiting or diarrhea.? H&H 5.6/18.1, sodium 132, stool occult positive, stable vital signs.? Plan is to admit for further management and treatment of severe anemia requiring blood transfusion . Severe acute on chronic anemia secondary to GI bleed/acute blood loss status post 2 units PRBC 06/08 seen by GI - s/p EGD and colonoscopy - EGD unremarkable. colonoscpy with small polyp, diverticulosis, no active bleeding/ ?small bowel AVMs - rec outpatient capsule endoscopy Plavix and aspirin resumed given age, aortic stenosis and CAD, cardiology rec transfuse until HCT 30, completed HH 11.1/34.1 CAD recent cardiac cath 05/14/22 with GEOVANNA to mid Lcx aspirin/plavix resumed history of aortic stenosis stable COPD no exacerbation continue home inhalers HTN continue? losartan, metoprolol Time Spent with Patient Time attestation: Total time managing care of this patient today ____ minutes. Discharge coordination time: Greater than 30 minutes Quality: Safe Use of Opioids Does Pt have an Active Cancer Diagnosis on the Problem List?: No Quality: Stroke Does the patient have a stroke diagnosis?: No Physical Exam Vital Signs: Vital Signs: Last Vital Signs Temp 97.2 F 06/12/22 08:00 Pulse 89 06/12/22 08:00 Resp 17 06/12/22 08:00 BP 138/64 06/12/22 08:00 Pulse Ox 95 06/12/22 08:00 O2 Del Method Room Air 06/12/22 08:00 BMI result Body Mass Index 21.1 Appearing in no acute distress head is normocephalic atraumatic eyes pupils are PERRLA sclera is anicteric mouth throat mucous membranes are intact and moist neck is supple no lymphadenopathy, no JVD noted lung sounds are clear to auscultation heart regular rate rhythm, clear S1, S2 positive bowel sounds, abdomen is soft, nontender neuro patient is alert x3, no focal deficits DS: Data Data Completed and Pending Pending studies at discharge: Pending at discharge 06/10/22 10:58 Surgical [PTH] Routine Labs on day of discharge: Laboratory Results - last 24 hr 06/08/22 06/11/22 06/12/22 15:24 12:51 07:07 Hgb 9.0 L 11.1 L D Hct 28.0 L 34.1 L D Blood Type O Positive Antibody Screen NEGATIVE Crossmatch See Detail Discharge Plan Discharge Anticipated Discharge Date/Time: 06/12/22 09:47 Patient Disposition: Home Health Service Discharge Diagnosis: Anemia Referrals: [facility] [Outside] - 1 Week Kevin Ochoa MD [Primary Care Provider] - 1 Week Jemal Hernandez [Physician] - 1 Week ( outpatient capsule endoscopy) Discharge Medications: Continued omeprazole 20 mg Capsule,Delayed Release(Dr/Ec) 40 mg PO DAILY@0630 losartan 100 mg Tablet 100 mg PO DAILY mupirocin calcium 2 % Cream 1 appl TOPICAL BID Protocol: Apply to: Apply to: FACE clopidogrel 75 mg Tablet 75 mg PO DAILY Qty: 1 0RF Spiriva Respimat 2.5 mcg/actuation mist 2 puff inhalation BEDTIME fluticasone propion-salmeterol [Wixela Inhub] 250-50 mcg/dose blister with device 1 inh inhalation BID 30 Days Qty: 60 5RF aspirin 81 mg tablet,delayed release (DR/EC) 81 mg PO DAILY atorvastatin 40 mg tablet 40 mg PO BEDTIME metoprolol succinate 50 mg tablet extended release 24 hr 50 mg PO DAILY Discharge Orders: Discharge Order (Routine); Ordered 04/15/23 Ordered By: Dalia Lazo Diet: Advance to usual diet Activity on Discharge: As tolerated Stand Alone Forms: Patient Portal Discharge page Other Ambulatory Orders: Complete Blood Count no Diff (Q5D) Timeframe: 20220617 Facility: [facility] - Location: Laboratory Ordered By: Dalia Lazo Complete Blood Count no Diff (Q5D) Timeframe: 20220622 Facility: [facility] - Location: Laboratory Ordered By: Dalia Lazo Complete Blood Count no Diff (Q5D) Timeframe: [id number] Facility: [facility] - Location: Laboratory Ordered By: Dalia Lazo Care Plan Goals: Outpatient capsule endoscopy Weekly CBC Health Concerns: Acute on chronic anemia Coronary artery disease Plan of Treatment: Follow-up with primary care provider as needed 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
--- NOTE | 2022-06-15 16:42 | W.MHC.F2F ---
Service Date Service Date: 06/12/22 Encounter Date of encounter: 06/12/22 Reasons for Services Signs and symptoms assessed: Anemia GI bleed Reason for detention: CV/CP assess and/or care and teach disease management Reason for physical therapy: home safety and mobility Homebound: Leaving the home is medically contraindicated at this time without the asist of a device and/or another person due th the listed conditions above and below. Reason homebound: unsteady gait / fall risk Certification: Based on the above findings, I certify that this patient is confined to the home and needs intermittent detention care, physical therapy and/or speech therapy, or continues to need occupational therapy. The patient is under my care, and I have initiated the establishment of the plan of care. The patient will be followed by a physician who will periodically review the plan of care. Time Spent With Patient Time: Total time managing care of this patient today ____ minutes.
== END 2022-06-12 11:23 | disposition home health service (06) | DRG 377 ==
LOC: HO.ED 16:39 → HO.EDOVER 17:47 → HO.IMC 17:53
PROVIDERS: Internal Medicine; Internal Medicine Gastroenterology; Physician Assistant; Physician Assistant Medical; Admitting Provider Nurse Practitioner Acute Care; Emergency Provider Emergency Medicine; PCP Internal Medicine; Visit Provider Nurse Practitioner Acute Care
PROC: 0DJ08ZZ Inspection of Upper Intestinal Tract, Via Natural or Artificial Opening Endoscopic (ICD-10-PCS; principal; 2022-06-10 10:00)
DX: K57.31 Diverticulosis of large intestine without perforation or abscess with bleeding (principal); I21.4 Non-ST elevation (NSTEMI) myocardial infarction; D68.32 Hemorrhagic disorder due to extrinsic circulating anticoagulants; D62 Acute posthemorrhagic anemia; I25.10 Atherosclerotic heart disease of native coronary artery without angina pectoris; I35.0 Nonrheumatic aortic (valve) stenosis; J44.9 Chronic obstructive pulmonary disease, unspecified; K55.21 Angiodysplasia of colon with hemorrhage; D12.0 Benign neoplasm of cecum; T45.525A Adverse effect of antithrombotic drugs, initial encounter; Z20.822 Contact with and (suspected) exposure to COVID-19; Z87.891 Personal history of nicotine dependence; Z79.02 Long term (current) use of antithrombotics/antiplatelets; Z79.82 Long term (current) use of aspirin; Z79.51 Long term (current) use of inhaled steroids; Z79.899 Other long term (current) drug therapy
CPT/HCPCS: 36415; 80048; 80053; 82272; 84484; 85014; 85018; 85025; 85027; 85610; 86850; 86900; 86901; 86923; 87635; 88305; 94640; 99285; J2370; P9016

== ENCOUNTER 2022-06-17 11:35 | Outpatient (REF) | payer MEDICARE, SELFPAY ==
[2022-06-17 14:19] LABS: Hematocrit 35.2 % (42.0-52.0); Hemoglobin 10.7 g/dl (14.0-18.0); Mean Corpuscular HGB Conc 30.4 g/dl (31.0-36.0); Mean Corpuscular Hemoglobin 27.1 pg (27.0-33.0); Mean Corpuscular Volume 89.1 fL (80.0-98.0); Mean Platelet Volume 8.9 fL (9.4-12.4); Platelet Count 177 X10*3/uL (160-400); Red Blood Count 3.95 X10*6/uL (4.60-5.80); Red Cell Distribution Width 17.8 % (11.0-16.0); White Blood Count 6.4 X10*3/uL (4.8-10.8)
== END 2022-06-17 11:36 | disposition home or self-care (01) ==
LOC: HO.HMGCLNP 11:35
PROVIDERS: Visit Provider Nurse Practitioner Acute Care
DX: D64.9 Anemia, unspecified (principal)
CPT/HCPCS: 85027

== ENCOUNTER 2022-06-24 13:04 | Outpatient (REF) | payer MEDICARE, SELFPAY ==
[2022-06-24 13:07] LABS: MANUAL DIFF FLAG NO
[2022-06-24 13:21] LABS: Basophils Absolute Auto 0.1 X10*3/uL (0.0-0.2); Basophils Percent Auto 1.1 % (0-2); Eosinophils Absolute Auto 0.2 X10*3/uL (0.0-0.4); Eosinophils Percent Auto 2.8 % (0-4); Hematocrit 31.3 % (42.0-52.0); Hemoglobin 9.8 g/dl (14.0-18.0); Imm Gran Abs Auto 0.08 X10*3/uL (0.00-0.03); Lymphocytes Absolute Auto 0.6 X10*3/uL (1.2-4.9); Lymphocytes Percent Auto 7.7 % (20-40); Mean Corpuscular HGB Conc 31.3 g/dl (31.0-36.0); Mean Corpuscular Hemoglobin 28.4 pg (27.0-33.0); Mean Corpuscular Volume 90.7 fL (80.0-98.0); Monocytes Percent Auto 11.9 % (2-11); Neutrophils Absolute Auto 6.2 x10*3/uL (2.0-8.3); Neutrophils Percent Auto 75.5 % (45-73); Platelet Count 556 X10*3/uL (160-400); Red Blood Count 3.45 X10*6/uL (4.60-5.80); Red Cell Distribution Width 17.7 % (11.0-16.0); White Blood Count 8.2 X10*3/uL (4.8-10.8)
== END 2022-06-24 13:05 | disposition home or self-care (01) ==
LOC: HO.HVNA 13:04
PROVIDERS: Visit Provider Internal Medicine
DX: D64.9 Anemia, unspecified (principal)
CPT/HCPCS: 36415; 85025

== ENCOUNTER 2022-07-01 14:43 | Outpatient (REF) | payer OTHER, MEDICARE, SELFPAY ==
[2022-07-01 16:39] LABS: Hemoglobin 9.2 g/dl (14.0-18.0); Mean Corpuscular HGB Conc 30.7 g/dl (31.0-36.0); Mean Corpuscular Hemoglobin 27.7 pg (27.0-33.0); Mean Corpuscular Volume 90.4 fL (80.0-98.0); Mean Platelet Volume 8.7 fL (9.4-12.4); Platelet Count 556 X10*3/uL (160-400); Red Blood Count 3.32 X10*6/uL (4.60-5.80); White Blood Count 9.1 X10*3/uL (4.8-10.8)
== END 2022-07-01 14:44 | disposition home or self-care (01) ==
LOC: HO.HMGCLNP 14:43
PROVIDERS: PCP Internal Medicine; Visit Provider Nurse Practitioner Acute Care
DX: D64.9 Anemia, unspecified (principal)
CPT/HCPCS: 85027

== ENCOUNTER → 2022-07-06 10:15 | Outpatient (BNVA) | payer MEDICARE, SELFPAY | PROVIDERS: PCP Internal Medicine; Visit Provider Internal Medicine | DX: J44.9 Chronic obstructive pulmonary disease, unspecified (principal); C34.31 Malignant neoplasm of lower lobe, right bronchus or lung; R06.09 Other forms of dyspnea | CPT/HCPCS: 99212 ==

== ENCOUNTER 2022-08-02 10:43 | Outpatient (REF) | payer MEDICARE, SELFPAY ==
[2022-08-02 13:11] LABS: MANUAL DIFF FLAG NO
[2022-08-02 13:16] LABS: Basophils Absolute Auto 0.1 X10*3/uL (0.0-0.2); Eosinophils Absolute Auto 0.1 X10*3/uL (0.0-0.4); Eosinophils Percent Auto 1.3 % (0-4); Hematocrit 21.9 % (42.0-52.0); Imm Gran Abs Auto 0.07 X10*3/uL (0.00-0.03); Imm Gran Pct Auto 1.1 % (0.0-0.4); Lymphocytes Absolute Auto 0.7 X10*3/uL (1.2-4.9); Lymphocytes Percent Auto 10.8 % (20-40); Mean Corpuscular HGB Conc 28.3 g/dl (31.0-36.0); Mean Corpuscular Volume 84.9 fL (80.0-98.0); Mean Platelet Volume 9.3 fL (9.4-12.4); Monocytes Absolute Auto 1.1 X10*3/uL (0.1-1.2); Monocytes Percent Auto 17.6 % (2-11); Neutrophils Absolute Auto 4.2 x10*3/uL (2.0-8.3); Neutrophils Percent Auto 68.2 % (45-73); Platelet Count 425 X10*3/uL (160-400); Red Blood Count 2.58 X10*6/uL (4.60-5.80); Red Cell Distribution Width 16.5 % (11.0-16.0); White Blood Count 6.2 X10*3/uL (4.8-10.8)
[2022-08-02 13:44] LABS: Hemoglobin 6.2 g/dl (14.0-18.0)
[2022-08-02 14:38] LABS: Anion Gap 14 (12-20)
[2022-08-02 14:41] LABS: Blood Urea Nitrogen 19 mg/dL (9-16); Calcium 8.7 mg/dL (8.4-10.2); Carbon Dioxide 21 mmol/L (22-29); Chloride 105 mmol/L (96-108); Estimated Glomerular Filt Rate > 60; Glucose Random 108 mg/dL (60-115); Iron 6 mcg/dL (45-160); Percent Iron Saturation 3 % (15-50); Potassium 4.7 mmol/L (3.3-5.1); Sodium 135 mmol/L (135-145); Total Iron Binding Capacity 234 mcg/dL (228-428); Unsaturated Iron Binding 228 ug/dL; Vitamin B12 249 pg/mL (200-900)
== END 2022-08-02 10:44 | disposition home or self-care (01) ==
LOC: HO.10HDL 10:43
PROVIDERS: PCP Nurse Practitioner Acute Care; Visit Provider Internal Medicine
DX: D64.9 Anemia, unspecified (principal); R53.83 Other fatigue
CPT/HCPCS: 36415; 80048; 82607; 83540; 85025; 85027

== ENCOUNTER 2022-08-03 07:07 | Outpatient (REF) | payer MEDICARE, SELFPAY | END 2022-08-03 07:08 | disposition home or self-care (01) | LOC: HO.MDS 07:07 | PROVIDERS: Visit Provider Internal Medicine | DX: D64.9 Anemia, unspecified (principal) | CPT/HCPCS: 36430; 86850; 86900; 86901; 86923; P9016 ==

== ENCOUNTER 2022-08-17 08:58 | Outpatient (REF) | payer MEDICARE, SELFPAY ==
[2022-08-10 12:18] VITALS: BP 134/60; BP 140/60; BMI 21.2
[2022-08-17 10:37] LABS: MANUAL DIFF FLAG NO
[2022-08-17 10:45] LABS: Basophils Absolute Auto 0.1 X10*3/uL (0.0-0.2); Basophils Percent Auto 0.9 % (0-2); Eosinophils Absolute Auto 0.3 X10*3/uL (0.0-0.4); Eosinophils Percent Auto 3.8 % (0-4); Hematocrit 23.7 % (42.0-52.0); Hemoglobin 7.1 g/dl (14.0-18.0); Imm Gran Abs Auto 0.07 X10*3/uL (0.00-0.03); Imm Gran Pct Auto 0.9 % (0.0-0.4); Lymphocytes Absolute Auto 0.6 X10*3/uL (1.2-4.9); Lymphocytes Percent Auto 7.2 % (20-40); Mean Corpuscular Hemoglobin 26.6 pg (27.0-33.0); Mean Corpuscular Volume 88.8 fL (80.0-98.0); Mean Platelet Volume 9.3 fL (9.4-12.4); Monocytes Absolute Auto 1.2 X10*3/uL (0.1-1.2); Monocytes Percent Auto 14.7 % (2-11); Neutrophils Percent Auto 72.5 % (45-73); Platelet Count 317 X10*3/uL (160-400); Red Blood Count 2.67 X10*6/uL (4.60-5.80); White Blood Count 8.2 X10*3/uL (4.8-10.8)
== END 2022-08-17 08:59 | disposition home or self-care (01) ==
LOC: HO.10HDL 08:58
PROVIDERS: Visit Provider Internal Medicine
DX: D64.9 Anemia, unspecified (principal); I25.10 Atherosclerotic heart disease of native coronary artery without angina pectoris; J44.9 Chronic obstructive pulmonary disease, unspecified
CPT/HCPCS: 36415; 85025

== ENCOUNTER 2022-08-19 10:08 | Outpatient (REF) | payer MEDICARE, SELFPAY ==
[2022-08-10 12:18] VITALS: BP 134/60; BP 140/60; BMI 21.2
== END 2022-08-19 10:09 | disposition home or self-care (01) ==
LOC: HO.LAB 10:08
PROVIDERS: PCP Internal Medicine; Visit Provider Internal Medicine
DX: Z13.89 Encounter for screening for other disorder (principal)

== ENCOUNTER 2022-08-20 06:49 | Outpatient (REF) | payer MEDICARE, SELFPAY ==
[2022-08-10 12:18] VITALS: BP 134/60; BP 140/60; BMI 21.2
== END 2022-08-20 06:50 | disposition home or self-care (01) ==
LOC: HO.MDS 06:49
PROVIDERS: Visit Provider Internal Medicine
DX: D64.9 Anemia, unspecified (principal)
CPT/HCPCS: 36430; 86850; 86900; 86901; 86923; P9016

== ENCOUNTER 2022-08-25 20:24 | Emergency (ER) | payer MEDICARE, SELFPAY ==
[2022-08-10 12:18] VITALS: BP 134/60; BP 140/60; BMI 21.2
--- NOTE | ~2022-08-25 | XR_ITS ---
EXAMINATION: XR TIBIA AND FIBULA, LEFT CLINICAL INFORMATION: Fall. COMPARISON: None available. TECHNIQUE: AP and lateral views of the left tibia and fibula were obtained. FINDINGS: The bones and soft tissues are normal. No fracture. No osseous lesions. XR/XR tibia fibula LT 2V IMPRESSION: Normal left tibia and fibula.
[2022-08-25 20:29] VITALS: BP 123/94; PULSE 80; RESP 18; TEMP 36.9; O2SAT 97; BMI 21.3
--- NOTE | 2022-08-25 20:31 | ED.FALL ---
HPI - Fall General Chief Complaint: Wound/Laceration Stated Complaint: Fall/Gash on lower left leg Time Seen by Provider: 08/25/22 21:43 Source: patient, RN notes reviewed and old records reviewed Mode of arrival: ambulatory Limitations: no limitations History of Present Illness HPI Narrative: 87-year-old male presents for evaluation of left lower leg wound Patient reports that he tripped over a stool in his living room He scraped his left lower leg on the stool as he fell to the ground He denies hitting his head or losing consciousness He has been still using aspirin but is not on any anticoagulation He denies any significant pain but has bleeding from the wound to his left lower leg No other complaints or concerns at this time Related Data Home Medications Medication Instructions Recorded Confirmed losartan 100 mg tablet 100 mg PO DAILY 12/07/19 07/06/22 omeprazole 20 mg capsule,delayed 40 mg PO DAILY@0630 12/07/19 07/06/22 release tiotropium bromide 2.5 2 puff inhalation BEDTIME 02/09/21 07/06/22 mcg/actuation mist for inhalation (Spiriva Respimat) mupirocin calcium 2 % topical cream 1 appl topical BID 05/13/22 07/06/22 aspirin 81 mg tablet,delayed 81 mg PO DAILY 06/02/22 07/06/22 release atorvastatin 40 mg tablet 40 mg PO BEDTIME 06/02/22 07/06/22 metoprolol succinate 50 mg 50 mg PO DAILY 06/02/22 07/06/22 tablet,extended release 24 hr Previous Rx's Medication Instructions Recorded fluticasone 250 mcg-salmeterol 50 1 inh inhalation BID 30 days #60 ea 01/06/22 mcg/dose blistr powdr for inhalation (Wixela Inhub) clopidogrel 75 mg tablet 75 mg PO DAILY #1 tab 05/13/22 Allergies Allergy/AdvReac Type Severity Reaction Status Date / Time No Known Allergies Allergy Verified 07/06/22 10:33 Review of Systems Constitutional: Constitutional: Denies headache(s) ENT: Denies headache(s) Integumentary/Breasts: Skin/Breast: Reports wounds Neurologic: Denies headache(s) [facility] Past Medical History Medical History (Updated 08/25/22 @ 22:07 by Billy Childers) Anemia Aortic stenosis Asthma CAD (coronary artery disease) COPD (chronic obstructive pulmonary disease) Dyspnea on exertion GERD (gastroesophageal reflux disease) Hammer toe of left foot HTN (hypertension) NSTEMI (non-ST elevated myocardial infarction) Rupture of right Achilles tendon Skin cancer Spinal stenosis Surgical History (Updated 07/15/22 @ 10:57 by Alber Vásquez MD) History of cardiac cath 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 Family History Family History Father CVD (cardiovascular disease) Mother Lung cancer Brother Bone cancer Social History Social History Household Members: Spouse Housing: Condominium Do you presently have visiting nurse or other home services: No (had visiting nurses a few weeks ago d/t heart attack per patient.) Alcohol intake: never Patient Tobacco Use Status: Former Tobacco user Quit Date: 1994 Tobacco use type: Cigarette Cigarette Packs Per Day: 1 Years Smoked: 35 +/- Advance Directives Date on File: 12/06/19 service: Yes Current occupational status: retired Physical Exam Vital Signs: Vital Signs: Last Vital Signs Temp 98.7 F 08/25/22 21:12 Pulse 77 08/25/22 21:12 Resp 18 08/25/22 21:12 BP 140/80 H 08/25/22 21:12 Pulse Ox 99 08/25/22 21:12 O2 Del Method Room Air 08/25/22 21:12 BMI result Body Mass Index 21.3 Const: General: healthy appearing, comfortable, no acute distress, alert and awake Nutritional Appearance: well nourished Orientation/consciousness: patient oriented x3 HEENT: Head: Yes normocephalic and Yes atraumatic Eyes: Eyelids: Yes eyelids normal Conjunctivae: conjunctivae normal Sclerae: sclerae normal Corneas: corneas normal Pupils: Equal, round and reactive pupils present EOM: EOMs intact bilaterally Resp: Effort & Inspection: normal respiratory effort, able to speak in complete sentences and not labored Skin: Other: Patient has an approximately 4 x 6 cm skin tear to left lower extremity on the lateral surface. The skin flap is intact with the exception of a small 1 x 3 cm area of open wound. Scan active bleeding. 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 Denies symptoms prior to fall. Tetanus up-to-date Large skin tear noted to left anterior simons X-ray ordered Full HPI, ROS and PE to be performed by primary ED provider. Medical Decision Making Medical Decision Making MDM Narrative: Patient has a small skin tear, x-rays negative for fracture. This is not amenable to suture repair. Wound will be cleaned and dressed Differential Diagnosis Skin tear Abrasion Laceration Puncture wound Knee fracture Leg fracture Independent Interpretation I performed an independent interpretation of an: Plain X-Ray (No obvious fracture or radiopaque foreign body) Radiology Impression Discussion of test interpretation with radiology: I have reviewed the radiologist's reading. (No fracture) Discharge Plan Discharge Clinical Impression: Skin tear of left lower leg without complication Patient Disposition: Home, Self-Care Instructions: Skin Tear (ED) Additional Instructions: you have a skin tear to the left lower leg. This is not deep enough to require sutures You may apply topical antibiotic every other day I would change the bandage at least every other day or sooner if it becomes saturated Return for new or worsening symptoms, especially if there is purulent, foul-smelling discharge or if you develop a fever Prescriptions: No Action omeprazole 20 mg Capsule,Delayed Release(Dr/Ec) 40 mg PO DAILY@0630 losartan 100 mg Tablet 100 mg PO DAILY mupirocin calcium 2 % Cream 1 appl TOPICAL BID Protocol: Apply to: Apply to: FACE clopidogrel 75 mg Tablet 75 mg PO DAILY Qty: 1 0RF Spiriva Respimat 2.5 mcg/actuation mist 2 puff inhalation BEDTIME fluticasone propion-salmeterol [Wixela Inhub] 250-50 mcg/dose blister with device 1 inh inhalation BID 30 Days Qty: 60 5RF aspirin 81 mg tablet,delayed release (DR/EC) 81 mg PO DAILY atorvastatin 40 mg tablet 40 mg PO BEDTIME metoprolol succinate 50 mg tablet extended release 24 hr 50 mg PO DAILY Interventions: ED Discharge Assessment Last Done: 08/25/22 22:11
[2022-08-25 21:12] VITALS: BP 140/80; PULSE 77; RESP 18; TEMP 37.1; O2SAT 99
--- NOTE | 2022-08-25 21:19 | PC.NURSE ---
patient came in the ER with the left knee skin tear patient stated he feels no pain patient will continue to be monitored for safety
== END 2022-08-25 22:15 | disposition home or self-care (01) ==
PROVIDERS: Emergency Provider Student in an Organized Health Care Education/Training Program; PCP Internal Medicine
DX: S81.812A Laceration without foreign body, left lower leg, initial encounter (principal); W08.XXXA Fall from other furniture, initial encounter; Y93.89 Activity, other specified; Y92.008 Other place in unspecified non-institutional (private) residence as the place of occurrence of the external cause; Y99.9 Unspecified external cause status; Z79.899 Other long term (current) drug therapy
CPT/HCPCS: 73590; 99283; 99284

== ENCOUNTER 2022-09-07 09:30 | Outpatient (REF) | payer MEDICARE, SELFPAY ==
[2022-08-10 12:18] VITALS: BP 134/60; BP 140/60; BMI 21.2
[2022-09-07 09:55] LABS: MANUAL DIFF FLAG NO
[2022-09-07 10:25] LABS: Basophils Absolute Auto 0.1 X10*3/uL (0.0-0.2); Basophils Percent Auto 1.1 % (0-2); Eosinophils Absolute Auto 0.3 X10*3/uL (0.0-0.4); Eosinophils Percent Auto 4.1 % (0-4); Hematocrit 31.5 % (42.0-52.0); Hemoglobin 9.8 g/dl (14.0-18.0); Imm Gran Abs Auto 0.04 X10*3/uL (0.00-0.03); Imm Gran Pct Auto 0.6 % (0.0-0.4); Lymphocytes Absolute Auto 0.6 X10*3/uL (1.2-4.9); Lymphocytes Percent Auto 9.8 % (20-40); Mean Corpuscular HGB Conc 31.1 g/dl (31.0-36.0); Mean Corpuscular Hemoglobin 27.1 pg (27.0-33.0); Mean Corpuscular Volume 87.3 fL (80.0-98.0); Mean Platelet Volume 9.3 fL (9.4-12.4); Monocytes Percent Auto 15.3 % (2-11); Neutrophils Absolute Auto 4.5 x10*3/uL (2.0-8.3); Neutrophils Percent Auto 69.1 % (45-73); Platelet Count 267 X10*3/uL (160-400); Red Blood Count 3.61 X10*6/uL (4.60-5.80); Red Cell Distribution Width 17.3 % (11.0-16.0); White Blood Count 6.5 X10*3/uL (4.8-10.8)
[2022-09-07 11:20] LABS: Anion Gap 13 (12-20); Blood Urea Nitrogen 16 mg/dL (9-16); Calcium 9.1 mg/dL (8.4-10.2); Carbon Dioxide 24 mmol/L (22-29); Chloride 102 mmol/L (96-108); Estimated Glomerular Filt Rate > 60; Glucose Random 80 mg/dL (60-115); Iron 33 mcg/dL (45-160); Percent Iron Saturation 16 % (15-50); Potassium 4.3 mmol/L (3.3-5.1); Sodium 135 mmol/L (135-145); Total Iron Binding Capacity 206 mcg/dL (228-428); Unsaturated Iron Binding 173 ug/dL
== END 2022-09-07 09:31 | disposition home or self-care (01) ==
LOC: HO.LAB 09:30
PROVIDERS: PCP Internal Medicine; Visit Provider Internal Medicine
DX: D64.9 Anemia, unspecified (principal)
CPT/HCPCS: 36415; 80048; 83540; 85025

== ENCOUNTER 2022-09-29 07:51 | Outpatient (REF) | payer MEDICARE, SELFPAY ==
[2022-08-10 12:18] VITALS: BP 134/60; BP 140/60
[2022-09-08 11:31] VITALS: BP 108/62; BMI 21.2
[2022-09-29 08:53] LABS: MANUAL DIFF FLAG NO
[2022-09-29 08:58] LABS: Basophils Absolute Auto 0.1 X10*3/uL (0.0-0.2); Basophils Percent Auto 0.8 % (0-2); Eosinophils Absolute Auto 0.4 X10*3/uL (0.0-0.4); Eosinophils Percent Auto 4.9 % (0-4); Hematocrit 30.5 % (42.0-52.0); Hemoglobin 9.2 g/dl (14.0-18.0); Imm Gran Abs Auto 0.04 X10*3/uL (0.00-0.03); Imm Gran Pct Auto 0.5 % (0.0-0.4); Lymphocytes Absolute Auto 0.7 X10*3/uL (1.2-4.9); Lymphocytes Percent Auto 9.5 % (20-40); Mean Corpuscular HGB Conc 30.2 g/dl (31.0-36.0); Mean Corpuscular Hemoglobin 27.3 pg (27.0-33.0); Mean Corpuscular Volume 90.5 fL (80.0-98.0); Mean Platelet Volume 9.2 fL (9.4-12.4); Monocytes Absolute Auto 1.2 X10*3/uL (0.1-1.2); Neutrophils Absolute Auto 5.3 x10*3/uL (2.0-8.3); Neutrophils Percent Auto 68.3 % (45-73); Platelet Count 302 X10*3/uL (160-400); Red Blood Count 3.37 X10*6/uL (4.60-5.80); Red Cell Distribution Width 16.6 % (11.0-16.0); White Blood Count 7.7 X10*3/uL (4.8-10.8)
== END 2022-09-29 07:52 | disposition home or self-care (01) ==
LOC: HO.10HDL 07:51
PROVIDERS: Visit Provider Internal Medicine
DX: J44.9 Chronic obstructive pulmonary disease, unspecified (principal); I25.10 Atherosclerotic heart disease of native coronary artery without angina pectoris; D64.9 Anemia, unspecified
CPT/HCPCS: 36415; 85025

== ENCOUNTER 2022-10-11 09:04 | Outpatient (REF) | payer MEDICARE, SELFPAY ==
[2022-08-10 12:18] VITALS: BP 134/60; BP 140/60
[2022-10-11 09:03] VITALS: BP 112/60; BMI 21.3
[2022-10-11 11:17] LABS: MANUAL DIFF FLAG NO
[2022-10-11 11:26] LABS: Basophils Absolute Auto 0.1 X10*3/uL (0.0-0.2); Basophils Percent Auto 0.9 % (0-2); Eosinophils Absolute Auto 0.4 X10*3/uL (0.0-0.4); Eosinophils Percent Auto 3.8 % (0-4); Hematocrit 26.9 % (42.0-52.0); Hemoglobin 8.2 g/dl (14.0-18.0); Imm Gran Abs Auto 0.07 X10*3/uL (0.00-0.03); Imm Gran Pct Auto 0.8 % (0.0-0.4); Lymphocytes Absolute Auto 0.8 X10*3/uL (1.2-4.9); Lymphocytes Percent Auto 8.4 % (20-40); Mean Corpuscular HGB Conc 30.5 g/dl (31.0-36.0); Mean Corpuscular Volume 88.5 fL (80.0-98.0); Mean Platelet Volume 9.1 fL (9.4-12.4); Monocytes Absolute Auto 1.5 X10*3/uL (0.1-1.2); Monocytes Percent Auto 16.4 % (2-11); Neutrophils Absolute Auto 6.4 x10*3/uL (2.0-8.3); Neutrophils Percent Auto 69.7 % (45-73); Platelet Count 372 X10*3/uL (160-400); Red Blood Count 3.04 X10*6/uL (4.60-5.80); Red Cell Distribution Width 15.6 % (11.0-16.0); White Blood Count 9.1 X10*3/uL (4.8-10.8)
== END 2022-10-11 09:05 | disposition home or self-care (01) ==
LOC: HO.10HDL 09:04
PROVIDERS: Visit Provider Internal Medicine
DX: D64.9 Anemia, unspecified (principal); J44.9 Chronic obstructive pulmonary disease, unspecified; I25.10 Atherosclerotic heart disease of native coronary artery without angina pectoris
CPT/HCPCS: 36415; 85025

== ENCOUNTER 2022-10-13 12:17 | Outpatient (AMB) | payer MEDICARE, SELFPAY ==
[2022-08-10 12:18] VITALS: BP 134/60; BP 140/60
[2022-09-08 11:31] VITALS: BP 108/62; BMI 21.2
[2022-10-13 12:33] VITALS: BP 108/64; PULSE 75; BMI 21.7
--- NOTE | 2022-10-13 12:33 | MHC.OFFVIS ---
Intake Vital Signs 10/13/22 12:33 Height 5 ft 8 in Weight 142 lb 13.753 oz BMI 21.7 BP 108/64 Blood Pressure Location Lt brachial Position Sitting Pulse 75 Pulse Source Monitor Intake Visit Reasons: r/s 09/23 pt states never had ett???but wanted appt Intake Note: Follow up with EKG. Bankruptcy Assistant Required: No Accompanied by: Spouse Allergies No Known Allergies Allergy (Verified 10/13/22 12:37) Medication List - Last Reconciled 10/13/22 by Alber Vásquez MD aspirin 81 mg PO DAILY atorvastatin 40 mg PO BEDTIME clopidogrel 75 mg PO DAILY fluticasone propion-salmeterol 250-50 mcg/dose (Wixela Inhub) 1 inh inhalation BID 30 days losartan 100 mg PO DAILY metoprolol succinate ER 50 mg PO DAILY mupirocin calcium 2% 1 appl See Protocol topical BID omeprazole 40 mg PO DAILY@0630 tiotropium bromide 2.5 mcg/actuation (Spiriva Respimat) 2 puffs inhalation BEDTIME HPI HPI Comments History of Present Illness Details 87-year-old gentleman who is presenting for follow-up. He was seen in the hospital when he presented with sudden-onset shortness of breath and ruled in for NSTEMI. He also was noticed to have severe aortic valve stenosis by echocardiography. After discussion she was taken for cardiac catheterization. She performed a full assessment of the aortic valve is aortic valve area was 0.92 and he had severe . He also had severe left circumflex stenosis culprit for NSTEMI. This was treated with drug-eluting stent. He was discharged home. He is here for follow-up. He has background lung cancer has chronic dyspnea. He is saying that he is short of breath but this is his baseline breathing issue which is chronically present. No progressive shortness of breath. No dizziness or syncope. Denying any chest discomfort. No bleeding concerns. Taking medications regularly. He has noticed some poor appetite and weight loss and is seeing his thoracic surgeon in [place] in the coming weeks for follow-up. 10/13/22: He returns for follow-up. On last visit we discussed about doing an exercise stress test to see if he gets any symptoms due to aortic valve stenosis. Subsequent to that he got admitted to the hospital with GI blood loss and underwent endoscopy. Stress test was not performed. He underwent EGD and colonoscopy to the terminal ileum with biopsy. Upper endoscopy was normal. There was a single polyp in the cecum which was measuring less than 5 mm and was removed with biopsy forceps. He was set for capsule endoscopy which he is getting next week. He is noticed to be anemic on his blood workup recently with hemoglobin of 8.2. He continues to take aspirin Plavix at this point. He had cardiac catheterization in April 2022 when he had severe circumflex stenosis which was treated with 3 mm x 18 mm devon drug-eluting stent. We also cross the valve and we had an aortic valve area of 0.92 with a mean gradient of 29 and stroke volume index was 29. It was felt that he had paradoxical low-flow low gradient severe aortic valve stenosis at that time. [facility] Medical History (Updated 10/13/22 @ 13:51 by Alber Vásquez MD) Anemia Aortic stenosis Asthma CAD (coronary artery disease) COPD (chronic obstructive pulmonary disease) Dyspnea on exertion GERD (gastroesophageal reflux disease) Hammer toe of left foot HTN (hypertension) NSTEMI (non-ST elevated myocardial infarction) Rupture of right Achilles tendon Skin cancer Spinal stenosis Surgical History History of cardiac cath 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 Family History Father CVD (cardiovascular disease) Mother Lung cancer Brother Bone cancer Social History (Updated 10/13/22 @ 12:37 by NATHANIEL Mendez) Household Members: [facility] Do you presently have visiting nurse or other home services: No (had visiting nurses a few weeks ago d/t heart attack per patient.) Alcohol intake: never Patient Tobacco Use Status: Former Tobacco user Quit Date: 1994 Years Smoked: 35 +/- Advance Directives Date on File: 12/06/19 service: Yes Current occupational status: retired Review of Systems Const Denies weakness ENT Denies dizziness Card Denies chest pain, Denies chest pain with activity, Denies syncope, Denies rapid heart rate, Denies pedal edema, Denies edema, Denies leg edema, Denies lightheadedness, Denies palpitations, Denies dyspnea, Denies dyspnea on exertion and Denies orthopnea Resp Denies cough, Denies dyspnea and Denies dyspnea on exertion GI Denies hematochezia and Denies change in stool character Musc Denies abnormal gait, Denies muscle cramps, Denies muscle weakness, Denies numbness, Denies radiating pain into limb and Denies tingling Neuro Denies abnormal gait, Denies dizziness, Denies syncope, Denies numbness, Denies tingling and Denies weakness Endo Denies palpitations Physical Exam Vital Signs: Last Vital Signs Pulse 75 10/13/22 12:33 BP 108/64 10/13/22 12:33 BMI result Body Mass Index 21.7 GENERAL APPEARANCE: in no acute distress. Pale appearing. NECK: no carotid bruit, no jugular venous distention. SKIN: no suspicious lesions, warm and dry. HEART: Ejection systolic murmur aortic area with absent 2nd heart sound, regular rate and rhythm. LUNGS: Clear to auscultation. ABDOMEN: soft, nontender. EXTREMITIES: no edema. PERIPHERAL PULSES: equal. NEUROLOGIC: No gross deficits, AAO X 3 Office Procedures EKG Details: Sinus rhythm 75 beats per minute with first-degree block with [place] interval 228 milliseconds, normal axis, normal ECG, QTC 419 milliseconds [id number], Complete Assessment & Plan Assessment & Plan (1) Aortic stenosis: Code(s): I35.0 - Nonrheumatic aortic (valve) stenosis (2) S/P coronary angioplasty: Code(s): Z98.61 - Coronary angioplasty status (3) Dyspnea on exertion: Code(s): R06.09 - Other forms of dyspnea (4) Anemia: Code(s): D64.9 - Anemia, unspecified Plan [age] gentleman with coronary artery disease, severe aortic valve stenosis and anemia due to GI blood loss. He had NSTEMI in April 2022 and underwent cardiac catheterization where severe left circumflex artery stenosis was noted which was treated with drug-eluting stent. 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 He is going to get capsule endoscopy to assess for that. In the meantime 5 months have passed since is drug-eluting stent and he has been struggling with anemia with hemoglobin 8.2 at this point. After discussion of stop the aspirin and we will continue Plavix monotherapy from here on work. I think he will benefit from aortic valve replacement and I am referring him for heart team assessment. I will repeat another echocardiogram to make sure he does not have any LV dysfunction. Putting him on treadmill was original plan but due to his anemia and underlying COPD he probably will be short of breath regardless. He is complaining of fatigue and shortness of breath currently. Anemia is the confounder but I think we cannot rule out symptomatic aortic stenosis in his case. Also small-bowel AVMs improved invariably after replacement of aortic valve and I think he may benefit from his GI blood loss also. This were discussed with the patient and his in detail. I think aspirin should not be continued from here onwards. Rest of his medications can be continued. Continue to monitor hemoglobin with as needed blood transfusions until we find an obvious cause or he gets transcatheter aortic valve replacement. Thank you for allowing me to participate in the care of your patient. Please feel free to contact me if you have any questions. Orders: Referrals Cardiology Referral I35.0 - Nonrheumatic aortic (valve) stenosis Coding Level of Care Code Est Pt Level 5 (99189) Diagnoses Aortic stenosis I35.0 S/P coronary angioplasty Z98.61 Dyspnea on exertion R06.09 Anemia D64.9 CPT Codes EKG - CPT: 77801-[id number], Complete ([id number])
== END 2022-10-13 13:05 | disposition home or self-care (01) ==
PROVIDERS: PCP Internal Medicine; Referring Provider Internal Medicine; Visit Provider Internal Medicine Cardiovascular Disease
DX: I35.0 Nonrheumatic aortic (valve) stenosis (principal); Z98.61 Coronary angioplasty status; R06.09 Other forms of dyspnea; D64.9 Anemia, unspecified; I44.0 Atrioventricular block, first degree
CPT/HCPCS: 93010; 99215

== ENCOUNTER → 2022-10-13 12:17 | Outpatient (BNVA) | payer MEDICARE, SELFPAY ==
[2022-08-10 12:18] VITALS: BP 134/60; BP 140/60
[2022-10-11 09:03] VITALS: BP 112/60; BMI 21.3
== END ==
PROVIDERS: PCP Internal Medicine; Referring Provider Internal Medicine; Visit Provider Internal Medicine Cardiovascular Disease
DX: I35.0 Nonrheumatic aortic (valve) stenosis (principal); I44.0 Atrioventricular block, first degree; D64.9 Anemia, unspecified; R06.09 Other forms of dyspnea; Z98.890 Other specified postprocedural states; Z98.61 Coronary angioplasty status
CPT/HCPCS: 93005; 99212

== ENCOUNTER 2022-10-18 08:12 | Outpatient (AMB) | payer MEDICARE, SELFPAY ==
[2022-08-10 12:18] VITALS: BP 134/60; BP 140/60; BMI 21.2
--- NOTE | 2022-10-29 12:02 | MHC.OFFVIS ---
Intake Intake Visit Reasons: CAPSULE ENDOSCOPY Allergies No Known Allergies Allergy (Verified 10/13/22 12:37) REPLACED BY [facility] Medical History (Updated 10/13/22 @ 13:51 by Alber Vásquez MD) Anemia Aortic stenosis Asthma CAD (coronary artery disease) COPD (chronic obstructive pulmonary disease) Dyspnea on exertion GERD (gastroesophageal reflux disease) Hammer toe of left foot HTN (hypertension) NSTEMI (non-ST elevated myocardial infarction) Rupture of right Achilles tendon Skin cancer Spinal stenosis Surgical History History of cardiac cath 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 Family History Father CVD (cardiovascular disease) Mother Lung cancer Brother Bone cancer Social History (Updated 10/13/22 @ 12:37 by NATHANIEL Mendez) Household Members: Spouse Housing: Condominium Do you presently have visiting nurse or other home services: No (had visiting nurses a few weeks ago d/t heart attack per patient.) Alcohol intake: never Patient Tobacco Use Status: Former Tobacco user Quit Date: 1994 Years Smoked: 35 +/- Advance Directives Date on File: 12/06/19 service: Yes Current occupational status: retired Office Procedures AMB Capsule Endoscopy Procedure Notes: Full report to be scanned: DOS: 10/18/22 Indication: anemia Gastritis noted non bleeding AVM in proximal duodenum No active bleeding sites or masses Capsule Endoscopy CPT Code: 07354 - Capsule Endoscopy Assessment & Plan Assessment & Plan (1) Anemia: Code(s): D64.9 - Anemia, unspecified Coding Level of Care Code Procedure Only Diagnoses Anemia D64.9 CPT Codes AMB Capsule Endoscopy - Capsule Endoscopy CPT Code: 85879 - Capsule Endoscopy ([id number])
== END 2022-10-18 08:52 | disposition home or self-care (01) ==
PROVIDERS: PCP Internal Medicine; Visit Provider Internal Medicine Gastroenterology
DX: D64.9 Anemia, unspecified (principal)
CPT/HCPCS: 91110

== ENCOUNTER → 2022-10-18 08:12 | Outpatient (BNVA) | payer MEDICARE, SELFPAY ==
[2022-08-10 12:18] VITALS: BP 134/60; BP 140/60
[2022-10-11 09:03] VITALS: BP 112/60; BMI 21.3
== END ==
PROVIDERS: PCP Internal Medicine; Visit Provider Internal Medicine Gastroenterology
DX: D64.9 Anemia, unspecified (principal); K21.9 Gastro-esophageal reflux disease without esophagitis
CPT/HCPCS: 91110

== ENCOUNTER 2022-10-20 08:10 | Outpatient (REF) | payer MEDICARE, SELFPAY ==
[2022-08-10 12:18] VITALS: BP 134/60; BP 140/60
[2022-10-20 10:15] LABS: MANUAL DIFF FLAG NO
[2022-10-20 10:19] LABS: Basophils Absolute Auto 0.1 X10*3/uL (0.0-0.2); Basophils Percent Auto 0.7 % (0-2); Eosinophils Absolute Auto 0.3 X10*3/uL (0.0-0.4); Eosinophils Percent Auto 4.2 % (0-4); Hematocrit 27.4 % (42.0-52.0); Hemoglobin 8.2 g/dl (14.0-18.0); Imm Gran Abs Auto 0.04 X10*3/uL (0.00-0.03); Imm Gran Pct Auto 0.6 % (0.0-0.4); Lymphocytes Absolute Auto 0.9 X10*3/uL (1.2-4.9); Lymphocytes Percent Auto 11.8 % (20-40); Mean Corpuscular HGB Conc 29.9 g/dl (31.0-36.0); Mean Platelet Volume 8.9 fL (9.4-12.4); Monocytes Absolute Auto 1.2 X10*3/uL (0.1-1.2); Monocytes Percent Auto 16.1 % (2-11); Neutrophils Absolute Auto 4.8 x10*3/uL (2.0-8.3); Neutrophils Percent Auto 66.6 % (45-73); Platelet Count 335 X10*3/uL (160-400); Red Blood Count 3.15 X10*6/uL (4.60-5.80); Red Cell Distribution Width 16.2 % (11.0-16.0); White Blood Count 7.2 X10*3/uL (4.8-10.8)
== END 2022-10-20 08:11 | disposition home or self-care (01) ==
LOC: HO.10HDL 08:10
PROVIDERS: Visit Provider Internal Medicine
DX: D64.9 Anemia, unspecified (principal); J44.9 Chronic obstructive pulmonary disease, unspecified; I25.10 Atherosclerotic heart disease of native coronary artery without angina pectoris
CPT/HCPCS: 36415; 85025

== ENCOUNTER 2022-11-02 08:15 | Outpatient (REF) | payer MEDICARE, SELFPAY ==
[2022-08-10 12:18] VITALS: BP 134/60; BP 140/60
[2022-11-02 10:58] LABS: MANUAL DIFF FLAG NO
[2022-11-02 11:01] LABS: Basophils Absolute Auto 0.1 X10*3/uL (0.0-0.2); Eosinophils Absolute Auto 0.2 X10*3/uL (0.0-0.4); Eosinophils Percent Auto 2.3 % (0-4); Hematocrit 29.1 % (42.0-52.0); Hemoglobin 8.6 g/dl (14.0-18.0); Imm Gran Abs Auto 0.09 X10*3/uL (0.00-0.03); Lymphocytes Absolute Auto 1.1 X10*3/uL (1.2-4.9); Lymphocytes Percent Auto 11.2 % (20-40); Mean Corpuscular HGB Conc 29.6 g/dl (31.0-36.0); Mean Corpuscular Hemoglobin 24.3 pg (27.0-33.0); Mean Corpuscular Volume 82.2 fL (80.0-98.0); Mean Platelet Volume 9.5 fL (9.4-12.4); Monocytes Absolute Auto 1.4 X10*3/uL (0.1-1.2); Monocytes Percent Auto 14.7 % (2-11); Neutrophils Absolute Auto 6.6 x10*3/uL (2.0-8.3); Neutrophils Percent Auto 69.8 % (45-73); Platelet Count 403 X10*3/uL (160-400); Red Blood Count 3.54 X10*6/uL (4.60-5.80); Red Cell Distribution Width 17.2 % (11.0-16.0); White Blood Count 9.5 X10*3/uL (4.8-10.8)
== END 2022-11-02 08:16 | disposition home or self-care (01) ==
LOC: HO.10HDL 08:15
PROVIDERS: Visit Provider Internal Medicine
DX: D64.9 Anemia, unspecified (principal); J44.9 Chronic obstructive pulmonary disease, unspecified; I25.10 Atherosclerotic heart disease of native coronary artery without angina pectoris
CPT/HCPCS: 36415; 85025

== ENCOUNTER 2022-11-08 08:48 | Outpatient (REF) | payer MEDICARE, SELFPAY ==
[2022-08-10 12:18] VITALS: BP 134/60; BP 140/60
[2022-11-03 10:14] VITALS: BP 132/52
== END 2022-11-08 08:49 | disposition home or self-care (01) ==
LOC: HO.MDS 08:48
PROVIDERS: Visit Provider Internal Medicine
DX: D64.9 Anemia, unspecified (principal)
CPT/HCPCS: 36430; 86850; 86900; 86901; 86923; P9016

== ENCOUNTER 2022-12-07 08:24 | Outpatient (REF) | payer MEDICARE, SELFPAY ==
[2022-08-10 12:18] VITALS: BP 134/60; BP 140/60
[2022-11-03 07:22] VITALS: BMI 21.3
[2022-11-03 10:14] VITALS: BP 132/52
== END 2022-12-07 08:25 | disposition home or self-care (01) ==
LOC: HO.10HDL 08:24
PROVIDERS: Visit Provider Internal Medicine
DX: D64.9 Anemia, unspecified (principal); J44.9 Chronic obstructive pulmonary disease, unspecified; I25.10 Atherosclerotic heart disease of native coronary artery without angina pectoris
CPT/HCPCS: 36415; 85025

== ENCOUNTER 2022-12-30 08:37 | Outpatient (REF) | payer MEDICARE, SELFPAY ==
[2022-08-10 12:18] VITALS: BP 134/60; BP 140/60
[2022-11-03 07:22] VITALS: BMI 21.3
[2022-11-03 10:14] VITALS: BP 132/52
[2022-12-30 10:34] LABS: MANUAL DIFF FLAG NO
[2022-12-30 10:37] LABS: Basophils Absolute Auto 0.1 X10*3/uL (0.0-0.2); Basophils Percent Auto 1.1 % (0-2); Eosinophils Absolute Auto 0.3 X10*3/uL (0.0-0.4); Eosinophils Percent Auto 3.7 % (0-4); Hematocrit 34.4 % (42.0-52.0); Hemoglobin 10.6 g/dl (14.0-18.0); Imm Gran Abs Auto 0.07 X10*3/uL (0.00-0.03); Imm Gran Pct Auto 0.8 % (0.0-0.4); Lymphocytes Absolute Auto 0.6 X10*3/uL (1.2-4.9); Lymphocytes Percent Auto 7.4 % (20-40); Mean Corpuscular HGB Conc 30.8 g/dl (31.0-36.0); Mean Corpuscular Hemoglobin 26.4 pg (27.0-33.0); Mean Corpuscular Volume 85.8 fL (80.0-98.0); Mean Platelet Volume 8.6 fL (9.4-12.4); Monocytes Absolute Auto 1.4 X10*3/uL (0.1-1.2); Monocytes Percent Auto 16.3 % (2-11); Neutrophils Absolute Auto 5.9 x10*3/uL (2.0-8.3); Neutrophils Percent Auto 70.7 % (45-73); Platelet Count 409 X10*3/uL (160-400); Red Blood Count 4.01 X10*6/uL (4.60-5.80); Red Cell Distribution Width 20.6 % (11.0-16.0); White Blood Count 8.4 X10*3/uL (4.8-10.8)
== END 2022-12-30 08:38 | disposition home or self-care (01) ==
LOC: HO.10HDL 08:37
PROVIDERS: Visit Provider Internal Medicine
DX: D64.9 Anemia, unspecified (principal); J44.9 Chronic obstructive pulmonary disease, unspecified; I25.10 Atherosclerotic heart disease of native coronary artery without angina pectoris
CPT/HCPCS: 36415; 85025

== ENCOUNTER 2023-01-03 15:25 | Outpatient (AMB) | payer MEDICARE, SELFPAY ==
[2022-08-10 12:18] VITALS: BP 134/60; BP 140/60
[2022-11-03 07:22] VITALS: BMI 21.3
[2022-11-03 10:14] VITALS: BP 132/52
--- NOTE | 2023-01-03 15:47 | MHC.OFFVIS ---
Intake Vital Signs 01/03/23 15:48 Height 5 ft 8 in Weight 140 lb 10.479 oz BMI 21.4 BP 126/78 Blood Pressure Location Lt brachial Position Sitting Respiration 12 Pulse 60 Pulse Source Palpation Intake Visit Reasons: 2 mth f/up / ref to [facility] Intake Note: Freddy is a 87 year old male who presents today for a 2 month follow up. Patient reports no changes at the moment. Allergies No Known Allergies Allergy (Verified 01/03/23 15:49) Medication List - Last Reconciled 01/03/23 by Alber Vásquez MD atorvastatin 40 mg PO BEDTIME clopidogrel 75 mg PO DAILY fluticasone propion-salmeterol 250-50 mcg/dose (Wixela Inhub) 1 inh inhalation BID 30 days losartan 100 mg PO DAILY metoprolol succinate ER 50 mg PO DAILY mupirocin calcium 2% 1 appl See Protocol topical BID omeprazole 40 mg PO DAILY@0630 tiotropium bromide 2.5 mcg/actuation (Spiriva Respimat) 2 puffs inhalation BEDTIME HPI HPI Comments History of Present Illness Details 87-year-old gentleman who is presenting for follow-up. He was seen in the hospital when he presented with sudden-onset shortness of breath and ruled in for NSTEMI. He also was noticed to have severe aortic valve stenosis by echocardiography. After discussion she was taken for cardiac catheterization. She performed a full assessment of the aortic valve is aortic valve area was 0.92 and he had severe . He also had severe left circumflex stenosis culprit for NSTEMI. This was treated with drug-eluting stent. He was discharged home. He is here for follow-up. He has background lung cancer has chronic dyspnea. He is saying that he is short of breath but this is his baseline breathing issue which is chronically present. No progressive shortness of breath. No dizziness or syncope. Denying any chest discomfort. No bleeding concerns. Taking medications regularly. He has noticed some poor appetite and weight loss and is seeing his thoracic surgeon in [place] in the coming weeks for follow-up. 10/13/22: He returns for follow-up. On last visit we discussed about doing an exercise stress test to see if he gets any symptoms due to aortic valve stenosis. Subsequent to that he got admitted to the hospital with GI blood loss and underwent endoscopy. Stress test was not performed. He underwent EGD and colonoscopy to the terminal ileum with biopsy. Upper endoscopy was normal. There was a single polyp in the cecum which was measuring less than 5 mm and was removed with biopsy forceps. He was set for capsule endoscopy which he is getting next week. He is noticed to be anemic on his blood workup recently with hemoglobin of 8.2. He continues to take aspirin Plavix at this point. He had cardiac catheterization in April 2022 when he had severe circumflex stenosis which was treated with 3 mm x 18 mm devon drug-eluting stent. We also cross the valve and we had an aortic valve area of 0.92 with a mean gradient of 29 and stroke volume index was 29. It was felt that he had paradoxical low-flow low gradient severe aortic valve stenosis at that time. 01/03/23: He is here for f/u. He was referred to heart team for TAVR discussion. It appears his symptoms have improved since his anemia improved. He endorsed no significant symptoms when he saw IC at [facility]. Decision was made to observe for now. He also has a 2nd opinion visit with Dr Keller at [facility] in 1-2 weeks. His oncologist at [facility] asked him to see Dr Keller. He had a CT performed at [facility] which has shown significant PVD. [facility] Medical History (Updated 10/13/22 @ 13:51 by Alber Vásquez MD) Dyspnea on exertion CAD (coronary artery disease) NSTEMI (non-ST elevated myocardial infarction) Anemia Aortic stenosis COPD (chronic obstructive pulmonary disease) Rupture of right Achilles tendon Hammer toe of left foot Skin cancer Spinal stenosis GERD (gastroesophageal reflux disease) Asthma HTN (hypertension) Surgical History History of cardiac cath 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 Family History Father CVD (cardiovascular disease) Mother Lung cancer Brother Bone cancer Social History Household Members: Spouse Housing: Condominium Do you presently have visiting nurse or other home services: No (had visiting nurses a few weeks ago d/t heart attack per patient.) Alcohol intake: never Patient Tobacco Use Status: Former Tobacco user Quit Date: 1995 Years Smoked: 35 +/- Advance Directives Date on File: 12/06/19 service: Yes Current occupational status: retired Physical Exam Vital Signs: Last Vital Signs Pulse 60 01/03/23 15:48 Resp 12 01/03/23 15:48 BP 126/78 01/03/23 15:48 BMI result Body Mass Index 21.4 GENERAL APPEARANCE: in no acute distress. Pale appearing. NECK: no carotid bruit, no jugular venous distention. SKIN: no suspicious lesions, warm and dry. HEART: Ejection systolic murmur aortic area with absent 2nd heart sound, regular rate and rhythm. LUNGS: Clear to auscultation. ABDOMEN: soft, nontender. EXTREMITIES: no edema. PERIPHERAL PULSES: equal. NEUROLOGIC: No gross deficits, AAO X 3 Assessment & Plan Assessment & Plan (1) Aortic stenosis: Code(s): I35.0 - Nonrheumatic aortic (valve) stenosis (2) S/P coronary angioplasty: Code(s): Z98.61 - Coronary angioplasty status Plan Pleasant 87-year-old gentleman here for follow-up. He has history of NSTEMI when he had some complex PCI. He has severe aortic valve stenosis. Previously he had GI bleeding and was seen subsequent to that and he was complaining of fatigue and shortness of breath. Clinically he was not in heart failure. After discussion he was sent to [facility] for interventional Cardiology consult for transcatheter aortic valve replacement. He was referred to cardiac rehabilitation 2. It appears that with rehab any improvement in his hemoglobin his symptoms have improved significantly. His denying any shortness of breath. He is saying that his fatigue has been chronic and goes back many many years. He had previously lung cancer and resection. His oncologist also advised him to get opinion from [facility] and [facility] and he is going to see Dr. Keller. It appears he is asymptomatic currently. I have discussed with him that in general with treat aortic valve stenosis when someone has symptoms with severe aortic valve disease. He clearly has severe aortic valve stenosis currently but has no significant symptoms. He also has complex medical issues including peripheral vascular disease. We will wait for his consult at [facility]. Continue same medications for now. Thank you for allowing me to participate in the care of your patient. Please feel free to contact me if you have any questions. Coding Level of Care Code Est Pt Level 4 (76591) Diagnoses Aortic stenosis I35.0 S/P coronary angioplasty Z98.61
[2023-01-03 15:48] VITALS: BP 126/78; PULSE 60; RESP 12; BMI 21.4
== END 2023-01-03 16:23 | disposition home or self-care (01) ==
PROVIDERS: PCP Internal Medicine; Visit Provider Internal Medicine Cardiovascular Disease
DX: I35.0 Nonrheumatic aortic (valve) stenosis (principal); Z98.61 Coronary angioplasty status
CPT/HCPCS: 99214

== ENCOUNTER → 2023-01-03 15:25 | Outpatient (BNVA) | payer MEDICARE, SELFPAY ==
[2022-08-10 12:18] VITALS: BP 134/60; BP 140/60
[2022-11-03 07:22] VITALS: BMI 21.3
[2022-11-03 10:14] VITALS: BP 132/52
== END ==
PROVIDERS: PCP Internal Medicine; Visit Provider Internal Medicine Cardiovascular Disease
DX: I35.0 Nonrheumatic aortic (valve) stenosis (principal); Z98.61 Coronary angioplasty status
CPT/HCPCS: 99212

== ENCOUNTER 2023-01-25 09:56 | Outpatient (AMB) | payer MEDICARE, SELFPAY ==
[2022-08-10 12:18] VITALS: BP 134/60; BP 140/60
[2022-11-03 07:22] VITALS: BMI 21.3
[2022-11-03 10:14] VITALS: BP 132/52
--- NOTE | 2023-01-25 10:07 | A.OFFVIS_ITS ---
Intake Vital Signs 01/25/23 10:09 Height 5 ft 8 in Weight 141 lb 1.533 oz BMI 21.5 BP 120/64 Blood Pressure Location Lt brachial Position Sitting Pulse 68 Pulse Source Pulse Oximeter Pulse Oximetry (%) 98 Oxygen Delivery Method Room Air Intake Visit Reasons: copd Intake Note: pt is here for follow up and states he is doing fine, on mucinex for some phelgm but it does not affect the breathing. Reporting Lead Required: No Allergies No Known Allergies Allergy (Verified 01/25/23 10:24) Medication List - Last Reconciled 01/25/23 by Hector Carlos MD atorvastatin 40 mg PO BEDTIME clopidogrel 75 mg PO DAILY fluticasone propion-salmeterol 250-50 mcg/dose (Wixela Inhub) 1 inh inhalation BID 30 days losartan 100 mg PO DAILY metoprolol succinate ER 50 mg PO DAILY mupirocin calcium 2% 1 appl See Protocol topical BID omeprazole 40 mg PO DAILY@0630 tiotropium bromide 2.5 mcg/actuation (Spiriva Respimat) 2 puffs inhalation BEDTIME Do you need a note to return to daycare/school/sports/work: No HPI copd HPI Details 88 YEARS OLD VERY P[employer] RETIRED V[employer], COMES AFTER 6 MONTHS FOR HIS. ROUTINE FOLLOW-UP HE HAS COMPLETED THE CARDIAC REHAB PROGRAM AND NOW HE IS DOING EXERCISES AT THE [facility] . IN [place] HE REMAINS VERY ACTIVE. HAS MILD INTERMITTENT COUGH, WHICH IS IMPROVED WITH USE OF MUCINEX. HE GETS SHORTNESS OF BREATH ONLY ON CLIMBING STAIRS OR WALKING FAST. OVERALL HIS PULMONARY STATUS IS REMAINING. VERY STABLE HE HAS HARDLY NEEDED TO USE. THE RESCUE INHALER HE QUIT SMOKING 20 YEARS AGO. [facility] Medical History Dyspnea on exertion CAD (coronary artery disease) NSTEMI (non-ST elevated myocardial infarction) Anemia Aortic stenosis COPD (chronic obstructive pulmonary disease) Rupture of right Achilles tendon Hammer toe of left foot Skin cancer Spinal stenosis GERD (gastroesophageal reflux disease) Asthma HTN (hypertension) Surgical History History of cardiac cath 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 Family History Father CVD (cardiovascular disease) Mother Lung cancer Brother Bone cancer Household Members: Spouse Housing: Condominium Do you presently have visiting nurse or other home services: No (had visiting nurses a few weeks ago d/t heart attack per patient.) Alcohol intake: never Patient Tobacco Use Status: Former Tobacco user Quit Date: 1994 Smoked: 35 +/- Advance Directives Date on File: 12/06/19 service: Yes Current occupational status: retired Review of Systems Const All systems reviewed & are unremarkable except as noted in HPI and below Eyes Reports no additional complaints ENT Reports nasal congestion (Mild congestion off and) Card Denies irregular heart rhythm and Denies leg edema Resp Reports as per HPI GI Reports no additional complaints Reports no additional complaints Musc Reports arthralgias (Mild nonspecific, neck and upper back pain.) Skin/Breast Reports system reviewed and no additional complaints, except as documented Neuro Reports no additional complaints Psych Reports no additional complaints Physical Exam Vital Signs: Last Vital Signs Pulse 68 01/25/23 10:09 BP 120/64 01/25/23 10:09 Pulse Ox 98 01/25/23 10:09 Oxygen Delivery Method Room Air 01/25/23 10:09 BMI result Body Mass Index 21.5 Const General: comfortable (No distress due to the discomfort in chest), no acute distress, alert and awake Orientation/consciousness: patient oriented x3 HEENT Head: Yes normal to inspection General nose exam: No nasal polyps present and No nasal discharge present Face and sinus: Yes sinuses nontender Mouth: oropharynx normal Throat: Yes posterior oropharynx normal Eyes General: appearance normal, both eyes and all related structures Neck Neck: Yes normal visual inspection, Yes no lymphadenopathy, Yes trachea midline, Yes supple, No tender and Yes no JVD Thyroid: Thyroid normal Chest Chest palpation & inspection: normal inspection of the chest, normal palpation of entire chest wall and no tenderness Resp Other: Percussion note is resonant . Breath sounds are distant with prolonged expiratory phase . No wheezes or rhonchi are heard. Cardio Palpation: normal PMI Rate: regular rate Rhythm: regular rhythm Heart sounds: no gallops and Murmur heart sound present (SYSTOLIC MURMUR AT LEFT STERNAL BORDER) GI Palpation (GI): Soft to palpation, nontender, No hepatosplenomegaly present and no masses Auscultation: normal bowel sounds Back/Spine/Pelvis Thoracic/Lumbar Spine: thoracic and lumbar spine normal to inspection and thoraco-lumbar ROM limited Skin General skin exam: no rashes or lesions noted Neuro General: patient oriented x3 and no focal motor deficits Cranial nerves: Yes CN's II-XII intact bilaterally Extrem General: Yes normal to inspection, Yes no clubbing, cyanosis or edema and Yes no calf tenderness Psych Speech and movement: Normal speech and movement present Assessment & Plan Assessment & Plan (1) COPD (chronic obstructive pulmonary disease): Comment: PATIENT HAS SEVERE CHRONIC OBSTRUCTIVE PULMONARY DISEASE, IT IS STAYING VERY STABLE AND UNDER. CONTROL WITH THE CURRENT MEDICAL REGIMEN ADVISED TO CONTINUE : SPIRIVA RESPIMAT 2.5 MCG 2 INHALATIONS DAILY WIXELA 250-50 1 INHALATION B.I.D. ALBUTEROL HFA 2 PUFFS Q 4-6 HOURS ONLY P.R.N. 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 Has Had chemotherapy, but had to be stopped due to side effects. Luckily there has been no recurrence. He is closely followed by [facility] team, and also locally by Dr. Acharya of [facility]. Code(s): C34.31 - Malignant neoplasm of lower lobe, right bronchus or lung Coding Level of Care Code Est Pt Level 3 (20660) Diagnoses COPD (chronic obstructive pulmonary disease) J44.9 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 C34.31
[2023-01-25 10:09] VITALS: BP 120/64; PULSE 68; O2SAT 98; BMI 21.5
== END 2023-01-25 10:27 | disposition home or self-care (01) ==
PROVIDERS: PCP Internal Medicine; Visit Provider Internal Medicine
DX: J44.9 Chronic obstructive pulmonary disease, unspecified (principal); C34.31 Malignant neoplasm of lower lobe, right bronchus or lung
CPT/HCPCS: 99213

== ENCOUNTER → 2023-01-25 09:56 | Outpatient (BNVA) | payer MEDICARE, SELFPAY ==
[2022-08-10 12:18] VITALS: BP 134/60; BP 140/60
[2022-11-03 07:22] VITALS: BMI 21.3
[2022-11-03 10:14] VITALS: BP 132/52
== END ==
PROVIDERS: PCP Internal Medicine; Visit Provider Internal Medicine
DX: J44.9 Chronic obstructive pulmonary disease, unspecified (principal); C34.31 Malignant neoplasm of lower lobe, right bronchus or lung
CPT/HCPCS: 99212

== ENCOUNTER 2023-01-26 08:05 | Outpatient (REF) | payer MEDICARE, SELFPAY ==
[2022-08-10 12:18] VITALS: BP 134/60; BP 140/60
[2022-11-03 07:22] VITALS: BMI 21.3
[2022-11-03 10:14] VITALS: BP 132/52
[2023-01-26 10:42] LABS: Basophils Absolute Auto 0.1 X10*3/uL (0.0-0.2); Basophils Percent Auto 0.4 % (0-2); Eosinophils Absolute Auto 0.4 X10*3/uL (0.0-0.4); Eosinophils Percent Auto 3.3 % (0-4); Hematocrit 35.1 % (42.0-52.0); Imm Gran Abs Auto 0.05 X10*3/uL (0.00-0.03); Imm Gran Pct Auto 0.4 % (0.0-0.4); Lymphocytes Absolute Auto 0.8 X10*3/uL (1.2-4.9); Lymphocytes Percent Auto 6.4 % (20-40); MANUAL DIFF FLAG SCAN; Mean Corpuscular HGB Conc 31.3 g/dl (31.0-36.0); Mean Corpuscular Hemoglobin 27.3 pg (27.0-33.0); Mean Corpuscular Volume 87.1 fL (80.0-98.0); Mean Platelet Volume 8.9 fL (9.4-12.4); Monocytes Absolute Auto 1.6 X10*3/uL (0.1-1.2); Monocytes Percent Auto 13.1 % (2-11); Neutrophils Absolute Auto 9.4 x10*3/uL (2.0-8.3); Neutrophils Percent Auto 76.4 % (45-73); Platelet Count 285 X10*3/uL (160-400); Red Blood Count 4.03 X10*6/uL (4.60-5.80); Red Cell Distribution Width 17.9 % (11.0-16.0); SCAN SMEAR FLAG 1; White Blood Count 12.3 X10*3/uL (4.8-10.8)
[2023-01-26 11:33] LABS: SLIDE REVIEW VERIFIED
== END 2023-01-26 08:06 | disposition home or self-care (01) ==
LOC: HO.10HDL 08:05
PROVIDERS: Visit Provider Internal Medicine
DX: D64.9 Anemia, unspecified (principal); J44.9 Chronic obstructive pulmonary disease, unspecified; I25.10 Atherosclerotic heart disease of native coronary artery without angina pectoris
CPT/HCPCS: 36415; 85025

== ENCOUNTER 2023-03-24 08:18 | Outpatient (REF) | payer MEDICARE, SELFPAY ==
[2023-02-10 09:09] VITALS: BP 126/62; BP 132/68; BMI 21.3
[2023-03-24 10:45] LABS: MANUAL DIFF FLAG NO
[2023-03-24 10:53] LABS: Basophils Absolute Auto 0.1 X10*3/uL (0.0-0.2); Basophils Percent Auto 0.8 % (0-2); Eosinophils Absolute Auto 0.2 X10*3/uL (0.0-0.4); Eosinophils Percent Auto 2.6 % (0-4); Hematocrit 35.7 % (42.0-52.0); Hemoglobin 11.2 g/dl (14.0-18.0); Imm Gran Abs Auto 0.04 X10*3/uL (0.00-0.03); Imm Gran Pct Auto 0.6 % (0.0-0.4); Lymphocytes Absolute Auto 0.7 X10*3/uL (1.2-4.9); Lymphocytes Percent Auto 10.1 % (20-40); Mean Corpuscular HGB Conc 31.4 g/dl (31.0-36.0); Mean Corpuscular Hemoglobin 27.7 pg (27.0-33.0); Mean Corpuscular Volume 88.4 fL (80.0-98.0); Mean Platelet Volume 8.8 fL (9.4-12.4); Monocytes Absolute Auto 1.2 X10*3/uL (0.1-1.2); Monocytes Percent Auto 16.7 % (2-11); Neutrophils Percent Auto 69.2 % (45-73); Platelet Count 255 X10*3/uL (160-400); Red Blood Count 4.04 X10*6/uL (4.60-5.80); Red Cell Distribution Width 13.7 % (11.0-16.0); White Blood Count 7.2 X10*3/uL (4.8-10.8)
[2023-03-24 11:24] LABS: Alanine Aminotransferase 18 U/L (0-40); Alkaline Phosphatase 103 U/L (39-117); Anion Gap 13 (12-20); Aspartate Amino Transferase 25 U/L (5-37); Bilirubin Total 0.6 mg/dL (0.0-1.0); Blood Urea Nitrogen 18 mg/dL (9-16); Calcium 9.3 mg/dL (8.4-10.2); Carbon Dioxide 25 mmol/L (22-29); Chloride 99 mmol/L (96-108); Estimated Glomerular Filt Rate > 60; Glucose Random 96 mg/dL (60-115); Iron 178 mcg/dL (45-160); Percent Iron Saturation 75 % (15-50); Potassium 4.5 mmol/L (3.3-5.1); Sodium 132 mmol/L (135-145); Total Iron Binding Capacity 238 mcg/dL (228-428); Total Protein 6.5 g/dL (6.5-8.0); Unsaturated Iron Binding 60 ug/dL
== END 2023-03-24 08:19 | disposition home or self-care (01) ==
LOC: HO.10HDL 08:18
PROVIDERS: Visit Provider Internal Medicine
DX: D64.9 Anemia, unspecified (principal); J44.9 Chronic obstructive pulmonary disease, unspecified; I25.10 Atherosclerotic heart disease of native coronary artery without angina pectoris; I10 Essential (primary) hypertension; K21.9 Gastro-esophageal reflux disease without esophagitis; E78.00 Pure hypercholesterolemia, unspecified
CPT/HCPCS: 36415; 80053; 83540; 85025

== ENCOUNTER 2023-05-05 08:07 | Outpatient (REF) | payer MEDICARE, SELFPAY ==
[2023-02-10 09:09] VITALS: BP 126/62; BP 132/68; BMI 21.3
[2023-05-05 11:38] LABS: MANUAL DIFF FLAG NO
[2023-05-05 11:48] LABS: Basophils Absolute Auto 0.1 X10*3/uL (0.0-0.2); Basophils Percent Auto 0.8 % (0-2); Eosinophils Absolute Auto 0.3 X10*3/uL (0.0-0.4); Eosinophils Percent Auto 3.3 % (0-4); Hemoglobin 11.1 g/dl (14.0-18.0); Imm Gran Abs Auto 0.08 X10*3/uL (0.00-0.03); Lymphocytes Absolute Auto 0.7 X10*3/uL (1.2-4.9); Mean Corpuscular HGB Conc 30.8 g/dl (31.0-36.0); Mean Corpuscular Volume 87.6 fL (80.0-98.0); Mean Platelet Volume 8.9 fL (9.4-12.4); Monocytes Absolute Auto 1.4 X10*3/uL (0.1-1.2); Monocytes Percent Auto 17.4 % (2-11); Neutrophils Absolute Auto 5.4 x10*3/uL (2.0-8.3); Neutrophils Percent Auto 68.5 % (45-73); Platelet Count 336 X10*3/uL (160-400); Red Blood Count 4.11 X10*6/uL (4.60-5.80); Red Cell Distribution Width 13.5 % (11.0-16.0); White Blood Count 7.8 X10*3/uL (4.8-10.8)
[2023-05-05 12:23] LABS: Anion Gap 11 (12-20); Blood Urea Nitrogen 14 mg/dL (9-16); Carbon Dioxide 28 mmol/L (22-29); Chloride 100 mmol/L (96-108); Estimated Glomerular Filt Rate > 60; Glucose Random 92 mg/dL (60-115); Iron 34 mcg/dL (45-160); Percent Iron Saturation 17 % (15-50); Potassium 4.3 mmol/L (3.3-5.1); Sodium 135 mmol/L (135-145); Total Iron Binding Capacity 201 mcg/dL (228-428); Unsaturated Iron Binding 167 ug/dL
== END 2023-05-05 08:08 | disposition home or self-care (01) ==
LOC: HO.10HDL 08:07
PROVIDERS: Visit Provider Internal Medicine
DX: D64.9 Anemia, unspecified (principal); J44.9 Chronic obstructive pulmonary disease, unspecified
CPT/HCPCS: 36415; 80048; 83540; 85025

== ENCOUNTER 2023-06-16 09:27 | Outpatient (REF) | payer MEDICARE, SELFPAY ==
[2023-02-10 09:09] VITALS: BP 126/62; BP 132/68; BMI 21.3
[2023-06-16 10:56] LABS: MANUAL DIFF FLAG NO
[2023-06-16 10:59] LABS: Basophils Absolute Auto 0.1 X10*3/uL (0.0-0.2); Basophils Percent Auto 0.8 % (0-2); Eosinophils Absolute Auto 0.2 X10*3/uL (0.0-0.4); Eosinophils Percent Auto 2.3 % (0-4); Hematocrit 34.7 % (42.0-52.0); Hemoglobin 10.8 g/dl (14.0-18.0); Imm Gran Abs Auto 0.06 X10*3/uL (0.00-0.03); Imm Gran Pct Auto 0.7 % (0.0-0.4); Lymphocytes Absolute Auto 0.7 X10*3/uL (1.2-4.9); Lymphocytes Percent Auto 8.2 % (20-40); Mean Corpuscular HGB Conc 31.1 g/dl (31.0-36.0); Mean Corpuscular Hemoglobin 27.4 pg (27.0-33.0); Mean Corpuscular Volume 88.1 fL (80.0-98.0); Mean Platelet Volume 8.8 fL (9.4-12.4); Monocytes Absolute Auto 1.3 X10*3/uL (0.1-1.2); Monocytes Percent Auto 14.7 % (2-11); Neutrophils Absolute Auto 6.7 x10*3/uL (2.0-8.3); Neutrophils Percent Auto 73.3 % (45-73); Platelet Count 310 X10*3/uL (160-400); Red Blood Count 3.94 X10*6/uL (4.60-5.80); Red Cell Distribution Width 14.6 % (11.0-16.0); White Blood Count 9.1 X10*3/uL (4.8-10.8)
== END 2023-06-16 09:28 | disposition home or self-care (01) ==
LOC: HO.10HDL 09:27
PROVIDERS: Visit Provider Internal Medicine
DX: J44.9 Chronic obstructive pulmonary disease, unspecified (principal); D64.9 Anemia, unspecified
CPT/HCPCS: 36415; 85025

== ENCOUNTER 2023-06-29 13:59 | Outpatient (AMB) | payer MEDICARE, SELFPAY ==
[2023-02-10 09:09] VITALS: BP 126/62; BP 132/68; BMI 21.3
[2023-06-29 14:24] VITALS: BP 138/60; PULSE 71; O2SAT 96; BMI 21.5
--- NOTE | 2023-06-29 14:24 | A.OFFVIS_ITS ---
Vital Signs 06/29/23 14:24 Height 5 ft 8 in Weight 141 lb 1.533 oz BMI 21.5 BP 138/60 Blood Pressure Location Lt brachial Position Sitting Pulse 71 Pulse Source Pulse Oximeter Pulse Oximetry (%) 96 Intake Visit Reasons: 4 mnth f/up Appraisal Analyst Required: No Accompanied by: Self / Same As Patient Allergies No Known Allergies Allergy (Verified 01/25/23 10:24) Medication List - Last Reconciled 06/29/23 by Alber Vásquez MD atorvastatin 40 mg PO BEDTIME clopidogrel 75 mg PO DAILY fluticasone propion-salmeterol 250-50 mcg/dose (Wixela Inhub) 1 inh inhalation BID 30 days losartan 100 mg PO DAILY metoprolol succinate ER 50 mg PO DAILY mupirocin calcium 2% 1 appl See Protocol topical BID omeprazole 40 mg PO DAILY@0630 tiotropium bromide 2.5 mcg/actuation (Spiriva Respimat) 2 puffs inhalation BEDTIME HPI Comments Details: 87-year-old gentleman who is presenting for follow-up. He was seen in the hospital when he presented with sudden-onset shortness of breath and ruled in for NSTEMI. He also was noticed to have severe aortic valve stenosis by ech ocardiography. After discussion she was taken for cardiac catheterization. She performed a full assessment of the aortic valve is aortic valve area was 0.92 and he had severe . He also had severe left circumflex stenosis culprit for NSTEMI. This was treated with drug-eluting stent. He was discharged home. He is here for follow-up. He has background lung cancer has chronic dyspnea. He is saying that he is short of breath but this is his baseline breathing issue which is chronically present. No progressive shortness of breath. No dizziness or syncope. Denying any chest discomfort. No bleeding concerns. Taking medications regularly. He has noticed some poor appetite and weight loss and is seeing his thoracic surgeon in [place] in the coming weeks for follow-up. 10/13/22: He returns for follow-up. On last visit we discussed about doing an exercise stress test to see if he gets any symptoms due to aortic valve stenosis. Subsequent to that he got admitted to the hospital with GI blood loss and underwent endoscopy. Stress test was not performed. He underwent EGD and colonoscopy to the terminal ileum with biopsy. Upper endoscopy was normal. There was a single polyp in the cecum which was measuring less than 5 mm and was removed with biopsy forceps. He was set for capsule endoscopy which he is getting next week. He is noticed to be anemic on his blood workup recently with hemoglobin of 8.2. He continues to take aspirin Plavix at this point. He had cardiac catheterization in April 2022 when he had severe circumflex stenosis which was treated with 3 mm x 18 mm devon drug-eluting stent. We also cross the valve and we had an aortic valve area of 0.92 with a mean gradient of 29 and stroke volume index was 29. It was felt that he had paradoxical low-flow low gradient severe aortic valve stenosis at that time. 01/03/23: He is here for f/u. He was referred to heart team for TAVR discussion. It appears his symptoms have improved since his anemia improved. He endorsed no significant symptoms when he saw IC at [facility]. Decision was made to observe for now. He also has a 2nd opinion visit with Dr Keller at [facility] in 1-2 weeks. His oncologist at [facility] asked him to see Dr Keller. He had a CT performed at [facility] which has shown significant PVD. 06/29/23: He returns for follow-up. He has been doing well. No chest pain or shortness of breath. He has some fatigue which is chronic. He saw Dr. Keller in [place] and he was advised to do repeat echocardiography which he has done recently at [facility]. He is saying that Dr. Keller also to wait and see strategy. No bleeding concerns. He is taking Plavix 75 mg daily. Blood pressure is okay. [facility] Medical History Dyspnea on exertion CAD (coronary artery disease) NSTEMI (non-ST elevated myocardial infarction) Anemia Aortic stenosis COPD (chronic obstructive pulmonary disease) Rupture of right Achilles tendon Hammer toe of left foot Skin cancer Spinal stenosis GERD (gastroesophageal reflux disease) Asthma HTN (hypertension) Surgical History History of cardiac cath 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 Family History Father CVD (cardiovascular disease) Mother Lung cancer Brother Bone cancer Social History Household Members: Spouse Housing: Condominium Do you presently have visiting nurse or other home services: No (had visiting nurses a few weeks ago d/t heart attack per patient.) Alcohol intake: never Patient Tobacco Use Status: Former Tobacco user Quit Date: 1994 Years Smoked: 35 +/- Advance Directives Date on File: 12/06/19 service: Yes Current occupational status: retired Review of Systems Const Denies chills, Denies fatigue, Denies fever(s), Denies frequent falls, Denies weakness, Denies weight gain and Denies weight loss ENT Denies dizziness Card Denies chest pain, Denies leg edema, Denies lightheadedness, Denies palpitations, Denies dyspnea and Denies dyspnea on exertion Resp Denies cough, Denies dyspnea and Denies dyspnea on exertion GI Denies hematochezia Musc Denies abnormal gait, Denies muscle weakness, Denies numbness, Denies radiating pain into limb and Denies tingling Neuro Denies abnormal gait, Denies dizziness, Denies frequent falls, Denies numbness, Denies tingling and Denies weakness Endo Denies fatigue and Denies palpitations Physical Exam Vital Signs: Last Vital Signs Pulse 71 06/29/23 14:24 BP 138/60 06/29/23 14:24 Pulse Ox 96 06/29/23 14:24 BMI result Body Mass Index 21.5 GENERAL APPEARANCE: in no acute distress. Pale appearing. NECK: no carotid bruit, no jugular venous distention. SKIN: no suspicious lesions, warm and dry. HEART: Ejection systolic murmur aortic area with absent 2nd heart sound, regular rate and rhythm. LUNGS: Clear to auscultation. ABDOMEN: soft, nontender. EXTREMITIES: no edema. PERIPHERAL PULSES: equal. NEUROLOGIC: No gross deficits, AAO X 3 Assessment & Plan Assessment & Plan (1) Aortic stenosis: Code(s): I35.0 - Nonrheumatic aortic (valve) stenosis Category: Medical (2) S/P coronary angioplasty: Code(s): Z98.61 - Coronary angioplasty status Category: Medical Plan 88-year-old gentleman with history of lung cancer status post resection, COPD, coronary artery disease status post left circumflex PCI and severe aortic valve stenosis. He also had GI blood loss after PCI but has been stable since then. He is on Plavix monotherapy currently. He has severe aortic valve stenosis and was seen by heart team at [facility] as well as [facility]. Both have recommended a wait and see strategy for now because he has not been very symptomatic from aortic valve stenosis point of view. He had dyspnea previously but was anemic at the same time and after anemia improved and with cardiac rehabilitation his symptoms have improved significantly. He has been exercising on treadmill and on a stationary bike without any significant chest discomfort or shortness breath. No dizziness or syncope. No bleeding issues. Hemoglobin is 10.7 on December 23. He is stable from cardiovascular point of view. I have advised him to monitor closely with Dr. Keller. Same medications for now. Follow-up with us in 4 months. Thank you for allowing me to participate in the care of your patient. Please feel free to contact me if you have any questions. Coding Level of Care Code Est Pt Level 4 (29490) Diagnoses Aortic stenosis I35.0 S/P coronary angioplasty Z98.61
== END 2023-06-29 15:33 | disposition home or self-care (01) ==
PROVIDERS: PCP Internal Medicine; Visit Provider Internal Medicine Cardiovascular Disease
DX: I35.0 Nonrheumatic aortic (valve) stenosis (principal); Z98.61 Coronary angioplasty status
CPT/HCPCS: 99214

== ENCOUNTER → 2023-06-29 13:59 | Outpatient (BNVA) | payer MEDICARE, SELFPAY ==
[2023-02-10 09:09] VITALS: BP 126/62; BP 132/68; BMI 21.3
== END ==
PROVIDERS: PCP Internal Medicine; Visit Provider Internal Medicine Cardiovascular Disease
DX: I25.2 Old myocardial infarction (principal); I35.0 Nonrheumatic aortic (valve) stenosis; R53.83 Other fatigue; Z98.61 Coronary angioplasty status
CPT/HCPCS: 99212

== ENCOUNTER 2023-07-26 10:11 | Outpatient (AMB) | payer MEDICARE, SELFPAY ==
[2022-08-10 12:18] VITALS: BP 134/60; BP 140/60
[2022-11-03 07:22] VITALS: BMI 21.3
[2022-11-03 10:14] VITALS: BP 132/52
[2023-02-10 09:09] VITALS: BP 126/62; BP 132/68; BMI 21.3
[2023-07-26 10:22] VITALS: BP 130/60; PULSE 79; O2SAT 96; BMI 21.8
--- NOTE | 2023-07-26 10:22 | MHC.OFFVIS ---
Vital Signs 07/26/23 10:22 Height 5 ft 8 in Weight 143 lb 4.807 oz BMI 21.8 BP 130/60 Blood Pressure Location Lt brachial Position Sitting Pulse 79 Pulse Source Pulse Oximeter Pulse Oximetry (%) 96 Oxygen Delivery Method Room Air Intake Visit Reasons: copd Intake Note: pt is here for follow up and state he feels good, exercises daily Scheduler Maintenance Required: No Allergies No Known Allergies Allergy (Verified 07/26/23 10:36) Medication List - Last Reconciled 07/26/23 by Hector Carlos MD atorvastatin 40 mg PO BEDTIME clopidogrel 75 mg PO DAILY fluticasone propion-salmeterol 250-50 mcg/dose (Wixela Inhub) 1 inh inhalation BID 30 days losartan 100 mg PO DAILY metoprolol succinate ER 50 mg PO DAILY mupirocin calcium 2% 1 appl See Protocol topical BID omeprazole 40 mg PO DAILY@0630 tiotropium bromide 2.5 mcg/actuation (Spiriva Respimat) 2 puffs inhalation BEDTIME Do you need a note to return to daycare/school/sports/work: No HPI HPI copd: Details: THIS 88 YEARS OLD VERY PLEASANT GENTLEMAN, COMES FOR FOLLOW-UP AFTER 6 MONTHS FOR HIS COPD. HE TAKES VERY GOOD CARE OF HIMSELF AND VEERS THE MASK WHENEVER HE IS IN A CROWD. [facility] [employer] [facility]ULAR[facility] AND EXERCISES FOR HALF TO 1 HOUR EVERY DAY. WITH HIS 2 INHALERS INCLUDING WIXELA AND SPIRIVA HE DOES NOT NEED ANY EXTRA RESCUE INHALER. HE HAS HAD NO RESPIRATORY INFECTION, PFSH Medical History Dyspnea on exertion CAD (coronary artery disease) NSTEMI (non-ST elevated myocardial infarction) Anemia Aortic stenosis COPD (chronic obstructive pulmonary disease) Rupture of right Achilles tendon Hammer toe of left foot Skin cancer Spinal stenosis GERD (gastroesophageal reflux disease) Asthma HTN (hypertension) Surgical History History of cardiac cath 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 Family History Father CVD (cardiovascular disease) Mother Lung cancer Brother Bone cancer Social History Household Members: Spouse Housing: Condominium Do you presently have visiting nurse or other home services: No (had visiting nurses a few weeks ago d/t heart attack per patient.) Alcohol intake: never Patient Tobacco Use Status: Former Tobacco user Quit Date: 1994 Smoked: 35 +/- Advance Directives Date on File: 12/06/19 service: Yes Current occupational status: retired Review of Systems Const All systems reviewed & are unremarkable except as noted in HPI and below Eyes Reports no additional complaints ENT Reports nasal congestion (Mild congestion off and) Card Denies irregular heart rhythm and Denies leg edema Resp Reports as per HPI GI Reports no additional complaints Reports no additional complaints Musc Reports arthralgias (Mild nonspecific, neck and upper back pain.) Skin/Breast Reports system reviewed and no additional complaints, except as documented Neuro Reports no additional complaints Psych Reports no additional complaints Physical Exam Vital Signs: Last Vital Signs Pulse 79 07/26/23 10:22 BP 130/60 07/26/23 10:22 Pulse Ox 96 07/26/23 10:22 Oxygen Delivery Method Room Air 07/26/23 10:22 BMI result Body Mass Index 21.8 Const General: comfortable (No distress due to the discomfort in chest), no acute distress, alert and awake Orientation/consciousness: patient oriented x3 HEENT Head: Yes normal to inspection General nose exam: No nasal polyps present and No nasal discharge present Face and sinus: Yes sinuses nontender Mouth: oropharynx normal Throat: Yes posterior oropharynx normal Eyes General: appearance normal, both eyes and all related structures Neck Neck: Yes normal visual inspection, Yes no lymphadenopathy, Yes trachea midline, Yes supple, No tender and Yes no JVD Thyroid: Thyroid normal Chest Chest palpation & inspection: normal inspection of the chest, normal palpation of entire chest wall and no tenderness Resp Other: Percussion note is resonant . Breath sounds are distant with prolonged expiratory phase . No wheezes or rhonchi are heard. Cardio Palpation: normal PMI Rate: regular rate Rhythm: regular rhythm Heart sounds: no gallops and Murmur heart sound present (SYSTOLIC MURMUR AT LEFT STERNAL BORDER) GI Palpation (GI): Soft to palpation, nontender, No hepatosplenomegaly present and no masses Auscultation: normal bowel sounds Back/Spine/Pelvis Thoracic/Lumbar Spine: thoracic and lumbar spine normal to inspection and thoraco-lumbar ROM limited Skin General skin exam: no rashes or lesions noted Neuro General: patient oriented x3 and no focal motor deficits Cranial nerves: Yes CN's II-XII intact bilaterally Extrem General: Yes normal to inspection, Yes no clubbing, cyanosis or edema and Yes no calf tenderness Psych Speech and movement: Normal speech and movement present Assessment & Plan Assessment & Plan (1) COPD (chronic obstructive pulmonary disease): Comment: PATIENT HAS SEVERE CHRONIC OBSTRUCTIVE PULMONARY DISEASE, IT IS STAYING VERY STABLE AND UNDER CONTROL WITH THE CURRENT MEDICAL REGIMEN. Code(s): J44.9 - Chronic obstructive pulmonary disease, unspecified Category: Medical Plan: [place]: SPIRIVA RESPIMAT 2.5 MCG 2 INHALATIONS DAILY WIXELA 250-50 1 INHALATION B.I.D. ALBUTEROL HFA 2 PUFFS Q 4-6 HOURS ONLY P.R.N. 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 Has Had chemotherapy, but had to be stopped due to side effects. Luckily there has been no recurrence. Code(s): C34.31 - Malignant neoplasm of lower lobe, right bronchus or lung Category: Medical Plan: He is closely followed up , by [facility], and also locally by Dr. Acharya of [facility]. Coding Level of Care Code Est Pt Level 3 (16967) Diagnoses COPD (chronic obstructive pulmonary disease) J44.9 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 C34.31
== END 2023-07-26 10:37 | disposition home or self-care (01) ==
PROVIDERS: PCP Internal Medicine; Visit Provider Internal Medicine
DX: J44.9 Chronic obstructive pulmonary disease, unspecified (principal); C34.31 Malignant neoplasm of lower lobe, right bronchus or lung
CPT/HCPCS: 99213

== ENCOUNTER → 2023-07-26 10:11 | Outpatient (BNVA) | payer MEDICARE, SELFPAY ==
[2023-02-10 09:09] VITALS: BP 126/62; BP 132/68; BMI 21.3
== END ==
PROVIDERS: PCP Internal Medicine; Visit Provider Internal Medicine
DX: J44.9 Chronic obstructive pulmonary disease, unspecified (principal); C34.31 Malignant neoplasm of lower lobe, right bronchus or lung
CPT/HCPCS: 99212

== ENCOUNTER 2023-08-16 09:02 | Outpatient (REF) | payer MEDICARE, SELFPAY ==
[2023-02-10 09:09] VITALS: BP 126/62; BP 132/68; BMI 21.3
[2023-08-16 10:49] LABS: MANUAL DIFF FLAG NO
[2023-08-16 10:53] LABS: Basophils Absolute Auto 0.1 X10*3/uL (0.0-0.2); Basophils Percent Auto 0.8 % (0-2); Eosinophils Absolute Auto 0.5 X10*3/uL (0.0-0.4); Eosinophils Percent Auto 5.5 % (0-4); Hematocrit 35.8 % (42.0-52.0); Hemoglobin 11.6 g/dl (14.0-18.0); Imm Gran Abs Auto 0.06 X10*3/uL (0.00-0.03); Imm Gran Pct Auto 0.7 % (0.0-0.4); Lymphocytes Absolute Auto 0.8 X10*3/uL (1.2-4.9); Lymphocytes Percent Auto 8.6 % (20-40); Mean Corpuscular HGB Conc 32.4 g/dl (31.0-36.0); Mean Corpuscular Hemoglobin 28.1 pg (27.0-33.0); Mean Corpuscular Volume 86.7 fL (80.0-98.0); Mean Platelet Volume 9.1 fL (9.4-12.4); Monocytes Absolute Auto 1.4 X10*3/uL (0.1-1.2); Monocytes Percent Auto 15.3 % (2-11); Neutrophils Absolute Auto 6.1 x10*3/uL (2.0-8.3); Neutrophils Percent Auto 69.1 % (45-73); Platelet Count 275 X10*3/uL (160-400); Red Blood Count 4.13 X10*6/uL (4.60-5.80); Red Cell Distribution Width 13.8 % (11.0-16.0); White Blood Count 8.9 X10*3/uL (4.8-10.8)
[2023-08-16 11:57] LABS: Anion Gap 13 (12-20); Blood Urea Nitrogen 12 mg/dL (9-16); Calcium 8.7 mg/dL (8.4-10.2); Carbon Dioxide 24 mmol/L (22-29); Chloride 99 mmol/L (96-108); Estimated Glomerular Filt Rate > 60; Glucose Random 96 mg/dL (60-115); Iron 118 mcg/dL (45-160); Percent Iron Saturation 61 % (15-50); Potassium 4.6 mmol/L (3.3-5.1); Sodium 131 mmol/L (135-145); Total Iron Binding Capacity 195 mcg/dL (228-428); Unsaturated Iron Binding 77 ug/dL
== END 2023-08-16 09:03 | disposition home or self-care (01) ==
LOC: HO.10HDL 09:02
PROVIDERS: Visit Provider Internal Medicine
DX: D64.9 Anemia, unspecified (principal); J44.9 Chronic obstructive pulmonary disease, unspecified
CPT/HCPCS: 36415; 80048; 83540; 85025

== ENCOUNTER 2023-10-06 07:59 | Outpatient (REF) | payer MEDICARE, SELFPAY ==
[2023-02-10 09:09] VITALS: BP 126/62; BP 132/68; BMI 21.3
[2023-10-06 11:15] LABS: Basophils Absolute Auto 0.1 X10*3/uL (0.0-0.2); Basophils Percent Auto 0.8 % (0-2); Eosinophils Absolute Auto 0.2 X10*3/uL (0.0-0.4); Eosinophils Percent Auto 2.3 % (0-4); Hematocrit 39.8 % (42.0-52.0); Hemoglobin 12.9 g/dl (14.0-18.0); Imm Gran Abs Auto 0.09 X10*3/uL (0.00-0.03); Imm Gran Pct Auto 0.8 % (0.0-0.4); Lymphocytes Absolute Auto 0.8 X10*3/uL (1.2-4.9); Lymphocytes Percent Auto 7.2 % (20-40); MANUAL DIFF FLAG SCAN; Mean Corpuscular HGB Conc 32.4 g/dl (31.0-36.0); Mean Corpuscular Hemoglobin 27.6 pg (27.0-33.0); Mean Corpuscular Volume 85.2 fL (80.0-98.0); Mean Platelet Volume 8.9 fL (9.4-12.4); Monocytes Absolute Auto 1.6 X10*3/uL (0.1-1.2); Monocytes Percent Auto 14.7 % (2-11); Neutrophils Absolute Auto 7.9 x10*3/uL (2.0-8.3); Neutrophils Percent Auto 74.2 % (45-73); Platelet Count 316 X10*3/uL (160-400); Red Blood Count 4.67 X10*6/uL (4.60-5.80); Red Cell Distribution Width 15.4 % (11.0-16.0); SCAN SMEAR FLAG 1; White Blood Count 10.6 X10*3/uL (4.8-10.8)
[2023-10-06 11:31] LABS: Anion Gap 13 (12-20); Blood Urea Nitrogen 13 mg/dL (9-16); Calcium 8.9 mg/dL (8.4-10.2); Carbon Dioxide 23 mmol/L (22-29); Chloride 102 mmol/L (96-108); Estimated Glomerular Filt Rate > 60; Glucose Random 108 mg/dL (60-115); Iron 141 mcg/dL (45-160); Percent Iron Saturation 76 % (15-50); Potassium 4.2 mmol/L (3.3-5.1); Sodium 134 mmol/L (135-145); Total Iron Binding Capacity 186 mcg/dL (228-428); Unsaturated Iron Binding 45 ug/dL
[2023-10-06 11:55] LABS: SLIDE REVIEW VERIFIED
== END 2023-10-06 08:00 | disposition home or self-care (01) ==
LOC: HO.10HDL 07:59
PROVIDERS: Visit Provider Internal Medicine
DX: D64.9 Anemia, unspecified (principal); J44.9 Chronic obstructive pulmonary disease, unspecified
CPT/HCPCS: 36415; 80048; 83540; 85025

== ENCOUNTER 2023-10-17 10:01 | Inpatient (IN) | payer OTHER, SELFPAY ==
[2023-02-10 09:09] VITALS: BP 126/62; BP 132/68; BMI 21.3
[2023-10-17] VITALS (9 sets, daily range): BP systolic 106–149; BP diastolic 57–87; PULSE 89–100; RESP 12–20; TEMP 36.2–37.2; O2SAT 92–98; BMI 20.4
--- NOTE | ~2023-10-17 | XR_ITS ---
EXAMINATION: XR CHEST CLINICAL INFORMATION: Shortness of breath COMPARISON: 05/12/2022 TECHNIQUE: Frontal view of the chest was obtained. FINDINGS: There are extensive reticulonodular pattern seen bilaterally and blunting of right costophrenic angle due to small pleural effusion, stable since previous examination. There is pleural thickening: The right. Heart is not enlarged. Patient is status post reversal left shoulder arthroplasty. XR/XR chest 1V IMPRESSION: Extensive reticulonodular pattern and right small pleural effusion and pleural thickening, correlate clinically
--- NOTE | ~2023-10-17 | US_ITS ---
EXAMINATION: US VENOUS ULTRASOUND WITH DOPPLER LOWER EXTREMITY, LEFT CLINICAL INFORMATION: Shortness of breath. Left lower extremity swelling. COMPARISON: 12/19/2015. TECHNIQUE: Ultrasound of the deep veins is performed from the left hip to the calf with compression sonography and color and pulse Doppler assessment. Spectral analysis with color-flow imaging is performed. FINDINGS: The common femoral vein is compressible and exhibits a normal phasic waveform; this suggests that the iliac veins are widely patent above. Within the proximal thigh, the visualized profunda femoris vein is normal. The examined greater saphenous vein and saphenofemoral junction are normal. Superficial femoral vein is patent in the proximal, mid and distal thigh. The mild smooth thickening of the wall of the proximal SFV might be sequela of a remote thrombosis. There is no evidence of acute thrombus. The popliteal vein is normal to the level of the trifurcation. On compression dave scale and color Doppler images, the visualized posterior tibial and peroneal veins of the calf are patent. No evidence of Beatty's cyst. US/US venous duplex LE LT IMPRESSION: The visualized femoral, popliteal and lower leg veins are widely patent. No evidence of acute deep vein thrombosis in the left lower extremity.
--- NOTE | ~2023-10-17 | CT_ITS ---
EXAMINATION: CT ANGIOGRAM OF THE CHEST WITH AND WITHOUT CONTRAST (CT PULMONARY ANGIOGRAM FOR PE) CLINICAL INFORMATION: Reason for Exam SOB, hypoxia. History of lung cancer COMPARISON: Noncontrast CT chest from 01/18/2020 TECHNIQUE: Prior to contrast administration, noncontrast localization images were obtained. Subsequently, multidetector volumetric imaging was performed from the thoracic inlet to below the diaphragms following the administration of 65 mL Omnipaque 350 intravenous contrast. No contrast reaction reported Sagittal, coronal, and MIP oblique sagittal reformatted images were obtained on the CT workstation, uploaded to PACS, and reviewed. This CT examination was performed using dose optimization techniques as appropriate, variously including the following: *Automated exposure control *Adjustment of mA and/or kV according to patient size (this includes techniques or standardized protocols for targeted exams where dose is matched to indication/reason for exam; i.e. extremities or head) *Use of iterative reconstruction technique Total exam dose-length product 270 mGy-cm FINDINGS: QUALITY OF STUDY/CONTRAST BOLUS: Satisfactory. PULMONARY ARTERIES: No pulmonary emboli. THORACIC AORTA: No aneurysm or dissection. Diffuse, scattered atherosclerotic wall calcifications are present. LUNG: Status post right lower lobe lobectomy. Diffuse interstitial thickening and diffuse micronodules seen throughout the bilateral lung parenchymal. Findings are most consistent with underlying neoplastic process. There are patchy areas of consolidation seen in the posterior right lung base, right lower lobe and left upper lobe. PLEURA: There is diffuse pleural thickening in the right hemithorax. There is a small left pleural effusion. MEDIASTINUM: Normal heart size. No pericardial effusion. Multiple prominent lymph nodes seen in the AP window and bilateral yvette which have increased compared to the prior exam. No evidence of septal bowing or right heart strain. CORONARY ARTERY CALCIFICATION: Severe CHEST WALL/AXILLA: No axillary or internal mammary lymphadenopathy. OSSEOUS STRUCTURES: No acute or suspicious osseous abnormality. Status post left shoulder total arthroplasty UPPER ABDOMEN: Large hiatal hernia extending into the posterior mediastinum. There is apparent diffuse mucosal wall thickening of the stomach. No reflux of contrast into the hepatic veins to suggest elevated right heart pressures. CT/CT angio chest PE protocol IMPRESSION: 1. No evidence of pulmonary embolism. 2. Diffuse interstitial thickening and diffuse micronodules seen throughout the bilateral lung parenchyma. Findings are most consistent with underlying neoplastic process. 3. Patchy areas of consolidation seen in the posterior right lung base, right lower lobe and left upper lobe. 4. Small left pleural effusion. 5. Large hiatal hernia with apparent diffuse mucosal wall thickening of the stomach. VTE: negative.
--- NOTE | 2023-10-17 10:12 | ECG_ITS ---
Test Reason : SOB Blood Pressure : / mmHG Vent. Rate : 097 BPM Atrial Rate : 097 BPM P-R Int : 196 ms QRS Dur : 132 ms QT Int : 382 ms P-R-T Axes : 066 109 028 degrees QTc Int : 485 ms Sinus rhythm with frequent Premature ventricular complexes Right bundle branch block Abnormal ECG When compared with ECG of 13-MAY-2022 08:15, Premature ventricular complexes are now Present Right bundle branch block is now Present Referred By: Mechelle Fraser Electronically Signed By:KATERINA JONES
--- NOTE | 2023-10-17 10:15 | ED_ITS ---
HPI - SOB/Dyspnea General Chief Complaint: Dyspnea Stated Complaint: DIFF BREATHING,79-84%,H/O LUNG CA PER EMS Time Seen by Provider: 10/17/23 10:12 Source: patient, EMS and old records reviewed Mode of arrival: EMS Limitations: no limitations History of Present Illness ED Provider: DR. Fraser HPI Narrative: 88-year-old male with history of lung cancer, s/p right lobectomy 3 years ago, NSTEMI and PCI last year, COPD, former smoker who presented with shortness of breath and being hypoxic at home 84% as per EMS, patient was given by EMS 1 DuoNeb and placed on supplemental oxygen 3 L with improvement of patient's symptoms and oxygenation, patient reported improvement after the treatment, patient stated that his symptoms coincide with starting a new pills to help him to increase his appetite patient does remember the name of the medication. Related Data Home Medications ?Medication ?Instructions ?Recorded ?Confirmed losartan 100 mg tablet 100 mg PO DAILY 12/07/19 10/17/23 omeprazole 20 mg capsule,delayed 40 mg PO DAILY@0630 12/07/19 10/17/23 release tiotropium bromide 2.5 2 puff inhalation BEDTIME 02/09/21 10/17/23 mcg/actuation mist for inhalation (Spiriva Respimat) atorvastatin 40 mg tablet 40 mg PO BEDTIME 06/02/22 10/17/23 metoprolol succinate 50 mg 50 mg PO DAILY 06/02/22 10/17/23 tablet,extended release 24 hr Previous Rx's ?Medication ?Instructions ?Recorded fluticasone 250 mcg-salmeterol 50 1 inh inhalation BID 30 days #60 ea 01/06/22 mcg/dose blistr powdr for inhalation (Wixela Inhub) clopidogrel 75 mg tablet 75 mg PO DAILY #1 tab 05/13/22 Allergies Allergy/AdvReac Type Severity Reaction Status Date / Time No Known Allergies Allergy Verified 10/17/23 10:11 Review of Systems 2 Review of Systems: All other systems are reviewed and are negative Constitutional: Reports as per HPI and Reports no additional constitutional complaints Eyes: Reports as per HPI and Reports no additional eye complaints Reports system reviewed and no additional complaints, except as documented Cardiovascular: Reports as per HPI and Reports no additional cardiovascular complaints Respiratory: Reports as per HPI and Reports no additional respiratory complaints Gastrointestinal: Reports as per HPI and Reports no additional gastrointestinal complaints Genitourinary: Reports no additional female genitourinary complaints Musculoskeletal: Reports no additional musculoskeletal complaints Skin/Breast: Reports system reviewed and no additional complaints, except as docu Psychiatric: Reports no additional psychiatric complaints Endocrine: Reports no additional endocrine complaints Hematologic/Lymphatic: Reports no additional hematologic/lymphatic complaints Allergic/Immunologic: Reports no additional allergic/immunologic complaints Reports system reviewed and no additional complaints, except as documented and Reports Abnormal speech present [facility] Past Medical History Medical History Dyspnea on exertion CAD (coronary artery disease) NSTEMI (non-ST elevated myocardial infarction) Anemia Aortic stenosis COPD (chronic obstructive pulmonary disease) Rupture of right Achilles tendon Hammer toe of left foot Skin cancer Spinal stenosis GERD (gastroesophageal reflux disease) Asthma HTN (hypertension) Surgical History History of cardiac cath 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 Family History Family History Father CVD (cardiovascular disease) Mother Lung cancer Brother Bone cancer Social History Social History Household Members: Spouse Housing: Condominium Do you presently have visiting nurse or other home services: No (had visiting nurses a few weeks ago d/t heart attack per patient.) Alcohol intake: never Patient Tobacco Use Status: Former Tobacco user Years Smoked: 35 +/- Advance Directives: No Advance Directives Information Provided: Yes Advance Directives Date on File: 12/06/19 Do you have a plan to hurt others: No Plan service: Yes Current occupational status: retired Physical Exam 2 Vital Signs: Vital Signs: Last Vital Signs Temp 97.9 F 10/17/23 10:06 Pulse 92 10/17/23 10:22 Resp 16 10/17/23 10:22 BP 149/87 H 10/17/23 10:06 Pulse Ox 98 10/17/23 10:06 O2 Del Method Aerosol Mask 10/17/23 10:06 Oxygen Flow Rate 6 10/17/23 10:06 BMI result Body Mass Index 20.4 Vital signs have been reviewed and appear to be correct. Blood pressure elevated. Heart rate normal. Respiratory rate normal. Temperature normal. Oxygen saturation normal. Appearance: Alert. Oriented X3. No acute distress. Head: Normal external exam. Normocephalic. Atraumatic. No Avery signs noted. No raccoon eyes noted Eyes: PERRLA. EOMI. Conjunctiva and sclera normal. Eyelids normal. ENT: TM's Normal. Pharynx normal. Uvula midline. Moist mucous membranes. No trismus noted. No drooling noted. No muffled voice noted. Neck: Normal inspection. Neck supple. FROM. No adenopathy. Thyroid Normal. No meningeal signs. No neck mass noted. CVS: Normal heart rate and rhythm. Heart sound normal. No murmurs noted. Pulses normal throughout. Respiratory: No respiratory distress. Painless inspiration. Diffuse expiratory wheezing with prolonged expiration and decreased breathing sounds bilaterally. Chest nontender. No accessory muscle usage noted or decreased air movement noted. Abdomen: Soft and nontender. Bowel sounds normal in all 4 quadrants. No distention noted. No organomegaly noted. No visible injury noted. Back: No CVA tenderness. Full range of motion noted. Skin: Skin warm and dry. Normal skin color. Normal skin turgor. No rashes/lesions/lacerations noted. Extremities: No lower extremity edema. Extremities exhibit normal range of motion. Extremities nontender. Neuro: Oriented X 3. Cranial nerve exam: II-XII are grossly intact No motor deficit. No sensory deficit. Reflexes normal. Course Reevaluation(s) Reevaluation #1: COPD exacerbation, patient received bronchodilator, Solu-Medrol, magnesium, patient breathing better. Patient stated that all his symptoms started 5 days ago after he was started on medication for appetite stimulation. Elevated troponin with no delta changes, no chest pain, no chest pressure. Time: 13:47 Medications Administered Discontinued Medications Generic Name Dose Route Start Last Admin Trade Name Freq PRN Reason Stop Dose Admin Albuterol Sulfate 2.5 mg/ 0 mg 10/17/23 10:22 10/17/23 10:26 Albuterol/Ipratropium 3 ml INHALE 10/17/23 10:23 1 dose ONCE ONE Administration Magnesium Sulfate 2 gm in 50 mls @ 25 mls/hr 10/17/23 10:13 10/17/23 10:21 Magnesium Sulfate/H2o IV 10/17/23 12:12 25 mls/hr ONCE ONE Administration Methylprednisolone Sodium Succinate 125 mg 10/17/23 10:13 10/17/23 10:20 Methylprednisolone Sod Succ 125 Mg/2 Ml Vial IVPUSH 10/17/23 10:14 125 mg ONCE ONE Administration Medical Decision Making Differential Diagnosis Differential Diagnoses: The differential diagnosis associated with the presentation includes (COPD exacerbation, ACS, CHF, pneumonia, pneumothorax, pleural effusion, electrolyte derangement, severe anemia.) Admission/Observation Consideration of admission/observation: Escalation of care including admission/observation considered Consult Healthcare Provider Management of the patient was discussed with: Hospitalist () Lab Data MDM Lab Attestation statement: I reviewed the patient's lab results. 10/17/23 10:35 10/17/23 10:35 Labs: Lab Results 10/17/23 10/17/23 10/17/23 Range/Units 10:35 11:46 12:05 WBC 13.6 H (4.8-10.8) X10*3/uL RBC 4.53 L (4.60-5.80) X10*6/uL Hgb 12.8 L (14.0-18.0) g/dl Hct 39.0 L (42.0-52.0) % MCV 86.1 (80.0-98.0) fL MCH 28.3 (27.0-33.0) pg MCHC 32.8 (31.0-36.0) g/dl RDW 16.1 H (11.0-16.0) % Plt Count 287 (160-400) X10*3/uL MPV 9.2 L (9.4-12.4) fL Immature Gran % (Auto) 1.3 H (0.0-0.4) % Neut % (Auto) 77.8 H (45-73) % Lymph % (Auto) 5.6 L (20-40) % Isabela % (Auto) 14.2 H (2-11) % Eos % (Auto) 0.7 (0-4) % Baso % (Auto) 0.4 (0-2) % Lymph # (Auto) 0.8 L (1.2-4.9) X10*3/uL Isabela # (Auto) 1.9 H (0.1-1.2) X10*3/uL Eos # (Auto) 0.1 (0.0-0.4) X10*3/uL Baso # (Auto) 0.1 (0.0-0.2) X10*3/uL Abs Immat Gran (auto) 0.18 H (0.00-0.03) X10*3/uL Absolute Neuts (auto) 10.6 H (2.0-8.3) x10*3/uL Absolute Nucleated RBC 0.000 (0.0-0.012) X10*3/uL Nucleated RBC % (auto) 0.0 (0.0-0.2) /100WBC Smear Tech's Comments VERIFIED Sodium 135 (135-145) mmol/L Potassium 4.3 (3.3-5.1) mmol/L Chloride 103 (96-108) mmol/L Carbon Dioxide 21 L (22-29) mmol/L Anion Gap 15 (12-20) BUN 26 H (9-16) mg/dL Creatinine 0.83 (0.5-1.4) mg/dL Estim Creat Clear Calc 52.9 Estimated GFR > 60 Random Glucose 106 (60-115) mg/dL Lactic Acid 1.9 (0.5-2.0) mmol/L Calcium 9.3 (8.4-10.2) mg/dL Total Bilirubin 1.5 H (0.0-1.0) mg/dL Direct Bilirubin 0.6 H (0.0-0.5) mg/dL AST 37 (5-37) U/L ALT 32 (0-40) U/L Alkaline Phosphatase 116 (39-117) U/L Troponin I High Sens 127.6 H* D 123.7 H* (<3.5-35.0) ng/L B-Natriuretic Peptide 423 H (<100) pg/mL Total Protein 6.3 L (6.5-8.0) g/dL Albumin 3.4 L (3.5-5.0) g/dL Lipase 12 (8-78) U/L Influenza Type A (PCR) NEGATIVE (Negative) Influenza Type B (PCR) NEGATIVE (Negative) RSV RNA Qual (PCR) NEGATIVE (Negative) SARS-CoV-2 RNA (RT-PCR) NEGATIVE (Negative) Independent Interpretation I performed an independent interpretation of an: EKG (Sinus rhythm at 97 beats per minutes, RBBB which is new since last EKG 05/13/2022.) and Plain X-Ray (Chest:Extensive reticulonodular pattern and right small pleural effusion and pleural thickening, correlate clinically ) Radiology Impression Discussion of test interpretation with radiology: I have reviewed the radiologist's reading. Critical Care Time Critical Care Time Critical Care Time: Yes Total Critical Care Time: 60 Attestation: The patient was critically ill with a high probability of imminent or life- threatening deterioration. I spent greater than 30 minutes of discontinuous time evaluating the patient, delivering critical care at the bedside, discussing evaluating data with consultants. Critical care time does not include time spent performing separately billable procedures or teaching. Time spent performing critical care was 60 minutes. Discharge Plan Discharge Clinical Impression: Acute exacerbation of chronic obstructive airways disease, Elevated troponin Patient Disposition: Admitted As Inpatient Print Language: Khmer
[2023-10-17] MEDS: methylPREDNISolone Sod Succ 125 MG/2 ML VIAL IVPUSH (10:20)
[2023-10-17] MEDS: Magnesium Sulfate/H2O 2 GM/50 ML PIGGYBACK IV (10:21)
[2023-10-17] MEDS: Albuterol Sulfate 2.5 MG, Albuterol/Iprat 2.5/0.5MG 3 ML 3 ML INHALE (10:26)
[2023-10-17 10:46] LABS: Basophils Absolute Auto 0.1 X10*3/uL (0.0-0.2); Basophils Percent Auto 0.4 % (0-2); Eosinophils Absolute Auto 0.1 X10*3/uL (0.0-0.4); Eosinophils Percent Auto 0.7 % (0-4); Hemoglobin 12.8 g/dl (14.0-18.0); Imm Gran Abs Auto 0.18 X10*3/uL (0.00-0.03); Imm Gran Pct Auto 1.3 % (0.0-0.4); Lymphocytes Absolute Auto 0.8 X10*3/uL (1.2-4.9); Lymphocytes Percent Auto 5.6 % (20-40); MANUAL DIFF FLAG SCAN; Mean Corpuscular HGB Conc 32.8 g/dl (31.0-36.0); Mean Corpuscular Hemoglobin 28.3 pg (27.0-33.0); Mean Corpuscular Volume 86.1 fL (80.0-98.0); Mean Platelet Volume 9.2 fL (9.4-12.4); Monocytes Absolute Auto 1.9 X10*3/uL (0.1-1.2); Monocytes Percent Auto 14.2 % (2-11); Neutrophils Absolute Auto 10.6 x10*3/uL (2.0-8.3); Neutrophils Percent Auto 77.8 % (45-73); Platelet Count 287 X10*3/uL (160-400); Red Blood Count 4.53 X10*6/uL (4.60-5.80); Red Cell Distribution Width 16.1 % (11.0-16.0); SCAN SMEAR FLAG 1; White Blood Count 13.6 X10*3/uL (4.8-10.8)
[2023-10-17 11:03] LABS: Alanine Aminotransferase 32 U/L (0-40); Albumin Level 3.4 g/dL (3.5-5.0); Alkaline Phosphatase 116 U/L (39-117); Anion Gap 15 (12-20); Aspartate Amino Transferase 37 U/L (5-37); Bilirubin Direct 0.6 mg/dL (0.0-0.5); Bilirubin Total 1.5 mg/dL (0.0-1.0); Blood Urea Nitrogen 26 mg/dL (9-16); Calcium 9.3 mg/dL (8.4-10.2); Carbon Dioxide 21 mmol/L (22-29); Chloride 103 mmol/L (96-108); Creatinine Clr Calc Pharmacy 52.9; Estimated Glomerular Filt Rate > 60; Glucose Random 106 mg/dL (60-115); Lipase 12 U/L (8-78); Potassium 4.3 mmol/L (3.3-5.1); Sodium 135 mmol/L (135-145); Total Protein 6.3 g/dL (6.5-8.0)
[2023-10-17 11:08] LABS: B Type Natriuretic Peptide 423 pg/mL (<100)
[2023-10-17 11:12] LABS: Troponin-I High Sensitivity 127.6 ng/L (<3.5-35.0)
[2023-10-17 11:18] LABS: SLIDE REVIEW VERIFIED
[2023-10-17 11:19] LABS: Influenza A PCR NEGATIVE (Negative); Influenza B PCR NEGATIVE (Negative); Resp Syncy Virus RNA Qual PCR NEGATIVE (Negative); SARS COV2 PCR INHOUSE NEGATIVE (Negative)
[2023-10-17 12:15] LABS: Troponin-I High Sensitivity 123.7 ng/L (<3.5-35.0)
[2023-10-17 12:19] LABS: Lactic Acid 1.9 mmol/L (0.5-2.0)
--- NOTE | 2023-10-17 13:31 | PM.IMHP ---
History of Present Illness Date of Service: 10/17/23 Attending physician on admission: [facility] Chief Complaint: Shortness of Breath 88 year old male hx of asthma, COPD, GERD, HTN, former smoker, NSTEMI ( s/p cardiac cath w/ drug elithing stent at [facility] on May 14 2022), skin cancer, anemai, lung cancer (s/p lobectomy 3 years ago), spinal stenosis presents to the emergency department for shortness of breath both at rest and with exertion worsening over the past week. He attributes this shortness of breath to starting new pill that increases appetite , but is unclear if this is actually what is causing his shortneses of breath. His who he lives with initially called EMS for trouble breathing when they arrived he was 84% on RA, he was then given 1 duoneb and placed on 3L NC w/ improvement in sx and oxygenation. In ED received magnesium and solumedrol IV as well as another duoneb. Now he is feeling better than he was on arrival, he is however concered about LLE edema X 1 week, presents constanly. This has never happened to him before. Denies fevers, chills, cp, nausea, vomiting, abd pain, headache, vision changes, dizziness, weakness, sick contacts. Patient not on blood thinners only on plavix was recently taken off plavix. In the ED patient was noted to have leukocytosis 13.6 w/ no left shift. Baseline normocytic anemia. Chemistry w/ slightly elevated BUN 26 and Creatinine 0.83 likely due to poor po intake/ dehydration. Normal lactic. Troponin initially 127.6 repeat 123.7 w/ non ischemic ekg (sinus rythem w/ pvs , RBBB) likely due to demand ischemia/hypoxemia. BNP 423 much higher than patients baseline. No reported hx of heartfaliure. Flu/ covid/ rsv negative. CXR w. extensive reticulonodular patern w/ right small pleural effusion and pleural thickening. Review of Systems Review of Systems: Yes all other systems are reviewed and are negative [facility] Medical History Dyspnea on exertion CAD (coronary artery disease) NSTEMI (non-ST elevated myocardial infarction) Anemia Aortic stenosis COPD (chronic obstructive pulmonary disease) Rupture of right Achilles tendon Hammer toe of left foot Skin cancer Spinal stenosis GERD (gastroesophageal reflux disease) Asthma HTN (hypertension) Functional capacity: independent ambulation Family History Father CVD (cardiovascular disease) Mother Lung cancer Brother Bone cancer Surgical History History of cardiac cath 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 Social History Household Members: Spouse Housing: Condominium Do you presently have visiting nurse or other home services: No Alcohol intake: never Patient Tobacco Use Status: Former Tobacco user Years Smoked: 35 +/- Smoked in Last 30 Days: No Use of substances other than those prescribed or required for medical reasons: No Have you been hit, kicked, punched, or otherwise hurt by someone within the past year? If so, by whom?: No Do you feel safe in your current relationship?: Yes Is there a partner from a previous relationship who is making you feel unsafe now?: No Are you made to feel afraid or neglected: No Advance Directives: No Advance Directives Information Provided: Yes Advance Directives Date on File: 12/06/19 Do you have a plan to hurt others: No Plan Recently lost weight without trying: Yes How much weight loss: 14-23 pounds Eating poorly because of decreased appetite: Yes Nutrition screen score: 5 Nutrition Risks: Anorexia Poor oral hygiene: No service: Yes Current occupational status: retired [employer] Allergies Allergy/AdvReac Type Severity Reaction Status Date / Time No Known Allergies Allergy Verified 10/17/23 10:11 Home Medications ?Medication ?Instructions ?Recorded ?Confirmed ?Last Taken ?Type losartan 100 mg tablet 100 mg PO DAILY 12/07/19 10/17/23 10/17/23 History omeprazole 20 mg capsule,delayed 40 mg PO DAILY@0630 12/07/19 10/17/23 10/17/23 History release tiotropium bromide 2.5 2 puff inhalation BEDTIME 02/09/21 10/17/23 10/17/23 History mcg/actuation mist for inhalation (Spiriva Respimat) atorvastatin 40 mg tablet 40 mg PO BEDTIME 06/02/22 10/17/23 10/17/23 History metoprolol succinate 50 mg 50 mg PO DAILY 06/02/22 10/17/23 10/17/23 History tablet,extended release 24 hr Physical Exam Vital Signs and Narrative: Vital Signs: Last Vital Signs Temp 97.9 F 10/17/23 10:06 Pulse 92 10/17/23 10:22 Resp 16 10/17/23 10:22 BP 149/87 H 10/17/23 10:06 Pulse Ox 98 10/17/23 10:06 O2 Del Method Aerosol Mask 10/17/23 10:06 Oxygen Flow Rate 6 10/17/23 10:06 BMI result Body Mass Index 20.4 Appearance: Alert.? Oriented X3.? + mild acute cardiopulmonary distress distress.? Head: Normocephalic, atraumatic, no step-offs or deformities CVS: Pulses normal.?RRR Respiratory: + mild respiratory distress.?diminished breath sounds b/l, and diffuse expiratory wheezing. Abdomen: Soft and nontender.? Skin: ? Normal skin color. Extremities: 5/5 strength to bilateral upper and lower extremities. LLE palpable pulses DP,AT,PT w/ 1+ non pitting edema, normal RLE no edema. Back: No midline tenderness, no C-spine tenderness, full range of motion, No CVA tenderness bilaterally Neuro: Oriented X 3.? No motor deficit.? No sensory deficit. Results Labs 10/18/23 05:42 10/18/23 05:42 Labs: Laboratory Results - last 24 hr 10/17/23 10/17/23 10/17/23 10:35 11:46 12:05 MCV 86.1 MCH 28.3 MCHC 32.8 RDW 16.1 H Plt Count 287 MPV 9.2 L Immature Gran % (Auto) 1.3 H Neut % (Auto) 77.8 H Lymph % (Auto) 5.6 L Trinity % (Auto) 14.2 H Eos % (Auto) 0.7 Baso % (Auto) 0.4 Lymph # (Auto) 0.8 L Trinity # (Auto) 1.9 H Eos # (Auto) 0.1 Baso # (Auto) 0.1 Abs Immat Gran (auto) 0.18 H Absolute Neuts (auto) 10.6 H Absolute Nucleated RBC 0.000 Nucleated RBC % (auto) 0.0 Smear Tech's Comments VERIFIED Anion Gap 15 Estim Creat Clear Calc 52.9 Estimated GFR > 60 Random Glucose 106 Lactic Acid 1.9 Calcium 9.3 Total Bilirubin 1.5 H Direct Bilirubin 0.6 H AST 37 ALT 32 Alkaline Phosphatase 116 Troponin I High Sens 127.6 H* D 123.7 H* B-Natriuretic Peptide 423 H Total Protein 6.3 L Albumin 3.4 L Lipase 12 Influenza Type A (PCR) NEGATIVE Influenza Type B (PCR) NEGATIVE RSV RNA Qual (PCR) NEGATIVE SARS-CoV-2 RNA (RT-PCR) NEGATIVE Imaging Radiologist's Impressions: Impressions Chest X-Ray 10/17/23 11:00 IMPRESSION: Extensive reticulonodular pattern and right small pleural effusion and pleural thickening, correlate clinically Assessment and Plan (1) Acute exacerbation of chronic obstructive airways disease: Status: Acute Plan Assessment: 88 yo m hx asthma, COPD, GERD, HTN, former smoker, NSTEMI ( s/p cardiac cath w/ drug elithing stent at [facility] on May 14 2022), skin cancer, anemai, lung cancer (s/p lobectomy 3 years ago), spinal stenosis presents w/ gradually worsening dyspnea X 1 week acutely worsening today and 1 week LLE swelling. Admission for suspected COPD exacerbation, elevated troponin & elevated BNP . Plan Acute hypoxic respiratory faliure : acute exacerbation w/ SOB worsening x 1 week and acutely worsening today - COPD vs PE vs CHF vs demand ischemia vs chronic lung disease - Breathing treatments as needed - Solumedrol 40mg IV BID - CTA ordered and pending to r/o PE ( high risk former smoker, hx of malignancy, significant hypoxia) - No fever, productive sputum, white count with shift --> unlikely infection or sepsis CAD - Continue asa, plavix and metoprolol - Elevated trop not meeting delta --> demand ischemia - BNP elevated likely due to demand/ heart strain, euvolemic on exam --> PE being ruled out w/ CTA LLE swelling: - DVT vs dependent edema - US ordered to r/o DVT , palpable pulses unlikely arterial Anemia: chronic no reported bleeding - HGB above transfusion threshold Hypertension: chronic, mild hypertension - Continue home metoprolol succinate 50 mg po Qdaily - Continue home losartan 100 mg po Qdaily HLD - Continue home atorvastatin 40 mg PO at bedtime DVT prophylaxis w/ lovenox Cardiac diet Full code. Attending: Dr. Mendieta Patient requires at least 2 inpatient midnights for treatment of COPD, elevated trop and elevated BNP Quality Stroke Does the patient have a stroke diagnosis?: No VTE Prior VTE?: No VTE Risk Level:: Medical - moderate - high VTE Device Contraindication: Treatment Not Indicated VTE Drug Contraindication: N/A - Med Ordered
--- NOTE | 2023-10-17 13:38 | PHA.MEDREC ---
Pharmacy Consult ? Medication Reconciliation Pharmacy has completed the medication reconciliation. Spoke to patient to confirm med list. Patient states he is no longer taking Aspirin 81 mg daily. Patient says he recently stared taking Megestrol acet 40 mg daily, however he believes he had a reaction to the medication and that's why he is here.
[2023-10-17] MEDS: Albuterol/Iprat 2.5/0.5MG 3 ML AMPUL.NEB INHALE ×2 (15:17→19:18)
[2023-10-17] MEDS: 0.9 % Sodium Chloride Flush 3 ML SYRINGE IVFLUSH (15:34)
[2023-10-17] MEDS: Enoxaparin Sodium 40 MG/0.4 ML SYRINGE SUBCUT (15:34)
--- NOTE | 2023-10-17 15:43 | MHC.EDTECH ---
This pct assumed care of patient at 1500 ,vitals taken ,Patient belongings list done ,bladder scan done,Pt had 264ml in bladder RN aware ,Patient was change into hospital gown all extra linen removed from underneath Patient ,warm blanket and Pillow given ,Call zhang within Pt reach ,And Pt daughter and Pt daughter at bedside .
[2023-10-17 16:43] LABS: Appearance Urine Clear; Color Urine Yellow; Glucose Urine UA Negative (Negative); Leukocyte Esterase Urine Trace (Negative); Nitrite Urine Negative (Negative); Specific Gravity - Urine 1.025 (1.005-1.025); UMIC TRIGGER UACC YES; Urine Blood Negative (Negative); Urine Ketones Trace mg/dL (Negative); Urine Protein 30 (1+) mg/dL (Neg-Trace)
[2023-10-17] MEDS: iohexoL 350 MG/ML 100 ML INFUS..BTL IV (16:57)
[2023-10-17 17:31] LABS: Bacteria Urine None Seen (None Seen); Hyaline Casts Urine 0-2 /LPF (0-2); RBC Urine 0-2 /HPF (0-2); Squamous Epithelial Cell Urine 0-2 /HPF (0-2); WBC Urine 0-5 /HPF (0-5)
--- NOTE | 2023-10-17 17:45 | MHC.EDTECH ---
Patient brought Patient some chicken soup ,Patient eating ,Patient belonging list was adjusted because Patient took couple things home .
[2023-10-17] MEDS: Acetaminophen 325 MG TABLET 650 MG PO (19:05)
--- NOTE | 2023-10-17 20:25 | MHC.EDTECH ---
1999 Rounding done ,vitals taken ,One of patient iv came out ,Patient was clean up ,fresh warm blanket given and gown and bed pads change ,dealer analyst Dottie is aware that Patient is upset because he does not have a room upstairs as yet ,Plan of care continue .
[2023-10-18] VITALS (10 sets, daily range): BP systolic 109–152; BP diastolic 54–73; PULSE 96–124; RESP 18–28; TEMP 36.2–36.9; O2SAT 89–97; BMI 19.3
[2023-10-18] MEDS: 0.9 % Sodium Chloride Flush 3 ML SYRINGE IVFLUSH ×4 (00:53→22:18)
--- NOTE | 2023-10-18 02:31 | PC.NURSE ---
pt attempting to get up out of bed to use the urinal, thought he was at home. oxygen came off, bed alarm alerted staff. assist back to bed. pt SOB and diaphoretic. O2 80% placed on 6L oxymask, now at 95%
--- NOTE | 2023-10-18 02:32 | PC.NURSE ---
camera at bedside
--- NOTE | 2023-10-18 04:24 | MHC.EDTECH ---
0400 rounding done ,vitals taken ,Patient awake no apparent distress noted ,Patient has a bed on med surge ,waiting for nurse to nurse report .
[2023-10-18 06:31] LABS: MANUAL DIFF FLAG NO
[2023-10-18 06:33] LABS: Basophils Percent Auto 0.1 % (0-2); Hematocrit 37.3 % (42.0-52.0); Hemoglobin 12.2 g/dl (14.0-18.0); Imm Gran Abs Auto 0.18 X10*3/uL (0.00-0.03); Imm Gran Pct Auto 1.3 % (0.0-0.4); Lymphocytes Absolute Auto 0.5 X10*3/uL (1.2-4.9); Lymphocytes Percent Auto 3.4 % (20-40); Mean Corpuscular HGB Conc 32.7 g/dl (31.0-36.0); Mean Corpuscular Volume 85.6 fL (80.0-98.0); Mean Platelet Volume 9.7 fL (9.4-12.4); Monocytes Absolute Auto 1.2 X10*3/uL (0.1-1.2); Monocytes Percent Auto 8.3 % (2-11); Neutrophils Absolute Auto 12.5 x10*3/uL (2.0-8.3); Neutrophils Percent Auto 86.9 % (45-73); Platelet Count 293 X10*3/uL (160-400); Red Blood Count 4.36 X10*6/uL (4.60-5.80); White Blood Count 14.4 X10*3/uL (4.8-10.8)
[2023-10-18 06:58] LABS: B Type Natriuretic Peptide 219 pg/mL (<100)
[2023-10-18 07:02] LABS: Alanine Aminotransferase 42 U/L (0-40); Albumin Level 3.4 g/dL (3.5-5.0); Alkaline Phosphatase 106 U/L (39-117); Anion Gap 17 (12-20); Aspartate Amino Transferase 50 U/L (5-37); Bilirubin Total 0.9 mg/dL (0.0-1.0); Blood Urea Nitrogen 38 mg/dL (9-16); Calcium 9.2 mg/dL (8.4-10.2); Carbon Dioxide 19 mmol/L (22-29); Chloride 105 mmol/L (96-108); Creatinine Clr Calc Pharmacy 50.5; Estimated Glomerular Filt Rate > 60; Glucose Random 127 mg/dL (60-115); Magnesium 2.5 mg/dL (1.6-2.6); Sodium 136 mmol/L (135-145); Total Protein 6.7 g/dL (6.5-8.0)
--- NOTE | 2023-10-18 07:35 | P.PNIM_ITS ---
Subjective Subjective Date of Service: 10/18/23 Interval History: f/u on acute hypoxic respiratory failure d/t copd interval history: less sob, still requiring O2 Physical Exam 2 Vital Signs: Vital Signs: Last Vital Signs Temp 97.4 F 10/18/23 05:22 Pulse 97 10/18/23 05:22 Resp 18 10/18/23 05:22 BP 152/69 H 10/18/23 05:22 Pulse Ox 95 10/18/23 05:22 O2 Del Method Oxymask 10/18/23 05:22 O2 Flow Rate 5 10/18/23 05:22 Oxygen Flow Rate 6 10/17/23 10:06 BMI result Body Mass Index 20.4 General: AO X 3, no acute distress Resp: slightly dimished lungs sound o/w normal effort CVS: S1,S2,RRR GI: +BS, NT, no distention Skin: No rash Neuro: motor grossly intact Psych: appropriate affect Objective Data Active Medications Acetaminophen (Acetaminophen 325 Mg Tablet) 650 mg PO Q6H PRN PRN Reason: Pain, Mild (Pain Scale 1-3), fever or headache Last Admin: 10/17/23 19:05 Dose: 650 mg Documented By: MALCOLM Albuterol/Ipratropium (Albuterol/Iprat 2.5/0.5mg 3 Ml Ampul.Neb) 3 ml INHALE RQ4H WHILE AWAKE [facility] Last Admin: 10/17/23 19:18 Dose: 3 ml Documented By: JOE Calcium Carbonate (Calcium Carbonate 750 Mg Tab.Chew) 750 mg PO Q4H PRN PRN Reason: Heartburn Enoxaparin Sodium (Enoxaparin Sodium 40 Mg/0.4 Ml Syringe) 40 mg SUBCUT Q24H [facility] Last Admin: 10/17/23 15:34 Dose: 40 mg Documented By: MALCOLM Magnesium Hydroxide (Milk Of Magnesia 30 Ml Oral.Susp) 30 ml PO DAILY PRN PRN Reason: Constipation Melatonin (Melatonin 3 Mg Tablet) 6 mg PO BEDTIME PRN PRN Reason: Insomnia Methylprednisolone Sodium Succinate (Methylprednisolone Sod Succ 40 Mg/Ml Vial) 40 mg IVPUSH Q12H [facility] Sodium Chloride (0.9 % Sodium Chloride Flush 3 Ml Syringe) 3 ml IVFLUSH QSHIFT [facility] Last Admin: 10/18/23 00:53 Dose: 3 ml Documented By: AGUS Labs 10/18/23 05:42 10/18/23 05:42 Labs: Laboratory Results - last 24 hr 10/17/23 10/17/23 10/17/23 10:35 11:46 12:05 MCV 86.1 MCH 28.3 MCHC 32.8 RDW 16.1 H Plt Count 287 MPV 9.2 L Immature Gran % (Auto) 1.3 H Neut % (Auto) 77.8 H Lymph % (Auto) 5.6 L [place] % (Auto) 14.2 H Eos % (Auto) 0.7 Baso % (Auto) 0.4 Lymph # (Auto) 0.8 L [place] # (Auto) 1.9 H Eos # (Auto) 0.1 Baso # (Auto) 0.1 Abs Immat Gran (auto) 0.18 H Absolute Neuts (auto) 10.6 H Absolute Nucleated RBC 0.000 Nucleated RBC % (auto) 0.0 Smear Tech's Comments VERIFIED Anion Gap 15 Estim Creat Clear Calc 52.9 Estimated GFR > 60 Random Glucose 106 Lactic Acid 1.9 Calcium 9.3 Magnesium Total Bilirubin 1.5 H Direct Bilirubin 0.6 H AST 37 ALT 32 Alkaline Phosphatase 116 Troponin I High Sens 127.6 H* D 123.7 H* B-Natriuretic Peptide 423 H Total Protein 6.3 L Albumin 3.4 L Lipase 12 Urine Color Urine Appearance Urine pH Ur Specific [place] Urine Protein Urine Glucose (UA) Urine Ketones Urine Blood Urine Nitrite Ur Leukocyte Esterase Urine RBC Urine WBC Ur Squamous Epith Cells Urine Bacteria Hyaline Casts Influenza Type A (PCR) NEGATIVE Influenza Type B (PCR) NEGATIVE RSV RNA Qual (PCR) NEGATIVE SARS-CoV-2 RNA (RT-PCR) NEGATIVE 10/17/23 10/18/23 16:31 05:42 MCV 85.6 MCH 28.0 MCHC 32.7 RDW 16.0 Plt Count 293 MPV 9.7 Immature Gran % (Auto) 1.3 H Neut % (Auto) 86.9 H Lymph % (Auto) 3.4 L [place] % (Auto) 8.3 Eos % (Auto) 0.0 Baso % (Auto) 0.1 Lymph # (Auto) 0.5 L [place] # (Auto) 1.2 Eos # (Auto) 0.0 Baso # (Auto) 0.0 Abs Immat Gran (auto) 0.18 H Absolute Neuts (auto) 12.5 H Absolute Nucleated RBC 0.000 Nucleated RBC % (auto) 0.0 Smear Tech's Comments Anion Gap 17 Estim Creat Clear Calc 50.5 Estimated GFR > 60 Random Glucose 127 H Lactic Acid Calcium 9.2 Magnesium 2.5 Total Bilirubin 0.9 Direct Bilirubin AST 50 H ALT 42 H Alkaline Phosphatase 106 Troponin I High Sens B-Natriuretic Peptide 219 H Total Protein 6.7 Albumin 3.4 L Lipase Urine Color Yellow Urine Appearance Clear Urine pH 6.0 Ur Specific [place] 1.025 Urine Protein 30 (1+) H Urine Glucose (UA) Negative Urine Ketones Trace Urine Blood Negative Urine Nitrite Negative Ur Leukocyte Esterase Trace H Urine RBC 0-2 Urine WBC 0-5 Ur Squamous Epith Cells 0-2 Urine Bacteria None Seen Hyaline Casts 0-2 Influenza Type A (PCR) Influenza Type B (PCR) RSV RNA Qual (PCR) SARS-CoV-2 RNA (RT-PCR) Assessment and Plan (1) Elevated troponin: Status: Acute (2) Acute exacerbation of chronic obstructive airways disease: Status: Acute Plan 88 yo m hx asthma, COPD, GERD, HTN, former smoker, NSTEMI ( s/p cardiac cath w/ drug elithing stent at [facility] on May 14 2022), skin cancer, anemai, lung cancer (s/p lobectomy 3 years ago), spinal stenosis presents w/ gradually worsening dyspnea X 1 week acutely worsening today and 1 week LLE swelling. Admission for suspected COPD exacerbation, elevated troponin & elevated BNP . Acute hypoxic respiratory faliure d/t copd exacerbation, CTA negative PE, presence of consolodination -Bronchodilators by Neb -Solu-medrol 40 bid -cough meds -O2 PRN with goal of 88 to 95 -wean off O2 Possible PNA on CT -Ceftriaxone + Azithro 10/17 Elevated troponin, likely type 2 mi d/t demand ischemia, CAD -troponin 127-->123-->100 - Continue asa, plavix and metoprolol BNP elevated likely due to demand/ heart strain, euvolemic and BNP donw LLE swelling, US negative for DVT chronic Anemia, H/H stable Hypertension -Losartan and metoprolol HLD - continue lipitor DVT prophylaxis w/ lovenox Cardiac diet Full code. Patient requires at least 2 inpatient midnights for treatment of COPD, elevated trop and elevated BNP Quality Stroke Does the patient have a stroke diagnosis?: No VTE Prior VTE?: No VTE Risk Level:: Medical - moderate - high VTE Device Contraindication: Treatment Not Indicated VTE Drug Contraindication: N/A - Med Ordered
[2023-10-18] MEDS: Azithromycin 500 MG in 0.9 % Sodium Chloride 250 ML 125 MG IV (08:17)
[2023-10-18] MEDS: Albuterol/Iprat 2.5/0.5MG 3 ML AMPUL.NEB INHALE ×4 (08:35→20:25)
[2023-10-18 08:44] LABS: Adenovirus PCR Not Detected (Not Detect.); Bordetella parapertussis PCR Not Detected (Not Detect.); Bordetella pertussis PCR Not Detected (Not Detect.); Chlamydia pneumoniae PCR Not Detected (Not Detect.); Coronavirus 229E PCR Not Detected (Not Detect.); Coronavirus HKU1 PCR Not Detected (Not Detect.); Coronavirus NL63 PCR Not Detected (Not Detect.); Coronavirus OC43 PCR Not Detected (Not Detect.); Human metapneumovirus PCR Not Detected (Not Detect.); Influenza A PCR Not Detected (Not Detect.); Influenza B PCR Not Detected (Not Detect.); Mycoplasma pneumoniae PCR Not Detected (Not Detect.); Parainfluenza 1 PCR Not Detected (Not Detect.); Parainfluenza 2 PCR Not Detected (Not Detect.); Parainfluenza 3 PCR Not Detected (Not Detect.); Parainfluenza 4 PCR Not Detected (Not Detect.); RSV PCR Not Detected (Not Detect.); Rhino/Enterovirus PCR Not Detected (Not Detect.)
[2023-10-18 08:59] LABS: SARS-CoV-2 PCR Not Detected (Not Detect.)
[2023-10-18 10:05] LABS: Troponin-I High Sensitivity 100.7 ng/L (<3.5-35.0)
[2023-10-18] MEDS: Metoprolol Succinate ER 50 MG TAB.ER.24H PO (10:12)
[2023-10-18] MEDS: Losartan Potassium 50 MG TABLET 100 MG PO (10:13)
[2023-10-18] MEDS: Clopidogrel Bisulfate 75 MG TABLET PO (10:13)
[2023-10-18] MEDS: methylPREDNISolone Sod Succ 40 MG/ML VIAL IVPUSH ×2 (10:14→21:08)
[2023-10-18] MEDS: cefTRIAXone sodium 1 GM in 0.9 % Sodium Chloride 50 ML IV (10:14)
--- NOTE | 2023-10-18 11:50 | MHC.CM.PN ---
PT LIVES WITH THEY HAD NO PREVIOUS SERVIES PT HAS OWN RIDE HOME
--- NOTE | 2023-10-18 12:19 | MHC.CLN ---
RE: CONSULT FOR WT LOSS CURRENT WT 60.9KG (10/17/23) PREVIOUS WT HX 65.6KG (10/05/22) PT WITH 7% NONSIGNIFICANT WT LOSS X 1 YEAR WILL ADD ENSURE BID TO INCREASE KCALS SUPP PROVIDES 700KCALS, 40G PROTEIN MONITOR PO INTAKE AND ENCOURAGE SUPPLEMENT
[2023-10-18] MEDS: Enoxaparin Sodium 40 MG/0.4 ML SYRINGE SUBCUT (17:54)
[2023-10-18] MEDS: Milk of Magnesia 30 ML ORAL.SUSP PO (18:27)
[2023-10-18] MEDS: Tiotropium Bromide 2.5 mcg 1 PUFF/2.5 MCG MIST.INHAL 2 PUFF INHALE (21:12)
[2023-10-18] MEDS: LORazepam 2 MG/ML VIAL 1 MG IVPUSH (22:17)
[2023-10-18] MEDS: Melatonin 3 MG TABLET 6 MG PO (22:17)
--- NOTE | 2023-10-18 23:48 | PC.NURSE ---
tele monitor placed on pt, pt refused and seems confused at this time, but this RN reassured pt that it is for his safety. Tele in place.
[2023-10-19] VITALS (9 sets, daily range): BP systolic 133–153; BP diastolic 72–80; PULSE 90–114; RESP 18–22; TEMP 36.2–36.9; O2SAT 78–96
--- NOTE | 2023-10-19 02:52 | PC.NURSE ---
Pt seems increasingly more confused as the night goes on. Pt attempted to get out of bed, alerted by camera of pt getting up, pt found covered in blood after pulling IV out, and pulling tele off along with NC. Pt reoriented to hospital environment, and informed to keep oxygen and tele on. Rounder standing near room at this time.
[2023-10-19] MEDS: Pantoprazole Sodium 20 MG TABLET.DR 40 MG PO (05:30)
--- OUTSIDE RECORDS SUMMARY | 2023-10-19 07:41 | XMS_ITS | Continuity of Care Document ---
Author Organization [facility] Address [address] [place] [address]- Care Team Providers Care End Packer Name Role Phone Kevin Ochoa MD Primary Care Physician [phone] Encounter [facility] Date(s): 11/11/22 - 12/11/22 [facility] [address] [place] [address]- Allergies, Adverse Reactions, Alerts No Known Allergies Immunizations Given and Recorded Vaccine Date Status Refusal Reason [id number] bivalent booster vax 01/07/22 Recorded SARS-CoV-2 (COVID-19) mRNA-1273 vaccine 06/02/21 R ecorded SARS-CoV-2 (COVID-19) mRNA-1273 vaccine 10/28/20 R ecorded SARS-CoV-2 (COVID-19) mRNA-1273 vaccine 05/08/20 R ecorded SARS-CoV-2 (COVID-19) mRNA-1273 vaccine 04/10/20 R ecorded Medications aspirin 81 mg oral delayed release tablet 81 mg, By Mouth, Daily, # 30 tablet, Refills 0, Tot. Refills 0, Maintenance, 05/16/22 11:28:00 EDT,Route to Pharmacy Electronically, [facility], Partial fill upon patient request if the prescription is for a schedule II opioid drug., 175, cm... Start Date: 05/16/22 Status: Ordered Cozaar 100 mg oral tablet 1 tablet = 100 mg, By Mouth, Daily, # 90 tablet, 1 Refills, Maintenance, 05/16/22 9:50:00 EDT, Tablet, [facility], Partial fill upon patient request if the prescription is for a schedule II opioid drug., 175, cm, 05/16/22 7:38:00 EDT, H... Start Date: 05/16/22 Status: Ordered Lipitor 40 mg oral tablet 1 tablet = 40 mg, By Mouth, Daily at bedtime, # 30 tablet, 0 Refills, Maintenance, 05/16/22 11:28:00 EDT, Tablet, [facility], Partial fill upon patient request if the prescription is for a schedule II opioid drug., 175, cm, 05/16/22 7:38:00 E... Start Date: 05/16/22 Status: Ordered metoprolol 50 mg oral tablet, extended release 50 mg, 1, tablet, By Mouth, Daily, # 30 tablet, Refills 0, Tot. Refills 0, Maintenance, 05/16/22 11:29:00 EDT, Route to Pharmacy Electronically, [facility], Partial fill upon patient requestif the prescription is for a schedule II opioid derek... Start Date: 05/16/22 Status: Ordered metroNIDAZOLE 0.75% topical cream 1 application, Topically, 2 times a day, PRN Rash, # 45 Gm, 0 Refills, Maintenance, 05/13/22 22:02:00 EDT, Cream, Partial fill upon patient request if the prescription is for a schedule II opioid drug. Start Date: 05/13/22 Status: Ordered Plavix 75 mg oral tablet 75 mg, 1, tablet, By Mouth, Daily, # 30 tablet, Refills 0, Tot. Refills 0, Maintenance, 05/16/22 11:28:00 EDT, Route to Pharmacy Electronically, [facility], Partial fill upon patient requestif the prescription is for a schedule II opioid derek... Start Date: 05/16/22 Status: Ordered Prilosec OTC 20 mg oral enteric coated tablet 1 tablet = 20 mg, By Mouth, Daily, START AFTER THE 8 WEEKS OF 2XDAY DOSING, # 30 tablet, 11 Refills, Maintenance Start Date: 04/04/12 Stop Date: 03/30/13 Status: Ordered Spiriva = 18 mcg, Inhalation, Daily, 0 Refills, Maintenance, 05/13/22 22:04:00 EDT, Partial fill upon patient request if the prescription is for a schedule II opioid drug. Start Date: 05/13/22 Status: Ordered Wixela Inhub 500 mcg-50 mcg inhalation powder 1 inhalation, Inhalation, 2 times a day, rinse mouth and throat after use, 0 Refills, Maintenance, 01/12/21 9:55:00 EST, Powder, Partial fill upon patient request if the prescription is for a schedule II opioid drug. Start Date: 01/12/21 Status: Ordered Social History Social History Type Response Smoking Status Former smoker, quit more than 30 days ago entered on: 11/17/22 Sex Patient Care team information Care Team Personnel Name: Kevin Ochoa MD Position: [facility] Outreach Member Role: PCP Address: Address: [address] [place] [address]- Care Team Related Persons Name: JOSE BULLARD Address: home [address] [place] [address] Name: RIKKI BULLARD Address: home [address] [place] [address]
--- OUTSIDE RECORDS SUMMARY | 2023-10-19 07:41 | XMS_ITS ---
Author Organization [facility] Address [address] [place] [address] Care Team Providers Care Shoulder Boner Name Role Phone Kevin Ochoa MD Primary Care Provider Unavaila Soto Jones Jr Unavailable REASON FOR VISIT FYI Encounters Encounter Location Date Provider Diagnosis [facility] [address] [place] [address] 07/06/2022 Soto Latham Jr PLAN OF TREATMENT No Information
--- OUTSIDE RECORDS SUMMARY | 2023-10-19 07:41 | XMS_ITS | Continuity of Care Document ---
Author Organization [facility] Address [address] [place] [address]- Care Team Providers Care Turbine Attendant Name Role Phone Kevin Ochoa MD Primary Care Physician Encounter [facility] Date(s): 11/17/22 - 12/17/22 [facility] [address] [place], [place] [id number]- Attending Physician: AdmKamala gutierrez Admitting Physician: AdmtrKamala Referring Physician: Admtr, Juan David8 Allergies, Adverse Reactions, Alerts No Known Allergies Immunizations Given and Recorded Vaccine Date Status Refusal Reason [id number] bivalent booster vax 01/07/22 Recorded SARS-CoV-2 (COVID-19) mRNA-1273 vaccine 06/02/21 R ecorded SARS-CoV-2 (COVID-19) mRNA-1273 vaccine 10/28/20 R ecorded SARS-CoV-2 (COVID-19) mRNA-1273 vaccine 05/08/20 R ecorded SARS-CoV-2 (COVID-19) mRNA-1273 vaccine 04/10/20 R ecorded Medications aspirin 81 mg oral delayed release tablet 81 mg, By Mouth, Daily, # 30 tablet, Refills 0, Tot. Refills 0, Maintenance, 05/16/22 11:28:00 EDT,Route to Pharmacy Electronically, [facility], Partial fill upon patient request if the prescription is for a schedule II opioid drug., 175, cm... Start Date: 05/16/22 Status: Ordered Cozaar 100 mg oral tablet 1 tablet = 100 mg, By Mouth, Daily, # 90 tablet, 1 Refills, Maintenance, 05/16/22 9:50:00 EDT, Tablet, [facility], Partial fill upon patient request if [...] 05/16/22 11:28:00 EDT, Route to Pharmacy Electronically, [facility], Partial fill upon [...] Team Personnel Name: Kevin Ochoa MD Position: [facility] Outreach Member Role: PCP Address: Address: [address] [place] [address] [place] [address]- Care Team Related Persons Name: JOSE BULLARD Address: [address] [place] [address] Name: RIKKI BULLARD Address: home [address] [place] [address]
--- OUTSIDE RECORDS SUMMARY | 2023-10-19 07:41 | XMS_ITS | Patient Health Record ---
Author Organization [facility] Address [address] [place] [address] Care Team Providers Care Supercalender Operator Helper Name Role Phone Kevin Ochoa MD Primary Care Provider Unavaila Soto Jones Jr Unavailable REASON FOR REFERRAL No Information SOCIAL HISTORY Sex Assigned At : Social History Observation Description Sex Assigned At Unknown PROBLEMS Problem Type ICD Code Onset Dates Problem Status W/U Status Risk SNOMED Code Notes Problem Diverticulosis of large intestine without perforation or abscess without bleeding (K57.30) Active confirmed Diverticul ar disease of colon (066525986) PLAN OF TREATMENT No Information Insurance Providers Payer Name Payer Address Payer Phone Subscriber Number Group Number Insured Name Patient Relationship to Insured Coverage Start Date Coverage End Date MEDICARE OF [place] [address] [place] [address] [id number] NICK BULLARD Self - patient is the insured [employer] ATT[employer] CLAIMS [address] [place] [address] [phone] [id number] NICK BULLARD Self - patient is the insured
--- OUTSIDE RECORDS SUMMARY | 2023-10-19 07:41 | XMS_ITS | Continuity of Care Document ---
Author Organization [facility] Address [address] [place] [address]- Care Team Providers Care Insurance Verifier Name Role Phone Kevin Ochoa MD Primary Care Physician Encounter [facility] Date(s): 11/11/22 - 12/11/22 [facility] [address] [place] [address]- Allergies, Adverse Reactions, Alerts No Known Allergies Immunizations Given and Recorded Vaccine Date Status Refusal Reason [id number] bivalent booster vax 01/07/22 Recorded SARS-CoV-2 (COVID-19) mRNA-1273 vaccine 06/02/21 R ecorded SARS-CoV-2 (COVID-19) mRNA-1273 vaccine 10/28/20 R ecorded SARS-CoV-2 (COVID-19) mRNA-1273 vaccine 05/08/20 R ecorded SARS-CoV-2 (COVID-19) mRNA-1273 vaccine 04/10/20 R ecorded Medications aspirin 81 mg oral delayed release tablet 81 mg, By Mouth, Daily, # 30 tablet, Refills 0, Tot. Refills 0, Maintenance, 05/16/22 11:28:00 EDT,Route to Pharmacy Electronically, [facility], Partial fill upon patient request if the prescription is for a schedule II opioid drug., 175, cm... Start Date: 05/16/22 Status: Ordered Cozaar 100 mg oral tablet 1 tablet = 100 mg, By Mouth, Daily, # 90 tablet, 1 Refills, Maintenance, 05/16/22 9:50:00 EDT, Tablet, [facility], Partial fill upon patient request if [...] team information Care Team Personnel Name: Kevin Ocoha MD Position: [facility] Outreach Member Role: PCP Address: Address: [address] [facility] [place] [address]- Care Team Related Persons Name: JOSE BULLARD Address: home [address] [place] [address] Name: RIKKI BULLARD Address: [address] [place] [address]
--- OUTSIDE RECORDS SUMMARY | 2023-10-19 07:41 | XMS_ITS ---
Author Organization [facility] Address [address] [place] [address] Care Team Providers Care Components Engineer Name Role Phone Kevin Ochoa MD Primary Care Provider Unavaila Soto Jones Jr Unavailable [phone] REASON FOR VISIT pathology Encounters Encounter Location Date Provider Diagnosis [facility] [address] [place] [address] 06/17/2022 Soto Latham Jr PLAN OF TREATMENT No Information
--- OUTSIDE RECORDS SUMMARY | 2023-10-19 07:41 | XMS_ITS ---
Author Organization [facility] Address [address] [place] [address] Care Team Providers Care Construction Quality Control Manager Name Role Phone Kevin Ochoa MD Primary Care Provider Unavaila Soto Jones Jr Unavailable Encounters Encounter Location Date Provider Diagnosis [facility] [address] [place] [address] 08/25/2022 Soto Latham Jr PLAN OF TREATMENT No Information
[2023-10-19] MEDS: Fluticasone/Vilanterol 100/25 BLST.W.DEV 1 PUFF INHALE (08:11)
[2023-10-19] MEDS: Albuterol/Iprat 2.5/0.5MG 3 ML AMPUL.NEB INHALE ×3 (08:15→19:48)
[2023-10-19] MEDS: Azithromycin 500 MG in 0.9 % Sodium Chloride 250 ML 125 MG IV (08:39)
[2023-10-19] MEDS: methylPREDNISolone Sod Succ 40 MG/ML VIAL IVPUSH ×2 (08:41→19:39)
[2023-10-19] MEDS: Clopidogrel Bisulfate 75 MG TABLET PO (08:42)
[2023-10-19] MEDS: Atorvastatin Calcium 40 MG TABLET PO (08:42)
[2023-10-19] MEDS: Losartan Potassium 50 MG TABLET 100 MG PO (08:42)
[2023-10-19] MEDS: Metoprolol Succinate ER 50 MG TAB.ER.24H PO (08:42)
[2023-10-19] MEDS: 0.9 % Sodium Chloride Flush 3 ML SYRINGE IVFLUSH ×2 (08:44→16:20)
--- NOTE | 2023-10-19 09:10 | P.PNIM_ITS ---
Subjective Subjective Date of Service: 10/19/23 Interval History: f/u on acute hypoxic respiratory failure d/t copd exacerbation interval history:he remains on oxygen, O2 saturation seems better, he is a bit confused and has sitter overnight but is much better this morning Physical Exam 2 Vital Signs: Vital Signs: Last Vital Signs Temp 98.4 F 10/19/23 07:44 Pulse 99 10/19/23 08:15 Resp 18 10/19/23 08:15 BP 147/72 H 10/19/23 08:42 Pulse Ox 96 10/19/23 07:44 O2 Del Method Nasal Cannula 10/19/23 07:44 O2 Flow Rate 5 10/19/23 07:44 Oxygen Flow Rate 6 10/17/23 10:06 BMI result Body Mass Index 19.3 General: AO X 3, no acute distress Resp: slightly dimished lungs sound o/w normal effort CVS: S1,S2,RRR GI: +BS, NT, no distention Skin: No rash Neuro: motor grossly intact Psych: appropriate affect Objective Data Active Medications Acetaminophen (Acetaminophen 325 Mg Tablet) 650 mg PO Q6H PRN PRN Reason: Pain, Mild (Pain Scale 1-3), fever or headache Last Admin: 10/17/23 19:05 Dose: 650 mg Documented By: MALCOLM Albuterol/Ipratropium (Albuterol/Iprat 2.5/0.5mg 3 Ml Ampul.Neb) 3 ml INHALE RQ4H WHILE AWAKE [facility] Last Admin: 10/19/23 08:15 Dose: 3 ml Documented By: SHAQ Atorvastatin Calcium (Atorvastatin Calcium 40 Mg Tablet) 40 mg PO DAILY [facility] Last Admin: 10/19/23 08:42 Dose: 40 mg Documented By: JOSE Calcium Carbonate (Calcium Carbonate 750 Mg Tab.Chew) 750 mg PO Q4H PRN PRN Reason: Heartburn Clopidogrel Bisulfate (Clopidogrel Bisulfate 75 Mg Tablet) 75 mg PO DAILY [facility] Last Admin: 10/19/23 08:42 Dose: 75 mg Documented By: JOSE Enoxaparin Sodium (Enoxaparin Sodium 40 Mg/0.4 Ml Syringe) 40 mg SUBCUT Q24H [facility] Last Admin: 10/18/23 17:54 Dose: 40 mg Documented By: DOBROCarmina Fluticasone/Vilanterol (Fluticasone/Vilanterol 100/25 Blst.W.Dev) 1 puff INHALE RDAILY [facility] Last Admin: 10/19/23 08:11 Dose: 1 puff Documented By: SHAQ Ceftriaxone Sodium 1 gm/ (Sodium Chloride) 50 mls @ 100 mls/hr IV Q24H [facility] Last Infusion: 10/18/23 11:34 Dose: Infused Documented By: NYA Azithromycin 500 mg/ Sodium (Chloride) 250 mls @ 125 mls/hr IV Q24H [facility] Last Admin: 10/19/23 08:39 Dose: 125 mls/hr Documented By: JOSE Losartan Potassium (Losartan Potassium 50 Mg Tablet) 100 mg PO DAILY [facility]; Protocol Last Admin: 10/19/23 08:42 Dose: 100 mg Documented By: JOSE Magnesium Hydroxide (Milk Of Magnesia 30 Ml Oral.Susp) 30 ml PO DAILY PRN PRN Reason: Constipation Last Admin: 10/18/23 18:27 Dose: 30 ml Documented By: NYA Melatonin (Melatonin 3 Mg Tablet) 6 mg PO BEDTIME PRN PRN Reason: Insomnia Last Admin: 10/18/23 22:17 Dose: 6 mg Documented By: PAT Methylprednisolone Sodium Succinate (Methylprednisolone Sod Succ 40 Mg/Ml Vial) 40 mg IVPUSH Q12H [facility] Last Admin: 10/19/23 08:41 Dose: 40 mg Documented By: JOSE Metoprolol Succinate (Metoprolol Succinate Er 50 Mg Tab.Er.24h) 50 mg PO DAILY [facility]; Protocol Last Admin: 10/19/23 08:42 Dose: 50 mg Documented By: JOSE Pantoprazole Sodium (Pantoprazole Sodium 20 Mg Tablet.Dr) 40 mg PO DAILY@0630 [facility] Last Admin: 10/19/23 05:30 Dose: 40 mg Documented By: PAT Sodium Chloride (0.9 % Sodium Chloride Flush 3 Ml Syringe) 3 ml IVFLUSH QSHIFT [facility] Last Admin: 10/19/23 08:44 Dose: 3 ml Documented By: JOSE Tiotropium [place] (Tiotropium [place] 2.5 Mcg 1 Puff/2.5 Mcg Mist.Inhal) 2 puff INHALE BEDTIME [facility] Last Admin: 10/18/23 21:12 Dose: 2 puff Documented By: VIKKI Labs 10/18/23 05:42 10/18/23 05:42 Labs: Laboratory Results - last 24 hr 10/18/23 08:39 Troponin I High Sens 100.7 H* Microbiology Microbiology Results: Microbiology 10/17/23 11:46 Blood Culture - Preliminary Blood - Venous No growth after 24 hours. 10/17/23 10:34 Blood Culture - Preliminary Blood - Venous No growth after 24 hours. Assessment and Plan (1) Elevated troponin: Status: Acute (2) Acute exacerbation of chronic obstructive airways disease: Status: Acute Plan 88 yo m hx asthma, COPD, GERD, HTN, former smoker, NSTEMI ( s/p cardiac cath w/ drug el[place]ing [place] [facility] [place] skin cancer, anemai, lung cancer (s/p lobectomy 3 years ago), spinal stenosis presents w/ gradually worsening dyspnea X 1 week acutely worsening today and 1 week LLE swelling. Admission for suspected COPD exacerbation, elevated troponin & elevated BNP . Acute hypoxic respiratory faliure d/t copd exacerbation, CTA negative PE, presence of consolodination -Bronchodilators by Neb -Solu-medrol 40 bid -cough meds -O2 PRN with goal of 88 to 95 -wean off O2 Possible PNA on CT -Ceftriaxone + Azithro 10/17 Elevated troponin, likely type 2 mi d/t demand ischemia, CAD -troponin 127-->123-->100 - Continue asa, plavix and metoprolol confusion overnight d/t delirium---better, reorient frequently, avoid potential that can make it worse BNP elevated likely due to demand/ heart strain, euvolemic and BNP donw LLE swelling, US negative for DVT chronic Anemia, H/H stable Hypertension -Losartan and metoprolol HLD - continue lipitor DVT prophylaxis w/ lovenox Cardiac diet Full code. dispo: pt eval to decide Patient requires at least 2 inpatient midnights for treatment of COPD, elevated trop and elevated BNP Quality Stroke Does the patient have a stroke diagnosis?: No VTE Prior VTE?: No VTE Risk Level:: Medical - moderate - high VTE Device Contraindication: Treatment Not Indicated VTE Drug Contraindication: N/A - Med Ordered
[2023-10-19 10:25] LABS: Hematocrit 37.5 % (42.0-52.0); Hemoglobin 11.8 g/dl (14.0-18.0); Mean Corpuscular HGB Conc 31.5 g/dl (31.0-36.0); Mean Corpuscular Hemoglobin 27.4 pg (27.0-33.0); Mean Corpuscular Volume 87.2 fL (80.0-98.0); Mean Platelet Volume 9.3 fL (9.4-12.4); Platelet Count 364 X10*3/uL (160-400); Red Cell Distribution Width 16.5 % (11.0-16.0); White Blood Count 21.6 X10*3/uL (4.8-10.8)
[2023-10-19 10:35] LABS: Anion Gap 13 (12-20); Blood Urea Nitrogen 40 mg/dL (9-16); Calcium 9.4 mg/dL (8.4-10.2); Carbon Dioxide 21 mmol/L (22-29); Chloride 107 mmol/L (96-108); Creatinine Clr Calc Pharmacy 47.7; Estimated Glomerular Filt Rate > 60; Glucose Random 184 mg/dL (60-115); Potassium 4.4 mmol/L (3.3-5.1); Sodium 137 mmol/L (135-145)
[2023-10-19] MEDS: cefTRIAXone sodium 1 GM in 0.9 % Sodium Chloride 50 ML IV (10:48)
[2023-10-19] MEDS: Milk of Magnesia 30 ML ORAL.SUSP PO (12:20)
[2023-10-19] MEDS: Enoxaparin Sodium 40 MG/0.4 ML SYRINGE SUBCUT (16:20)
--- NOTE | 2023-10-19 16:29 | MHC.CM.PN ---
PT REC STR, REFERRALS PLACED, SPOKE WITH PT AND FAMILY, LIST OF THE 3 INPATIENT PULMONARY REHABS GIVEN TO PTS SON.
[2023-10-19] MEDS: Trolamine Salicylate 10 % Cream 85 GM TUBE 1 APPL TOPICAL (18:00)
[2023-10-19] MEDS: Melatonin 3 MG TABLET 6 MG PO (22:23)
[2023-10-20] MEDS: 0.9 % Sodium Chloride Flush 3 ML SYRINGE IVFLUSH ×2 (00:05→07:47)
[2023-10-20 03:07] VITALS: BP 144/67; PULSE 93; RESP 16; TEMP 36.1; O2SAT 93
--- NOTE | 2023-10-20 03:23 | PC.NURSE ---
pt found with out NC on, with SpO2 in the 80s, oxy mask placed on pt till O2 came up to 90-95%. NC put back on, reinforced the importance of keeping oxygen on. Pt satting at 95% on 3.5 L NC
[2023-10-20] MEDS: Pantoprazole Sodium 20 MG TABLET.DR 40 MG PO (05:39)
[2023-10-20] MEDS: Albuterol/Iprat 2.5/0.5MG 3 ML AMPUL.NEB INHALE ×2 (07:24→11:48)
[2023-10-20] MEDS: Fluticasone/Vilanterol 100/25 BLST.W.DEV 1 PUFF INHALE (07:24)
[2023-10-20 07:27] VITALS: PULSE 95; RESP 20; O2SAT 93
[2023-10-20 07:53] VITALS: BP 163/72; PULSE 100; RESP 18; TEMP 36.7; O2SAT 3
[2023-10-20] MEDS: Clopidogrel Bisulfate 75 MG TABLET PO (07:53)
[2023-10-20] MEDS: Metoprolol Succinate ER 50 MG TAB.ER.24H PO (07:53)
[2023-10-20] MEDS: Azithromycin 500 MG in 0.9 % Sodium Chloride 250 ML 125 MG IV (07:53)
[2023-10-20] MEDS: methylPREDNISolone Sod Succ 40 MG/ML VIAL IVPUSH (07:53)
[2023-10-20] MEDS: Losartan Potassium 50 MG TABLET 100 MG PO (07:54)
[2023-10-20] MEDS: Atorvastatin Calcium 40 MG TABLET PO (07:54)
--- NOTE | 2023-10-20 09:53 | HO.PM.IMPN ---
Subjective Subjective Date of Service: 10/20/23 Interval History: pt is doing better, less confused, vital stable, breathing comfortable Physical Exam Vital Signs: Vital Signs: Last Vital Signs Temp 98.1 F 10/20/23 07:53 Pulse 100 10/20/23 07:53 Resp 18 10/20/23 07:53 BP 163/72 H 10/20/23 07:53 Pulse Ox 3 L 10/20/23 07:53 O2 Del Method Nasal Cannula 10/20/23 07:53 O2 Flow Rate 5 10/20/23 03:07 Oxygen Flow Rate 6 10/17/23 10:06 BMI result Body Mass Index 19.3 General: AO X 3, no acute distress Resp: slightly dimished lungs sound o/w normal effort CVS: S1,S2,RRR GI: +BS, NT, no distention Skin: No rash Neuro: motor grossly intact Psych: appropriate affect Objective Data Active Medications Acetaminophen (Acetaminophen 325 Mg Tablet) 650 mg PO Q6H PRN PRN Reason: Pain, Mild (Pain Scale 1-3), fever or headache Last Admin: 10/17/23 19:05 Dose: 650 mg Documented By: MALCOLM Albuterol/Ipratropium (Albuterol/Iprat 2.5/0.5mg 3 Ml Ampul.Neb) 3 ml INHALE RQ4H WHILE AWAKE [facility] Last Admin: 10/20/23 07:24 Dose: 3 ml Documented By: RALEIGH Atorvastatin Calcium (Atorvastatin Calcium 40 Mg Tablet) 40 mg PO DAILY [facility] Last Admin: 10/20/23 07:54 Dose: 40 mg Documented By: JOSE Calcium Carbonate (Calcium Carbonate 750 Mg Tab.Chew) 750 mg PO Q4H PRN PRN Reason: Heartburn Clopidogrel Bisulfate (Clopidogrel Bisulfate 75 Mg Tablet) 75 mg PO DAILY [facility] Last Admin: 10/20/23 07:53 Dose: 75 mg Documented By: JOSE Enoxaparin Sodium (Enoxaparin Sodium 40 Mg/0.4 Ml Syringe) 40 mg SUBCUT Q24H [facility] Last Admin: 10/19/23 16:20 Dose: 40 mg Documented By: JOSE Fluticasone/Vilanterol (Fluticasone/Vilanterol 100/25 Blst.W.Dev) 1 puff INHALE RDAILY [facility] Last Admin: 10/20/23 07:24 Dose: 1 puff Documented By: RALEIGH Azithromycin 500 mg/ Sodium (Chloride) 250 mls @ 125 mls/hr IV Q24H [facility] Last Admin: 10/20/23 07:53 Dose: 125 mls/hr Documented By: JOSE Ceftriaxone Sodium 1 gm/ (Sodium Chloride) 50 mls @ 100 mls/hr IV Q24H [facility] Last Infusion: 10/19/23 11:27 Dose: Infused Documented By: HAROLDO Losartan Potassium (Losartan Potassium 50 Mg Tablet) 100 mg PO DAILY [facility]; Protocol Last Admin: 10/20/23 07:54 Dose: 100 mg Documented By: JOSE Magnesium Hydroxide (Milk Of Magnesia 30 Ml Oral.Susp) 30 ml PO DAILY PRN PRN Reason: Constipation Last Admin: 10/19/23 12:20 Dose: 30 ml Documented By: JOSE Melatonin (Melatonin 3 Mg Tablet) 6 mg PO BEDTIME PRN PRN Reason: Insomnia Last Admin: 10/19/23 22:23 Dose: 6 mg Documented By: PAT Methylprednisolone Sodium Succinate (Methylprednisolone Sod Succ 40 Mg/Ml Vial) 40 mg IVPUSH Q12H [facility] Last Admin: 10/20/23 07:53 Dose: 40 mg Documented By: JOSE Metoprolol Succinate (Metoprolol Succinate Er 50 Mg Tab.Er.24h) 50 mg PO DAILY [facility]; Protocol Last Admin: 10/20/23 07:53 Dose: 50 mg Documented By: JOSE Pantoprazole Sodium (Pantoprazole Sodium 20 Mg Tablet.) 40 mg PO DAILY@0630 [facility] Last Admin: 10/20/23 05:39 Dose: 40 mg Documented By: PAT Sodium Chloride (0.9 % Sodium Chloride Flush 3 Ml Syringe) 3 ml IVFLUSH QSHIFT [facility] Last Admin: 10/20/23 07:47 Dose: 3 ml Documented By: JOSE Tiotropium [place] (Tiotropium [place] 2.5 Mcg 1 Puff/2.5 Mcg Mist.Inhal) 2 puff INHALE BEDTIME [facility] Last Admin: 10/19/23 19:53 Dose: Not Given Documented By: ANGELITA Non-Admin Reason: Patient Refused Trolamine Salicylate (Trolamine Salicylate 10 % Cream 85 Gm Tube) 1 appl TOPICAL Q12H PRN; Protocol PRN Reason: muscle pain Last Admin: 10/19/23 18:00 Dose: 1 appl Documented By: JOSE Labs 10/19/23 09:55 10/19/23 09:54 Labs: Laboratory Results - last 24 hr 10/19/23 10/19/23 09:54 09:55 MCV 87.2 MCH 27.4 MCHC 31.5 RDW 16.5 H Plt Count 364 MPV 9.3 L Absolute Nucleated RBC 0.000 Nucleated RBC % (auto) 0.0 Anion Gap 13 Estim Creat Clear Calc 47.7 Estimated GFR > 60 Random Glucose 184 H Calcium 9.4 Microbiology Microbiology Results: Microbiology 10/17/23 11:46 Blood Culture - Preliminary Blood - Venous No growth after 48 hours. 10/17/23 10:34 Blood Culture - Preliminary Blood - Venous No growth after 48 hours. Assessment and Plan (1) Elevated troponin: Status: Acute (2) Acute exacerbation of chronic obstructive airways disease: Status: Acute Plan 88 yo m hx asthma, COPD, GERD, HTN, former smoker, NSTEMI ( s/p cardiac cath w/ drug elithing stent at [facility] [place] on May 14 2022), skin cancer, anemai, lung cancer (s/p lobectomy 3 years ago), spinal stenosis presents w/ gradually worsening dyspnea X 1 week acutely worsening today and 1 week LLE swelling. Admission for suspected COPD exacerbation, elevated troponin & elevated BNP . Acute hypoxic respiratory faliure d/t copd exacerbation, CTA negative PE, presence of consolodination -Bronchodilators by Neb -change to PO steroid -cough meds -O2 PRN with goal of 88 to 95 -wean off O2 -home O2 eval Possible PNA on CT -Ceftriaxone + Azithro 10/17 Elevated troponin, likely type 2 mi d/t demand ischemia, CAD -troponin 127-->123-->100 - Continue asa, plavix and metoprolol confusion overnight d/t delirium---better, reorient frequently, avoid potential that can make it worse BNP elevated likely due to demand/ heart strain, euvolemic and BNP donw LLE swelling, US negative for DVT chronic Anemia, H/H stable Hypertension -Losartan and metoprolol HLD - continue lipitor DVT prophylaxis w/ lovenox Cardiac diet Full code. dispo: pt eval to decide Patient requires at least 2 inpatient midnights for treatment of COPD, elevated trop and elevated BNP Quality Stroke Does the patient have a stroke diagnosis?: No VTE Prior VTE?: No VTE Risk Level:: Medical - moderate - high VTE Device Contraindication: Treatment Not Indicated VTE Drug Contraindication: N/A - Med Ordered
[2023-10-20] MEDS: cefTRIAXone sodium 1 GM in 0.9 % Sodium Chloride 50 ML IV (10:17)
--- NOTE | 2023-10-20 10:17 | P.DS_ITS ---
DS: Providers Provider Date of Service: 10/20/23 Date of admission: 10/17/23 23:06 Date of discharge: 10/20/23 Primary care physician: Kevin Ochoa MD DS: Diagnosis Discharge Diagnosis (1) Elevated troponin: Status: Acute (2) Acute exacerbation of chronic obstructive airways disease: Status: Acute DS: Summary Hospital Course Hospital Course: hospital course 88 yo male with history of asthma and COPD, GERD, HTN, former smoker, NSTEMI ( s/p cardiac cath w/ drug elithing stent at [facility] [place] on May 14 2022), skin cancer, anemai, lung cancer (s/p lobectomy 3 years ago), spinal stenosis presents w/ gradually worsening dyspnea over 1 week acutely worsening today and 1 week LLE swelling. He was hypoxic in the ED and initiated on suplmental oxygen. He had a CXR showing no pneumonia, yet a CT of chest show infilatrate consitent with pneumonia and exlucded pulmonoary embolism. He was initated on IV steroid and bronchodilators by Neb and admitted. Acute hypoxic respiratory faliure d/t copd exacerbation. He was treated with bronchodilators by Neb, IV steroid which will changed to oral Predniosne for 5 more days. Will continue bronchodilators by Neb and to use oxgyen as needed with goal of O2 sat 88 to 94% Pneumonia on CT- He was treated with Ceftriaxone + Azithro staring on 10/17 and willchanged to cefuroxime for a total of 7 days of antibiotics. His initially WBC was 13 but has gone up to 21 due to steroid. He is afebrile. Elevated troponin, likely type 2 mi due to demand ischemia or type 2 mI, CAD - to Continue asa, plavix and metoprolol Leukocytosis due to steroid, repeat CBC after completing steroid confusion overnight d/t delirium---due to situational delirium and has resolved. Lung Cancer to follow up with his oncologist is previously planned BNP elevated likely due to demand/ heart strain, euvolemic and BNP is down LLE swelling, US negative for DVT chronic Anemia, H/H stable Hypertension - to continue Losartan and metoprolol HLD - continue lipitor Dispo: to short term rehab per PT Time Attestation Discharge Coordination Time (in mins): 45 Quality: Safe Use of Opioids Does Pt have an Active Cancer Diagnosis on the Problem List?: Yes Opioid Measure Date for CMS Report: 09/25/23 Opioid Measure Time for [facility] Report: 09:43 Quality: Stroke Does the patient have a stroke diagnosis?: No Physical Exam Vital Signs: Vital Signs: Last Vital Signs Temp 98.1 F 10/20/23 07:53 Pulse 100 10/20/23 07:53 Resp 18 10/20/23 07:53 BP 163/72 H 10/20/23 07:53 Pulse Ox 3 L 10/20/23 07:53 O2 Del Method Nasal Cannula 10/20/23 07:53 O2 Flow Rate 5 10/20/23 03:07 Oxygen Flow Rate 6 10/17/23 10:06 BMI result Body Mass Index 19.3 General: AO X 3, no acute distress Resp: slightly dimished lungs sound o/w normal effort CVS: S1,S2,RRR GI: +BS, NT, no distention Skin: No rash Neuro: motor grossly intact Psych: appropriate affect DS: Data Data Completed and Pending Completed studies during hospitalization [Text1]: Procedures Excision of Cecum, Via Natural or Artificial Opening Endoscopic, Diagnostic (06/08/22) Inspection of Upper Intestinal Tract, Via Natural or Artificial Opening Endoscopic (06/08/22) Transfusion of Nonautologous Red Blood Cells into Peripheral Vein, Percutaneous Approach (06/08/22) Labs on day of discharge: Laboratory Results - last 24 hr 10/19/23 10/19/23 09:54 09:55 WBC 21.6 H RBC 4.30 L Hgb 11.8 L Hct 37.5 L MCV 87.2 MCH 27.4 MCHC 31.5 RDW 16.5 H Plt Count 364 MPV 9.3 L Absolute Nucleated RBC 0.000 Nucleated RBC % (auto) 0.0 Sodium 137 Potassium 4.4 Chloride 107 Carbon Dioxide 21 L Anion Gap 13 BUN 40 H Creatinine 0.87 Estim Creat Clear Calc 47.7 Estimated GFR > 60 Random Glucose 184 H Calcium 9.4 Preliminary micro results at discharge 10/17/23 11:46 Blood Culture - Preliminary Blood - Venous No growth after 48 hours. 10/17/23 10:34 Blood Culture - Preliminary Blood - Venous No growth after 48 hours. Discharge Plan Discharge Anticipated Discharge Date/Time: 10/20/23 10:31 Patient Disposition: [facility] Discharge Diagnosis: COPD exacerbation, Pneumonia [facility]errals[facility] [Outside] - 1 Week Kevin Ochoa MD [Primary Care Provider] - 1 Week Discharge Medications: New ipratropium-albuterol 0.5 mg-3 mg(2.5 mg base)/3 mL Solution For Nebulization 3 ml inhalation RQ4H WHILE AWAKE Qty: 90 0RF cefuroxime axetil 500 mg tablet 500 mg PO BID 7 Days Qty: 14 0RF prednisone 20 mg Tablet 20 mg PO DAILY Qty: 5 0RF Continued omeprazole 20 mg Capsule,Delayed Release(Dr/Ec) 40 mg PO DAILY@0630 losartan 100 mg Tablet 100 mg PO DAILY clopidogrel 75 mg Tablet 75 mg PO DAILY Qty: 1 0RF Spiriva Respimat 2.5 mcg/actuation mist 2 puff inhalation DAILY fluticasone propion-salmeterol [Wixela Inhub] 250-50 mcg/dose blister with device 1 inh inhalation BID 30 Days Qty: 60 5RF atorvastatin 40 mg tablet 20 mg PO DAILY metoprolol succinate 50 mg tablet extended release 24 hr 50 mg PO DAILY No Action carboxymethylcellulose sodium 1 % Drops, Liquid Gel 1 drp OPHTHALMIC (EYE) BEDTIME PRN (Reason: Dry Eyes) polyethylene glycol 400 0.25 % Drops,Gel 1 drp OPHTHALMIC (EYE) BEDTIME PRN (Reason: Dry Eye(S)) albuterol sulfate 90 mcg/actuation Hfa Aerosol Inhaler 2 puff INHALATION DAILY PRN (Reason: Wheezing/SOB) metronidazole 0.75 % Gel 1 appl TOPICAL DAILY Discharge Orders: Discharge Order (Routine); Ordered 10/20/23 Ordered By: Gerson Mendieta Diet: Advance to usual diet Activity on Discharge: As tolerated Stand Alone Forms: Patient Portal Discharge page Print Language: Yakut Care Plan Goals: recovery from copd, lung cancer Health Concerns: copd pneumonia lung cancer Plan of Treatment: use inhalers as directed take Prednisone as directed take Cefuroxime as directed for pneumona follow up with your oncologist you are going to short term rehab repeat CBC in 1 week, after completing steroid Assessment: see above Discharge Date/Time: 10/20/23 13:49
--- NOTE | 2023-10-20 11:01 | MHC.CM.PN ---
Pt is medically cleared for discharge to pulmonary rehab today. Pt [facility] chosen [facility] his [facility], and they have given him a bed offer. Pt will transport there via [facility] at 1pm. Pt and his family aware and in agreement with discharge plan.
[2023-10-20 11:39] LABS: Hemoglobin 12.3 g/dl (14.0-18.0); Mean Corpuscular HGB Conc 32.4 g/dl (31.0-36.0); Mean Corpuscular Hemoglobin 28.1 pg (27.0-33.0); Mean Corpuscular Volume 86.8 fL (80.0-98.0); Mean Platelet Volume 8.9 fL (9.4-12.4); Platelet Count 387 X10*3/uL (160-400); Red Blood Count 4.38 X10*6/uL (4.60-5.80); Red Cell Distribution Width 16.4 % (11.0-16.0); White Blood Count 25.4 X10*3/uL (4.8-10.8)
[2023-10-20 11:52] VITALS: PULSE 101; RESP 20; O2SAT 91
== END 2023-10-20 13:49 | disposition skilled nursing facility (03) | DRG 193 ==
LOC: HO.ED 13:46 → HO.EDOVER 23:12 → HO.S3 10-18 03:18
PROVIDERS: Physician Assistant; Admitting Provider Student in an Organized Health Care Education/Training Program; Emergency Provider Emergency Medicine; PCP Internal Medicine; Visit Provider Internal Medicine
DX: J18.9 Pneumonia, unspecified organism (principal); I21.A1 Myocardial infarction type 2; J96.01 Acute respiratory failure with hypoxia; J44.0 Chronic obstructive pulmonary disease with (acute) lower respiratory infection; J91.8 Pleural effusion in other conditions classified elsewhere; F05 Delirium due to known physiological condition; J44.1 Chronic obstructive pulmonary disease with (acute) exacerbation; D64.9 Anemia, unspecified; I10 Essential (primary) hypertension; E78.5 Hyperlipidemia, unspecified; I25.10 Atherosclerotic heart disease of native coronary artery without angina pectoris; Z90.2 Acquired absence of lung [part of]; Z85.118 Personal history of other malignant neoplasm of bronchus and lung; Z95.5 Presence of coronary angioplasty implant and graft; Z87.891 Personal history of nicotine dependence; Z79.02 Long term (current) use of antithrombotics/antiplatelets; Z79.51 Long term (current) use of inhaled steroids; Z79.899 Other long term (current) drug therapy
CPT/HCPCS: 0241U; 36415; 71045; 71275; 80048; 80053; 80076; 81001; 83605; 83690; 83735; 83880; 84484; 85025; 85027; 87040; 87633; 93005; 93971; 94640; 97162; 99285; J0456; J0696; J1650; J2060; J2919; J3475; Q9967

== ENCOUNTER → 2023-10-17 23:06 | Outpatient (BNV) | payer MEDICARE, SELFPAY ==
[2023-02-10 09:09] VITALS: BP 126/62; BP 132/68; BMI 21.3
== END ==
PROVIDERS: Admitting Provider Student in an Organized Health Care Education/Training Program; Emergency Provider Emergency Medicine; PCP Internal Medicine; Visit Provider Internal Medicine
DX: J44.1 Chronic obstructive pulmonary disease with (acute) exacerbation (principal); R79.89 Other specified abnormal findings of blood chemistry
CPT/HCPCS: 99223; 99232; 99233; 99239; 99499

== ENCOUNTER 2023-10-20 18:29 | Inpatient (IN) | payer OTHER, SELFPAY ==
[2023-02-10 09:09] VITALS: BP 126/62; BP 132/68; BMI 21.3
[2023-10-20] VITALS (8 sets, daily range): BP systolic 128–162; BP diastolic 77–97; PULSE 120–137; RESP 22–30; TEMP 36.6–36.9; O2SAT 89–96; BMI 19.7
--- NOTE | ~2023-10-20 | XR_ITS ---
EXAMINATION: XR CHEST CLINICAL INFORMATION: Hypoxia. COMPARISON: Chest x-ray dated October 20, 2023. Chest CT dated October 16.4. TECHNIQUE: Portable AP view of the chest was obtained. FINDINGS: The study is limited by portable technique and suboptimal inspiration. There has been no gross significant radiographic change compared with 6 days prior. Examination again demonstrates diffuse, bilateral, coarse interstitial prominence with superimposed, patchy groundglass and alveolar densities. Mild blunting of the costophrenic angles suggesting pleural fluid, pleural thickening, and/or atelectasis, right worse than left. Deviation of the trachea to the right, suggesting an element of volume loss on the right. Heart appears normal in size. Atherosclerotic aorta. Status post left shoulder arthroplasty. XR/XR chest 1V IMPRESSION: Findings as above. Electronically signed by: Charlie Aguilera MD 10/26/2023 05:27 PM EDT
--- NOTE | ~2023-10-20 | XR_ITS ---
EXAMINATION: XR CHEST CLINICAL INFORMATION: Shortness of breath COMPARISON: 10/17/2023 TECHNIQUE: Frontal view of the chest was obtained. FINDINGS: Extensive chronic fibrotic changes with patchy airspace opacities and reticular nodular densities seen bilaterally. Minimal interval improvement compared to the prior exam. Right-sided pleural thickening is stable in appearance and chronic XR/XR chest 1V IMPRESSION: Extensive chronic fibrotic changes with patchy airspace opacities and reticular nodular densities with minimal interval improvement compared to the prior exam. Electronically signed by: Nolberto Marina MD 10/20/2023 09:35 PM EDT RP
--- NOTE | ~2023-10-20 | XR_ITS ---
EXAMINATION: XR ABDOMEN KUB CLINICAL INDICATION: Abdominal pain COMPARISON: None available. TECHNIQUE: AP view of the upper abdomen. Limited exam due to patient difficulty with positioning FINDINGS: Unremarkable bowel gas pattern. No obvious obstructive change seen. No obvious free air below the hemidiaphragm. Extensive chronic appearing reticular markings in the lung bases. Vascular calcification. Degenerative changes in the spine XR/XR KUB IMPRESSION: Limited study due to patient difficulty with positioning. Unremarkable bowel gas pattern. Electronically signed by: Errol Andino MD 10/27/2023 09:13 PM EDT
--- NOTE | 2023-10-20 18:37 | ECG_ITS ---
Test Reason : Dyspnea Blood Pressure : / mmHG Vent. Rate : 133 BPM Atrial Rate : 133 BPM P-R Int : 148 ms QRS Dur : 120 ms QT Int : 300 ms P-R-T Axes : 043 124 044 degrees QTc Int : 446 ms Sinus tachycardia Right bundle branch block Abnormal ECG When compared with ECG of 17-OCT-2023 10:24, Premature ventricular complexes are no longer Present Heart rate has increased Referred By: Mechelle Fraser Electronically Signed By:KATERINA JONES
--- NOTE | 2023-10-20 18:38 | ED_ITS ---
HPI - SOB/Dyspnea General Chief Complaint: Upper Respiratory Symptoms Stated Complaint: SOB FROM SNF Time Seen by Provider: 10/20/23 18:35 Source: patient, EMS and old records reviewed Mode of arrival: EMS Limitations: no limitations History of Present Illness ED Provider: DR. Fraser HPI Narrative: 88-year-old male with history of asthma, COPD, GERD, HTN, former smoker, NSTEMI (S/P cardiac catheterization and PCI in April 2022), skin cancer, anemia, lung cancer s/p right lumpectomy 3 years ago, patient was discharged from the hospital earlier today on cefuroxime for 7 days, returned from the SNF for hypoxia in the 80s% despite using supplemental oxygen that the facility, as also reported by EMS patient was found hypertensive. Patient in the ER on arrival is complaining of shortness of breath with mild respiratory distress and intercostal retraction, patient require 7 L of OxyMask to maintain his oxygen above 92%. Related Data Home Medications ?Medication ?Instructions ?Recorded ?Confirmed losartan 100 mg tablet 100 mg PO DAILY 12/07/19 10/17/23 omeprazole 20 mg capsule,delayed 40 mg PO DAILY@0630 12/07/19 10/17/23 release tiotropium bromide 2.5 2 puff inhalation BEDTIME 02/09/21 10/17/23 mcg/actuation mist for inhalation (Spiriva Respimat) atorvastatin 40 mg tablet 40 mg PO BEDTIME 06/02/22 10/17/23 metoprolol succinate 50 mg 50 mg PO DAILY 06/02/22 10/17/23 tablet,extended release 24 hr Previous Rx's ?Medication ?Instructions ?Recorded fluticasone 250 mcg-salmeterol 50 1 inh inhalation BID 30 days #60 ea 01/06/22 mcg/dose blistr powdr for inhalation (Wixela Inhub) clopidogrel 75 mg tablet 75 mg PO DAILY #1 tab 05/13/22 cefuroxime axetil 500 mg tablet 500 mg PO BID 7 days #14 tabs 10/20/23 ipratropium 0.5 mg-albuterol 3 mg 3 ml inhalation RQ4H WHILE AWAKE 10/20/23 (2.5 mg base)/3 mL nebulization #90 mL soln prednisone 20 mg tablet 20 mg PO DAILY #5 tabs 10/20/23 Allergies Allergy/AdvReac Type Severity Reaction Status Date / Time No Known Allergies Allergy Verified 10/20/23 18:47 Review of Systems 2 Review of Systems: All other systems are reviewed and are negative Constitutional: Reports as per HPI and Reports no additional constitutional complaints Eyes: Reports as per HPI and Reports no additional eye complaints Reports system reviewed and no additional complaints, except as documented Cardiovascular: Reports as per HPI and Reports no additional cardiovascular complaints Respiratory: Reports as per HPI and Reports no additional respiratory complaints Gastrointestinal: Reports as per HPI and Reports no additional gastrointestinal complaints Genitourinary: Reports no additional female genitourinary complaints Musculoskeletal: Reports no additional musculoskeletal complaints Skin/Breast: Reports system reviewed and no additional complaints, except as docu Psychiatric: Reports no additional psychiatric complaints Endocrine: Reports no additional endocrine complaints Hematologic/Lymphatic: Reports no additional hematologic/lymphatic complaints Allergic/Immunologic: Reports no additional allergic/immunologic complaints Reports system reviewed and no additional complaints, except as documented and Reports Abnormal speech present FOR[facility]LY [facility], [facility] Past Medical History Medical History Dyspnea on exertion CAD (coronary artery disease) NSTEMI (non-ST elevated myocardial infarction) Anemia Aortic stenosis COPD (chronic obstructive pulmonary disease) Rupture of right Achilles tendon Hammer toe of left foot Skin cancer Spinal stenosis GERD (gastroesophageal reflux disease) Asthma HTN (hypertension) Surgical History History of cardiac cath 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 Family History Family History Father CVD (cardiovascular disease) Mother Lung cancer Brother Bone cancer Social History Social History Household Members: Spouse Housing: Condominium Do you presently have visiting nurse or other home services: No Alcohol intake: never Comment: 1:1 sitter Patient Tobacco Use Status: Former Tobacco user Years Smoked: 35 +/- Advance Directives: Yes Advance Directives Information Provided: No Advance Directives on File: No Advance Directives Date on File: 12/06/19 Do you have a plan to hurt others: No Plan service: No Current occupational status: retired Physical Exam 2 Vital Signs: Vital Signs: Last Vital Signs Temp 98.4 F 10/20/23 18:48 Pulse 120 H 10/20/23 21:34 Resp 26 H 10/20/23 21:35 BP 162/94 H 10/20/23 21:22 Pulse Ox 96 10/20/23 21:22 O2 Del Method Non-Rebreather Ma sk 10/20/23 21:22 O2 Flow Rate 15 10/20/23 21:22 BMI result Body Mass Index 19.7 Vital signs have been reviewed and appear to be correct. Blood pressure elevated. Heart rate normal. Respiratory rate normal. Temperature normal. Oxygen saturation normal. Appearance: Alert. Oriented X3. Mild acute respiratory distress. Head: Normal external exam. Normocephalic. Atraumatic. No Avery signs noted. No raccoon eyes noted Eyes: PERRLA. EOMI. Conjunctiva and sclera normal. Eyelids normal. ENT: TM's Normal. Pharynx normal. Uvula midline. Moist mucous membranes. No trismus noted. No drooling noted. No muffled voice noted. Neck: Normal inspection. Neck supple. FROM. No adenopathy. Thyroid Normal. No meningeal signs. No neck mass noted. CVS: Normal heart rate and rhythm. Heart sound normal. No murmurs noted. Pulses normal throughout. Respiratory: Mild acute respiratory distress. Painless inspiration. Decreased breathing sounds bilaterally, prolonged expiration with expiratory wheezing. Chest nontender. No accessory muscle usage noted or decreased air movement noted. Abdomen: Soft and nontender. Bowel sounds normal in all 4 quadrants. No distention noted. No organomegaly noted. No visible injury noted. Back: No CVA tenderness. Full range of motion noted. Skin: Skin warm and dry. Normal skin color. Normal skin turgor. No rashes/lesions/lacerations noted. Extremities: No lower extremity edema. Extremities exhibit normal range of motion. Extremities nontender. Neuro: Oriented X 3. Cranial nerve exam: II-XII are grossly intact No motor deficit. No sensory deficit. Reflexes normal. Course Reevaluation(s) Reevaluation #1: 88-year-old male presented with pneumonia/COPD 1. Came in with acute respiratory distress increased wheezing patient received Solu-Medrol, magnesium, bronchodilator and was given bolus of 250 cc normal saline. Patient was placed on facemask 7 L of supplemental oxygen. 2. Patient was continued to deteriorate with increasing intercostal muscle work patient required CPAP in the of albuterol via CPAP, patient also will get 40 mg of Lasix 3. Patient is meeting criteria for septic shock due to acute on chronic respiratory failure and requirement of CPAP machine, patient is not a candidate for 30 cc per kg fluid bolus. 4. Will continue monitoring breathing on CPAP. Time: 21:31 Reevaluation #2: FOCUSED EXAM; Patient improved on CPAP, feels better. Time: 00:30 Medications Administered Generic Name Dose Route Start Last Admin Trade Name Freq PRN Reason Stop Dose Admin Albuterol/Ipratropium 3 ml 10/20/23 20:53 10/20/23 21:29 Albuterol/Iprat 2.5/0.5mg 3 Ml Ampul.Neb INHALE 3 ml RQ4H WHILE AWAKE PRN Administration Wheezing Discontinued Medications Generic Name Dose Route Start Last Admin Trade Name Freq PRN Reason Stop Dose Admin Albuterol Sulfate 2.5 mg/ 0 mg 10/20/23 18:55 10/20/23 18:57 Albuterol/Ipratropium 3 ml INHALE 10/20/23 18:56 5 dose ONCE ONE Administration Sodium Chloride 1,000 mls @ 250 mls/hr 10/20/23 18:37 10/20/23 20:07 Ns IV 10/20/23 22:36 250 mls/hr .Q4H ONE Administration Ceftriaxone Sodium 1 gm/ 50 mls @ 100 mls/hr 10/20/23 18:43 10/20/23 21:08 Sodium Chloride IV 10/20/23 19:12 Infused ONCE ONE Infusion Doxycycline Hyclate 100 mg/ 250 mls @ 166.67 mls/hr 10/20/23 18:43 10/20/23 20:43 Sodium Chloride IV 10/20/23 20:12 166.67 mls/hr ONCE ONE Administration Magnesium Sulfate 2 gm in 50 mls @ 25 mls/hr 10/20/23 19:03 10/20/23 20:02 Magnesium Sulfate/H2o IV 10/20/23 21:02 25 mls/hr ONCE ONE Administration Methylprednisolone Sodium Succinate 125 mg 10/20/23 19:03 10/20/23 20:02 Methylprednisolone Sod Succ 125 Mg/2 Ml Vial IVPUSH 10/20/23 19:04 125 mg ONCE ONE Administration Medical Decision Making Differential Diagnosis Differential Diagnoses: The differential diagnosis associated with the presentation includes (Sepsis, pneumonia, COPD exacerbation, congestive heart failure, severe anemia, electrolyte derangement.) Admission/Observation Consideration of admission/observation: Escalation of care including admission/observation considered Consult Healthcare Provider Management of the patient was discussed with: Hospitalist (Dr. Gillette) Lab Data MDM Lab Attestation statement: I reviewed the patient's lab results. 10/20/23 19:33 10/20/23 19:33 Labs: Lab Results 10/20/23 10/20/23 10/20/23 Range/Units 19:23 19:33 19:34 WBC 23.4 H (4.8-10.8) X10*3/uL RBC 4.32 L (4.60-5.80) X10*6/uL Hgb 12.3 L (14.0-18.0) g/dl Hct 36.5 L (42.0-52.0) % MCV 84.5 (80.0-98.0) fL MCH 28.5 (27.0-33.0) pg MCHC 33.7 (31.0-36.0) g/dl RDW 16.2 H (11.0-16.0) % Plt Count 439 H (160-400) X10*3/uL MPV 8.9 L (9.4-12.4) fL Immature Gran % (Auto) 2.0 H (0.0-0.4) % Neut % (Auto) 87.3 H (45-73) % Lymph % (Auto) 1.8 L (20-40) % Cottle % (Auto) 8.7 (2-11) % Eos % (Auto) 0.0 (0-4) % Baso % (Auto) 0.2 (0-2) % Lymph # (Auto) 0.4 L (1.2-4.9) X10*3/uL Cottle # (Auto) 2.0 H (0.1-1.2) X10*3/uL Eos # (Auto) 0.0 (0.0-0.4) X10*3/uL Baso # (Auto) 0.0 (0.0-0.2) X10*3/uL Abs Immat Gran (auto) 0.47 H (0.00-0.03) X10*3/uL Absolute Neuts (auto) 20.4 H (2.0-8.3) x10*3/uL Absolute Nucleated RBC 0.000 (0.0-0.012) X10*3/uL Nucleated RBC % (auto) 0.0 (0.0-0.2) /100WBC Smear Tech's Comments VERIFIED Sodium 138 (135-145) mmol/L Potassium 4.8 (3.3-5.1) mmol/L Chloride 107 (96-108) mmol/L Carbon Dioxide 22 (22-29) mmol/L Anion Gap 14 (12-20) BUN 36 H (9-16) mg/dL Creatinine 0.76 (0.5-1.4) mg/dL Estim Creat Clear Calc 55.9 Estimated GFR > 60 Random Glucose 131 H (60-115) mg/dL Lactic Acid (0.5-2.0) mmol/L Calcium 9.4 (8.4-10.2) mg/dL Total Bilirubin 0.7 (0.0-1.0) mg/dL Direct Bilirubin 0.3 (0.0-0.5) mg/dL AST 105 H (5-37) U/L ALT 240 H (0-40) U/L Alkaline Phosphatase 129 H (39-117) U/L Troponin I High Sens 52.1 H (<3.5-35.0) ng/L B-Natriuretic Peptide 513 H (<100) pg/mL Total Protein 6.4 L (6.5-8.0) g/dL Albumin 3.6 (3.5-5.0) g/dL Lipase 8 (8-78) U/L Influenza Type A (PCR) NEGATIVE (Negative) Influenza Type B (PCR) NEGATIVE (Negative) RSV RNA Qual (PCR) NEGATIVE (Negative) SARS-CoV-2 RNA (RT-PCR) NEGATIVE (Negative) 10/20/23 Range/Units 19:44 WBC (4.8-10.8) X10*3/uL RBC (4.60-5.80) X10*6/uL Hgb (14.0-18.0) g/dl Hct (42.0-52.0) % MCV (80.0-98.0) fL MCH (27.0-33.0) pg MCHC (31.0-36.0) g/dl RDW (11.0-16.0) % Plt Count (160-400) X10*3/uL MPV (9.4-12.4) fL Immature Gran % (Auto) (0.0-0.4) % Neut % (Auto) (45-73) % Lymph % (Auto) (20-40) % Cottle % (Auto) (2-11) % Eos % (Auto) (0-4) % Baso % (Auto) (0-2) % Lymph # (Auto) (1.2-4.9) X10*3/uL Cottle # (Auto) (0.1-1.2) X10*3/uL Eos # (Auto) (0.0-0.4) X10*3/uL Baso # (Auto) (0.0-0.2) X10*3/uL Abs Immat Gran (auto) (0.00-0.03) X10*3/uL Absolute Neuts (auto) (2.0-8.3) x10*3/uL Absolute Nucleated RBC (0.0-0.012) X10*3/uL Nucleated RBC % (auto) (0.0-0.2) /100WBC Smear Tech's Comments Sodium (135-145) mmol/L Potassium (3.3-5.1) mmol/L Chloride (96-108) mmol/L Carbon Dioxide (22-29) mmol/L Anion Gap (12-20) BUN (9-16) mg/dL Creatinine (0.5-1.4) mg/dL Estim Creat Clear Calc Estimated GFR Random Glucose (60-115) mg/dL Lactic Acid 2.0 (0.5-2.0) mmol/L Calcium (8.4-10.2) mg/dL Total Bilirubin (0.0-1.0) mg/dL Direct Bilirubin (0.0-0.5) mg/dL AST (5-37) U/L ALT (0-40) U/L Alkaline Phosphatase (39-117) U/L Troponin I High Sens (<3.5-35.0) ng/L B-Natriuretic Peptide (<100) pg/mL Total Protein (6.5-8.0) g/dL Albumin (3.5-5.0) g/dL Lipase (8-78) U/L Influenza Type A (PCR) (Negative) Influenza Type B (PCR) (Negative) RSV RNA Qual (PCR) (Negative) SARS-CoV-2 RNA (RT-PCR) (Negative) Independent Interpretation I performed an independent interpretation of an: Plain X-Ray (Chest:Extensive chronic fibrotic changes with patchy airspace opacities and reticular nodular densities with minimal interval improvement compared to the prior exam. ) Radiology Impression Discussion of test interpretation with radiology: I have reviewed the radiologist's reading. Critical Care Time Critical Care Time Critical Care Time: Yes Total Critical Care Time: 60 Attestation: The patient was critically ill with a high probability of imminent or life- threatening deterioration. I spent greater than 30 minutes of discontinuous time evaluating the patient, delivering critical care at the bedside, discussing evaluating data with consultants. Critical care time does not include time spent performing separately billable procedures or teaching. Time spent performing critical care was 60 minutes. Discharge Plan Discharge Clinical Impression: Pneumonia, Septic shock, COPD exacerbation, Congestive heart failure Patient Disposition: Admitted As Inpatient
[2023-10-20] MEDS: Albuterol Sulfate 2.5 MG, Albuterol/Iprat 2.5/0.5MG 3 ML 3 ML INHALE (18:57)
--- NOTE | 2023-10-20 19:10 | PC.NURSE ---
received report from Devi MORENO, assume care of pt at this time
[2023-10-20 20:02] LABS: Basophils Percent Auto 0.2 % (0-2); Hematocrit 36.5 % (42.0-52.0); Hemoglobin 12.3 g/dl (14.0-18.0); Imm Gran Abs Auto 0.47 X10*3/uL (0.00-0.03); Lymphocytes Absolute Auto 0.4 X10*3/uL (1.2-4.9); Lymphocytes Percent Auto 1.8 % (20-40); MANUAL DIFF FLAG SCAN; Mean Corpuscular HGB Conc 33.7 g/dl (31.0-36.0); Mean Corpuscular Hemoglobin 28.5 pg (27.0-33.0); Mean Corpuscular Volume 84.5 fL (80.0-98.0); Mean Platelet Volume 8.9 fL (9.4-12.4); Monocytes Percent Auto 8.7 % (2-11); Neutrophils Absolute Auto 20.4 x10*3/uL (2.0-8.3); Neutrophils Percent Auto 87.3 % (45-73); Platelet Count 439 X10*3/uL (160-400); Red Blood Count 4.32 X10*6/uL (4.60-5.80); Red Cell Distribution Width 16.2 % (11.0-16.0); SCAN SMEAR FLAG 1; White Blood Count 23.4 X10*3/uL (4.8-10.8)
[2023-10-20] MEDS: methylPREDNISolone Sod Succ 125 MG/2 ML VIAL IVPUSH (20:02)
[2023-10-20] MEDS: Magnesium Sulfate/H2O 2 GM/50 ML PIGGYBACK IV (20:02)
[2023-10-20] MEDS: cefTRIAXone sodium 1 GM in 0.9 % Sodium Chloride 50 ML IV (20:06)
[2023-10-20] MEDS: 0.9 % Sodium Chloride 1,000 ML 250 ML IV (20:07)
--- NOTE | 2023-10-20 20:16 | PC.NURSE ---
per Pt's request, this nurse, called his from the ER phone, and left a message
[2023-10-20 20:17] LABS: Alanine Aminotransferase 240 U/L (0-40); Albumin Level 3.6 g/dL (3.5-5.0); Alkaline Phosphatase 129 U/L (39-117); Anion Gap 14 (12-20); Aspartate Amino Transferase 105 U/L (5-37); Bilirubin Direct 0.3 mg/dL (0.0-0.5); Bilirubin Total 0.7 mg/dL (0.0-1.0); Blood Urea Nitrogen 36 mg/dL (9-16); Calcium 9.4 mg/dL (8.4-10.2); Carbon Dioxide 22 mmol/L (22-29); Chloride 107 mmol/L (96-108); Creatinine Clr Calc Pharmacy 55.9; Estimated Glomerular Filt Rate > 60; Glucose Random 131 mg/dL (60-115); Lipase 8 U/L (8-78); Potassium 4.8 mmol/L (3.3-5.1); Sodium 138 mmol/L (135-145); Total Protein 6.4 g/dL (6.5-8.0)
[2023-10-20 20:24] LABS: Troponin-I High Sensitivity 52.1 ng/L (<3.5-35.0)
[2023-10-20 20:40] LABS: SLIDE REVIEW VERIFIED
[2023-10-20 20:42] LABS: B Type Natriuretic Peptide 513 pg/mL (<100)
[2023-10-20 20:43] LABS: Influenza A PCR NEGATIVE (Negative); Influenza B PCR NEGATIVE (Negative); Resp Syncy Virus RNA Qual PCR NEGATIVE (Negative); SARS COV2 PCR INHOUSE NEGATIVE (Negative)
[2023-10-20] MEDS: Doxycycline Hyclate 100 MG in 0.9 % Sodium Chloride 250 ML 166.67 MG IV (20:43)
--- NOTE | 2023-10-20 21:11 | P.HPHOSP_ITS ---
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 Patient was just discharged from the hospital today where he had been admitted and treated for acute hypoxic respiratory failure due to COPD exacerbation with underlying pneumonia. Hospital course was complicated by confusion overnight due to delirium that has since resolved. Patient was discharged to [facility] where he was noted to be desatting into the 80s despite?supplemental oxygen. Patient also was experienced increased shortness of breath and difficulty breathing. Was brought to the hospital where he was noted to be in mild respiratory distress with increased work of breathing. Was initially placed on 7 L OxyMask but continued to experience SOB, tachypnea, and increased work of breathing. Was placed on CPAP to good effect. Patient denies chest pain/pressure, palpitations. No dizziness or lightheadedness. In the ED pt was tachycardic up to 137 and in mild respiratory distress with tachypnea into the 30s. Labs were significant for leukocytosis of 23.4, AST 105, ALT 240, alk-phos 129, and initial troponin 52.1 (down from 100.7 on 10/18/2023), and BNP 513 (elevated from 04/18 on 10/18/2023). Tested negative for flu, RSV, COVID. UA negative for UTI. CXR showing extensive chronic fibrotic changes with patchy airspace opacities and reticular nodular densities, minimal and fell improvement compared to prior. EKG demonstrated sinus tachycardia of 133 with RBBB but no evidence of significant ST elevations or depressions. Pt was treated with DuoNebs, Mag sulfate, Solu-Medrol, ceftriaxone, and doxycycline. Pt will be admitted to the hospital for treatment and further evaluation of acute hypoxic respiratory failure in the setting of acute COPD exacerbation with underlying pneumonia with sepsis as well as mild CHF exacerbation. Review of Systems 2 Review of Systems: Negative except for that stated in the [facility] Medical History Dyspnea on exertion CAD (coronary artery disease) NSTEMI (non-ST elevated myocardial infarction) Anemia Aortic stenosis COPD (chronic obstructive pulmonary disease) Rupture of right Achilles tendon Hammer toe of left foot Skin cancer Spinal stenosis GERD (gastroesophageal reflux disease) Asthma HTN (hypertension) Family History Father CVD (cardiovascular disease) Mother Lung cancer Brother Bone cancer Surgical History History of cardiac cath 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 Social History Household Members: Spouse Housing: Condominium Do you presently have visiting nurse or other home services: No Alcohol intake: never Comment: 1:1 sitter Patient Tobacco Use Status: Former Tobacco user Years Smoked: 35 +/- Advance Directives: Yes Advance Directives Information Provided: No Advance Directives on File: No Advance Directives Date on File: 12/06/19 Do you have a plan to hurt others: No Plan service: No Current occupational status: retired Meds Allergies Allergy/AdvReac Type Severity Reaction Status Date / Time No Known Allergies Allergy Verified 10/20/23 18:47 Active Medications: Current Medications Acetaminophen (Acetaminophen 325 Mg Tablet) 650 mg PO Q6H PRN PRN Reason: Pain, Mild (Pain Scale 1-3), fever or headache Albuterol/Ipratropium (Albuterol/Iprat 2.5/0.5mg 3 Ml Ampul.Neb) 3 ml INHALE RQ4H WHILE AWAKE JUDIT Albuterol/Ipratropium (Albuterol/Iprat 2.5/0.5mg 3 Ml Ampul.Neb) 3 ml INHALE RQ4H WHILE AWAKE PRN PRN Reason: Wheezing Calcium Carbonate (Calcium Carbonate 750 Mg Tab.Chew) 750 mg PO Q4H PRN PRN Reason: Heartburn Enoxaparin Sodium (Enoxaparin Sodium 40 Mg/0.4 Ml Syringe) 40 mg SUBCUT Q24H JUDIT Sodium Chloride (Ns) 1,000 mls @ 250 mls/hr IV .Q4H ONE Stop: 10/20/23 22:36 Last Admin: 10/20/23 20:07 Dose: 250 mls/hr Doxycycline Hyclate 100 mg/ (Sodium Chloride) 250 mls @ 166.67 mls/hr IV ONCE ONE Stop: 10/20/23 22:14 Piperacillin Sod/Tazobactam (Sod 4.5 gm/ Sodium Chloride) 100 mls @ 200 mls/hr IV Q6H [facility] Magnesium Hydroxide (Milk Of Magnesia 30 Ml Oral.Susp) 30 ml PO DAILY PRN PRN Reason: Constipation Melatonin (Melatonin 3 Mg Tablet) 6 mg PO BEDTIME PRN PRN Reason: Insomnia Methylprednisolone Sodium Succinate (Methylprednisolone Sod Succ 40 Mg/Ml Vial) 40 mg IVPUSH Q12H JUDIT Ondansetron HCl (Ondansetron Hcl 4 Mg/2 Ml Vial) 4 mg IVPUSH Q8H PRN PRN Reason: Nausea and Vomiting Sodium Chloride (0.9 % Sodium Chloride Flush 3 Ml Syringe) 3 ml IVFLUSH QSHIFT [facility] Home Medications ?Medication ?Instructions ?Recorded ?Confirmed ?Last Taken ?Type losartan 100 mg tablet 100 mg PO DAILY 12/07/19 10/20/23 10/17/23 History omeprazole 20 mg capsule,delayed 40 mg PO DAILY@0630 12/07/19 10/20/23 10/17/23 History release tiotropium bromide 2.5 2 puff inhalation DAILY 02/09/21 10/20/23 10/17/23 History mcg/actuation mist for inhalation (Spiriva Respimat) atorvastatin 40 mg tablet 20 mg PO DAILY 06/02/22 10/20/23 10/17/23 History metoprolol succinate 50 mg 50 mg PO DAILY 06/02/22 10/20/23 10/17/23 History tablet,extended release 24 hr albuterol sulfate 90 mcg/actuation 2 puff inhalation DAILY PRN 10/20/23 10/20/23 Unknown History aerosol inhaler Wheezing/SOB carboxymethylcellulose sodium 1 % 1 drp ophthalmic (eye) BEDTIME PRN 10/20/23 10/20/23 10/17/23 History eye liquid gel drops Dry Eyes metronidazole 0.75 % topical gel 1 appl topical DAILY infection 10/20/23 10/20/23 10/17/23 History polyethylene glycol 400 0.25 % eye 1 drp ophthalmic (eye) BEDTIME PRN 10/20/23 10/20/23 10/17/23 History gel drops Dry Eye(S) Physical Exam 2 Vital Signs and Narrative: Vital Signs: Last Vital Signs Temp 98.4 F 10/20/23 18:48 Pulse 124 H 10/20/23 19:00 Resp 22 H 10/20/23 19:00 BP 153/97 H 10/20/23 18:48 Pulse Ox 91 L 10/20/23 18:48 O2 Del Method Oxymask 10/20/23 18:48 O2 Flow Rate 2 10/20/23 18:48 BMI result Body Mass Index 19.7 General: AOx3, in mild respiratory distress Resp: Diffuse wheezing bilaterally, increased work of breathing with accessory muscle use CVS: S1, S2, RRR, systolic murmur heard at left sternal border GI: +BS, NT, no distention Skin: Warm, dry Neuro: Cranial nerves II-XII grossly intact bilaterally. Motor grossly intact bilaterally Extremities: No edema Psych: Appropriate affect Results Labs 10/20/23 19:33 10/20/23 19:33 Labs: Laboratory Results - last 24 hr 10/20/23 10/20/23 10/20/23 19:23 19:33 19:34 MCV 84.5 MCH 28.5 MCHC 33.7 RDW 16.2 H Plt Count 439 H MPV 8.9 L Immature Gran % (Auto) 2.0 H Neut % (Auto) 87.3 H Lymph % (Auto) 1.8 L Navarro % (Auto) 8.7 Eos % (Auto) 0.0 Baso % (Auto) 0.2 Lymph # (Auto) 0.4 L Navarro # (Auto) 2.0 H Eos # (Auto) 0.0 Baso # (Auto) 0.0 Abs Immat Gran (auto) 0.47 H Absolute Neuts (auto) 20.4 H Absolute Nucleated RBC 0.000 Nucleated RBC % (auto) 0.0 Smear Tech's Comments VERIFIED Anion Gap 14 Estim Creat Clear Calc 55.9 Estimated GFR > 60 Random Glucose 131 H Lactic Acid Calcium 9.4 Total Bilirubin 0.7 Direct Bilirubin 0.3 AST 105 H ALT 240 H Alkaline Phosphatase 129 H Troponin I High Sens 52.1 H B-Natriuretic Peptide 513 H Total Protein 6.4 L Albumin 3.6 Lipase 8 Influenza Type A (PCR) NEGATIVE Influenza Type B (PCR) NEGATIVE RSV RNA Qual (PCR) NEGATIVE SARS-CoV-2 RNA (RT-PCR) NEGATIVE 10/20/23 19:44 MCV MCH MCHC RDW Plt Count MPV Immature Gran % (Auto) Neut % (Auto) Lymph % (Auto) Navarro % (Auto) Eos % (Auto) Baso % (Auto) Lymph # (Auto) Navarro # (Auto) Eos # (Auto) Baso # (Auto) Abs Immat Gran (auto) Absolute Neuts (auto) Absolute Nucleated RBC Nucleated RBC % (auto) Smear Tech's Comments Anion Gap Estim Creat Clear Calc Estimated GFR Random Glucose Lactic Acid 2.0 Calcium Total Bilirubin Direct Bilirubin AST ALT Alkaline Phosphatase Troponin I High Sens B-Natriuretic Peptide Total Protein Albumin Lipase Influenza Type A (PCR) Influenza Type B (PCR) RSV RNA Qual (PCR) SARS-CoV-2 RNA (RT-PCR) Assessment and Plan (1) Congestive heart failure: Status: Acute (2) COPD exacerbation: Status: Acute (3) Pneumonia: Status: Acute Plan Pt is an 88-year-old male with a PMH significant for?asthma/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 Pt will be admitted to the hospital for treatment and further evaluation of acute hypoxic respiratory failure in the setting of acute COPD exacerbation with underlying pneumonia with sepsis as well as mild CHF exacerbation. Acute hypoxic respiratory failure in the setting of COPD exacerbation with underlying pneumonia with sepsis Patient discharged from the hospital earlier today for similar diagnosis, was discharged on cefuroxime x7 days Patient with increased SOB, BRUSH, increased oxygen demands requiring CPAP Patient meets sepsis criteria: Tachycardia, tachypnea, and leukocytosis; lactic acid WNL Patient was initially given fluids which were stopped due to likely CHF exacerbation, and started on broad-spectrum antibiotics in the ED Will treat with Zosyn, DuoNebs, and Solu-Medrol Patient currently on CPAP, wean as tolerated Monitor respiratory status Elevated BNP Concerning for mild CHF exacerbation Will give Lasix 40mg IV x1 dose and reassess in the morning Will repeat echo CAD Continue asa, plavix and metoprolol Elevated trop of 52.1, less than previous Likely secondary to demand ischemia Anemia Stable, chronic with no reported bleeding HGB above transfusion threshold Hypertension Continue home metoprolol, losartan HLD Continue home atorvastatin GERD Continue PPI Full Code Attending:?Dr. Gillette DVT Prophylaxis: Lovenox Pt will require a hospitalization of at least two nights for treatment of?acute hypoxic respiratory failure in the setting of COPD exacerbation with underlying pneumonia with sepsis as well as likely mild CHF exacerbation. As patient is in mild respiratory distress requiring CPAP, he will require hospitalization for administration of supplemental O2, IV steroids, breathing treatments, IV antibiotics, and IV Lasix with close monitoring of respiratory and volume status. Quality Stroke Does the patient have a stroke diagnosis?: No VTE Prior VTE?: No VTE Risk Level:: Medical - moderate - high VTE Device Contraindication: Treatment Not Indicated VTE Drug Contraindication: N/A - Med Ordered
[2023-10-20 21:22] LABS: Appearance Urine Clear; Color Urine Yellow; Glucose Urine UA Negative (Negative); Leukocyte Esterase Urine Negative (Negative); Nitrite Urine Negative (Negative); Urine Blood Negative (Negative); Urine Ketones Negative (Negative); Urine Protein Trace mg/dL (Neg-Trace)
[2023-10-20] MEDS: Albuterol/Iprat 2.5/0.5MG 3 ML AMPUL.NEB INHALE (21:29)
[2023-10-20 21:32] LABS: VBG HCO3 21 mmol/L (22-26); VBG pCO2 29 mmHg; VBG pH 7.47 (7.32-7.43); VBG pO2 83 mmHg
[2023-10-20 21:33] LABS: Venous Blood Gas Refer to POC result
--- NOTE | 2023-10-20 21:38 | PM.SEPSBOL4 ---
Sepsis Bolus Exclusion Sepsis Bolus Exclusion CHF/Renal Failure Date of Occurrence: 10/20/23 This patient met severe sepsis criteria due to the following condition(s):: Documentation of septic shock (Acute respiratory failure requirement use of noninvasive CPAP machine.) In my clinical judgement the administration of 30 ml/kg of crystalloid would be detrimental to this patient due to the patient's following conditions:: NYHA class III or IV Heart Failure(symptoms with low exertion or rest) Replace the 30 mls/kg with (Zero amount not acceptable and all fluids for severe sepsis must be given at GREATER than 125 mls/hr) *Note: One of the lopez must be documented Crystalloids amount given in mls: (rate must be at least 150cc/hr): 250 At a rate of (must be > 125 cchr):: 250
--- NOTE | 2023-10-20 22:21 | PHA.MEDREC ---
Addendum entered by Ana Lara [facility] 10/20/23 22:27: reviewed by [facility]. Addendum entered by Naomie Augustine 10/20/23 22:24: The 3 medications that were added from the discharge paket today were Cefuroxime Axetil, Ipratropium-Albuterol and Prednisone. Original Note: Pharmacy Consult ? Medication Reconciliation Pharmacy has completed the medication reconciliation. Patient was discharged from us this past afternoon and looking at the DC packet it looks like 3 medications were added onto his medication list so I kept those on and I called and confirmed the rest of his medications with [facility].
[2023-10-20] MEDS: Furosemide 40 MG/4 ML VIAL IVPUSH (22:26)
[2023-10-20] MEDS: Enoxaparin Sodium 40 MG/0.4 ML SYRINGE SUBCUT (22:26)
[2023-10-20] MEDS: Piperacillin Sodium/Tazobactam 4.5 GM in 0.9 % Sodium Chloride 100 ML IV (22:27)
--- NOTE | 2023-10-20 23:32 | MHC.EDTECH ---
at thsis time this tech applied a condom catheter on the pt. Pt and visitor was educated on the need and use of the condom catheter. Pt tolerated the procedure moderately well, had some discomfort from adhesive pulling on the hairs in the pubic region.
[2023-10-21] VITALS (20 sets, daily range): BP systolic 110–157; BP diastolic 65–98; PULSE 103–139; RESP 16–30; TEMP 36.3–37.1; O2SAT 91–96
--- NOTE | 2023-10-21 00:32 | MHC.EDTECH ---
at this time this tech redirected the pt to the use of the condom catheter as he stated he is currently having trouble urinating. I stated that the condom catheter is working as there is currently 200 mL in the drainage bag.
--- NOTE | 2023-10-21 00:59 | PC.NURSE ---
pt is on oxymask at 5l at this time, and is tolerating well. Eariler in the shift, pt got really SOB, and was desating. RT was called, and ED MD into room, pt was placed on CPAP, per RT. Pt was tachycardia and tachypnea, at this time, pt is not. Pt has on condom cath, as he was given lasix, pt is tolerating well, will cont to monitor
[2023-10-21] MEDS: 0.9 % Sodium Chloride Flush 3 ML SYRINGE IVFLUSH ×3 (01:14→15:59)
--- NOTE | 2023-10-21 01:38 | PC.NURSE ---
son Errol [phone], daughter Shelley [phone]
[2023-10-21] MEDS: Piperacillin Sodium/Tazobactam 4.5 GM in 0.9 % Sodium Chloride 100 ML IV ×4 (03:10→21:15)
--- NOTE | 2023-10-21 04:25 | PC.NURSE ---
around 0315am, tech walked by pt's room, and pt was slumped down on the stretcher, had taken O2off, and he was purple. Pt was assisted up on the stretcher, O2/5L/oxymask placed back on pt, his sats was in the mid 80's, encouraged pt to take some deep breathes. Bumped up the O2 to 7L, and then his Sats started to go up. RT was called, to possible place the pt back on CPAP. Rt came and assess the pt, and thought that the pt would probably do better on Hi flow O2. at 0340, dr gillette was tiger text and asked about the HiFlow, Dr Gillette agreed to the HIflow O2, RT placed pt on HiFlow at 40L, and 35%. Pt is tolerating well
[2023-10-21 05:02] LABS: Hematocrit 39.5 % (42.0-52.0); Hemoglobin 12.7 g/dl (14.0-18.0); Mean Corpuscular HGB Conc 32.2 g/dl (31.0-36.0); Mean Corpuscular Hemoglobin 27.9 pg (27.0-33.0); Mean Corpuscular Volume 86.6 fL (80.0-98.0); Platelet Count 482 X10*3/uL (160-400); Red Blood Count 4.56 X10*6/uL (4.60-5.80); Red Cell Distribution Width 16.3 % (11.0-16.0); WBC ABN SCTR FOR CBC 1
[2023-10-21 05:03] LABS: White Blood Count 26.5 X10*3/uL (4.8-10.8)
[2023-10-21 05:22] LABS: Anion Gap 20 (12-20); Blood Urea Nitrogen 36 mg/dL (9-16); Calcium 9.2 mg/dL (8.4-10.2); Carbon Dioxide 17 mmol/L (22-29); Chloride 106 mmol/L (96-108); Creatinine Clr Calc Pharmacy 41.7; Estimated Glomerular Filt Rate > 60; Glucose Random 169 mg/dL (60-115); Potassium 4.4 mmol/L (3.3-5.1); Sodium 139 mmol/L (135-145)
[2023-10-21 05:32] LABS: Band Neutrophils Percent 2 % (3-5); Monocytes Absolute Manual 1.3 X10*3/uL (0.1-1.2); Monocytes Percent Manual 5 % (2-11); Neutrophils Absolute Manual 25.2 X10*3/uL (2.0-8.3); Neutrophils Percent Manual 93 % (45-73)
[2023-10-21 05:33] LABS: Acanthocytes 3+ (>5) /OIF; Platelet Estimate SLIGHTLY INCREASED (NORMAL); Platelet Morphology Comment NORMAL; RBC Morphology NOTED; Schistocytes 1+ (0-2) /OIF
[2023-10-21 05:34] LABS: Burr Cells 1+ (0-2) /OIF
--- NOTE | 2023-10-21 06:38 | PC.NURSE ---
pt is sitting up on the stretcher at this time, denies needs, pt is waiting for bed upstairs
--- NOTE | 2023-10-21 07:00 | CA_ITS ---
Transthoracic Echocardiogram Patient (Last, First, Middle): Freddy Miller J Gender: Male Date of : 1935 Age: 88 Procedure Date: 10/21/2023 Procedure Type: Transthoracic Echocardiogram Location: ER Height: 172. cm Weight: 58.51 kg BSA: 1.69 m2 Heart Rate: 117 bpm BP: 116 / 75 mmHg Gear Machinist: JERRY Referring MD: Jacqueline Gillette MD Symptoms: CHF Study Quality: Adequate ECG Rhythm: Undetermined Conclusions: - Normal left ventricular cavity size. There is normal left ventricular wall thickness. The left ventricular systolic function is moderately decreased. The visually estimated ejection fraction is between 30-35%. - The entire apex, the mid anteroseptal, and mid inferolateral segments are akinetic. - Normal right ventricular cavity size and systolic function. - There is severe aortic valve stenosis-low flow low gradient . Findings Procedure Information Contrast agent, definity, is being given per protocol without apparent complications. Left Ventricle Normal left ventricular cavity size. There is normal left ventricular wall thickness. The left ventricular systolic function is moderately decreased. The visually estimated ejection fraction is between 30-35%. There is evidence of regional wall motion abnormalities. Diastolic function is indeterminate on the basis of available data. Wall Motion Rest Echo Findings The entire apex, the mid anteroseptal, and mid inferolateral segments are akinetic. Right Ventricle Normal right ventricular cavity size and systolic function. Atria The left atrium is normal in size. The right atrium is normal in size. Aortic Valve There is severe calcification of the aortic valve. There is severe aortic valve stenosis. The peak aortic velocity is 3.14 m/s. The mean gradient is 23 mmHg. The aortic valve area is 0.60 cm2. There is no aortic valve regurgitation. Mitral Valve The mitral valve appears normal. There is trace mitral valve regurgitation. There is no mitral valve stenosis. Pulmonic Valve The pulmonic valve is likely normal. Tricuspid Valve Normal tricuspid valve structure. There is trace tricuspid valve regurgitation. The right ventricular systolic pressure is 38 mmHg. Normal right atrial pressure. Mild pulmonary hypertension is present. Great Vessels All visible segments of the aorta are normal in size. Venous The inferior vena cava is normal in size and collapses greater than 50% with inspiration. Pericardium/Pleural There is no evidence of pericardial effusion. Prior Study Comparison Changes noted compared to prior study dated: 05/13/2022. EF 30-35% with regional wall motion abnormalities. Measurements 2D Linear Measurements IVSd: 0.86 0.6-0.9/0.6-1.0 cm LVIDd: 4.69 3.9-5.3/4.2-5.9 cm LVIDd Index: 2.78 2.4-3.2/2.2-3.1 cm/m2 LVIDs: 3.28 2.0-3.6 cm LVPWd: 1.00 0.7-1.1 cm LA Diam: 3.70 2.7-3.8/3.0-4.0 cm LAIDs Index: 2.19 1.5-2.3 cm/m2 LV Mass: 184.56 67-162/88-224 g LV Mass Index: 109.21 43-95/49-115 g/m2 LVOT Diam: 2.00 3.0+(-)1.3 cm 2D Systolic Function EF 4C: 39.20 >55% EF 2C: 30.60 >55% EF BiP: 36.50 >55% Mitral Valve MV Pk E: 1.58 MV Decel Time: 96.00 E'Lateral: 13.10 E'Medial: 10.60 E/E' Med: 14.90 E/E' Lat: 12.10 PHT: 28.00 MVA PHT: 7.86 Decel [place]: 16.51 Aortic Valve AoV Pk Caesar: 3.14 AoV Mn Caesar: 2.27 AoV VTI: 0.56 AoV Pk Grad: 39.00 Aov Mn Grad: 23.00 TAMERA Cont.VTI: 0.60 LVOT LVOT Pk Caesar: 0.64 LVOT Mn Caesar: 0.41 LVOT VTI: 0.11 LVOT Pk Grad: 2.00 LVOT Mn Grad: 1.00 LVOT Diam: 2.00 LVOT Area: 3.14 Diastolic Function MV Pk E: 1.58 E'Medial: 10.60 E/E' Med: 14.90 E' Laterial: 13.10 E/E' Lat: 12.10 Right Ventricle TAPSE (mm): 18.00 TVS' Caesar: 9.00 Tricuspid Valve TR Pk Caesar: 2.96 TR Pk Grad: 35.00 RA Press: 3.00 RVSP: 38.00 Great Vessels Aorta Sinus of Valsalva: 3.30 2.0-3.5 cm Ao Asc: 3.40 2.1-3.4 cm Pulmonary Valve PV Pk Caesar: 1.89 Peak PV Grad: 14.00 Updated in Other Vendor System with Status of Final Alber Vásquez MD electronically signed on 10/21/2023 8:42:00 PM with status of Final
[2023-10-21] MEDS: Albuterol/Iprat 2.5/0.5MG 3 ML AMPUL.NEB INHALE ×3 (07:33→12:34)
--- NOTE | 2023-10-21 07:50 | P.PNIM_ITS ---
Subjective Subjective Date of Service: 10/21/23 Interval History: Seen in follow up for COPD, pneumonia, hypoxia Interval history: Reports feeling better. NO sob, chest pain. However, still requiring high flow. Remains tachycardic Review of Systems Review of Systems: Yes all other systems are reviewed and are negative Physical Exam 2 Vital Signs: Vital Signs: Last Vital Signs Temp 98.4 F 10/21/23 05:37 Pulse 107 H 10/21/23 07:33 Resp 16 10/21/23 07:33 BP 127/77 10/21/23 05:37 Pulse Ox 96 10/21/23 05:37 O2 Del Method High Flow Nasal C annula 10/21/23 05:37 O2 Flow Rate 7 10/21/23 03:18 BMI result Body Mass Index 19.7 Constitutional - Awake and Alert, No apparent distress Eyes - PERRLA, EOMI Cardiovascular - S1S2, RRR, No edema Respiratory - Normal lung expansion, Normal respiratory effort, No respiratory distress, scattered expiratory wheezing Gastrointestinal - NT / ND; +BS; No rebound or guarding Extremities - no calf tenderness bilaterally, no swelling Skin - Warm/Dry Neurological - Alert & oriented x3, CN II-XII in tact, 5/5 strength BUE and BLE Psychological - Appropriate affect Objective Data Active Medications Acetaminophen (Acetaminophen 325 Mg Tablet) 650 mg PO Q6H PRN PRN Reason: Pain, Mild (Pain Scale 1-3), fever or headache Albuterol/Ipratropium (Albuterol/Iprat 2.5/0.5mg 3 Ml Ampul.Neb) 3 ml INHALE RQ4H WHILE AWAKE [facility] Last Admin: 10/21/23 07:33 Dose: 3 ml Documented By: YADY Albuterol/Ipratropium (Albuterol/Iprat 2.5/0.5mg 3 Ml Ampul.Neb) 3 ml INHALE RQ4H WHILE AWAKE PRN PRN Reason: Wheezing Last Admin: 10/20/23 21:29 Dose: 3 ml Documented By: QUENTIN Artificial Tears (Artificial Tears 15 Ml Drops) 1 drop EYE-BOTH BEDTIME PRN PRN Reason: Dry Eye(S) Atorvastatin Calcium (Atorvastatin Calcium 20 Mg Tablet) 20 mg PO DAILY [facility] Calcium Carbonate (Calcium Carbonate 750 Mg Tab.Chew) 750 mg PO Q4H PRN PRN Reason: Heartburn Clopidogrel Bisulfate (Clopidogrel Bisulfate 75 Mg Tablet) 75 mg PO DAILY [facility] Enoxaparin Sodium (Enoxaparin Sodium 40 Mg/0.4 Ml Syringe) 40 mg SUBCUT Q24H [facility] Last Admin: 10/20/23 22:26 Dose: 40 mg Documented By: TAWANNA Piperacillin Sod/Tazobactam (Sod 4.5 gm/ Sodium Chloride) 100 mls @ 200 mls/hr IV Q6H [facility] Last Infusion: 10/21/23 04:11 Dose: Infused Documented By: TAWANNA Losartan Potassium (Losartan Potassium 50 Mg Tablet) 100 mg PO DAILY [facility]; Protocol Magnesium Hydroxide (Milk Of Magnesia 30 Ml Oral.Susp) 30 ml PO DAILY PRN PRN Reason: Constipation Melatonin (Melatonin 3 Mg Tablet) 6 mg PO BEDTIME PRN PRN Reason: Insomnia Methylprednisolone Sodium Succinate (Methylprednisolone Sod Succ 40 Mg/Ml Vial) 40 mg IVPUSH Q12H [facility] Metoprolol Succinate (Metoprolol Succinate Er 50 Mg Tab.Er.24h) 50 mg PO DAILY [facility]; Protocol Metronidazole (Metronidazole 0.75 % Gel 45 Gm Tube) 1 appl TOPICAL DAILY [facility] Non-Formulary Medication (Carboxymethylcellulose Sodium) 1 drop EYE-BOTH BEDTIME PRN PRN Reason: Dry Eyes Non-Formulary Medication (Fluticasone Propion-Salmeterol [Wixela Inhub]) 1 inhalation INHALE BID [facility] Omeprazole (Omeprazole 40 Mg Capsule.Dr) 40 mg PO DAILY@0630 [facility] Ondansetron HCl (Ondansetron Hcl 4 Mg/2 Ml Vial) 4 mg IVPUSH Q8H PRN PRN Reason: Nausea and Vomiting Sodium Chloride (0.9 % Sodium Chloride Flush 3 Ml Syringe) 3 ml IVFLUSH QSHIFT [facility] Last Admin: 10/21/23 01:14 Dose: 3 ml Documented By: TAWANNA Tiotropium [place] (Tiotropium [place] 2.5 Mcg 1 Puff/2.5 Mcg Mist.Inhal) 2 puff INHALE DAILY [facility] Labs 10/21/23 04:58 10/21/23 04:58 Labs: Laboratory Results - last 24 hr 10/20/23 10/20/23 10/20/23 19:23 19:33 19:34 MCV 84.5 MCH 28.5 MCHC 33.7 RDW 16.2 H Plt Count 439 H MPV 8.9 L Immature Gran % (Auto) 2.0 H Neut % (Auto) 87.3 H Lymph % (Auto) 1.8 L Alfalfa % (Auto) 8.7 Eos % (Auto) 0.0 Baso % (Auto) 0.2 Lymph # (Auto) 0.4 L Alfalfa # (Auto) 2.0 H Eos # (Auto) 0.0 Baso # (Auto) 0.0 Abs Immat Gran (auto) 0.47 H Absolute Neuts (auto) 20.4 H Absolute Nucleated RBC 0.000 Nucleated RBC % (auto) 0.0 Neutrophils % (Manual) Band Neutrophils % Monocytes % (Manual) Abs Neuts (Manual) Monocytes # (Manual) Platelet Estimate Plt Morphology Comment RBC Morphology Hubbell Cells Acanthocytes (Spur) Schistocytes Smear Tech's Comments VERIFIED VBG pH VBG pCO2 VBG pO2 VBG HCO3 VBG O2 Saturation VBG Base Excess Anion Gap 14 Estim Creat Clear Calc 55.9 Estimated GFR > 60 Random Glucose 131 H Lactic Acid Calcium 9.4 Total Bilirubin 0.7 Direct Bilirubin 0.3 AST 105 H ALT 240 H Alkaline Phosphatase 129 H Troponin I High Sens 52.1 H B-Natriuretic Peptide 513 H Total Protein 6.4 L Albumin 3.6 Lipase 8 Urine Color Urine Appearance Urine pH Ur Specific [place] Urine Protein Urine Glucose (UA) Urine Ketones Urine Blood Urine Nitrite Ur Leukocyte Esterase Influenza Type A (PCR) NEGATIVE Influenza Type B (PCR) NEGATIVE RSV RNA Qual (PCR) NEGATIVE SARS-CoV-2 RNA (RT-PCR) NEGATIVE 10/20/23 10/20/23 10/20/23 19:44 20:57 21:07 MCV MCH MCHC RDW Plt Count MPV Immature Gran % (Auto) Neut % (Auto) Lymph % (Auto) Alfalfa % (Auto) Eos % (Auto) Baso % (Auto) Lymph # (Auto) Alfalfa # (Auto) Eos # (Auto) Baso # (Auto) Abs Immat Gran (auto) Absolute Neuts (auto) Absolute Nucleated RBC Nucleated RBC % (auto) Neutrophils % (Manual) Band Neutrophils % Monocytes % (Manual) Abs Neuts (Manual) Monocytes # (Manual) Platelet Estimate Plt Morphology Comment RBC Morphology [place] Cells Acanthocytes (Spur) Schistocytes Smear Tech's Comments VBG pH 7.47 H VBG pCO2 29 VBG pO2 83 VBG HCO3 21 L VBG O2 Saturation 99.0 VBG Base Excess -1.0 Anion Gap Estim Creat Clear Calc Estimated GFR Random Glucose Lactic Acid 2.0 Calcium Total Bilirubin Direct Bilirubin AST ALT Alkaline Phosphatase Troponin I High Sens B-Natriuretic Peptide Total Protein Albumin Lipase Urine Color Yellow Urine Appearance Clear Urine pH 7.0 Ur Specific [place] 1.020 Urine Protein Trace Urine Glucose (UA) Negative Urine Ketones Negative Urine Blood Negative Urine Nitrite Negative Ur Leukocyte Esterase Negative Influenza Type A (PCR) Influenza Type B (PCR) RSV RNA Qual (PCR) SARS-CoV-2 RNA (RT-PCR) 10/21/23 04:58 MCV 86.6 MCH 27.9 MCHC 32.2 RDW 16.3 H Plt Count 482 H MPV 9.0 L Immature Gran % (Auto) Cancelled Neut % (Auto) Cancelled Lymph % (Auto) Cancelled Alfalfa % (Auto) Cancelled Eos % (Auto) Cancelled Baso % (Auto) Cancelled Lymph # (Auto) Cancelled Alfalfa # (Auto) Cancelled Eos # (Auto) Cancelled Baso # (Auto) Cancelled Abs Immat Gran (auto) Cancelled Absolute Neuts (auto) Cancelled Absolute Nucleated RBC 0.000 Nucleated RBC % (auto) 0.0 Neutrophils % (Manual) 93 H Band Neutrophils % 2 L Monocytes % (Manual) 5 Abs Neuts (Manual) 25.2 H Monocytes # (Manual) 1.3 H Platelet Estimate SLIGHTLY INCREASED Plt Morphology Comment NORMAL RBC Morphology NOTED Hubbell Cells 1+ (0-2) Acanthocytes (Spur) 3+ (>5) Schistocytes 1+ (0-2) Smear Tech's Comments VBG pH VBG pCO2 VBG pO2 VBG HCO3 VBG O2 Saturation VBG Base Excess Anion Gap 20 Estim Creat Clear Calc 41.7 Estimated GFR > 60 Random Glucose 169 H Lactic Acid Calcium 9.2 Total Bilirubin Direct Bilirubin AST ALT Alkaline Phosphatase Troponin I High Sens B-Natriuretic Peptide Total Protein Albumin Lipase Urine Color Urine Appearance Urine pH Ur Specific [place] Urine Protein Urine Glucose (UA) Urine Ketones Urine Blood Urine Nitrite Ur Leukocyte Esterase Influenza Type A (PCR) Influenza Type B (PCR) RSV RNA Qual (PCR) SARS-CoV-2 RNA (RT-PCR) Assessment and Plan (1) COPD exacerbation: Status: Acute (2) Pneumonia: Status: Acute (3) Elevated troponin: Status: Acute Plan 88-year-old male with a PMH significant for?asthma/COPD overlap syndrome on home O2 p.r.n., NSTEMI (s/p cardiac cath [place]/ drug [place] [facility] [place] skin cancer, anemia, lung cancer (s/p lobectomy 3 years ago), HTN, spinal stenosis, and GERD who presents to the ED from [facility] with increased SOB and hypoxia. Pt will be admitted to the hospital for treatment and further evaluation of acute hypoxic respiratory failure in the setting of acute COPD exacerbation with underlying pneumonia with sepsis as well as mild CHF exacerbation. Acute hypoxic respiratory failure in the setting of COPD exacerbation with underlying pneumonia with sepsis Patient discharged from the hospital 10/19 (day of readmission) for similar diagnosis, was discharged on cefuroxime x7 days Initially meeting sepsis criteria- Tachycardia, tachypnea, and leukocytosis; lactic acid WNL Patient was initially given fluids which were stopped due to likely CHF exacerbation, and started on broad-spectrum antibiotics in the ED continue Zosyn (initiated 10/19) Change duonebs to xopenex/ipratropium due to persistent tachycardia Weaned from cpap, continue high flow, wean as tolerated Monitor respiratory status Elevated BNP clinically euvolemic, hold on further iv lasix echo Elevated trops likely demand ischemia due to hypoxia CAD Continue asa, plavix and metoprolol Elevated trop of 52.1, less than previous Likely secondary to demand ischemia Anemia Stable, chronic with no reported bleeding HGB above transfusion threshold Hypertension Continue home metoprolol, losartan HLD Continue home atorvastatin GERD Continue PPI Full Code Attending:?Dr. Gillette DVT Prophylaxis: Lovenox Requires ongoing inpt stay due to persistent hypoxia secondary to pneumonia/copd with sepsis requiring high flow o2 and iv abx Quality Stroke Does the patient have a stroke diagnosis?: No VTE Prior VTE?: No VTE Risk Level:: Medical - moderate - high VTE Device Contraindication: Treatment Not Indicated VTE Drug Contraindication: N/A - Med Ordered
[2023-10-21] MEDS: Metoprolol Succinate ER 50 MG TAB.ER.24H PO (09:01)
[2023-10-21] MEDS: Atorvastatin Calcium 20 MG TABLET PO (09:03)
[2023-10-21] MEDS: Losartan Potassium 50 MG TABLET 100 MG PO (09:03)
[2023-10-21] MEDS: Clopidogrel Bisulfate 75 MG TABLET PO (09:04)
--- NOTE | 2023-10-21 09:06 | PC.NURSE ---
Patient attempting to use urinal, unable to void bladder scanned for 800mls, provider notified
--- NOTE | 2023-10-21 09:35 | PC.NURSE ---
Per provider order molina placed, output of 1000mls of clear yellow urine , patient reports feeling much better
[2023-10-21] MEDS: methylPREDNISolone Sod Succ 40 MG/ML VIAL IVPUSH ×2 (09:39→21:15)
--- NOTE | 2023-10-21 11:21 | PC.NURSE ---
Patient reports feeling much better and requesting to eat, currently NPO, message sent to provider
--- NOTE | 2023-10-21 11:24 | MHC.CM.PN ---
DC plan is to return to [facility]; CM has initiated and will follow for dc planning. Patient lives with and PCP is Dr. Kevin Ochoa.
--- NOTE | 2023-10-21 11:30 | PC.RT ---
pt taken off HFNC and placed on oxy mask. Pt jann well, SATs >90%
--- NOTE | 2023-10-21 15:02 | PC.NURSE ---
Patient de sating to 80%. Respiratory called placed back on high flow
[2023-10-21] MEDS: levalbuterol HCL 2.5 MG, Ipratropium Bromide 0.5 MG INHALE ×3 (15:07→23:21)
--- NOTE | 2023-10-21 15:09 | PC.RT ---
RT called to bedside, pt desating to mid to low 80's, placed back on HFNC 35L 30%. Pt resting comfortably. Neb run through aerogen.
--- NOTE | 2023-10-21 18:26 | PC.NURSE ---
Patient with improved work of breathing when placed back on high flow. Reports feeling better. VSS, tolerating po food/fluids well. Son at bedside
--- NOTE | 2023-10-21 18:46 | PC.NURSE ---
Patient removing bilateral hearing aids, asked if he wanted them taken out, patient stating no he want them in . Hearing aids placed back in both ears
--- NOTE | 2023-10-21 18:51 | PC.NURSE ---
Family stating that they will be using [facility] in [place]. Family still visiting , will let staff know when they are done visiting with patient
[2023-10-21] MEDS: Morphine Sulfate 2 MG/ML CARTRIDGE IVPUSH (20:10)
[2023-10-21] MEDS: LORazepam 2 MG/ML VIAL 0.5 MG IVPUSH (20:11)
[2023-10-21] MEDS: Enoxaparin Sodium 40 MG/0.4 ML SYRINGE SUBCUT (21:15)
--- NOTE | 2023-10-21 22:41 | PC.NURSE ---
pt continues to remove hiflow, frequent redirect by staff. camera at bedside
--- NOTE | 2023-10-21 23:49 | PC.NURSE ---
pt is resting comfortably with eyes closed at this time, breathing is even and unlabored, call zhang w/in reach. hiflow on appropriately 94%.
[2023-10-22] VITALS (13 sets, daily range): BP systolic 104–135; BP diastolic 57–79; PULSE 97–113; RESP 18–22; TEMP 36.4–37.4; O2SAT 91–99
[2023-10-22] MEDS: Piperacillin Sodium/Tazobactam 4.5 GM in 0.9 % Sodium Chloride 100 ML IV ×4 (02:35→21:47)
[2023-10-22] MEDS: levalbuterol HCL 2.5 MG, Ipratropium Bromide 0.5 MG INHALE ×5 (04:07→19:26)
[2023-10-22] MEDS: Omeprazole 40 MG CAPSULE.DR PO (06:40)
--- NOTE | 2023-10-22 07:17 | PC.NURSE ---
Patient arrived to the unit he is A/Ox3 he is SOB with exertion and with any activity such as talking, patient is RUBY . He is on high flow O2 sating in the low 90's he is ST on tele. Overnight patient would get restless and try to pull off high flow tubing he as a camera at his bedside.He is turn and reposition his skin is dry with scattered bruising, no edema.Patient has a molina in place at this time urine is clear and yellow. No inications of pain , vitals obtained and documented.IV to left FA intact he received his antibiotics overnight.Call zhang present and bed alarm on.
[2023-10-22] MEDS: Fluticasone/Vilanterol 100/25 BLST.W.DEV 1 PUFF INHALE (07:57)
[2023-10-22] MEDS: Tiotropium Bromide 2.5 mcg 1 PUFF/2.5 MCG MIST.INHAL 2 PUFF INHALE (07:57)
[2023-10-22] MEDS: Losartan Potassium 50 MG TABLET 100 MG PO (07:58)
[2023-10-22] MEDS: 0.9 % Sodium Chloride Flush 3 ML SYRINGE IVFLUSH ×3 (07:58→21:48)
[2023-10-22] MEDS: Metoprolol Succinate ER 50 MG TAB.ER.24H PO (07:58)
[2023-10-22] MEDS: Atorvastatin Calcium 20 MG TABLET PO (07:59)
[2023-10-22] MEDS: methylPREDNISolone Sod Succ 40 MG/ML VIAL IVPUSH (07:59)
[2023-10-22] MEDS: Clopidogrel Bisulfate 75 MG TABLET PO (07:59)
[2023-10-22 08:19] LABS: Basophils Absolute Auto 0.1 X10*3/uL (0.0-0.2); Basophils Percent Auto 0.2 % (0-2); Hematocrit 36.2 % (42.0-52.0); Hemoglobin 11.6 g/dl (14.0-18.0); Imm Gran Abs Auto 0.59 X10*3/uL (0.00-0.03); Imm Gran Pct Auto 2.7 % (0.0-0.4); Lymphocytes Absolute Auto 0.5 X10*3/uL (1.2-4.9); Lymphocytes Percent Auto 2.4 % (20-40); MANUAL DIFF FLAG SCAN; Mean Corpuscular Hemoglobin 27.5 pg (27.0-33.0); Mean Corpuscular Volume 85.8 fL (80.0-98.0); Mean Platelet Volume 8.9 fL (9.4-12.4); Monocytes Percent Auto 9.3 % (2-11); Neutrophils Absolute Auto 18.5 x10*3/uL (2.0-8.3); Neutrophils Percent Auto 85.4 % (45-73); Platelet Count 403 X10*3/uL (160-400); Red Blood Count 4.22 X10*6/uL (4.60-5.80); Red Cell Distribution Width 16.4 % (11.0-16.0); SCAN SMEAR FLAG 1; White Blood Count 21.6 X10*3/uL (4.8-10.8)
[2023-10-22 08:39] LABS: Anion Gap 14 (12-20); Blood Urea Nitrogen 37 mg/dL (9-16); Calcium 8.8 mg/dL (8.4-10.2); Chloride 107 mmol/L (96-108); Creatinine Clr Calc Pharmacy 47.2; Estimated Glomerular Filt Rate > 60; Glucose Random 101 mg/dL (60-115); Potassium 3.9 mmol/L (3.3-5.1); Sodium 142 mmol/L (135-145)
[2023-10-22 08:41] LABS: B Type Natriuretic Peptide 1826 pg/mL (<100)
[2023-10-22 08:42] LABS: SLIDE REVIEW VERIFIED
[2023-10-22 08:57] LABS: Alanine Aminotransferase 129 U/L (0-40); Albumin Level 3.4 g/dL (3.5-5.0); Alkaline Phosphatase 115 U/L (39-117); Aspartate Amino Transferase 39 U/L (5-37); Bilirubin Direct 0.5 mg/dL (0.0-0.5); Bilirubin Total 1.2 mg/dL (0.0-1.0); Total Protein 5.7 g/dL (6.5-8.0)
[2023-10-22 09:20] LABS: Procalcitonin 0.05 ng/mL
[2023-10-22 10:00] LABS: Carbon Dioxide 24 mmol/L (22-29)
--- NOTE | 2023-10-22 11:11 | P.CONCA_ITS ---
History of Present Illness History of Present Illness Date of Service: 10/22/23 Chief complaint: Dyspnea Narrative: 88-year-old gentleman with complex medical issues including previous lung cancer with resection, COPD, anemia, previous coronary disease with circumflex PCI and severe aortic valve stenosis. He also has peripheral vascular disease. He was seen for aortic valve stenosis in the clinic and was referred for transcatheter aortic valve replacement but was felt that he is not symptomatic and should be monitor for now. He had a 2nd opinion in [place] and was given similar plan there. His was doing okay till of week ago when he started having shortness of breath and came to the hospital and was admitted and diagnosed with pneumonia and was started on IV antibiotics. Apparently he got discharged yesterday to rehab but was there for few hours and is breathing worsened they are and he was sent back here. He is currently on high-flow oxygen. His chest x-ray is showing chronic fibrotic changes with patchy airspace opacities and reticular nodular densities with minimal interval improvement compared to prior exam. Right-sided pleural thickness was also noted. He is saying that he has not felt any different since he came to the hospital. He is on high-flow oxygen as mentioned. It appears he was given some diuretics too. COUNT INCLUDES THE [facility] Past Medical History Medical History (Updated 10/22/23 @ 11:16 by Alber Vásquez MD) Dyspnea on exertion CAD (coronary artery disease) NSTEMI (non-ST elevated myocardial infarction) Anemia Aortic stenosis COPD (chronic obstructive pulmonary disease) Rupture of right Achilles tendon Hammer toe of left foot Skin cancer Spinal stenosis GERD (gastroesophageal reflux disease) Asthma HTN (hypertension) Family History Family History Father CVD (cardiovascular disease) Mother Lung cancer Brother Bone cancer Surgical History Surgical History History of cardiac cath 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 Social History Social History Household Members: Spouse Housing: Condominium Do you presently have visiting nurse or other home services: No Alcohol intake: never Comment: 1:1 sitter Patient Tobacco Use Status: Former Tobacco user Years Smoked: 35 +/- Advance Directives Date on File: 12/06/19 service: Yes Current occupational status: retired Meds Allergies Allergy/AdvReac Type Severity Reaction Status Date / Time No Known Allergies Allergy Verified 10/20/23 18:47 Active Medications: Current Medications Acetaminophen (Acetaminophen 325 Mg Tablet) 650 mg PO Q6H PRN PRN Reason: Pain, Mild (Pain Scale 1-3), fever or headache Artificial Tears (Artificial Tears 15 Ml Drops) 1 drop EYE-BOTH BEDTIME PRN PRN Reason: Dry Eyes Artificial Tears (Artificial Tears 15 Ml Drops) 1 drop EYE-BOTH BEDTIME PRN PRN Reason: Dry Eye(S) Atorvastatin Calcium (Atorvastatin Calcium 20 Mg Tablet) 20 mg PO DAILY [facility] Last Admin: 10/22/23 07:59 Dose: 20 mg Calcium Carbonate (Calcium Carbonate 750 Mg Tab.Chew) 750 mg PO Q4H PRN PRN Reason: Heartburn Clopidogrel Bisulfate (Clopidogrel Bisulfate 75 Mg Tablet) 75 mg PO DAILY [facility] Last Admin: 10/22/23 07:59 Dose: 75 mg Levalbuterol HCl 2.5 mg/ (Ipratropium [place] 0.5 mg) 0 mg INHALE RQ4H [facility] Last Admin: 10/22/23 11:06 Dose: 1 dose Enoxaparin Sodium (Enoxaparin Sodium 40 Mg/0.4 Ml Syringe) 40 mg SUBCUT Q24H [facility] Last Admin: 10/21/23 21:15 Dose: 40 mg Fluticasone/Vilanterol (Fluticasone/Vilanterol 100/25 Blst.W.Dev) 1 puff INHALE RDAILY [facility] Last Admin: 10/22/23 07:57 Dose: 1 puff Piperacillin Sod/Tazobactam (Sod 4.5 gm/ Sodium Chloride) 100 mls @ 200 mls/hr IV Q6H [facility] Last Infusion: 10/22/23 08:50 Dose: Infused Losartan Potassium (Losartan Potassium 50 Mg Tablet) 100 mg PO DAILY [facility]; Protocol Last Admin: 10/22/23 07:58 Dose: 100 mg Magnesium Hydroxide (Milk Of Magnesia 30 Ml Oral.Susp) 30 ml PO DAILY PRN PRN Reason: Constipation Melatonin (Melatonin 3 Mg Tablet) 6 mg PO BEDTIME PRN PRN Reason: Insomnia Methylprednisolone Sodium Succinate (Methylprednisolone Sod Succ 40 Mg/Ml Vial) 40 mg IVPUSH Q12H [facility] Last Admin: 10/22/23 07:59 Dose: 40 mg Metoprolol Succinate (Metoprolol Succinate Er 50 Mg Tab.Er.24h) 50 mg PO DAILY [facility]; Protocol Last Admin: 10/22/23 07:58 Dose: 50 mg Metronidazole (Metronidazole 0.75 % Gel 45 Gm Tube) 1 appl TOPICAL DAILY [facility] Last Admin: 10/22/23 07:59 Dose: Not Given Omeprazole (Omeprazole 40 Mg Capsule.Dr) 40 mg PO DAILY@0630 [facility] Last Admin: 10/22/23 06:40 Dose: 40 mg Ondansetron HCl (Ondansetron Hcl 4 Mg/2 Ml Vial) 4 mg IVPUSH Q8H PRN PRN Reason: Nausea and Vomiting Sodium Chloride (0.9 % Sodium Chloride Flush 3 Ml Syringe) 3 ml IVFLUSH QSHIFT [facility] Last Admin: 10/22/23 07:58 Dose: 3 ml Tiotropium [place] (Tiotropium [place] 2.5 Mcg 1 Puff/2.5 Mcg Mist.Inhal) 2 puff INHALE DAILY [facility] Last Admin: 10/22/23 07:57 Dose: 2 puff Home Medications ?Medication ?Instructions ?Recorded ?Confirmed ?Last Taken ?Type losartan 100 mg tablet 100 mg PO DAILY 12/07/19 10/20/23 10/17/23 History omeprazole 20 mg capsule,delayed 40 mg PO DAILY@0630 12/07/19 10/20/23 10/17/23 History release tiotropium bromide 2.5 2 puff inhalation DAILY 02/09/21 10/20/23 10/17/23 History mcg/actuation mist for inhalation (Spiriva Respimat) atorvastatin 40 mg tablet 20 mg PO DAILY 06/02/22 10/20/23 10/17/23 History metoprolol succinate 50 mg 50 mg PO DAILY 06/02/22 10/20/23 10/17/23 History tablet,extended release 24 hr albuterol sulfate 90 mcg/actuation 2 puff inhalation DAILY PRN 10/20/23 10/20/23 Unknown History aerosol inhaler Wheezing/SOB carboxymethylcellulose sodium 1 % 1 drp ophthalmic (eye) BEDTIME PRN 10/20/23 10/20/23 10/17/23 History eye liquid gel drops Dry Eyes metronidazole 0.75 % topical gel 1 appl topical DAILY infection 10/20/23 10/20/23 10/17/23 History polyethylene glycol 400 0.25 % eye 1 drp ophthalmic (eye) BEDTIME PRN 10/20/23 10/20/23 10/17/23 History gel drops Dry Eye(S) Physical Exam 2 Vital Signs: Vital Signs: Last Vital Signs Temp 97.6 F 10/22/23 08:00 Pulse 100 10/22/23 11:06 Resp 20 10/22/23 11:06 BP 135/79 10/22/23 08:00 Pulse Ox 95 10/22/23 08:00 O2 Del Method High Flow Nasal C annula 10/22/23 08:00 O2 Flow Rate 45 10/22/23 08:00 FiO2 48 10/22/23 08:00 BMI result Body Mass Index 19.7 GENERAL APPEARANCE: On high-flow oxygen. Appears comfortable. NECK: no carotid bruit, no significant jugular venous distention. SKIN: no suspicious lesions, warm and dry. HEART: Systolic murmur aortic area, regular rate and rhythm. LUNGS: Bilateral expiratory wheezes. ABDOMEN: soft, nontender. EXTREMITIES: no edema. PERIPHERAL PULSES: equal. NEUROLOGIC: No gross deficits, AAO X 3 Objective Labs and Meds 10/22/23 07:37 10/22/23 07:37 Lab results: Laboratory Results - last 24 hr 10/22/23 10/22/23 07:37 08:08 WBC 21.6 H RBC 4.22 L Hgb 11.6 L Hct 36.2 L MCV 85.8 MCH 27.5 MCHC 32.0 RDW 16.4 H Plt Count 403 H MPV 8.9 L Immature Gran % (Auto) 2.7 H Neut % (Auto) 85.4 H Lymph % (Auto) 2.4 L Lewis % (Auto) 9.3 Eos % (Auto) 0.0 Baso % (Auto) 0.2 Lymph # (Auto) 0.5 L Lewis # (Auto) 2.0 H Eos # (Auto) 0.0 Baso # (Auto) 0.1 Abs Immat Gran (auto) 0.59 H Absolute Neuts (auto) 18.5 H Absolute Nucleated RBC 0.000 Nucleated RBC % (auto) 0.0 Smear Tech's Comments VERIFIED Sodium 142 Potassium 3.9 Chloride 107 Carbon Dioxide 24 Anion Gap 14 BUN 37 H Creatinine 0.90 Estim Creat Clear Calc 47.2 Estimated GFR > 60 Random Glucose 101 Calcium 8.8 Total Bilirubin 1.2 H Direct Bilirubin 0.5 AST 39 H ALT 129 H Alkaline Phosphatase 115 B-Natriuretic Peptide 1826 H Total Protein 5.7 L Albumin 3.4 L Procalcitonin 0.05 Assessment and Plan (1) Aortic stenosis: Status: Acute (2) Hypoxic respiratory failure: Status: Acute Plan [age] year gentleman with known history of COPD, lung cancer status post resection, coronary disease, severe aortic valve stenosis and recent pneumonia presenting with worsening shortness of breath. He is hypoxic and is on high- flow oxygen. His BNP significantly elevated. He has severe and was being followed closely for that in [place] and with Dr. Kramer. He is wheezy on examination. With recent pneumonia possibilities are that he may be developing some ARDS but congestive heart failure definitely is a possibility 2. His BNP significantly elevated and he has severe aortic valve stenosis. Monitor I's and O's closely. We will give him 40 mg IV Lasix now. Monitor blood pressure closely. If any concerns about blood pressure being low then losartan can be cut to 50 mg daily. Continue Toprol-XL at 50 mg daily. Would not titrate beta-blockers further. His echocardiography is showing moderate LV dysfunction and is mid to distal left ventricle is severely hypokinetic to akinetic. The pattern is suggestive of takotsubo cardiomyopathy which is possible in him due to significant respiratory distress. He has known history of coronary disease and obviously we can not rule out ischemic event. He is not in any shape to do any procedures to him. He does not have any ischemic EKG changes. Complex situation and we will follow along with you. Thank you for allowing me to participate in the care of your patient. Please feel free to contact me if you have any questions. Procedures Date of Service Date of Service: 10/22/23
--- NOTE | 2023-10-22 12:05 | P.CONPL_ITS ---
History of Present Illness History of Present Illness Consult date: 10/22/23 Chief complaint: Dyspnea Narrative: 88-year-old gentleman with underlying asthma/COPD overlap syndrome on as needed home O2 up to 2 L, history of right lower lobe lobectomy for adenocarcinoma in 2020, CAD, systolic heart failure and severe aortic stenosis admitted on 10/20/2023 with dyspnea and hypoxia requiring high-flow nasal cannula to maintain normal oximetry. Patient was started empiric diuresis with significant improvement in his symptoms. CT chest was obtained that showed pulmonary edema, but also interstitial thickening and multiple micro nodules. Patient follows with Dr. Carlos on outpatient basis. Review of Systems 2 Cardiovascular: Cardiovascular: Reports pedal edema, Reports dyspnea, Reports dyspnea on exertion and Reports orthopnea Respiratory: Respiratory: Reports dyspnea and Reports dyspnea on exertion PMFSH Past Medical History Medical History (Updated 10/22/23 @ 12:11 by Wood Smiley MD) Dyspnea on exertion CAD (coronary artery disease) NSTEMI (non-ST elevated myocardial infarction) Anemia Aortic stenosis COPD (chronic obstructive pulmonary disease) Rupture of right Achilles tendon Hammer toe of left foot Skin cancer Spinal stenosis GERD (gastroesophageal reflux disease) Asthma HTN (hypertension) Family History Family History Father CVD (cardiovascular disease) Mother Lung cancer Brother Bone cancer Surgical History Surgical History History of cardiac cath 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 Social History Social History Household Members: Spouse Housing: Condominium Do you presently have visiting nurse or other home services: No Alcohol intake: never Comment: 1:1 sitter Patient Tobacco Use Status: Former Tobacco user Years Smoked: 35 +/- Advance Directives Date on File: 12/06/19 service: Yes Current occupational status: retired [employer] Allergies Allergy/AdvReac Type Severity Reaction Status Date / Time No Known Allergies Allergy Verified 10/20/23 18:47 Active Medications: Current Medications Acetaminophen (Acetaminophen 325 Mg Tablet) 650 mg PO Q6H PRN PRN Reason: Pain, Mild (Pain Scale 1-3), fever or headache Artificial Tears (Artificial Tears 15 Ml Drops) 1 drop EYE-BOTH BEDTIME PRN PRN Reason: Dry Eyes Artificial Tears (Artificial Tears 15 Ml Drops) 1 drop EYE-BOTH BEDTIME PRN PRN Reason: Dry Eye(S) Atorvastatin Calcium (Atorvastatin Calcium 20 Mg Tablet) 20 mg PO DAILY [facility] Last Admin: 10/22/23 07:59 Dose: 20 mg Calcium Carbonate (Calcium Carbonate 750 Mg Tab.Chew) 750 mg PO Q4H PRN PRN Reason: Heartburn Clopidogrel Bisulfate (Clopidogrel Bisulfate 75 Mg Tablet) 75 mg PO DAILY [facility] Last Admin: 10/22/23 07:59 Dose: 75 mg Levalbuterol HCl 2.5 mg/ (Ipratropium Marion 0.5 mg) 0 mg INHALE RQ4H [facility] Last Admin: 10/22/23 11:06 Dose: 1 dose Enoxaparin Sodium (Enoxaparin Sodium 40 Mg/0.4 Ml Syringe) 40 mg SUBCUT Q24H [facility] Last Admin: 10/21/23 21:15 Dose: 40 mg Fluticasone/Vilanterol (Fluticasone/Vilanterol 100/25 Blst.W.Dev) 1 puff INHALE RDAILY [facility] Last Admin: 10/22/23 07:57 Dose: 1 puff Piperacillin Sod/Tazobactam (Sod 4.5 gm/ Sodium Chloride) 100 mls @ 200 mls/hr IV Q6H [facility] Last Infusion: 10/22/23 08:50 Dose: Infused Losartan Potassium (Losartan Potassium 50 Mg Tablet) 100 mg PO DAILY [facility]; Protocol Last Admin: 10/22/23 07:58 Dose: 100 mg Magnesium Hydroxide (Milk Of Magnesia 30 Ml Oral.Susp) 30 ml PO DAILY PRN PRN Reason: Constipation Melatonin (Melatonin 3 Mg Tablet) 6 mg PO BEDTIME PRN PRN Reason: Insomnia Methylprednisolone Sodium Succinate (Methylprednisolone Sod Succ 40 Mg/Ml Vial) 40 mg IVPUSH Q12H [facility] Last Admin: 10/22/23 07:59 Dose: 40 mg Metoprolol Succinate (Metoprolol Succinate Er 50 Mg Tab.Er.24h) 50 mg PO DAILY [facility]; Protocol Last Admin: 10/22/23 07:58 Dose: 50 mg Metronidazole (Metronidazole 0.75 % Gel 45 Gm Tube) 1 appl TOPICAL DAILY [facility] Last Admin: 10/22/23 07:59 Dose: Not Given Omeprazole (Omeprazole 40 Mg Capsule.Dr) 40 mg PO DAILY@0630 [facility] Last Admin: 10/22/23 06:40 Dose: 40 mg Ondansetron HCl (Ondansetron Hcl 4 Mg/2 Ml Vial) 4 mg IVPUSH Q8H PRN PRN Reason: Nausea and Vomiting Sodium Chloride (0.9 % Sodium Chloride Flush 3 Ml Syringe) 3 ml IVFLUSH QSHIFT [facility] Last Admin: 10/22/23 07:58 Dose: 3 ml Tiotropium Marion (Tiotropium [place] 2.5 Mcg 1 Puff/2.5 Mcg Mist.Inhal) 2 puff INHALE DAILY [facility] Last Admin: 10/22/23 07:57 Dose: 2 puff Home Medications ?Medication ?Instructions ?Recorded ?Confirmed ?Last Taken ?Type losartan 100 mg tablet 100 mg PO DAILY 12/07/19 10/20/23 10/17/23 History omeprazole 20 mg capsule,delayed 40 mg PO DAILY@0630 12/07/19 10/20/23 10/17/23 History release tiotropium bromide 2.5 2 puff inhalation DAILY 02/09/21 10/20/23 10/17/23 History mcg/actuation mist for inhalation (Spiriva Respimat) atorvastatin 40 mg tablet 20 mg PO DAILY 06/02/22 10/20/23 10/17/23 History metoprolol succinate 50 mg 50 mg PO DAILY 06/02/22 10/20/23 10/17/23 History tablet,extended release 24 hr albuterol sulfate 90 mcg/actuation 2 puff inhalation DAILY PRN 10/20/23 10/20/23 Unknown History aerosol inhaler Wheezing/SOB carboxymethylcellulose sodium 1 % 1 drp ophthalmic (eye) BEDTIME PRN 10/20/23 10/20/23 10/17/23 History eye liquid gel drops Dry Eyes metronidazole 0.75 % topical gel 1 appl topical DAILY infection 10/20/23 10/20/23 10/17/23 History polyethylene glycol 400 0.25 % eye 1 drp ophthalmic (eye) BEDTIME PRN 10/20/23 10/20/23 10/17/23 History gel drops Dry Eye(S) Physical Exam 2 Vital Signs: Vital Signs: Last Vital Signs Temp 97.6 F 10/22/23 08:00 Pulse 100 10/22/23 11:06 Resp 20 08/24/24 11:06 BP 135/79 10/22/23 08:00 Pulse Ox 95 10/22/23 08:00 O2 Del Method High Flow Nasal C annula 10/22/23 08:00 O2 Flow Rate 45 10/22/23 08:00 FiO2 48 10/22/23 08:00 BMI result Body Mass Index 19.7 Const: General: no acute distress, alert and awake Eyes: Sclerae: sclerae normal EOM: EOMs intact bilaterally Neck: Neck: Yes no lymphadenopathy, Yes trachea midline and Yes supple Resp: Effort & Inspection: normal respiratory effort and no respiratory distress Auscultation: crackles (Bilateral) Cardio: Rate: regular rate Rhythm: regular rhythm Heart sounds: no gallops, Murmur heart sound present systolic III/ and no rubs GI: Palpation (GI): Soft to palpation and Other GI palpation findings present ( Nontender) Auscultation: normal bowel sounds Extrem: General: No clubbing, No cyanosis and Yes edema (Trace bilateral) Results Laboratory Findings 10/22/23 07:37 10/22/23 07:37 Abnormal lab findings: Abnormal Labs 10/20/23 10/20/23 10/20/23 19:33 19:34 21:07 WBC 23.4 H RBC 4.32 L Hgb 12.3 L Hct 36.5 L RDW 16.2 H Plt Count 439 H MPV 8.9 L Immature Gran % (Auto) 2.0 H Neut % (Auto) 87.3 H Lymph % (Auto) 1.8 L Lymph # (Auto) 0.4 L Villalba # (Auto) 2.0 H Abs Immat Gran (auto) 0.47 H Absolute Neuts (auto) 20.4 H Neutrophils % (Manual) Band Neutrophils % Abs Neuts (Manual) Monocytes # (Manual) VBG pH 7.47 H VBG HCO3 21 L Carbon Dioxide BUN 36 H Random Glucose 131 H Total Bilirubin AST 105 H ALT 240 H Alkaline Phosphatase 129 H Troponin I High Sens 52.1 H B-Natriuretic Peptide 513 H Total Protein 6.4 L Albumin 10/21/23 10/22/23 10/22/23 04:58 07:37 08:08 WBC 26.5 H 21.6 H RBC 4.56 L 4.22 L Hgb 12.7 L 11.6 L Hct 39.5 L 36.2 L RDW 16.3 H 16.4 H Plt Count 482 H 403 H MPV 9.0 L 8.9 L Immature Gran % (Auto) 2.7 H Neut % (Auto) 85.4 H Lymph % (Auto) 2.4 L Lymph # (Auto) 0.5 L Villalba # (Auto) 2.0 H Abs Immat Gran (auto) 0.59 H Absolute Neuts (auto) 18.5 H Neutrophils % (Manual) 93 H Band Neutrophils % 2 L Abs Neuts (Manual) 25.2 H Monocytes # (Manual) 1.3 H VBG pH VBG HCO3 Carbon Dioxide 17 L BUN 36 H 37 H Random Glucose 169 H Total Bilirubin 1.2 H AST 39 H ALT 129 H Alkaline Phosphatase Troponin I High Sens B-Natriuretic Peptide 1826 H Total Protein 5.7 L Albumin 3.4 L Microbiology: Microbiology 10/20/23 19:44 Blood - Venous Blood Culture - Preliminary No growth after 24 hours. 10/20/23 19:34 Blood - Venous Blood Culture - Preliminary No growth after 24 hours. Assessment and Plan (1) Abnormal CT scan, chest: Status: Acute (2) Hypoxic respiratory failure: Status: Acute (3) Congestive heart failure: Status: Acute (4) Aortic stenosis: Status: Acute Plan Impression: 88-year-old gentleman with underlying asthma/COPD overlap syndrome on home O2 up to 2 L as needed, severe aortic stenosis, CAD, and systolic congestive heart failure admitted with dyspnea and acute on chronic hypoxic respiratory failure now improving with diuresis. CT chest shows micronodule diffuse findings that can be concerning for underlying neoplastic process. Recommendations: Consider further judicious diuresis on the background of severe systolic heart failure and severe aortic stenosis. 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 Procedures Date of Service Date of Service: 10/22/23
[2023-10-22] MEDS: Furosemide 40 MG/4 ML VIAL IVPUSH (12:23)
--- NOTE | 2023-10-22 13:13 | HO.PM.IMPN ---
Subjective Subjective Date of Service: 10/22/23 Interval History: dyspnea improving, satting 100% on HFNC 40% fiO2 40 Lpm no chest pain known to have aortic stenosis Review of Systems Review of Systems: Yes all other systems are reviewed and are negative Physical Exam Vital Signs: Vital Signs: Last Vital Signs Temp 97.6 F 10/22/23 08:00 Pulse 100 10/22/23 11:06 Resp 20 10/22/23 11:06 BP 135/79 10/22/23 08:00 Pulse Ox 95 10/22/23 08:00 O2 Del Method High Flow Nasal C annula 10/22/23 08:00 O2 Flow Rate 45 10/22/23 08:00 FiO2 48 10/22/23 08:00 BMI result Body Mass Index 19.7 Gen: in no acute distress HEENT: sclera anicteric, moist mucus membranes Neck: supple Lungs: bilateral insp crackles + exp wheezing Heart: regular rate and rhythm, systolic murmur at base Abd: soft, non-tender, non-distended Ext: no edema Skin: warm/well-perfused Neuro: alert and oriented x3, no focal findings Psych: appropriate affect Objective Data Active Medications Acetaminophen (Acetaminophen 325 Mg Tablet) 650 mg PO Q6H PRN PRN Reason: Pain, Mild (Pain Scale 1-3), fever or headache Artificial Tears (Artificial Tears 15 Ml Drops) 1 drop EYE-BOTH BEDTIME PRN PRN Reason: Dry Eyes Artificial Tears (Artificial Tears 15 Ml Drops) 1 drop EYE-BOTH BEDTIME PRN PRN Reason: Dry Eye(S) Atorvastatin Calcium (Atorvastatin Calcium 20 Mg Tablet) 20 mg PO DAILY [facility] Last Admin: 10/22/23 07:59 Dose: 20 mg Documented By: STEPHENIE Calcium Carbonate (Calcium Carbonate 750 Mg Tab.Chew) 750 mg PO Q4H PRN PRN Reason: Heartburn Clopidogrel Bisulfate (Clopidogrel Bisulfate 75 Mg Tablet) 75 mg PO DAILY [facility] Last Admin: 10/22/23 07:59 Dose: 75 mg Documented By: STEPHENIE Levalbuterol HCl 2.5 mg/ (Ipratropium [place] 0.5 mg) 0 mg INHALE RQ4H [facility] Last Admin: 10/22/23 11:06 Dose: 1 dose Documented By: SHAQ Enoxaparin Sodium (Enoxaparin Sodium 40 Mg/0.4 Ml Syringe) 40 mg SUBCUT Q24H [facility] Last Admin: 10/21/23 21:15 Dose: 40 mg Documented By: AGUS Fluticasone/Vilanterol (Fluticasone/Vilanterol 100/25 Blst.W.Dev) 1 puff INHALE RDAILY [facility] Last Admin: 10/22/23 07:57 Dose: 1 puff Documented By: SHAQ Piperacillin Sod/Tazobactam (Sod 4.5 gm/ Sodium Chloride) 100 mls @ 200 mls/hr IV Q6H [facility] Last Infusion: 10/22/23 08:50 Dose: Infused Documented By: STEPHENIE Losartan Potassium (Losartan Potassium 50 Mg Tablet) 100 mg PO DAILY [facility]; Protocol Last Admin: 10/22/23 07:58 Dose: 100 mg Documented By: STEPHENIE Magnesium Hydroxide (Milk Of Magnesia 30 Ml Oral.Susp) 30 ml PO DAILY PRN PRN Reason: Constipation Melatonin (Melatonin 3 Mg Tablet) 6 mg PO BEDTIME PRN PRN Reason: Insomnia Methylprednisolone Sodium Succinate (Methylprednisolone Sod Succ 40 Mg/Ml Vial) 40 mg IVPUSH Q12H [facility] Last Admin: 10/22/23 07:59 Dose: 40 mg Documented By: STEPHENIE Metoprolol Succinate (Metoprolol Succinate Er 50 Mg Tab.Er.24h) 50 mg PO DAILY [facility]; Protocol Last Admin: 10/22/23 07:58 Dose: 50 mg Documented By: STEPHENIE Metronidazole (Metronidazole 0.75 % Gel 45 Gm Tube) 1 appl TOPICAL DAILY [facility] Last Admin: 10/22/23 07:59 Dose: Not Given Documented By: STEPHENIE Non-Admin Reason: not in room or patient bin Omeprazole (Omeprazole 40 Mg Capsule.Dr) 40 mg PO DAILY@0630 [facility] Last Admin: 10/22/23 06:40 Dose: 40 mg Documented By: QUIQUE Ondansetron HCl (Ondansetron Hcl 4 Mg/2 Ml Vial) 4 mg IVPUSH Q8H PRN PRN Reason: Nausea and Vomiting Sodium Chloride (0.9 % Sodium Chloride Flush 3 Ml Syringe) 3 ml IVFLUSH QSHIFT [facility] Last Admin: 10/22/23 07:58 Dose: 3 ml Documented By: STEPHENIE Tiotropium [place] (Tiotropium [place] 2.5 Mcg 1 Puff/2.5 Mcg Mist.Inhal) 2 puff INHALE DAILY [facility] Last Admin: 10/22/23 07:57 Dose: 2 puff Documented By: SHAQ Labs 10/22/23 07:37 10/22/23 07:37 Labs: Laboratory Results - last 24 hr 10/22/23 10/22/23 07:37 08:08 MCV 85.8 MCH 27.5 MCHC 32.0 RDW 16.4 H Plt Count 403 H MPV 8.9 L Immature Gran % (Auto) 2.7 H Neut % (Auto) 85.4 H Lymph % (Auto) 2.4 L Graham % (Auto) 9.3 Eos % (Auto) 0.0 Baso % (Auto) 0.2 Lymph # (Auto) 0.5 L Graham # (Auto) 2.0 H Eos # (Auto) 0.0 Baso # (Auto) 0.1 Abs Immat Gran (auto) 0.59 H Absolute Neuts (auto) 18.5 H Absolute Nucleated RBC 0.000 Nucleated RBC % (auto) 0.0 Smear Tech's Comments VERIFIED Anion Gap 14 Estim Creat Clear Calc 47.2 Estimated GFR > 60 Random Glucose 101 Calcium 8.8 Total Bilirubin 1.2 H Direct Bilirubin 0.5 AST 39 H ALT 129 H Alkaline Phosphatase 115 B-Natriuretic Peptide 1826 H Total Protein 5.7 L Albumin 3.4 L Procalcitonin 0.05 Microbiology Microbiology Results: Microbiology 10/20/23 19:44 Blood Culture - Preliminary Blood - Venous No growth after 24 hours. 10/20/23 19:34 Blood Culture - Preliminary Blood - Venous No growth after 24 hours. Assessment and Plan (1) COPD exacerbation: Status: Acute (2) Pneumonia: Status: Acute (3) Elevated troponin: Status: Acute Plan d3 88yo M with 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, NSTEMI s/p GEOVANNA to LCX 05/14/22, severe , lung CA s/p lobectomy, HTN discharged to [facility] after recent admission for COPD + PNA and re-admitted the same day for worsning dyspnea requiring CPAP then HFNC acute/chronic HFrEF [30-35%] 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] severe - continue furosemide, monitor BNP/lytes/weights/I+O, Cardiology consultation, continue metoprolol succinate + losartan AHRF - wean off HFNC to Oxymask PNA - pip-tate 10/19-; if PCT remains low, consider d/c'ing COPD with acute exac - continue nebs, taper IV methylprednisolone, Breo + tiotropium lung CA with likely recurrence, micronodular disease noted - outpt Oncology f/u CAD - continue DAPT + metoprolol succinate + atorvastatin GERD - continue PPI VTE ppx - enoxaparin dispo - eventual STR In my clinical judgment, the patient requires continued inpatient hospitalization for the following reasons: IV diuresis, hypoxia Total time managing care of this patient today: 45 minutes. Quality Stroke Does the patient have a stroke diagnosis?: No VTE Prior VTE?: No VTE Risk Level:: Medical - moderate - high VTE Device Contraindication: Treatment Not Indicated VTE Drug Contraindication: N/A - Med Ordered
[2023-10-22] MEDS: Enoxaparin Sodium 40 MG/0.4 ML SYRINGE SUBCUT (21:46)
[2023-10-23] VITALS (11 sets, daily range): BP systolic 120–155; BP diastolic 64–81; PULSE 98–114; RESP 20–24; TEMP 36.4–37.2; O2SAT 93–97
--- NOTE | 2023-10-23 | ECG_ITS ---
Test Reason : nstemi Blood Pressure : / mmHG Vent. Rate : 106 BPM Atrial Rate : 106 BPM P-R Int : 146 ms QRS Dur : 128 ms QT Int : 422 ms P-R-T Axes : 065 122 187 degrees QTc Int : 560 ms Sinus tachycardia with occasional Premature ventricular complexes Left atrial enlargement Right bundle branch block , plus right ventricular hypertrophy Left posterior fascicular block Bifascicular block T wave abnormality, consider inferolateral ischemia Abnormal ECG When compared with ECG of 20-OCT-2023 19:13, Premature ventricular complexes are now Present ST now depressed in Anterior leads T wave inversion now evident in Inferior leads T wave inversion more evident in Anterolateral leads Referred By: Alber Vásquez Electronically Signed By:KATERINA JONES
--- OUTSIDE RECORDS SUMMARY | 2023-10-23 00:01 | XMS_ITS | Patient Health Record ---
Author Organization [facility] Address [address] [place] [address] Care Team Providers Care Soaping Department Supervisor Name Role Phone Kevin Ochoa MD Primary Care Provider Unavaila Soto Jones Jr Unavailable [phone] REASON FOR REFERRAL No Information SOCIAL HISTORY Sex Assigned At : Social History Observation Description Sex Assigned At Unknown PROBLEMS Problem Type ICD Code Onset Dates Problem Status W/U Status Risk SNOMED Code Notes Problem Diverticulosis of large intestine without perforation or abscess without bleeding (K57.30) Active confirmed Diverticul ar disease of colon (529833704) PLAN OF TREATMENT No Information Insurance Providers Payer Name Payer Address Payer Phone Subscriber Number Group Number Insured Name Patient Relationship to Insured Coverage Start Date Coverage End Date MEDICARE OF [place] [address] [place] [address] [id number] NICK BULLARD Self - patient is the insured [employer] ATTN CLAIMS [address] [place] [address] [id number] NICK BULLARD Self - patient is the insured
--- OUTSIDE RECORDS SUMMARY | 2023-10-23 00:01 | XMS_ITS ---
Author Organization [facility] Address [address] [place] [address] Care Team Providers Care Political Advisor Name Role Phone Kevin Ochoa MD Primary Care Provider Unavaila Soto Jones Jr Unavailable [phone] REASON FOR VISIT pathology Encounters Encounter Location Date Provider Diagnosis [facility] [address] [place] [address] 06/17/2022 Soto Latham Jr PLAN OF TREATMENT No Information
--- OUTSIDE RECORDS SUMMARY | 2023-10-23 00:01 | XMS_ITS ---
Author Organization [facility] Address [address] [place] [address] Care Team Providers Care Atomic Spectroscopist Name Role Phone Kevin Ochoa MD Primary Care Provider Unavaila Soto Jones Jr Unavailable REASON FOR VISIT FYI Encounters Encounter Location Date Provider Diagnosis [facility] [address] [place] [address] 07/06/2022 Soto Latham Jr PLAN OF TREATMENT No Information
--- OUTSIDE RECORDS SUMMARY | 2023-10-23 00:01 | XMS_ITS ---
Author Organization [facility] Address [address] [place] [address] Care Team Providers Care Colon Therapist Name Role Phone Kevin Ochoa MD Primary Care Provider Unavaila Soto Jones Jr Unavailable [phone] Encounters Encounter Location Date Provider Diagnosis [facility] [address] [place] [address] 08/25/2022 Soto Latham Jr PLAN OF TREATMENT No Information
[2023-10-23] MEDS: Piperacillin Sodium/Tazobactam 4.5 GM in 0.9 % Sodium Chloride 100 ML IV ×4 (03:33→20:23)
[2023-10-23] MEDS: levalbuterol HCL 2.5 MG, Ipratropium Bromide 0.5 MG INHALE ×5 (03:38→23:34)
[2023-10-23] MEDS: Omeprazole 40 MG CAPSULE.DR PO (06:30)
[2023-10-23] MEDS: Fluticasone/Vilanterol 100/25 BLST.W.DEV 1 PUFF INHALE (07:05)
[2023-10-23] MEDS: Tiotropium Bromide 2.5 mcg 1 PUFF/2.5 MCG MIST.INHAL 2 PUFF INHALE (07:07)
[2023-10-23 07:41] LABS: Alanine Aminotransferase 115 U/L (0-40); Albumin Level 3.5 g/dL (3.5-5.0); Alkaline Phosphatase 120 U/L (39-117); Anion Gap 15 (12-20); Aspartate Amino Transferase 38 U/L (5-37); Bilirubin Direct 0.5 mg/dL (0.0-0.5); Bilirubin Total 1.3 mg/dL (0.0-1.0); Blood Urea Nitrogen 43 mg/dL (9-16); Calcium 9.3 mg/dL (8.4-10.2); Carbon Dioxide 28 mmol/L (22-29); Chloride 106 mmol/L (96-108); Creatinine Clr Calc Pharmacy 44.3; Estimated Glomerular Filt Rate > 60; Glucose Random 92 mg/dL (60-115); Magnesium 2.4 mg/dL (1.6-2.6); Potassium 4.2 mmol/L (3.3-5.1); Sodium 145 mmol/L (135-145); Total Protein 6.1 g/dL (6.5-8.0)
[2023-10-23 07:48] LABS: B Type Natriuretic Peptide 1140 pg/mL (<100)
[2023-10-23] MEDS: Clopidogrel Bisulfate 75 MG TABLET PO (08:19)
[2023-10-23] MEDS: Losartan Potassium 50 MG TABLET 100 MG PO (08:19)
[2023-10-23] MEDS: Metoprolol Succinate ER 50 MG TAB.ER.24H PO (08:20)
[2023-10-23] MEDS: 0.9 % Sodium Chloride Flush 3 ML SYRINGE IVFLUSH ×3 (08:20→20:23)
[2023-10-23] MEDS: Atorvastatin Calcium 20 MG TABLET PO (08:20)
[2023-10-23] MEDS: methylPREDNISolone Sod Succ 40 MG/ML VIAL IVPUSH (08:22)
[2023-10-23] MEDS: Furosemide 40 MG/4 ML VIAL IVPUSH ×2 (08:58→17:36)
--- NOTE | 2023-10-23 09:52 | P.PNIM_ITS ---
Subjective Subjective Date of Service: 10/23/23 Interval History: still quite dyspneic but weaned from HFNC to Oxymask no chest pain Review of Systems Review of Systems: Yes all other systems are reviewed and are negative Physical Exam 2 Vital Signs: Vital Signs: Last Vital Signs Temp 97.7 F 10/23/23 07:49 Pulse 102 H 10/23/23 07:49 Resp 20 10/23/23 07:49 BP 137/72 10/23/23 07:49 Pulse Ox 97 10/23/23 07:49 O2 Del Method Oxymask 10/23/23 07:49 O2 Flow Rate 6 10/23/23 07:49 FiO2 48 10/22/23 08:00 BMI result Body Mass Index 19.7 Gen: in no acute distress HEENT: sclera anicteric, moist mucus membranes Neck: supple Lungs: bilateral insp crackles + exp wheezing Heart: regular rate and rhythm, systolic murmur at base Abd: soft, non-tender, non-distended Ext: no edema Skin: warm/well-perfused Neuro: alert and oriented x3, no focal findings Psych: appropriate affect Objective Data Active Medications Acetaminophen (Acetaminophen 325 Mg Tablet) 650 mg PO Q6H PRN PRN Reason: Pain, Mild (Pain Scale 1-3), fever or headache Artificial Tears (Artificial Tears 15 Ml Drops) 1 drop EYE-BOTH BEDTIME PRN PRN Reason: Dry Eye(S) Atorvastatin Calcium (Atorvastatin Calcium 20 Mg Tablet) 20 mg PO DAILY [facility] Last Admin: 10/23/23 08:20 Dose: 20 mg Documented By: STEPHENIE Calcium Carbonate (Calcium Carbonate 750 Mg Tab.Chew) 750 mg PO Q4H PRN PRN Reason: Heartburn Clopidogrel Bisulfate (Clopidogrel Bisulfate 75 Mg Tablet) 75 mg PO DAILY [facility] Last Admin: 10/23/23 08:19 Dose: 75 mg Documented By: STEPHENIE Levalbuterol HCl 2.5 mg/ (Ipratropium [place] 0.5 mg) 0 mg INHALE RQ4H [facility] Last Admin: 10/23/23 07:07 Dose: 1 dose Documented By: SHAQ Enoxaparin Sodium (Enoxaparin Sodium 40 Mg/0.4 Ml Syringe) 40 mg SUBCUT Q24H [facility] Last Admin: 10/22/23 21:46 Dose: 40 mg Documented By: BERNIE Fluticasone/Vilanterol (Fluticasone/Vilanterol 100/25 Blst.W.Dev) 1 puff INHALE RDAILY [facility] Last Admin: 10/23/23 07:05 Dose: 1 puff Documented By: SHAQ Furosemide (Furosemide 40 Mg/4 Ml Vial) 40 mg IVPUSH BID@0900,1800 [facility]; Protocol Last Admin: 10/23/23 08:58 Dose: 40 mg Documented By: STEPHENIE Piperacillin Sod/Tazobactam (Sod 4.5 gm/ Sodium Chloride) 100 mls @ 200 mls/hr IV Q6H [facility] Last Infusion: 10/23/23 09:04 Dose: Infused Documented By: STEPHENIE Losartan Potassium (Losartan Potassium 50 Mg Tablet) 100 mg PO DAILY [facility]; Protocol Last Admin: 10/23/23 08:19 Dose: 100 mg Documented By: STEPHENIE Magnesium Hydroxide (Milk Of Magnesia 30 Ml Oral.Susp) 30 ml PO DAILY PRN PRN Reason: Constipation Melatonin (Melatonin 3 Mg Tablet) 6 mg PO BEDTIME PRN PRN Reason: Insomnia Methylprednisolone Sodium Succinate (Methylprednisolone Sod Succ 40 Mg/Ml Vial) 40 mg IVPUSH DAILY [facility] Last Admin: 10/23/23 08:22 Dose: 40 mg Documented By: STEPHENIE Metoprolol Succinate (Metoprolol Succinate Er 50 Mg Tab.Er.24h) 50 mg PO DAILY [facility]; Protocol Last Admin: 10/23/23 08:20 Dose: 50 mg Documented By: STEPHENIE Metronidazole (Metronidazole 0.75 % Gel 45 Gm Tube) 1 appl TOPICAL DAILY [facility] Last Admin: 10/23/23 08:58 Dose: Not Given Documented By: STEPHENIE Non-Admin Reason: not in room Omeprazole (Omeprazole 40 Mg Capsule.Dr) 40 mg PO DAILY@0630 [facility] Last Admin: 10/23/23 06:30 Dose: 40 mg Documented By: WINTER Ondansetron HCl (Ondansetron Hcl 4 Mg/2 Ml Vial) 4 mg IVPUSH Q8H PRN PRN Reason: Nausea and Vomiting Sodium Chloride (0.9 % Sodium Chloride Flush 3 Ml Syringe) 3 ml IVFLUSH QSHIFT [facility] Last Admin: 08/25/24 08:20 Dose: 3 ml Documented By: STEPHENIE Tiotropium [place] (Tiotropium [place] 2.5 Mcg 1 Puff/2.5 Mcg Mist.Inhal) 2 puff INHALE DAILY [facility] Last Admin: 10/23/23 07:07 Dose: 2 puff Documented By: SHAQ Labs 10/22/23 07:37 10/23/23 06:49 Labs: Laboratory Results - last 24 hr 10/23/23 06:49 Anion Gap 15 Estim Creat Clear Calc 44.3 Estimated GFR > 60 Random Glucose 92 Calcium 9.3 Magnesium 2.4 Total Bilirubin 1.3 H Direct Bilirubin 0.5 AST 38 H ALT 115 H Alkaline Phosphatase 120 H B-Natriuretic Peptide 1140 H Total Protein 6.1 L Albumin 3.5 TTE 10/21/23 - Normal left ventricular cavity size. There is normal left ventricular wall thickness. The left ventricular systolic function is moderately decreased. The visually estimated ejection fraction is between 30-35%. - The entire apex, the mid anteroseptal, and mid inferolateral segments are akinetic. - Normal right ventricular cavity size and systolic function. - There is severe aortic valve stenosis-low flow low gradient . Microbiology Microbiology Results: Microbiology 10/20/23 19:44 Blood Culture - Preliminary Blood - Venous No growth after 48 hours. 10/20/23 19:34 Blood Culture - Preliminary Blood - Venous No growth after 48 hours. Assessment and Plan (1) COPD exacerbation: Status: Acute (2) Pneumonia: Status: Acute (3) Elevated troponin: Status: Acute Plan d4 88yo M with 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, NSTEMI s/p GEOVANNA to LCX 05/14/22, severe , lung CA s/p lobectomy, HTN discharged to [facility] after recent admission for COPD + PNA but then re-admitted the same day for worsning dyspnea requiring CPAP then HFNC acute/chronic HFrEF [30-35%] 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] severe - continue furosemide 40 mg IV bid, monitor BNP/lytes/weights/I+O, Cardiology following; continue metoprolol succinate + losartan AHRF - weaned from HFNC to Oxymask as his volume status improved PNA - on piperacillin-tazobactam 10/19-; if PCT remains low tomorrow, consider d/c'ing COPD with acute exac - continue nebs, taper IV methylprednisolone, Breo + tiotropium leukocytosis - likely steroid effect lung CA with likely recurrence, micronodular disease noted - outpt Oncology f/u CAD - continue DAPT + metoprolol succinate + atorvastatin GERD - continue PPI VTE ppx - enoxaparin dispo - eventual return to STR In my clinical judgment, the patient requires continued inpatient hospitalization for the following reasons: IV diuresis, hypoxia Total time managing care of this patient today: 45 minutes. Quality Stroke Does the patient have a stroke diagnosis?: No VTE Prior VTE?: No VTE Risk Level:: Medical - moderate - high VTE Device Contraindication: Treatment Not Indicated VTE Drug Contraindication: N/A - Med Ordered
--- NOTE | 2023-10-23 12:55 | PM.PNCARD ---
Subjective Subjective Date of Service: 10/23/23 Interval history: Seen examined at bedside. Clinically improving and is off the high-flow oxygen currently. Still feels the same and short of breath. Physical Exam Vital Signs: Last Vital Signs Temp 97.7 F 10/23/23 07:49 Pulse 102 H 10/23/23 07:49 Resp 20 10/23/23 07:49 BP 137/72 10/23/23 07:49 Pulse Ox 97 10/23/23 07:49 O2 Del Method Oxymask 10/23/23 07:49 O2 Flow Rate 6 10/23/23 07:49 FiO2 48 10/22/23 08:00 BMI result Body Mass Index 19.7 GENERAL APPEARANCE: On facemask. Off the high-flow oxygen currently. NECK: no carotid bruit, no significant jugular venous distention. SKIN: no suspicious lesions, warm and dry. HEART: Systolic murmur aortic area, regular rate and rhythm. LUNGS: Lung somewhat clear compared to yesterday. No wheezes or rhonchi. ABDOMEN: soft, nontender. EXTREMITIES: no edema. PERIPHERAL PULSES: equal. NEUROLOGIC: No gross deficits, AAO X 3 Objective Labs and Meds 10/22/23 07:37 10/23/23 06:49 Lab results: Laboratory Results - last 24 hr 10/23/23 06:49 Sodium 145 Potassium 4.2 Chloride 106 Carbon Dioxide 28 Anion Gap 15 BUN 43 H Creatinine 0.96 Estim Creat Clear Calc 44.3 Estimated GFR > 60 Random Glucose 92 Calcium 9.3 Magnesium 2.4 Total Bilirubin 1.3 H Direct Bilirubin 0.5 AST 38 H ALT 115 H Alkaline Phosphatase 120 H B-Natriuretic Peptide 1140 H Total Protein 6.1 L Albumin 3.5 Progress Note: A&P Assessment and plan (1) Hypoxic respiratory failure: Status: Acute (2) Congestive heart failure: Status: Acute (3) Aortic stenosis: Status: Acute Plan 88-year-old gentleman with severe aortic valve stenosis, lung cancer and COPD who presented with pneumonia a week ago and was discharged to rehab but developed worsening shortness of breath and was transferred back to the hospital. Continues to be on broad-spectrum antibiotics. Clinically has improved with diuresis and I think we continue to diurese him for now with 40 mg IV b.i.d. Lasix. I am not sure I's and O's are well monitored. No chest discomfort otherwise. He is on Plavix with previous history of circumflex stenting. Echocardiography has shown mid to distal LV dysfunction in LAD territory with differentials of true ischemia versus takotsubo. I favor more takotsubo currently in his case as the diagnosis. We will check EKG today to reassess because he did initially did not have any changes. He is not in any shape to do any procedures anyway currently. I think the aortic stenosis management will be based on his recovery from the current event. I have explained to him that he has significant shortness of breath due to lung issues and previous cancer/COPD. Valve replacement may not change any of this for him unfortunately. We will reassess things as he gets discharged and sees us in the office. Thank you for allowing me to participate in the care of your patient. Please feel free to contact me if you have any questions. Time Spent With Patient Time: Total time managing care of this patient today ____ minutes. Progress Note: Quality Stroke Does the patient have a stroke diagnosis?: No Procedures Date of Service Date of Service: 10/23/23
[2023-10-23] MEDS: Enoxaparin Sodium 40 MG/0.4 ML SYRINGE SUBCUT (20:20)
[2023-10-24] VITALS (11 sets, daily range): BP systolic 90–136; BP diastolic 50–79; PULSE 78–111; RESP 14–24; TEMP 36.2–36.8; O2SAT 94–98
[2023-10-24] MEDS: Piperacillin Sodium/Tazobactam 4.5 GM in 0.9 % Sodium Chloride 100 ML IV (02:53)
[2023-10-24] MEDS: levalbuterol HCL 2.5 MG, Ipratropium Bromide 0.5 MG INHALE ×5 (04:38→20:19)
[2023-10-24] MEDS: Omeprazole 40 MG CAPSULE.DR PO (05:30)
[2023-10-24 07:04] LABS: B Type Natriuretic Peptide 735 pg/mL (<100)
[2023-10-24 07:16] LABS: Anion Gap 15 (12-20); Blood Urea Nitrogen 43 mg/dL (9-16); Calcium 9.3 mg/dL (8.4-10.2); Carbon Dioxide 30 mmol/L (22-29); Chloride 103 mmol/L (96-108); Creatinine Clr Calc Pharmacy 45.7; Estimated Glomerular Filt Rate > 60; Glucose Random 100 mg/dL (60-115); Magnesium 2.3 mg/dL (1.6-2.6); Procalcitonin 0.06 ng/mL; Sodium 145 mmol/L (135-145)
[2023-10-24 07:32] LABS: Potassium 3.3 mmol/L (3.3-5.1)
[2023-10-24] MEDS: Tiotropium Bromide 2.5 mcg 1 PUFF/2.5 MCG MIST.INHAL 2 PUFF INHALE (07:37)
[2023-10-24] MEDS: Fluticasone/Vilanterol 100/25 BLST.W.DEV 1 PUFF INHALE (07:42)
[2023-10-24] MEDS: Atorvastatin Calcium 20 MG TABLET PO (08:13)
[2023-10-24] MEDS: Furosemide 40 MG/4 ML VIAL IVPUSH (08:13)
[2023-10-24] MEDS: Clopidogrel Bisulfate 75 MG TABLET PO (08:13)
[2023-10-24] MEDS: Metoprolol Succinate ER 50 MG TAB.ER.24H PO (08:13)
[2023-10-24] MEDS: methylPREDNISolone Sod Succ 40 MG/ML VIAL IVPUSH (08:13)
[2023-10-24] MEDS: 0.9 % Sodium Chloride Flush 3 ML SYRINGE IVFLUSH ×3 (08:13→20:53)
[2023-10-24] MEDS: Losartan Potassium 50 MG TABLET 100 MG PO (08:13)
[2023-10-24] MEDS: metroNIDAZOLE 0.75 % Gel 45 GM TUBE 1 APPL TOPICAL (11:11)
--- NOTE | 2023-10-24 11:20 | PM.PNCARD ---
Subjective Subjective Date of Service: 10/24/23 Principal diagnosis: CHF, aortic stenosis Interval history: Patient says he is breathing a lot better although still using oxygen currently. Has diuresed over-20 100 cc since last 24 as recorded. He has been getting Lasix 40 mg IV b.i.d.. Denies any chest pain. No lightheadedness, syncope. Telemetry shows sinus rhythm/sinus tachycardia with PVCs. Review of Systems Constitutional: Reports lethargy and Reports weakness Cardiovascular: Denies chest pain, Denies leg edema, Denies lightheadedness, Denies palpitations and Reports dyspnea on exertion Respiratory: Reports no additional respiratory complaints and Reports dyspnea on exertion Reports system reviewed and no additional complaints, except as documented and Reports weakness Endocrine: Denies palpitations Physical Exam Vital Signs: Last Vital Signs Temp 98.0 F 10/24/23 07:32 Pulse 90 10/24/23 11:14 Resp 22 H 10/24/23 11:14 BP 136/79 10/24/23 07:32 Pulse Ox 95 10/24/23 07:32 O2 Del Method Oxymask 10/24/23 07:32 O2 Flow Rate 5 10/24/23 07:32 FiO2 48 10/22/23 08:00 BMI result Body Mass Index 19.7 GENERAL APPEARANCE: On facemask. Off the high-flow oxygen currently. NECK: no carotid bruit, no significant jugular venous distention. SKIN: no suspicious lesions, warm and dry. HEART: Systolic murmur aortic area, regular rate and rhythm. LUNGS: Lung somewhat clear compared to yesterday. No wheezes or rhonchi. ABDOMEN: soft, nontender. EXTREMITIES: no edema. PERIPHERAL PULSES: equal. NEUROLOGIC: No gross deficits, AAO X 3 Objective Labs and Meds 10/22/23 07:37 10/24/23 06:02 Lab results: Laboratory Results - last 24 hr 10/24/23 06:02 Sodium 145 Potassium 3.3 D Chloride 103 Carbon Dioxide 30 H Anion Gap 15 BUN 43 H Creatinine 0.93 Estim Creat Clear Calc 45.7 Estimated GFR > 60 Random Glucose 100 Calcium 9.3 Magnesium 2.3 B-Natriuretic Peptide 735 H Procalcitonin 0.06 Progress Note: A&P Assessment and plan (1) Congestive heart failure: Status: Acute Assessment and Plan: New onset congestive heart failure in this elderly gentleman with multiple comorbidities including lung cancer which has as per the family spread to the other long, frailty and advanced age, ischemic cardiomyopathy EF of about 35% and now with low-flow low gradient severe aortic stenosis. Patient continues to use oxygen and appears to be needing that. Oxygen desaturation study needs to be pursued. Require oxygen for short period of time at home. PT consultation. Switch to p.o. Lasix 40 mg daily. Discussed with the family about progressive nature of heart failure once developing heart failure syndrome and setting of severe aortic stenosis. However his prognosis limited by lung cancer as well. At this point time overall prognosis is limited and guarded. Discussed with the patient patient's family. If stable probably can be discharged home tomorrow will set up for follow-up in the near future as an outpatient Time Spent With Patient Time: Total time managing care of this patient today ____ minutes. Progress Note: Quality Stroke Does the patient have a stroke diagnosis?: No Procedures Date of Service Date of Service: 10/24/23
--- NOTE | 2023-10-24 11:49 | MHC.CM.PN ---
EMR REVIEWED, PT W/NEW ON SET CHF, PER CARDIOLOGY PLAN TO CHANGE LASIX TO PO TODAY, WILL LIKELY NEED PT EVAL FOR DISPO, CM WILL CONT TO FOLLOW DC NEEDS.
--- NOTE | 2023-10-24 12:57 | P.PNIM_ITS ---
Subjective Subjective Date of Service: 10/24/23 Interval History: seen and examined feeling better daily Review of Systems Negative except HPI/interval history. Physical Exam 2 Vital Signs: Vital Signs: Last Vital Signs Temp 97.2 F 10/24/23 11:22 Pulse 95 10/24/23 11:22 Resp 22 H 10/24/23 11:22 BP 107/62 10/24/23 11:22 Pulse Ox 96 10/24/23 11:22 O2 Del Method Oxymask 10/24/23 07:32 O2 Flow Rate 5 10/24/23 07:32 FiO2 48 10/22/23 08:00 BMI result Body Mass Index 19.7 Const: Other: General - no acute distress, appears comfortable Cardiovascular - regular rate and rhythm, S1-S2 Lungs - improving air entry b/l; Abdomen - soft, nontender, no rebound or guarding Extremities - no edema bilaterally Neuro - awake and alert, no focal deficits Objective Data Active Medications Acetaminophen (Acetaminophen 325 Mg Tablet) 650 mg PO Q6H PRN PRN Reason: Pain, Mild (Pain Scale 1-3), fever or headache Artificial Tears (Artificial Tears 15 Ml Drops) 1 drop EYE-BOTH BEDTIME PRN PRN Reason: Dry Eye(S) Atorvastatin Calcium (Atorvastatin Calcium 20 Mg Tablet) 20 mg PO DAILY [facility] Last Admin: 10/24/23 08:13 Dose: 20 mg Documented By: MAE Calcium Carbonate (Calcium Carbonate 750 Mg Tab.Chew) 750 mg PO Q4H PRN PRN Reason: Heartburn Clopidogrel Bisulfate (Clopidogrel Bisulfate 75 Mg Tablet) 75 mg PO DAILY [facility] Last Admin: 10/24/23 08:13 Dose: 75 mg Documented By: MAE Levalbuterol HCl 2.5 mg/ (Ipratropium [place] 0.5 mg) 0 mg INHALE RQ4H [facility] Last Admin: 10/24/23 11:13 Dose: 1 dose Documented By: SHAQ Enoxaparin Sodium (Enoxaparin Sodium 40 Mg/0.4 Ml Syringe) 40 mg SUBCUT Q24H [facility] Last Admin: 10/23/23 20:20 Dose: 40 mg Documented By: BERNIE Fluticasone/Vilanterol (Fluticasone/Vilanterol 100/25 Blst.W.Dev) 1 puff INHALE RDAILY [facility] Last Admin: 10/24/23 07:42 Dose: 1 puff Documented By: ANGELITA Furosemide (Furosemide 40 Mg Tablet) 40 mg PO DAILY [facility]; Protocol Losartan Potassium (Losartan Potassium 50 Mg Tablet) 100 mg PO DAILY [facility]; Protocol Last Admin: 10/24/23 08:13 Dose: 100 mg Documented By: MAE Magnesium Hydroxide (Milk Of Magnesia 30 Ml Oral.Susp) 30 ml PO DAILY PRN PRN Reason: Constipation Melatonin (Melatonin 3 Mg Tablet) 6 mg PO BEDTIME PRN PRN Reason: Insomnia Methylprednisolone Sodium Succinate (Methylprednisolone Sod Succ 40 Mg/Ml Vial) 40 mg IVPUSH DAILY [facility] Last Admin: 10/24/23 08:13 Dose: 40 mg Documented By: MAE Metoprolol Succinate (Metoprolol Succinate Er 50 Mg Tab.Er.24h) 50 mg PO DAILY [facility]; Protocol Last Admin: 10/24/23 08:13 Dose: 50 mg Documented By: MAE Metronidazole (Metronidazole 0.75 % Gel 45 Gm Tube) 1 appl TOPICAL DAILY [facility] Last Admin: 10/24/23 11:11 Dose: 1 appl Documented By: MAE Omeprazole (Omeprazole 40 Mg Capsule.Dr) 40 mg PO DAILY@0630 [facility] Last Admin: 10/24/23 05:30 Dose: 40 mg Documented By: BERNIE Ondansetron HCl (Ondansetron Hcl 4 Mg/2 Ml Vial) 4 mg IVPUSH Q8H PRN PRN Reason: Nausea and Vomiting Sodium Chloride (0.9 % Sodium Chloride Flush 3 Ml Syringe) 3 ml IVFLUSH QSHIFT [facility] Last Admin: 10/24/23 08:13 Dose: 3 ml Documented By: MAE Tiotropium [place] (Tiotropium [place] 2.5 Mcg 1 Puff/2.5 Mcg Mist.Inhal) 2 puff INHALE DAILY [facility] Last Admin: 10/24/23 07:37 Dose: 2 puff Documented By: ANGELITA Labs 10/22/23 07:37 10/24/23 06:02 Labs: Laboratory Results - last 24 hr 10/24/23 06:02 Anion Gap 15 Estim Creat Clear Calc 45.7 Estimated GFR > 60 Random Glucose 100 Calcium 9.3 Magnesium 2.3 B-Natriuretic Peptide 735 H Procalcitonin 0.06 Assessment and Plan (1) COPD exacerbation: Status: Acute (2) Pneumonia: Status: Acute (3) Elevated troponin: Status: Acute Plan d4 88yo M with 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, NSTEMI s/p GEOVANNA to LCX 05/14/22, severe , lung CA s/p lobectomy, HTN discharged to [facility] after recent admission for COPD + PNA but then re-admitted the same day for worsning dyspnea requiring CPAP then HFNC acute/chronic HFrEF [30-35%] 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] severe change to lasix 40mg daily AHRF improving; anticipate wean to RA today PNA PCT low x 48 hours; s/p 3 days zosyn -- will dc (wbc likely steroid effect COPD with acute exac - continue nebs, taper IV methylprednisolone to po prednisone, Breo + tiotropium leukocytosis - likely steroid effect lung CA with likely recurrence, micronodular disease noted - outpt Oncology f/u CAD - continue DAPT + metoprolol succinate + atorvastatin GERD - continue PPI VTE ppx - enoxaparin dispo -seen by PT, will need STR/pulm rehab In my clinical judgment, the patient requires continued inpatient hospitalization for the following reasons: IV diuresis, COPD Total time managing care of this patient today: 45 minutes. Quality Stroke Does the patient have a stroke diagnosis?: No VTE Prior VTE?: No VTE Risk Level:: Medical - moderate - high VTE Device Contraindication: Treatment Not Indicated VTE Drug Contraindication: N/A - Med Ordered
[2023-10-24] MEDS: Enoxaparin Sodium 40 MG/0.4 ML SYRINGE SUBCUT (20:50)
[2023-10-25] VITALS (15 sets, daily range): BP systolic 112–128; BP diastolic 66–75; PULSE 64–110; RESP 18–20; TEMP 36.1–37.2; O2SAT 80–100
[2023-10-25] MEDS: levalbuterol HCL 2.5 MG, Ipratropium Bromide 0.5 MG INHALE ×6 (01:11→19:15)
[2023-10-25] MEDS: Omeprazole 40 MG CAPSULE.DR PO (05:57)
[2023-10-25] MEDS: Tiotropium Bromide 2.5 mcg 1 PUFF/2.5 MCG MIST.INHAL 2 PUFF INHALE (07:28)
[2023-10-25] MEDS: Fluticasone/Vilanterol 100/25 BLST.W.DEV 1 PUFF INHALE (07:28)
--- NOTE | 2023-10-25 08:39 | MHC.CM.PN ---
CM CONTACTED [facility] AT [phone] TO VERIFY IF PT IS SERVICE CONNECTED, PER LIAISON PT IS NOT AND WILL NEED TO GO TO STR ON HIS MEDICARE. IMM 10/25/23, DALIA PT WILL BE MEDICALLY CLEARED FOR PULMONARY REHAB AT [facility] TRANSPORT VIA [place]
[2023-10-25] MEDS: Metoprolol Succinate ER 50 MG TAB.ER.24H PO (09:23)
[2023-10-25] MEDS: 0.9 % Sodium Chloride Flush 3 ML SYRINGE IVFLUSH ×3 (09:23→20:53)
[2023-10-25] MEDS: Losartan Potassium 50 MG TABLET 100 MG PO (09:23)
[2023-10-25] MEDS: Clopidogrel Bisulfate 75 MG TABLET PO (09:24)
[2023-10-25] MEDS: predniSONE 20 MG TABLET 40 MG PO (09:24)
[2023-10-25] MEDS: Atorvastatin Calcium 20 MG TABLET PO (09:24)
[2023-10-25] MEDS: Furosemide 40 MG TABLET PO (09:24)
--- NOTE | 2023-10-25 09:25 | P.PNIM_ITS ---
Subjective Subjective Date of Service: 10/25/23 Interval History: seen and examined this AM reports breathing improved d/w him re: rehab after hospital d/c -- states he would like to go home if possible Physical Exam 2 Vital Signs: Vital Signs: Last Vital Signs Temp 98.9 F 10/25/23 07:27 Pulse 96 10/25/23 07:27 Resp 20 10/25/23 07:27 BP 125/75 10/25/23 07:27 Pulse Ox 99 10/25/23 07:27 O2 Del Method Nasal Cannula 10/25/23 07:27 O2 Flow Rate 4 10/25/23 07:27 FiO2 48 10/22/23 08:00 BMI result Body Mass Index 19.7 Const: Other: General - no acute distress, appears comfortable Cardiovascular - regular rate and rhythm, S1-S2 Lungs - coarse sounds, no distress Abdomen - soft, nontender, no rebound or guarding Extremities - no edema bilaterally Neuro - awake and alert, no focal deficits Objective Data Active Medications Acetaminophen (Acetaminophen 325 Mg Tablet) 650 mg PO Q6H PRN PRN Reason: Pain, Mild (Pain Scale 1-3), fever or headache Artificial Tears (Artificial Tears 15 Ml Drops) 1 drop EYE-BOTH BEDTIME PRN PRN Reason: Dry Eye(S) Atorvastatin Calcium (Atorvastatin Calcium 20 Mg Tablet) 20 mg PO DAILY [facility] Last Admin: 10/24/23 08:13 Dose: 20 mg Documented By: MAE Calcium Carbonate (Calcium Carbonate 750 Mg Tab.Chew) 750 mg PO Q4H PRN PRN Reason: Heartburn Clopidogrel Bisulfate (Clopidogrel Bisulfate 75 Mg Tablet) 75 mg PO DAILY [facility] Last Admin: 10/24/23 08:13 Dose: 75 mg Documented By: MAE Levalbuterol HCl 2.5 mg/ (Ipratropium [place] 0.5 mg) 0 mg INHALE RQ4H [facility] Last Admin: 10/25/23 07:25 Dose: 2.5 dose Documented By: OLY Enoxaparin Sodium (Enoxaparin Sodium 40 Mg/0.4 Ml Syringe) 40 mg SUBCUT Q24H [facility] Last Admin: 10/24/23 20:50 Dose: 40 mg Documented By: BERNIE Fluticasone/Vilanterol (Fluticasone/Vilanterol 100/25 Bright) 1 puff INHALE RDAILY [facility] Last Admin: 10/25/23 07:28 Dose: 1 puff Documented By: OLY Furosemide (Furosemide 40 Mg Tablet) 40 mg PO DAILY [facility]; Protocol Losartan Potassium (Losartan Potassium 50 Mg Tablet) 100 mg PO DAILY [facility]; Protocol Last Admin: 10/24/23 08:13 Dose: 100 mg Documented By: MAE Magnesium Hydroxide (Milk Of Magnesia 30 Ml Oral.Susp) 30 ml PO DAILY PRN PRN Reason: Constipation Melatonin (Melatonin 3 Mg Tablet) 6 mg PO BEDTIME PRN PRN Reason: Insomnia Metoprolol Succinate (Metoprolol Succinate Er 50 Mg Tab.Er.24h) 50 mg PO DAILY [facility]; Protocol Last Admin: 10/24/23 08:13 Dose: 50 mg Documented By: MAE Metronidazole (Metronidazole 0.75 % Gel 45 Gm Tube) 1 appl TOPICAL DAILY [facility] Last Admin: 10/24/23 11:11 Dose: 1 appl Documented By: MAE Omeprazole (Omeprazole 40 Mg Capsule.Dr) 40 mg PO DAILY@0630 [facility] Last Admin: 10/25/23 05:57 Dose: 40 mg Documented By: DARREN Ondansetron HCl (Ondansetron Hcl 4 Mg/2 Ml Vial) 4 mg IVPUSH Q8H PRN PRN Reason: Nausea and Vomiting Prednisone (Prednisone 20 Mg Tablet) 40 mg PO DAILY [facility] Sodium Chloride (0.9 % Sodium Chloride Flush 3 Ml Syringe) 3 ml IVFLUSH QSHIFT [facility] Last Admin: 10/24/23 20:53 Dose: 3 ml Documented By: BERNIE Tiotropium [place] (Tiotropium [place] 2.5 Mcg 1 Puff/2.5 Mcg Mist.Inhal) 2 puff INHALE DAILY [facility] Last Admin: 10/25/23 07:28 Dose: 2 puff Documented By: OLY Labs 10/22/23 07:37 10/24/23 06:02 Assessment and Plan (1) COPD exacerbation: Status: Acute (2) Pneumonia: Status: Acute (3) Elevated troponin: Status: Acute Plan d4 88yo M with 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, NSTEMI s/p GEOVANNA to LCX 05/14/22, severe , lung CA s/p lobectomy, HTN discharged to [facility] after recent admission for COPD + PNA but then re-admitted the same day for worsning dyspnea requiring CPAP then HFNC acute/chronic HFrEF [30-35%] 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] severe lasix 40 po daily AHRF still on 2-4L; will continue to wean, may need continuous O2 at home PNA - ruled out PCT low x 48 hours; s/p 3 days zosyn -- will dc (wbc likely steroid effect) COPD with acute exac - continue nebs, prednisone day #1 (s/p 5 days IV), Breo + tiotropium leukocytosis - likely steroid effect lung CA with likely recurrence, micronodular disease noted - outpt Oncology f/u CAD - continue DAPT + metoprolol succinate + atorvastatin GERD - continue PPI VTE ppx - enoxaparin dispo -seen by PT with recs for rehab, however, pt wishes to go home; will repeat PT eval In my clinical judgment, the patient requires continued inpatient hospitalization for the following reasons: still on O2, will wean Total time managing care of this patient today: 45 minutes. Quality Stroke Does the patient have a stroke diagnosis?: No VTE Prior VTE?: No VTE Risk Level:: Medical - moderate - high VTE Device Contraindication: Treatment Not Indicated VTE Drug Contraindication: N/A - Med Ordered
--- NOTE | 2023-10-25 09:53 | PM.PNCARD ---
Subjective Subjective Date of Service: 10/25/23 Principal diagnosis: CHF, aortic stenosis Interval history: Patient diuresed additional 980 cc overnight. Still appears to be very short of breath just moving out of bed. Wheezing. Denies any lightheadedness, chest pain. Remains in sinus rhythm Review of Systems Constitutional: Reports weakness Cardiovascular: Denies chest pain, Denies lightheadedness, Denies palpitations and Reports dyspnea on exertion Respiratory: Reports cough, Reports dyspnea on exertion and Reports wheezing Reports weakness Endocrine: Denies palpitations Allergic/Immunologic: Reports wheezing Physical Exam Vital Signs: Last Vital Signs Temp 98.9 F 10/25/23 07:27 Pulse 96 10/25/23 09:23 Resp 20 10/25/23 07:27 BP 125/75 10/25/23 09:24 Pulse Ox 99 10/25/23 07:27 O2 Del Method Nasal Cannula 10/25/23 07:27 O2 Flow Rate 4 10/25/23 07:27 FiO2 48 10/22/23 08:00 BMI result Body Mass Index 19.7 GENERAL APPEARANCE: On facemask. Off the high-flow oxygen currently. NECK: no carotid bruit, no significant jugular venous distention. SKIN: no suspicious lesions, warm and dry. HEART: Systolic murmur aortic area, regular rate and rhythm. LUNGS: Lung somewhat clear compared to yesterday. Diffuse wheezes ABDOMEN: soft, nontender. EXTREMITIES: no edema. PERIPHERAL PULSES: equal. NEUROLOGIC: No gross deficits, AAO X 3 Objective Labs and Meds 10/22/23 07:37 10/24/23 06:02 Progress Note: A&P Assessment and plan (1) Hypoxic respiratory failure: Status: Acute Assessment and Plan: Hypoxic respiratory failure with a combination of COPD exacerbation as well as underlying lung malignancy as well as congestive heart failure. Clinically appears to be well diuresed at this point time. I would switch to p.o. Lasix. Continue p.o. losartan and metoprolol therapy. Overall prognosis guarded. Aortic stenosis contributing to his new onset heart failure syndrome. (2) Aortic stenosis: Status: Acute Assessment and Plan: Aortic stenosis which appears to be low-flow low gradient severe aortic stenosis contributing to his new onset heart failure syndrome. However given his significant other comorbidities, not sure if he would be a candidate for transcatheter aortic valve replacement. Need to follow-up with oncology to assess prognosis. Continue supportive care. Overall prognosis is guarded. Will sign of the case. Thank you for allowing me to partake in his care Time Spent With Patient Time: Total time managing care of this patient today ____ minutes. Progress Note: Quality Stroke Does the patient have a stroke diagnosis?: No Procedures Date of Service Date of Service: 10/25/23
[2023-10-25] MEDS: Acetaminophen 325 MG TABLET 650 MG PO (20:52)
[2023-10-25] MEDS: Enoxaparin Sodium 40 MG/0.4 ML SYRINGE SUBCUT (20:53)
[2023-10-25] MEDS: Melatonin 3 MG TABLET 6 MG PO (20:54)
[2023-10-26] VITALS (17 sets, daily range): BP systolic 107–148; BP diastolic 61–81; PULSE 60–108; RESP 14–24; TEMP 36.3–37.2; O2SAT 90–99
[2023-10-26] MEDS: levalbuterol HCL 2.5 MG, Ipratropium Bromide 0.5 MG INHALE ×6 (01:21→19:17)
[2023-10-26] MEDS: Omeprazole 40 MG CAPSULE.DR PO (06:07)
[2023-10-26] MEDS: Fluticasone/Vilanterol 100/25 BLST.W.DEV 1 PUFF INHALE (07:26)
[2023-10-26] MEDS: Tiotropium Bromide 2.5 mcg 1 PUFF/2.5 MCG MIST.INHAL 2 PUFF INHALE (07:26)
[2023-10-26] MEDS: predniSONE 20 MG TABLET 40 MG PO (09:39)
[2023-10-26] MEDS: Losartan Potassium 50 MG TABLET 100 MG PO (09:39)
[2023-10-26] MEDS: Metoprolol Succinate ER 50 MG TAB.ER.24H PO (09:40)
[2023-10-26] MEDS: Clopidogrel Bisulfate 75 MG TABLET PO (09:40)
[2023-10-26] MEDS: Atorvastatin Calcium 20 MG TABLET PO (09:40)
[2023-10-26] MEDS: Furosemide 40 MG TABLET PO (09:40)
[2023-10-26] MEDS: 0.9 % Sodium Chloride Flush 3 ML SYRINGE IVFLUSH ×3 (09:40→20:34)
[2023-10-26] MEDS: Furosemide 40 MG/4 ML VIAL IVPUSH ×2 (12:21→18:10)
--- NOTE | 2023-10-26 14:07 | MHC.CM.PN ---
EMR reviewed and per MD rounds, pt is not medically cleared for discharge due to management of COPD, requiring IV diuretics. Plan will be for pt to discharge on Tuesday, pt and his family updated, Yared mckeon.
--- NOTE | 2023-10-26 15:07 | P.PNIM_ITS ---
Subjective Subjective Date of Service: 10/26/23 Interval History: worsening hypoxia c/o dyspnea poor appetite Review of Systems Review of Systems: Yes all other systems are reviewed and are negative Physical Exam 2 Vital Signs: Vital Signs: Last Vital Signs Temp 97.5 F 10/26/23 07:13 Pulse 108 H 10/26/23 12:43 Resp 16 10/26/23 11:07 BP 107/61 10/26/23 12:21 Pulse Ox 90 L 10/26/23 12:43 O2 Del Method Oxymask 10/26/23 07:13 O2 Flow Rate 4 10/26/23 07:13 FiO2 48 10/22/23 08:00 BMI result Body Mass Index 19.7 Gen: appears short of breath HEENT: sclera anicteric, moist mucus membranes Neck: supple, JVD present Lungs: diminished Heart: regular rate and rhythm, systolic murmur at base Abd: soft, non-tender, non-distended Ext: no edema Skin: warm/well-perfused Neuro: alert and oriented x3, no focal findings Psych: appropriate affect Objective Data Active Medications Acetaminophen (Acetaminophen 325 Mg Tablet) 650 mg PO Q6H PRN PRN Reason: Pain, Mild (Pain Scale 1-3), fever or headache Last Admin: 10/25/23 20:52 Dose: 650 mg Documented By: SHANTHI Artificial Tears (Artificial Tears 15 Ml Drops) 1 drop EYE-BOTH BEDTIME PRN PRN Reason: Dry Eye(S) Atorvastatin Calcium (Atorvastatin Calcium 20 Mg Tablet) 20 mg PO DAILY [facility] Last Admin: 10/26/23 09:40 Dose: 20 mg Documented By: TEJA Calcium Carbonate (Calcium Carbonate 750 Mg Tab.Chew) 750 mg PO Q4H PRN PRN Reason: Heartburn Clopidogrel Bisulfate (Clopidogrel Bisulfate 75 Mg Tablet) 75 mg PO DAILY [facility] Last Admin: 10/26/23 09:40 Dose: 75 mg Documented By: TEJA Levalbuterol HCl 2.5 mg/ (Ipratropium [place] 0.5 mg) 0 mg INHALE RQ4H [facility] Last Admin: 10/26/23 11:06 Dose: 1 dose Documented By: SHAQ Enoxaparin Sodium (Enoxaparin Sodium 40 Mg/0.4 Ml Syringe) 40 mg SUBCUT Q24H [facility] Last Admin: 10/25/23 20:53 Dose: 40 mg Documented By: SHANTHI Fluticasone/Vilanterol (Fluticasone/Vilanterol 100/25 Blst.W.Dev) 1 puff INHALE RDAILY [facility] Last Admin: 10/26/23 07:26 Dose: 1 puff Documented By: SHAQ Furosemide (Furosemide 40 Mg/4 Ml Vial) 40 mg IVPUSH BID@0900,1800 [facility]; Protocol Losartan Potassium (Losartan Potassium 50 Mg Tablet) 100 mg PO DAILY [facility]; Protocol Last Admin: 10/26/23 09:39 Dose: 100 mg Documented By: TEJA Magnesium Hydroxide (Milk Of Magnesia 30 Ml Oral.Susp) 30 ml PO DAILY PRN PRN Reason: Constipation Melatonin (Melatonin 3 Mg Tablet) 6 mg PO BEDTIME PRN PRN Reason: Insomnia Last Admin: 10/25/23 20:54 Dose: 6 mg Documented By: SHANTHI Metoprolol Succinate (Metoprolol Succinate Er 50 Mg Tab.Er.24h) 50 mg PO DAILY [facility]; Protocol Last Admin: 10/26/23 09:40 Dose: 50 mg Documented By: TEJA Metronidazole (Metronidazole 0.75 % Gel 45 Gm Tube) 1 appl TOPICAL DAILY [facility] Last Admin: 10/26/23 09:41 Dose: Not Given Documented By: TEJA Non-Admin Reason: Med Not Available Omeprazole (Omeprazole 40 Mg Capsule.Dr) 40 mg PO DAILY@0630 [facility] Last Admin: 10/26/23 06:07 Dose: 40 mg Documented By: SHANTHI Ondansetron HCl (Ondansetron Hcl 4 Mg/2 Ml Vial) 4 mg IVPUSH Q8H PRN PRN Reason: Nausea and Vomiting Prednisone (Prednisone 20 Mg Tablet) 40 mg PO DAILY [facility] Last Admin: 10/26/23 09:39 Dose: 40 mg Documented By: TEJA Sodium Chloride (0.9 % Sodium Chloride Flush 3 Ml Syringe) 3 ml IVFLUSH QSHIFT [facility] Last Admin: 10/26/23 09:40 Dose: 3 ml Documented By: TEJA Tiotropium [place] (Tiotropium [place] 2.5 Mcg 1 Puff/2.5 Mcg Mist.Inhal) 2 puff INHALE DAILY [facility] Last Admin: 10/26/23 07:26 Dose: 2 puff Documented By: SHAQ Labs 10/22/23 07:37 10/24/23 06:02 Microbiology Microbiology Results: Microbiology 10/20/23 19:44 Blood Culture - Final Blood - Venous No growth after 5 days. 10/20/23 19:34 Blood Culture - Final Blood - Venous No growth after 5 days. 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] severe - change back to IV furosemide 40 mg bid and monitor I/O, lytes, BNP - continue metoprolol succinate AHRF - on 4L via Oxymask, titrate to SaO2 90%+ - check CXR PNA, ruled out - PCT low x 48 hours; s/p 3 days piperacillin-tazobactam COPD with acute exac - continue nebs, change back to IV methylprednisolone 40 mg bid, Breo + tiotropium leukocytosis - likely steroid effect lung CA with likely recurrence, micronodular disease noted, EGFR+ - outpt Oncology f/u with Dr Morin CAD - continue DAPT + metoprolol succinate + atorvastatin GERD - continue PPI VTE ppx - enoxaparin dispo - IPR recommended In my clinical judgment, the patient requires continued inpatient hospitalization for the following reasons: hypoxia, IV diuresis Updated pt's son/HCP Chucky at bedside Total time managing care of this patient today: 45 minutes. Quality Stroke Does the patient have a stroke diagnosis?: No VTE Prior VTE?: No VTE Risk Level:: Medical - moderate - high VTE Device Contraindication: Treatment Not Indicated VTE Drug Contraindication: N/A - Med Ordered
[2023-10-26] MEDS: methylPREDNISolone Sod Succ 40 MG/ML VIAL IVPUSH (15:54)
[2023-10-26] MEDS: Ibuprofen 200 MG TABLET PO (16:43)
--- NOTE | 2023-10-26 17:40 | PC.NURSE ---
Taylor removed at 1700, pt tolerated well Taylor intact on removal. Pt due to void at 2300, all other needs met at this time, call zhang is within reach.
[2023-10-26] MEDS: Melatonin 3 MG TABLET 6 MG PO (20:33)
[2023-10-26] MEDS: Acetaminophen 325 MG TABLET 650 MG PO (20:33)
[2023-10-26] MEDS: Enoxaparin Sodium 40 MG/0.4 ML SYRINGE SUBCUT (20:33)
[2023-10-27] VITALS (15 sets, daily range): BP systolic 98–145; BP diastolic 55–93; PULSE 95–111; RESP 16–22; TEMP 36.3–37.1; O2SAT 89–99
[2023-10-27] MEDS: methylPREDNISolone Sod Succ 40 MG/ML VIAL IVPUSH (02:17)
[2023-10-27] MEDS: Omeprazole 40 MG CAPSULE.DR PO (05:22)
--- NOTE | 2023-10-27 07:18 | PC.NURSE ---
bladder scan to pt due to inability to void, scan result of 423 reported to md. pt voided small amt in urinal shortly afterwards and incontinent of urine. post void bladder scan of 473 reported to md with order to straight cath. unable to straight cath resistance met.
[2023-10-27] MEDS: levalbuterol HCL 2.5 MG, Ipratropium Bromide 0.5 MG INHALE ×4 (07:36→23:45)
[2023-10-27] MEDS: Tiotropium Bromide 2.5 mcg 1 PUFF/2.5 MCG MIST.INHAL 2 PUFF INHALE (07:37)
[2023-10-27] MEDS: Fluticasone/Vilanterol 100/25 BLST.W.DEV 1 PUFF INHALE (07:37)
[2023-10-27 08:10] LABS: VBG Base Excess 10.2 mmol/L; VBG HCO3 33 mmol/L (22-26); VBG pCO2 36 mmHg; VBG pH 7.55 (7.32-7.43); VBG pO2 62 mmHg
[2023-10-27 08:11] LABS: Hematocrit 42.4 % (42.0-52.0); Hemoglobin 13.5 g/dl (14.0-18.0); Mean Corpuscular HGB Conc 31.8 g/dl (31.0-36.0); Mean Corpuscular Hemoglobin 28.1 pg (27.0-33.0); Mean Corpuscular Volume 88.3 fL (80.0-98.0); Mean Platelet Volume 9.2 fL (9.4-12.4); Platelet Count 484 X10*3/uL (160-400); Red Cell Distribution Width 16.9 % (11.0-16.0)
[2023-10-27 08:11] LABS: Venous Blood Gas Refer to POC result
[2023-10-27 08:25] LABS: Anion Gap 17 (12-20); Blood Urea Nitrogen 73 mg/dL (9-16); Carbon Dioxide 28 mmol/L (22-29); Chloride 108 mmol/L (96-108); Creatinine Clr Calc Pharmacy 37.9; Estimated Glomerular Filt Rate > 60; Glucose Random 134 mg/dL (60-115); Magnesium 2.8 mg/dL (1.6-2.6); Potassium 3.6 mmol/L (3.3-5.1); Sodium 149 mmol/L (135-145)
[2023-10-27 08:30] LABS: B Type Natriuretic Peptide 160 pg/mL (<100)
[2023-10-27] MEDS: Atorvastatin Calcium 20 MG TABLET PO (08:49)
[2023-10-27] MEDS: Losartan Potassium 50 MG TABLET 100 MG PO (08:49)
[2023-10-27] MEDS: Clopidogrel Bisulfate 75 MG TABLET PO (08:50)
[2023-10-27] MEDS: Furosemide 40 MG/4 ML VIAL IVPUSH (08:50)
[2023-10-27] MEDS: Metoprolol Succinate ER 50 MG TAB.ER.24H PO (08:50)
[2023-10-27 08:51] LABS: C Reactive Protein 4.82 mg/dL (< or = 0.50)
[2023-10-27] MEDS: 0.9 % Sodium Chloride Flush 3 ML SYRINGE IVFLUSH ×3 (08:54→20:40)
--- NOTE | 2023-10-27 10:59 | MHC.CM.PN ---
EMR REVIEWED, PER HOSPITALIST PT WILL REMAIN ON IV LASIX ONE MORE NIGHT AND WILL LIKELY BE CLEARED FOR DC TOMORROW 10/26, CM WILL CONT TO FOLLOW DC NEEDS.
[2023-10-27] MEDS: ondansetron HCL 4 MG/2 ML VIAL IVPUSH (11:45)
[2023-10-27] MEDS: Morphine Sulfate 2 MG/ML CARTRIDGE IVPUSH ×2 (11:58→20:39)
[2023-10-27] MEDS: Pantoprazole Sodium 40 MG/10 ML VIAL IVPUSH ×2 (11:59→15:38)
--- NOTE | 2023-10-27 13:23 | P.PNIM_ITS ---
Subjective Subjective Date of Service: 10/27/23 Interval History: breathing improved but now very weak c/o abd pain Review of Systems Review of Systems: Yes all other systems are reviewed and are negative Physical Exam 2 Vital Signs: Vital Signs: Last Vital Signs Temp 98.8 F 10/27/23 07:30 Pulse 106 H 10/27/23 08:50 Resp 20 10/27/23 07:39 BP 138/72 10/27/23 08:50 Pulse Ox 97 10/27/23 07:30 O2 Del Method Oxymask 10/27/23 07:30 O2 Flow Rate 7 10/27/23 07:30 FiO2 48 10/22/23 08:00 BMI result Body Mass Index 19.7 Gen: weak HEENT: sclera anicteric, moist mucus membranes Neck: supple, JVD absent Lungs: diminished Heart: regular rate and rhythm, systolic murmur at base Abd: soft, non-tender, non-distended Ext: no edema Skin: warm/well-perfused Neuro: alert and oriented x3, no focal findings Psych: restricted affect Objective Data Active Medications Acetaminophen (Acetaminophen 325 Mg Tablet) 650 mg PO Q6H PRN PRN Reason: Pain, Mild (Pain Scale 1-3), fever or headache Last Admin: 10/26/23 20:33 Dose: 650 mg Documented By: SHANTHI Artificial Tears (Artificial Tears 15 Ml Drops) 1 drop EYE-BOTH BEDTIME PRN PRN Reason: Dry Eye(S) Atorvastatin Calcium (Atorvastatin Calcium 20 Mg Tablet) 20 mg PO DAILY [facility] Last Admin: 10/27/23 08:49 Dose: 20 mg Documented By: REJI Calcium Carbonate (Calcium Carbonate 750 Mg Tab.Chew) 750 mg PO Q4H PRN PRN Reason: Heartburn Clopidogrel Bisulfate (Clopidogrel Bisulfate 75 Mg Tablet) 75 mg PO DAILY [facility] Last Admin: 10/27/23 08:50 Dose: 75 mg Documented By: REJI Levalbuterol HCl 2.5 mg/ (Ipratropium [place] 0.5 mg) 0 mg INHALE RQ4H [facility] Last Admin: 10/27/23 11:36 Dose: Not Given Documented By: IRVING Non-Admin Reason: Pain Enoxaparin Sodium (Enoxaparin Sodium 40 Mg/0.4 Ml Syringe) 40 mg SUBCUT Q24H [facility] Last Admin: 10/26/23 20:33 Dose: 40 mg Documented By: SHANTHI Fluticasone/Vilanterol (Fluticasone/Vilanterol 100/25 Blst.W.Dev) 1 puff INHALE RDAILY [facility] Last Admin: 10/27/23 07:37 Dose: 1 puff Documented By: RALEIGH Furosemide (Furosemide 40 Mg/4 Ml Vial) 40 mg IVPUSH BID@0900,1800 [facility]; Protocol Last Admin: 10/27/23 08:50 Dose: 40 mg Documented By: REJI Losartan Potassium (Losartan Potassium 50 Mg Tablet) 100 mg PO DAILY [facility]; Protocol Last Admin: 10/27/23 08:49 Dose: 100 mg Documented By: REJI Magnesium Hydroxide (Milk Of Magnesia 30 Ml Oral.Susp) 30 ml PO DAILY PRN PRN Reason: Constipation Melatonin (Melatonin 3 Mg Tablet) 6 mg PO BEDTIME PRN PRN Reason: Insomnia Last Admin: 10/26/23 20:33 Dose: 6 mg Documented By: SHANTHI Methylprednisolone Sodium Succinate (Methylprednisolone Sod Succ 40 Mg/Ml Vial) 40 mg IVPUSH Q12H [facility] Last Admin: 10/27/23 02:17 Dose: 40 mg Documented By: SHANTHI Metoprolol Succinate (Metoprolol Succinate Er 50 Mg Tab.Er.24h) 50 mg PO DAILY [facility]; Protocol Last Admin: 10/27/23 08:50 Dose: 50 mg Documented By: REJI Metronidazole (Metronidazole 0.75 % Gel 45 Gm Tube) 1 appl TOPICAL DAILY [facility] Last Admin: 10/27/23 08:54 Dose: Not Given Documented By: REJI Non-Admin Reason: Patient Refused Morphine Sulfate (Morphine Sulfate 2 Mg/Ml Cartridge) 2 mg IVPUSH Q4H PRN; Protocol PRN Reason: Pain, Severe (Pain Scale 7-10) Last Admin: 10/27/23 11:58 Dose: 2 mg Documented By: REJI Ondansetron HCl (Ondansetron Hcl 4 Mg/2 Ml Vial) 4 mg IVPUSH Q8H PRN PRN Reason: Nausea and Vomiting Last Admin: 10/27/23 11:45 Dose: 4 mg Documented By: EDMUND Pantoprazole Sodium (Pantoprazole Sodium 40 Mg/10 Ml Vial) 40 mg IVPUSH BID@0630,1630 [facility] Last Admin: 10/27/23 11:59 Dose: 40 mg Documented By: REJI Sodium Chloride (0.9 % Sodium Chloride Flush 3 Ml Syringe) 3 ml IVFLUSH QSHIFT [facility] Last Admin: 10/27/23 08:54 Dose: 3 ml Documented By: REJI Tiotropium [place] (Tiotropium [place] 2.5 Mcg 1 Puff/2.5 Mcg Mist.Inhal) 2 puff INHALE DAILY [facility] Last Admin: 10/27/23 07:37 Dose: 2 puff Documented By: RALEIGH Labs 10/27/23 08:00 10/27/23 08:00 Labs: Laboratory Results - last 24 hr 10/27/23 10/27/23 08:00 08:05 MCV 88.3 MCH 28.1 MCHC 31.8 RDW 16.9 H Plt Count 484 H MPV 9.2 L Absolute Nucleated RBC 0.000 Nucleated RBC % (auto) 0.0 VBG pH 7.55 H VBG pCO2 36 VBG pO2 62 VBG HCO3 33 H VBG O2 Saturation 94.0 VBG Base Excess 10.2 Anion Gap 17 Estim Creat Clear Calc 37.9 Estimated GFR > 60 Random Glucose 134 H Calcium 10.0 D Magnesium 2.8 H C-Reactive Protein 4.82 H B-Natriuretic Peptide 160 H Assessment and Plan (1) COPD exacerbation: Status: Acute (2) Pneumonia: Status: Acute (3) Elevated troponin: Status: Acute Plan d8 88yo M with 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, NSTEMI s/p GEOVANNA to LCX 05/14/22, severe , lung CA s/p lobectomy, HTN discharged to [facility] after recent admission for COPD + PNA but then re-admitted the same day for worsening dyspnea requiring CPAP then HFNC acute/chronic HFrEF [30-35%] 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] severe - changed back to IV furosemide 40 mg bid yesterday and now appears euvolemic or even dry; stop IV diuresis and return to maintenance PO dosing - continue metoprolol succinate hyperNa - encourage free water intake, recheck BMP in AM AHRF - on 3L via Oxymask, titrate to SaO2 90%+ PNA, ruled out - PCT low x 48 hours; s/p 3 days piperacillin-tazobactam COPD with acute exac - continue nebs, taper IV methylprednisolone 40 mg bid->qd, continue Breo + tiotropium leukocytosis - likely steroid effect; monitor CBC daily lung CA with likely recurrence, micronodular disease noted, EGFR+ - outpt Oncology f/u with Dr Morin CAD - continue DAPT + metoprolol succinate + atorvastatin GERD - continue PPI VTE ppx - enoxaparin dispo - IPR recommended In my clinical judgment, the patient requires continued inpatient hospitalization for the following reasons: hypoxia Total time managing care of this patient today: 45 minutes. Quality Stroke Does the patient have a stroke diagnosis?: No VTE Prior VTE?: No VTE Risk Level:: Medical - moderate - high VTE Device Contraindication: Treatment Not Indicated VTE Drug Contraindication: N/A - Med Ordered
[2023-10-27 14:31] LABS: Procalcitonin 0.05 ng/mL
[2023-10-27] MEDS: Enoxaparin Sodium 40 MG/0.4 ML SYRINGE SUBCUT (20:39)
[2023-10-27] MEDS: Melatonin 3 MG TABLET 6 MG PO (20:39)
--- NOTE | 2023-10-27 20:55 | PC.NURSE ---
Addendum entered by Farheen Wilcox RN 10/28/23 06:35: Phlebotomy priority Tigertext to fiction and nonfiction prose writer and covering Dr. Gillette this morning at 06:29 with critical WBC 42.1 with MD acknowledgement response. No new orders at this time. Addendum entered by Farheen Wilcox RN 10/28/23 02:35: Patient slept for a brief period of time after given morphine for pain in the evening. On waking, pt continued to remove all tele and o2 monitoring, nc again despite multiple times replacing. Vitals obtained per unit schedule, stable; proceeded with IM zyprexa as ordered by MD. Discussed med with patient which he was calm and accepting of. +Effect, patient resting in bed appearing comfortable, sleeping on hourly rounding. RR 16-18. Breathing observed even and unlabored without distress. Addendum entered by Farheen Wilcox RN 10/27/23 21:27: Patient continues to remove his tele and other lines despite frequent redirection/reorientation and distraction attempts, medicated for pain already. MD orders for IM zyprexa. hand stripper made aware. Original Note: Assumed care of patient at 19:00. Pt is alert on entering room, observed with tele monitor leads removed and in his hand, o2 nc off on his chest and spo2 monitoring removed, molina catheter secure removed. Pt did verbalize 2023 and hospital , otherwise vague/difficult to assess as pt chooses makes many hand gestures instead of communicating verbally, appears confused. Very CHITINA despite hearing aids. Pt indicated severe pain in his abdomen, assess flat/concave, +BSx4, non-tender, non-distended. Pt medicated with prn melatonin and prn moprhine per APR. Patient moved to another room on unit to be closer to nursing station to assist with safety. Discussed with full charge bookkeeper and VMT. Bed alarm on and in-room camera, safety measures continue. Covering Dr. Gillette notified.
[2023-10-27] MEDS: OLANZapine 10 MG VIAL 5 MG IM (23:37)
[2023-10-28] VITALS (10 sets, daily range): BP systolic 103–107; BP diastolic 57–62; PULSE 100–110; RESP 16–31; TEMP 36.1–37.1; O2SAT 92–97
[2023-10-28] MEDS: levalbuterol HCL 2.5 MG, Ipratropium Bromide 0.5 MG INHALE (04:15)
[2023-10-28] MEDS: Pantoprazole Sodium 40 MG/10 ML VIAL IVPUSH (06:12)
[2023-10-28 06:25] LABS: Hematocrit 43.2 % (42.0-52.0); Hemoglobin 13.6 g/dl (14.0-18.0); Mean Corpuscular HGB Conc 31.5 g/dl (31.0-36.0); Mean Corpuscular Hemoglobin 27.9 pg (27.0-33.0); Mean Corpuscular Volume 88.7 fL (80.0-98.0); Mean Platelet Volume 9.4 fL (9.4-12.4); Platelet Count 437 X10*3/uL (160-400); Red Blood Count 4.87 X10*6/uL (4.60-5.80); Red Cell Distribution Width 16.8 % (11.0-16.0)
[2023-10-28 06:29] LABS: White Blood Count 42.1 X10*3/uL (4.8-10.8)
[2023-10-28 06:49] LABS: B Type Natriuretic Peptide 151 pg/mL (<100)
[2023-10-28 06:53] LABS: Anion Gap 21 (12-20); Blood Urea Nitrogen 94 mg/dL (9-16); Carbon Dioxide 28 mmol/L (22-29); Chloride 108 mmol/L (96-108); Creatinine Clr Calc Pharmacy 24.1; Estimated Glomerular Filt Rate 37; Glucose Random 88 mg/dL (60-115); Magnesium 2.9 mg/dL (1.6-2.6); Potassium 3.5 mmol/L (3.3-5.1); Sodium 153 mmol/L (135-145)
[2023-10-28] MEDS: Dextrose 5 % 1,000 ML 75 ML IVCONT (09:22)
[2023-10-28] MEDS: 0.9 % Sodium Chloride 500 ML 250 ML IVCONT (09:38)
--- NOTE | 2023-10-28 09:40 | PC.NURSE ---
Addendum entered by Lucien Rodriguez RN 10/28/23 16:31: second ring, phone oil refinery operator and phone taken home by Addendum entered by Lucien Rodriguez RN 10/28/23 13:37: pt's took wedding ring and watch home Original Note: pt refusing to eat, drink or take PO meds. informed and assessed pt at bedside this AM. pt has increased RR 30's
[2023-10-28] MEDS: Morphine Sulfate 2 MG/ML CARTRIDGE IVPUSH ×5 (09:51→23:49)
--- NOTE | 2023-10-28 11:34 | MHC.CM.PN ---
CM spoke with provider and pt's family, rec of provider is INSULATION BOARD BACK TENDER for pt. Family would like pt. to remain here, INSULATION BOARD BACK TENDER. They request that he not be moved to a different room, or if he is, that the family be informed.
[2023-10-28] MEDS: Scopolamine 1.5 MG PATCH.TD.3 TRANSDERMA (12:01)
--- NOTE | 2023-10-28 14:29 | HO.PM.IMPN ---
Subjective Subjective Date of Service: 10/28/23 Interval History: endorsed abd pain though abd soft refusing food and water now lethargic, unable to obtain ROS Review of Systems Review of Systems: Yes Unobtainable due to mental status Physical Exam Vital Signs: Vital Signs: Last Vital Signs Temp 98.7 F 10/28/23 07:23 Pulse 110 H 10/28/23 07:23 Resp 31 H 10/28/23 09:49 BP 107/62 10/28/23 07:23 Pulse Ox 92 10/28/23 07:23 O2 Del Method Oxymask 10/28/23 07:23 O2 Flow Rate 3 10/28/23 07:23 FiO2 48 10/22/23 08:00 BMI result Body Mass Index 19.7 Gen: weak, lethargic, ill-appearing HEENT: sclera anicteric, moist mucus membranes Neck: supple, JVD absent Lungs: diminished, tachypneic Heart: regular, rapid, systolic murmur at base Abd: soft, non-tender, non-distended Ext: no edema Skin: warm/well-perfused Neuro: somnolent Psych: impaired insight Objective Data Active Medications Acetaminophen (Acetaminophen 325 Mg Tablet) 650 mg PO Q6H PRN PRN Reason: Pain, Mild (Pain Scale 1-3), fever or headache Last Admin: 10/26/23 20:33 Dose: 650 mg Documented By: SHANTHI Acetaminophen (Acetaminophen 325 Mg Tablet) 650 mg PO Q4H PRN PRN Reason: Fever >/= 100, Pain, mild 1-3 Artificial Tears (Artificial Tears 15 Ml Drops) 1 drop EYE-BOTH BEDTIME PRN PRN Reason: Dry Eye(S) Lorazepam (Lorazepam 2 Mg/Ml Vial) 0.5 mg IVPUSH Q4H PRN PRN Reason: anxiety/agitation Morphine Sulfate (Morphine Sulfate 2 Mg/Ml Cartridge) 2 mg IVPUSH Q1H PRN; Protocol PRN Reason: pain or air hunger Ondansetron HCl (Ondansetron Hcl 4 Mg/2 Ml Vial) 4 mg IVPUSH Q8H PRN PRN Reason: Nausea and Vomiting Last Admin: 10/27/23 11:45 Dose: 4 mg Documented By: EDMUND Scopolamine (Scopolamine 1.5 Mg Patch.Td.3) 1.5 mg TRANSDERMA Q72H [facility] Last Admin: 10/28/23 12:01 Dose: 1.5 mg Documented By: DAVIDFAKenya Sodium Chloride (0.9 % Sodium Chloride Flush 3 Ml Syringe) 3 ml IVFLUSH QSHIFT [facility] Last Admin: 10/28/23 13:30 Dose: Not Given Documented By: DAVIDFAKenya Non-Admin Reason: Previously Administered Labs 10/28/23 06:07 10/28/23 06:07 Labs: Laboratory Results - last 24 hr 10/27/23 10/28/23 08:00 06:07 MCV 88.7 MCH 27.9 MCHC 31.5 RDW 16.8 H Plt Count 437 H MPV 9.4 Absolute Nucleated RBC 0.000 Nucleated RBC % (auto) 0.0 Smear Path Review SEE NOTE Anion Gap 21 H Estim Creat Clear Calc 24.1 Estimated GFR 37 Random Glucose 88 Calcium 10.0 Magnesium 2.9 H B-Natriuretic Peptide 151 H Procalcitonin 0.05 Assessment and Plan (1) COPD exacerbation: Status: Acute (2) Pneumonia: Status: Acute (3) Elevated troponin: Status: Acute Plan d9 88yo M with 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 In light of multiple comorbidites [CHF, , COPD] in background of untreated recurrent lung cancer, the patient is unlikely to make significant improvement to the point where he could tolerate lung CA treatment. They feel he would not want to continue ongoing treatment and at this point elect to transition him to FUR BLENDER in the hospital as they wish to focus his care on palliation of pain and dyspnea. - Labs and imaging studies canceled and patient transitioned to FUR BLENDER status. Total time managing care of this patient today: 45 minutes. Quality Stroke Does the patient have a stroke diagnosis?: No VTE Prior VTE?: No VTE Risk Level:: Medical - moderate - high VTE Device Contraindication: Treatment Not Indicated VTE Drug Contraindication: N/A - Med Ordered
--- NOTE | 2023-10-28 14:36 | W.MHC.ACPN ---
Advanced Care Planning Note Advanced Care Planning Note Discussed with: family member(s) Time spent (in minutes): 25 Narrative: Worsening renal failure + hypernatremia, refusal to eat, and now recurrent tachypnea in this patient with severe , HFrEF, COPD, and recurrent lung CA. After extensive discussion with family re: goals of care [present were HCP son Chucky, alternate HCP daughter Gwen, and Tabitha], they wish for him to be transitioned to RISK CONTROL FIELD REPRESENTATIVE status in the hospital. Problems Discussed (1) COPD exacerbation: (2) Pneumonia: (3) Elevated troponin:
[2023-10-28] MEDS: LORazepam 2 MG/ML VIAL 0.5 MG IVPUSH (21:52)
[2023-10-29] VITALS (8 sets, daily range): RESP 20–24
[2023-10-29] MEDS: Morphine Sulfate 2 MG/ML CARTRIDGE IVPUSH ×4 (01:02→07:30)
[2023-10-29] MEDS: 0.9 % Sodium Chloride Flush 3 ML SYRINGE IVFLUSH ×2 (01:05→07:52)
[2023-10-29] MEDS: LORazepam 2 MG/ML VIAL 0.5 MG IVPUSH (04:05)
--- NOTE | 2023-10-29 09:37 | P.DS_ITS ---
DS: Providers Provider Date of Service: 10/29/23 Date of admission: 10/20/23 20:53 Primary care physician: Kevin Ochoa MD Consults: 10/22/23 07:55 Consult to Cardiology Routine Consulting Provider: [facility] Reason for consultation: HFrEF, sev Consult to Pulmonology Routine Consulting Provider: [facility] Reason for consultation: hypoxia on HFNC, hx lung CA s/p lobectomy with extensive micronodular dz 10/28/23 11:39 Consult to Transit Mechanic Routine Comment: DS: Diagnosis Discharge Diagnosis (1) COPD exacerbation: Status: Acute (2) Pneumonia: Status: Acute (3) Elevated troponin: Status: Acute Physical Exam Vital Signs: Vital Signs: Last Vital Signs Temp 98.7 F 10/28/23 07:23 Pulse 110 H 10/28/23 07:23 Resp 21 H 10/29/23 06:52 BP 107/62 10/28/23 07:23 Pulse Ox 92 10/28/23 07:23 O2 Del Method Oxymask 10/28/23 20:00 O2 Flow Rate 3 10/28/23 07:23 FiO2 48 10/22/23 08:00 BMI result Body Mass Index 19.7 DS: Data Data Completed and Pending Completed studies during hospitalization [Text1]: Procedures Excision of Cecum, Via Natural or Artificial Opening Endoscopic, Diagnostic (06/08/22) Inspection of Upper Intestinal Tract, Via Natural or Artificial Opening Endoscopic (06/08/22) Transfusion of Nonautologous Red Blood Cells into Peripheral Vein, Percutaneous Approach (06/08/22) Labs on day of discharge: Laboratory Results - last 24 hr 10/28/23 06:07 Smear Path Review SEE NOTE Discharge Plan Discharge Date/Time: 10/29/23 09:11 Anticipated Discharge Date/Time: 10/29/23 09:10 Patient Disposition: Discharge Diagnosis: Lung cancer Referrals: [facility] [Outside] - 1 Week Kevin Ochoa MD [Primary Care Provider] - 1 Week Discharge Medications: No Action omeprazole 20 mg Capsule,Delayed Release(Dr/Ec) 40 mg PO DAILY@0630 losartan 100 mg Tablet 100 mg PO DAILY clopidogrel 75 mg Tablet 75 mg PO DAILY Qty: 1 0RF ipratropium-albuterol 0.5 mg-3 mg(2.5 mg base)/3 mL Solution For Nebulization 3 ml inhalation RQ4H WHILE AWAKE Qty: 90 0RF cefuroxime axetil 500 mg tablet 500 mg PO BID 7 Days Qty: 14 0RF prednisone 20 mg Tablet 20 mg PO DAILY Qty: 5 0RF carboxymethylcellulose sodium 1 % Drops, Liquid Gel 1 drp OPHTHALMIC (EYE) BEDTIME PRN (Reason: Dry Eyes) polyethylene glycol 400 0.25 % Drops,Gel 1 drp OPHTHALMIC (EYE) BEDTIME PRN (Reason: Dry Eye(S)) albuterol sulfate 90 mcg/actuation Hfa Aerosol Inhaler 2 puff INHALATION DAILY PRN (Reason: Wheezing/SOB) metronidazole 0.75 % Gel 1 appl TOPICAL DAILY Spiriva Respimat 2.5 mcg/actuation mist 2 puff inhalation DAILY fluticasone propion-salmeterol [Wixela Inhub] 250-50 mcg/dose blister with device 1 inh inhalation BID 30 Days Qty: 60 5RF atorvastatin 40 mg tablet 20 mg PO DAILY metoprolol succinate 50 mg tablet extended release 24 hr 50 mg PO DAILY Stand Alone Forms: Patient Portal Discharge page Print Language: Greenlandic
--- NOTE | 2023-10-29 09:38 | P.DN_ITS ---
Discharge Sum: Prov Provider Primary care physician: Kevin Ochoa MD Consults: 10/22/23 07:55 Consult to Cardiology Routine Consulting Provider: [facility] Reason for consultation: HFrEF, sev Consult to Pulmonology Routine Consulting Provider: [facility] Reason for consultation: hypoxia on HFNC, hx lung CA s/p lobectomy with extensive micronodular dz 10/28/23 11:39 Consult to Electrical Continuity Inspector Routine Comment: Discharge Sum: Diag Contributing Factors (1) COPD exacerbation: (2) Pneumonia: (3) Elevated troponin: Discharge Sum: Summary Date and Time Date of admission: 10/20/23 20:53 Date of : 10/29/23 Time of : 09:04 Summary Details: Pt is an 88-year-old male with a PMH significant for?asthma/COPD overlap syndrome on home O2 p.r.n., NSTEMI (s/p cardiac cath w/ drug eluting stent at [facility] [place] on May 14 2022), skin cancer, anemia, lung cancer (s/p lobectomy 3 years ago), HTN, spinal stenosis, and GERD who presents to the ED from [facility] with increased SOB and hypoxia. Patient was just discharged from the hospital today where he had been admitted and treated for acute hypoxic respiratory failure due to COPD exacerbation with underlying pneumonia. Hospital course was complicated by confusion overnight due to delirium that has since resolved. Patient was discharged to [facility] where he was noted to be desatting into the 80s despite?supplemental oxygen. Patient also was experienced increased shortness of breath and difficulty breathing. Was brought to the hospital where he was noted to be in mild respiratory distress with increased work of breathing. Was initially placed on 7 L OxyMask but continued to experience SOB, tachypnea, and increased work of breathing. Was placed on CPAP to good effect. Patient denies chest pain/pressure, palpitations. No dizziness or lightheadedness. In the ED pt was tachycardic up to 137 and in mild respiratory distress with tachypnea into the 30s. Labs were significant for leukocytosis of 23.4, AST 105, ALT 240, alk-phos 129, and initial troponin 52.1 (down from 100.7 on 10/18/2023), and BNP 513 (elevated from 04/18 on 10/18/2023). Tested negative for flu, RSV, COVID. UA negative for UTI. CXR showing extensive chronic fibrotic changes with patchy airspace opacities and reticular nodular densities, minimal and fell improvement compared to prior. EKG demonstrated sinus tachycardia of 133 with RBBB but no evidence of significant ST elevations or depressions. Pt was treated with DuoNebs, Mag sulfate, Solu-Medrol, ceftriaxone, and doxycycline. Pt will be admitted to the hospital for treatment and further evaluation of acute hypoxic respiratory failure in the setting of acute COPD exacerbation with underlying pneumonia with sepsis as well as mild CHF exacerbation. 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 In light of multiple comorbidites [CHF, , COPD] in background of untreated recurrent lung cancer, the patient is unlikely to make significant improvement to the point where he could tolerate lung CA treatment. They feel he would not want to continue ongoing treatment and at this point elect to transition him to AUDIO VISUAL COLLECTIONS COORDINATOR in the hospital as they wish to focus his care on palliation of pain and dyspnea. - Labs and imaging studies canceled and patient transitioned to AUDIO VISUAL [employer]LECTIONS COORDINATOR status. ID bracelet checked and patient confirmed. No response to tactile stimuli. No heart sounds or respiratory movement noted over one minute of auscultation, palpation or visualization. Pupils fixed with no response to light. Pronounced at 09:04 Additional Data Family: at bedside Attending physician: Dalia Lazo NP
== END 2023-10-29 09:04 | disposition expired | DRG 871 ==
LOC: HO.ED 19:56 → HO.EDOVER 21:41 → HO.IMC 10-22 00:11
PROVIDERS: Family Medicine; Physician Assistant; Admitting Provider Student in an Organized Health Care Education/Training Program; Emergency Provider Emergency Medicine; PCP Internal Medicine; Referring Provider Internal Medicine; Visit Provider Nurse Practitioner Acute Care
DX: A41.9 Sepsis, unspecified organism (principal); I50.23 Acute on chronic systolic (congestive) heart failure; J18.9 Pneumonia, unspecified organism; J96.01 Acute respiratory failure with hypoxia; C34.92 Malignant neoplasm of unspecified part of left bronchus or lung; C34.91 Malignant neoplasm of unspecified part of right bronchus or lung; J44.0 Chronic obstructive pulmonary disease with (acute) lower respiratory infection; J44.1 Chronic obstructive pulmonary disease with (acute) exacerbation; I51.81 Takotsubo syndrome; E87.0 Hyperosmolality and hypernatremia; D64.9 Anemia, unspecified; E78.5 Hyperlipidemia, unspecified; I49.3 Ventricular premature depolarization; K21.9 Gastro-esophageal reflux disease without esophagitis; Z51.5 Encounter for palliative care; R65.20 Severe sepsis without septic shock; I35.0 Nonrheumatic aortic (valve) stenosis; I25.10 Atherosclerotic heart disease of native coronary artery without angina pectoris; Z20.822 Contact with and (suspected) exposure to COVID-19; Z87.891 Personal history of nicotine dependence; Z95.5 Presence of coronary angioplasty implant and graft; Z85.828 Personal history of other malignant neoplasm of skin; Z85.118 Personal history of other malignant neoplasm of bronchus and lung; Z90.2 Acquired absence of lung [part of]; Z99.81 Dependence on supplemental oxygen; Z79.02 Long term (current) use of antithrombotics/antiplatelets; Z79.51 Long term (current) use of inhaled steroids; Z79.52 Long term (current) use of systemic steroids; Z79.899 Other long term (current) drug therapy
CPT/HCPCS: 0241U; 36415; 71045; 74018; 80048; 80076; 81003; 82803; 83605; 83690; 83735; 83880; 84145; 84484; 85007; 85025; 85027; 86140; 87040; 92610; 93005; 93306; 94640; 94660; 94799; 97110; 97162; 99285; C1758; J0696; J1650; J1940; J2060; J2270; J2359; J2405; J2470; J2543; J2919; J3475; Q9957

== ENCOUNTER 2023-10-20 20:53 | Outpatient (BNV) | payer OTHER, SELFPAY ==
[2023-02-10 09:09] VITALS: BP 126/62; BP 132/68; BMI 21.3
== END 2023-10-21 07:00 ==
PROVIDERS: Admitting Provider Student in an Organized Health Care Education/Training Program; Emergency Provider Emergency Medicine; PCP Internal Medicine; Visit Provider Internal Medicine Cardiovascular Disease
DX: I35.0 Nonrheumatic aortic (valve) stenosis (principal)
CPT/HCPCS: 93306

== ENCOUNTER → 2023-10-20 20:53 | Outpatient (BNV) | payer OTHER, SELFPAY ==
[2023-02-10 09:09] VITALS: BP 126/62; BP 132/68; BMI 21.3
== END ==
PROVIDERS: Admitting Provider Student in an Organized Health Care Education/Training Program; Emergency Provider Emergency Medicine; PCP Internal Medicine; Visit Provider Student in an Organized Health Care Education/Training Program
DX: J44.1 Chronic obstructive pulmonary disease with (acute) exacerbation (principal); J18.9 Pneumonia, unspecified organism; N17.9 Acute kidney failure, unspecified; R79.89 Other specified abnormal findings of blood chemistry
CPT/HCPCS: 99223; 99232; 99238; 99497

== ENCOUNTER → 2023-10-20 20:53 | Outpatient (BNV) | payer OTHER, SELFPAY ==
[2023-02-10 09:09] VITALS: BP 126/62; BP 132/68; BMI 21.3
== END ==
PROVIDERS: Admitting Provider Student in an Organized Health Care Education/Training Program; Emergency Provider Emergency Medicine; PCP Internal Medicine; Visit Provider Internal Medicine Pulmonary Disease
DX: R93.89 Abnormal findings on diagnostic imaging of other specified body structures (principal); J96.91 Respiratory failure, unspecified with hypoxia; I50.9 Heart failure, unspecified; I35.0 Nonrheumatic aortic (valve) stenosis
CPT/HCPCS: 99223

== ENCOUNTER → 2023-10-20 20:53 | Outpatient (BNV) | payer OTHER, SELFPAY ==
[2023-02-10 09:09] VITALS: BP 126/62; BP 132/68; BMI 21.3
== END ==
PROVIDERS: Admitting Provider Student in an Organized Health Care Education/Training Program; Emergency Provider Emergency Medicine; PCP Internal Medicine; Visit Provider Internal Medicine Cardiovascular Disease
DX: I35.0 Nonrheumatic aortic (valve) stenosis (principal); J96.91 Respiratory failure, unspecified with hypoxia
CPT/HCPCS: 99223; 99233